=== PATIENT | male | born 1935 | race African-American/Black ===

== ENCOUNTER → 2016-06-17 | Outpatient (CLI) | payer MEDICARE, BC ==
[2016-05-27 15:00] VITALS: BP 144/83
[~2016-06-17] MED LIST: ACET500T33 PO; ALLO300T PO; CLON0.2T PO; CYAN10005 PO; DEXT1DRO7 OP; LOSA1TAB18 PO; METF500T4 PO; METO50TA2 PO; NAPR220C4 PO; SIMV20TA3 PO; allopurinol; b12
--- NOTE | 2016-06-17 08:56 | RAD ---
CT head without contrast History: Intracranial hemorrhage, fall a few weeks ago. Comparison: CT head 05/25/2016. Procedure: Axial images are obtained of the head from the skull base through the vertex without IV contrast. One or more of the following individualized dose reduction techniques were utilized for the study: Automated exposure control Adjustment of mA and/or kV according to patient's size Use of iterative reconstruction technique. Findings: There is interval resolution of the hyperdense hemorrhage component involving the right occipitoparietal junction. The hemorrhage territory now is low in attenuation with maximum dimension of the low-attenuation being 2.7 cm (previously approximately 3.5 cm). The residual low-attenuation may represent early encephalomalacia/gliosis versus residual white matter edema. No new intracranial hemorrhage is identified. No obvious acute ischemic infarction is seen. No intracranial mass is appreciated. There is no shift of midline structures or significant mass effect. Patchy, nonspecific white matter low attenuation is seen, probably from chronic microvascular ischemic disease. Bone windows demonstrate no significant calvarial abnormality. The visualized paranasal sinuses appear clear. Impression: 1. Expected evolution of hemorrhage involving the right occipital parietal junction. No new hemorrhage or acute intracranial process is identified. 2. Patchy, nonspecific white matter changes, probably from chronic microvascular ischemic disease.
== END | disposition home or self-care (01) ==
LOC: CT 08:10
PROVIDERS: ATTEND Neurological Surgery
DX: I61.9 Nontraumatic intracerebral hemorrhage, unspecified (principal)
CPT/HCPCS: 70450

== ENCOUNTER → 2016-08-08 | Outpatient (CLI) | payer MEDICARE, BC ==
[2016-05-27 15:00] VITALS: BP 144/83
--- NOTE | 2016-08-08 10:20 | RAD ---
CT of the head without contrast, 08/08/2016: History: Follow-up hemorrhage Comparison is made to a study from 06/17/2016. There is moderate cerebral atrophy. There are moderate unchanged patchy lucencies in the deep white matter bilaterally compatible with chronic ischemic change. A small area of decreased density is present in the right occipital lobe along the lateral aspect of the atrium of the right lateral ventricle. This is unchanged and apparently represents a small area of encephalomalacia related to an old intraparenchymal hemorrhage. There is no shift of the midline structures. There is no evidence of acute intracranial hemorrhage or mass effect. Mild mucosal thickening is present in the maxillary and ethmoid sinuses. No free fluid is evident in the sinuses. IMPRESSION: Chronic findings as described above, unchanged since 06/17/2016. PQRS Compliance Statement: One or more of the following individualized dose reduction techniques were utilized for this examination: 1. Automated exposure control 2. Adjustment of the mA and/or kV according to patient size 3. Use of iterative reconstruction technique
== END | disposition home or self-care (01) ==
LOC: CT 07:56
PROVIDERS: ATTEND Neurological Surgery
DX: I62.00 Nontraumatic subdural hemorrhage, unspecified (principal)
CPT/HCPCS: 70450

== ENCOUNTER 2016-08-13 11:51 | Inpatient (IN) | payer MEDICARE, BC ==
[2016-08-13] VITALS (13 sets, daily range): BP systolic 65–156; BP diastolic 42–80
[~2016-08-13] VITALS: Ht 170.2 cm; Wt 67.8 kg
[2016-08-13 12:22] LABS: BASO % 0 % (0-3); EOS % 0 % (0-3); HEMATOCRIT 49.8 % (39.0-53.0); HEMOGLOBIN 16.6 g/dL (13.0-17.5); LYMPH % 7 % (24-48); MEAN CORPUSCULAR HEMOGLOBIN 32 pg (25-35); MEAN CORPUSCULAR HGB CONC 33 g/dL (31-37); MEAN CORPUSCULAR VOLUME 96 fL (79-100); MONO % 10 % (0-9); NEUT % 83 % (31-73); PLATELET COUNT 239 x10^3/uL (140-400); RED BLOOD COUNT 5.18 x10^6/uL (4.30-5.70); RED CELL DISTRIBUTION WIDTH 14.6 % (11.5-14.5); WHITE BLOOD COUNT 13.4 x10^3/uL (4.0-11.0)
[2016-08-13] MEDS ORDERED: ADENOSINE 6 MG/2 ML VIAL IV ONE ×4 (12:22→12:45)
[2016-08-13 12:28] LABS: CALCIUM 9.5 mg/dL (8.5-10.1); CREATININE 1.5 mg/dL (0.7-1.3); GFR 54.6; POTASSIUM 3.7 mmol/L (3.5-5.1)
[2016-08-13] MEDS ORDERED: IV NORMAL SALINE 1000ML BAG 1,000 ML IV SCH (12:30)
[2016-08-13] MEDS ORDERED: NICARDIPINE HCL 25 MG/10 ML VIAL. IV ONE (12:36)
[2016-08-13 12:44] LABS: ALBUMIN 3.7 g/dL (3.4-5.0); DIRECT BILIRUBIN 0.4 mg/dL (0.0-0.2); MAGNESIUM 1.7 mg/dL (1.8-2.4); TOTAL BILIRUBIN 1.6 mg/dL (0.2-1.0); TOTAL PROTEIN 7.2 g/dL (6.4-8.2)
[2016-08-13] MEDS ORDERED: DILTIAZEM IV PUSH 25 MG/5 ML VIAL. IVP ONE (12:45)
[2016-08-13] MEDS ORDERED: DILTIAZEM 125 MG in IV DEXTROSE 5% 100 ML IV PRN (12:45)
[2016-08-13] MEDS ORDERED: HEPARIN for IV BOLUS 10,000 UNIT/10 ML VIAL. IV ONE (12:45)
[2016-08-13] MEDS ORDERED: ASPIRIN 81 MG TAB.CHEW PO ONE (12:45)
[2016-08-13] MEDS ORDERED: HEPARIN for IV BOLUS 10,000 UNIT/10 ML VIAL. IV PRN (12:45)
[2016-08-13] MEDS ORDERED: HEPARIN 25,000UTS/500ML PREMIX 500 ML IV PRN (12:45)
--- NOTE | 2016-08-13 13:03 | RAD ---
Three-view right elbow radiographs 08/13/2016 Clinical history: Right elbow pain post fall. AP, lateral and oblique digital radiographs of the right elbow were obtained. No fracture or dislocation of the right elbow is seen. There is no radiographic evidence of a joint effusion. Mild degenerative changes are seen involving the right elbow joint. Moderate enthesophyte formation is seen involving the olecranon. Impression: No acute fracture or dislocation of the right elbow is seen.
--- NOTE | 2016-08-13 13:07 | RAD ---
Three-view bilateral knee radiographs 08/13/2016 Clinical history: Fall with bilateral knee contusions. AP, oblique and crosstable lateral digital radiographs of both knees were obtained. The patient is status post left TKA. The prosthetic components are intact. No fracture or dislocation of either knee is seen. Moderate to severe degenerative changes are seen involving predominantly the medial and patellofemoral compartment of the right knee. Atherosclerotic calcification of the popliteal arteries and their branches is noted. Impression: No acute fracture or dislocation of either knee is seen.
--- NOTE | 2016-08-13 13:09 | RAD ---
AP portable chest radiograph 08/13/2016 Clinical History: Chest pain post fall. An AP portable erect digital radiograph of the chest was obtained. Comparison study is dated 05/26/2016. The cardiac silhouette is borderline enlarged. The thoracic aorta is mildly tortuous. Atherosclerotic calcification of the thoracic aorta is seen. Thoracic aorta is minimally tortuous. No acute pulmonary infiltrate is noted. No pleural effusion or pneumothorax is seen. Degenerative changes are seen involving the thoracic spine and both shoulders. Impression: No acute abnormality is seen.
[2016-08-13 13:10] LABS: INR 1.2 (0.8-1.1)
--- NOTE | 2016-08-13 13:22 | PHYS DOC ---
Past Medical History Past Medical History: Diabetes-Type II, High Cholesterol, Hypertension Past Surgical History: Other Additional Past Surgical Histo: R. knee replaced Alcohol Use: Occasionally Drug Use: None Adult General Chief Complaint Chief Complaint: RAPID HEART RATE HPI HPI Patient is a 81 year old female who presents after fall. Patient reports she tripped over a rug on Thursday night in his garage, and fell. He is unable to get up until Thursday morning, spending the night on the floor in the garage. He went to see Dr. Licea today. He was sent from Dr. Licea's office for evaluation for possibility of rhabdo, as well as a heart rate of 150 in the clinic. Patient denies any complaints at this time. He denies any pain anywhere, chest discomfort, shortness of breath, lightheadedness. No other acute complaints. He denies any history of rapid heart rate in the past. Review of Systems Review of Systems Constitutional: Denies fever or chills Eyes: Denies change in visual acuity or eye pain HENT: Denies nasal congestion or sore throat Respiratory: Denies cough or shortness of breath Cardiovascular: Denies chest pain GI: Denies abdominal pain, nausea, vomiting, bloody stools or diarrhea : Denies dysuria or hematuria Musculoskeletal: Denies back pain or joint pain Integument: Denies rash or skin lesions Neurologic: Denies headache, focal weakness or sensory changes Current Medications Current Medications Current Medications Medications (Trade) Dose Ordered Sig/Matt Start Time Stop Time Status Last Admin Dose Admin Adenosine (Adenocard) 6 mg STK-MED ONCE 08/13/16 12:25 08/13/16 12:26 DC Adenosine 12 mg 12 mg 1X ONCE 08/13/16 12:45 08/13/16 12:46 DC 08/13/16 12:34 12 MG Aspirin (Children'S Aspirin) 324 mg 1X ONCE 08/13/16 12:45 08/13/16 14:04 DC 08/13/16 13:29 324 MG Diltiazem HCl (Cardizem) 20 mg 1X ONCE 08/13/16 12:45 08/13/16 12:46 DC 08/13/16 12:44 20 MG Diltiazem HCl/ Dextrose (Cardizem) 125 ml @ 0 mls/hr CONT PRN 08/13/16 12:45 08/13/16 13:04 10 MLS/HR Heparin Sodium (Porcine) 1,700 unit PRN Q6HRS PRN 08/13/16 12:45 Heparin Sodium (Porcine) 4000 unit 4,000 unit 1X ONCE 08/13/16 12:45 08/13/16 12:54 DC 08/13/16 13:31 4,000 UNIT Heparin Sodium/ Dextrose 500 ml @ 0 mls/hr CONT PRN 08/13/16 12:45 08/13/16 13:37 0 MLS/HR Nicardipine HCl (Cardene) 25 mg STK-MED ONCE 08/13/16 12:36 08/13/16 12:37 DC Sodium Chloride (Iv Sodium Chloride 0.9% 1000ml Bag) 1,000 ml @ 1,000 mls/hr Q1H 08/13/16 12:30 08/13/16 13:29 DC 08/13/16 12:21 1,000 MLS/HR Allergies Allergies Allergies Coded Allergies Type Severity Reaction Last Updated Verified aspirin Allergy Intermediate 06/03/16 Yes Physical Exam Physical Exam Constitutional: Well developed, well nourished, no acute distress, non-toxic appearance HENT: Normocephalic, bilateral external ears normal; bruising to anterior forehead Eyes: PERRL, EOMI, conjunctiva normal, no discharge Neck: Normal range of motion, no stridor. No midline TTP, no stepoff Cardiovascular: Tachycardic, regular rhythm, no murmur Lungs & Thorax: Bilateral breath sounds clear to auscultation Abdomen: Bowel sounds normal, soft, non-distended, no TTP Skin: Warm, dry, no erythema, no rash Back: No midline tenderness, no stepoff or deformity Extremities: Bruising to b/l knees, R elbow; no point TTP; ROM and sensation to light touch preserved, distal pulses intact throughout Neurologic: Alert and oriented X 3, GCS 15, CN II-XII grossly intact, strength intact and symmetrical throughout, sensation to light touch intact throughout, no dystaxia noted Psychologic: Affect normal, judgement normal, mood normal Current Patient Data Vital Signs Vital Signs Date Time Temp Pulse Resp B/P Pulse Ox O2 Delivery O2 Flow Rate FiO2 08/13/16 13:45 96 16 119/68 97 08/13/16 12:16 98.2 Room Air 98.2 Lab Values Laboratory Tests Test 08/13/16 12:01 White Blood Count 13.4x10^3/uL (4.0-11.0) H Red Blood Count 5.18x10^6/uL (4.30-5.70) Hemoglobin 16.6g/dL (13.0-17.5) Hematocrit 49.8% (39.0-53.0) Mean Corpuscular Volume 96fL (79-100) Mean Corpuscular Hemoglobin 32pg (25-35) Mean Corpuscular Hemoglobin Concent 33g/dL (31-37) Red Cell Distribution Width 14.6% (11.5-14.5) H Platelet Count 239x10^3/uL (140-400) Neutrophils (%) (Auto) 83% (31-73) H Lymphocytes (%) (Auto) 7% (24-48) L Monocytes (%) (Auto) 10% (0-9) H Eosinophils (%) (Auto) 0% (0-3) Basophils (%) (Auto) 0% (0-3) Neutrophils # (Auto) 11.1x10^3uL (1.8-7.7) H Lymphocytes # (Auto) 1.0x10^3/uL (1.0-4.8) Monocytes # (Auto) 1.3x10^3/uL (0.0-1.1) H Eosinophils # (Auto) 0.0x10^3/uL (0.0-0.7) Basophils # (Auto) 0.0x10^3/uL (0.0-0.2) Prothrombin Time 14.0SEC (11.7-14.0) Prothrombin Time INR 1.2 (0.8-1.1) H PTT 30SEC (24-38) Sodium Level 137mmol/L (136-145) Potassium Level 3.7mmol/L (3.5-5.1) Chloride Level 95mmol/L (98-107) L Carbon Dioxide Level 29mmol/L (21-32) Anion Gap 13 (6-14) Blood Urea Nitrogen 22mg/dL (8-26) Creatinine 1.5mg/dL (0.7-1.3) H Estimated GFR (Cockcroft-Gault) 54.6 Glucose Level 306mg/dL (70-99) H Calcium Level 9.5mg/dL (8.5-10.1) Magnesium Level 1.7mg/dL (1.8-2.4) L Total Bilirubin 1.6mg/dL (0.2-1.0) H Direct Bilirubin 0.4mg/dL (0.0-0.2) H Aspartate Amino Transferase (AST) 275U/L (15-37) H Alanine Aminotransferase (ALT) 83U/L (16-63) H Alkaline Phosphatase 78U/L (46-116) Creatine Kinase 3057U/L (39-308) H Troponin I Quantitative 7.866ng/mL (0.000-0.055) Total Protein 7.2g/dL (6.4-8.2) Albumin 3.7g/dL (3.4-5.0) Thyroid Stimulating Hormone (TSH) 2.066uIU/mL (0.358-3.74) Laboratory Tests 08/13/16 12:01 Laboratory Tests 08/13/16 12:01 EKG EKG EKG (my read): narrow complex tachycardia, rate 150, normal axis, nonspecific ST changes Radiology/Procedures Radiology/Procedures CT head: IMPRESSION: 1. No acute intracranial findings. 2. Chronic right posterior temporal infarct. Moderate to severe chronic small vessel ischemic white matter change and moderate atrophy. CXR: Impression: No acute abnormality is seen. X-ray b/l knees: Impression: No acute fracture or dislocation of either knee is seen. X-ray R elbow: Impression: No acute fracture or dislocation of the right elbow is seen. Course & Med Decision Making Course & Med Decision Making Pertinent Labs and Imaging studies reviewed. (See chart for details) Patient is 81-year-old male who presents after fall and with rapid heart rate. Will check EKG, chest x-ray, labs to evaluate. CT head, x-ray right elbow, x- rays of bilateral knees ordered given bruising to these areas. Adenosine given ( 6mg then 12mg) which revealed atrial flutter. Cardizem bolus and drip ordered. Labs notable for troponin elevated to nearly 8 (?demand ischemia as patient asymptomatic), elevated CK. I discussed with the nurse for Dr. Pendleton; it CT head without acute abnormality from fall, will give aspirin and heparinize. Imaging results as above. Aspirin ordered; patient has allergy listed to this, however confirmed with family that the side effect to swelling in his feet, and I believe the risk of a serious allergic reaction is outweighed by the benefit of giving aspirin in light of the elevated troponin. Heparin also ordered, as well as fluids. Discussed results with patient and family. Discussed with Dr. Anaya, will admit under his care for further evaluation and treatment. Dragon Disclaimer Dragon Disclaimer This electronic medical record was generated, in whole or in part, using a voice recognition dictation system. Departure Departure Impression: Primary Impression: Fall Additional Impressions: Atrial flutter Elevated troponin I level Disposition: ADMITTED INPATIENT Admitting Physician: Juany Anaya Condition: GUARDED Referrals: MIYA LICEA Jr, MD (PCP) Problem Qualifiers REENA BUSCH MD Aug 13, 2016 13:22
--- NOTE | 2016-08-13 13:25 | RAD ---
EXAM: CT head without contrast. HISTORY: Fall. TECHNIQUE: Computed tomography of the head was performed without intravenous contrast. COMPARISON: 08/08/2016. FINDINGS: There is no intracranial hemorrhage. There is encephalomalacia in the right posterior temporal lobe consistent with a chronic infarct. There is moderate to severe chronic small vessel ischemic white matter change elsewhere. Prominence of the lateral ventricles and hemispheric sulci indicate moderate atrophy. The visualized paranasal sinuses appear clear. There are changes of bilateral cataract surgery. The temporal bones are unremarkable. The calvarium reveals no suspicious lesions. There is mild soft tissue swelling versus scarring along the left parietal scalp. IMPRESSION: 1. No acute intracranial findings. 2. Chronic right posterior temporal infarct. Moderate to severe chronic small vessel ischemic white matter change and moderate atrophy. *One or more of the following individualized dose reduction techniques were utilized for this examination: 1. Automated exposure control. 2. Adjustment of the mA and/or kV according to patient size. 3. Use of iterative reconstruction technique.
--- NOTE | 2016-08-13 13:30 | EKG ---
[facility] [address] [place] [address] Test Date: 2016-08-13 Test Time: 12:00:59 Pat Name: MAAME DODD Department: Room: Gender: M Skein Winder: : 1935 Requested By: REENA BUSCH Order Number: [id number] Reading MD: Measurements Intervals [place] Rate: 150 P: -118 SD: 92 QRS: 19 QRSD: 76 T: 56 QT: 292 QTc: 463 Interpretive Statements SUPRAVENTRICULAR TACHYCARDIA QRS(T) CONTOUR ABNORMALITY CONSISTENT WITH ANTEROSEPTAL INFARCT AGE UNDETERMINED RI6.01 Unconfirmed report No previous ECG available for comparison
[2016-08-13] MEDS ORDERED: DEXTROSE 50% 25 GM / 50ML DISP.SYRIN. IV PRN ×2 (14:00→15:30)
[2016-08-13] MEDS ORDERED: NITROGLYCERIN SUBLINGUAL 0.4 MG BOTTLE OF 25. SL PRN (14:00)
[2016-08-13] MEDS ORDERED: ACETAMINOPHEN 325 MG TABLET. PO PRN (14:00)
[2016-08-13] MEDS ORDERED: ONDANSETRON PF 4 MG/2 ML VIAL. IV PRN (14:00)
[2016-08-13] MEDS ORDERED: MORPHINE SULFATE 4 MG/ML DISP.SYRIN. IV PRN (14:00)
--- NOTE | 2016-08-13 15:11 | ACF ---
Admission Forms Criteria CARDIOLOGY GRG Clinical Indications for Admission to Inpatient Care ( Place 'X' for any and all applicable criteria): Hospital admission is needed for appropriate care of the patient because of ANY ONE of the following (1): [ ] I. Hemodynamic instability as indicated by ALL of the following (1)(2)(3) (4)(5) [ ]a) Vital signs or other findings not as expected for chronic patient condition or baseline [ ]b) Instability indicated by ANY ONE of the following: [ ]i) Hypotension [ ]ii) Symptomatic Tachycardia unresponsive to treatment ( e.g., analgesia, fluids, sedation as indicated) [ ]iii) Inadequate perfusion indicated by ANY ONE of the following: [ ] 1) Lactic acidosis (> 2 mmol/L) [ ] 2) New abnormal capillary refill (> 3 seconds) [ ] 3) Reduced urine output [ ] 4) New altered mental status [ ]iv) Orthostatic vital sign changes unresponsive to treatment (e.g., fluids) [ ]v) IV inotropic or vasopressor medication required to maintain adequate blood pressure or perfusion [ ] II. Severe heart failure as indicated by ANY ONE of the following(17)(18) [ ]a) Respiratory distress [ ]b) Hypotension [ ]c) Anasarca (refractory to outpatient therapy) [ ]d) Cardiac arrhythmias of immediate concern [ ]e) Myocardial ischemia [ ] III. Cardiac arrhythmias or findings of immediate concern indicated by ANY ONE of the following (19)(20): [ ] a) Heart rhythms that are inherently dangerous or unstable indicated by ANY ONE of the following (21)(22)(23): [ ] i) Resuscitated ventricular fibrillation or cardiac arrest [ ] ii) Ventricular escape rhythm [ ] iii) Sustained ventricular tachycardia (30 seconds or more of ventricular rhythm at greater than 100 beats per minute) [ ] iv) Nonsustained ventricular tachycardia and ANY ONE of the following: [ ] 1) Suspected cardiac ischemia as cause or consequence of ventricular tachycardia [ ] 2) In setting of acute myocarditis [ ] b) Unstable cardiac conduction defects indicated by ANY ONE of the following(23)(24)(25) [ ] i) Type II second-degree atrioventricular block [ ]ii) Third-degree atrioventricular block [ ]iii) New-onset left bundle branch block with suspected myocardial ischemia [ ]c) Any heart rhythm and ANY ONE of the following (21)(22)(26)(27) (28) [ ] i) Continuous long-term ECG monitoring needed (e.g., initiation of drug requiring monitoring for more than 24 hours) [ ] ii) Patient has automatic implanted cardioverter defibrillator that is repeatedly firing, malfunctioning, or in need of immediate adjustment of settings beyond the scope of ambulatory or observation care [ ]d) Heart rhythms of concern due to ANY ONE of the following: [ ] i) Hypotension [ ] ii) Respiratory distress [ ] iii) Association with other significant symptoms (e.g., bradycardia with syncope or ongoing dizziness, supraventricular tachycardia with chest pain (14)(15)(17) [ ] IV. Monitoring for cardiac contusion beyond the scope of observation care needed [A](30)(31)(32) [ ] V. Surgical or device complication (e.g., valve replacement complication , pacemaker dysfunction) (35)(41)(44)(45)(46) [ ] . Inpatient palliative care needed. [B](49) Also use Inpatient Palliative Care Criteria [ ] VII. Nonbacterial thrombotic (marantic) endocarditis (36)(43)(47)(48) [X] VIII. Cardiology condition, symptom, or finding for which emergency and observation care has failed or are not considered appropriate. [ ] IX. Acute valvular disease requiring inpatient as indicated by ANY ONE of the following (41) [ ]a) Acute valvular regurgitation (42) [ ]b) Noninfectious valvulitis (43) [ ]c) Obstructive valve thrombosis [ ]d) Paravalvular leak [ ]e) Other significant valvular disorder remaining after emergency or observation level of care (as appropriate) [ ]X. Pericardial disease requiring inpatient treatment as indicated by ANY ONE of the following (33)(34)(35)(36)(37) [ ]a) Suspected tamponade (38)(39)(40) [ ]b) Hemopericardium [ ]c) Other significant pericardial disorder remaining after emergency or observation level of care (as appropriate) [ ] XI. Cardiac ischemia beyond scope of emergency and observation care. [ ] XII. Hypertension requiring inpatient treatment as indicated by ANY ONE of the following (6)(7)(8) [ ]a) SBP greater than 220 mm Hg or DBP greater than 120 mmHg despite treatment [ ]b) SBP greater than 140 mm Hg or DBP greater than 100 mm Hg with evidence of acute end organ damage as indicated by ANY ONE of the following [ ] i) Encephalopathy [ ] ii) Acute renal failure as indicated by new onset of ANY ONE of the following (9)(10)(11)(12)(13) [ ]1) 3-fold rise in serum creatinine from baseline [ ]2) Serum creatinine greater than 4 mg/dL ( 354 micromoles/L) with acute rise greater than 0.5 mg/dL (44.2 micromoles/L) [ ]3) Reduction of more than 75% in estimated glomerular filtration rate from baseline [ ]4) Estimated glomerular filtration rate less than 35 mL/min/1.73m2 (0.59 mL/sec/1.73m2) in child up to 18 years of age [ ]5) Cessation of urine output indicated by ALL of the following [ ]A. Adequate volume status [ ]B. Inadequate urine output as indicated by ANY ONE of the following [ ]a. Urine output less than 0.3 mL/kg/hr for 24 hours [ ]b. Anuria (urine output less than 0.1 mL/kg/hr) for 12 hours [ ] iii) Aortic dissection [ ] iv) Myocardial Ischemia [ ] v) Left ventricular heart failure [ ]vi) Retinal Hemorrhage [ ]vii) Other significant finding [ ]c) Hypertension in child requiring inpatient treatment as indicated by ALL of the following(14)(15)(16) [ ] i) Outpatient treatment not effective, not available, or not appropriate [ ]ii) SBP or DBP greater than 95th percentile for age [ ]iii) Evidence of acute end organ damage as indicated by ANY ONE of the following [ ]1) Altered mental status [ ]2) Acute renal failure as indicated by new onset of ANY ONE of the following(9)(10)(11)(12)(13) [ ]A. 3-fold rise in serum creatinine from baseline [ ]B. Serum creatinine greater than 4 mg/dL (354 micromoles/L) with acute rise greater than 0.5 mg/dL (44.2 micromoles/L) [ ]C. Reduction of more than 75% in estimated glomerular filtration rate from baseline [ ]D. Estimated glomerular filtration rate less than 35 mL/min/1.73m2 (0.59 mL/sec/1.73m2) in child up to 18 years of age [ ]E. Cessation of urine output indicated by ALL of the following [ ]a. Adequate volume status [ ]b. Inadequate urine output as indicated by ANY ONE of the following [ ]i) Urine output less than 0.3 mL/kg/hr for 24 hours [ ]ii) Anuria ( urine output less than 0.1 mL/kg/hr) for 12 hours [ ]3) Severe headache [ ]4) Visual disturbance [ ]5) Retinal hemorrhage [ ]6) Other significant finding [ ]XIII. Complications of transplanted heart indicated by ANY ONE of the following(61): [ ]a) Acute graft rejection requiring inpatient management (eg, intravenous immunosuppression)(62)(63) [ ]b) Acute graft heart failure indicated by ANY ONE of the following(64): [ ]i) Hemodynamic instability [ ]ii) Cardiac arrhythmias of immediate concern [ ]iii) Pulmonary edema that is very severe (eg, mechanical ventilation needed, imminent or likely, need for 100% oxygen to keep oxygen saturation above 90%) [ ]iv) Pulmonary edema that is persistent as indicated by ALL of the following: [ ]1) New need for oxygen therapy to keep oxygen saturation above 90% (or increased FiO2 need from baseline) [ ]2) Has not improved sufficiently with emergency department or observation care IV diuretics or other heart failure treatments[E] [ ]v) Altered mental status that is severe or persistent [ ]vi) Increased creatinine (new on laboratory test) with reduction of more than 50% in estimated glomerular filtration rate from baseline [ ]vii) Progressively (ongoing) rising creatinine (known from past laboratory test) with reduction of more than 25% in estimated glomerular filtration rate from baseline [ ]viii) Acute renal failure [ ]ix) Acute peripheral ischemia (eg, examination shows pulseless, cool, mottled, or cyanotic extremity) [ ]x) Pulmonary artery catheter monitoring needed [ ]xi) Other sign or symptom of heart failure requiring inpatient treatment (ie, too severe or not responsive to outpatient and observation care treatment) [ ]c) Infection requiring inpatient management (eg, Hemodynamic instability, need for intravenous antimicrobial treatment)(66)(67)(68)(69)(70) [ ]d) Cardiac allograft vasculopathy requiring inpatient management ( eg evidence of cardiac ischemia)(71) [ ]e) Other complication of transplanted heart (eg, stroke, severe pulmonary hypertension, severe valvular dysfunction) requiring inpatient management(72) The original [facility] content created by [facility] has been revised. The portions of the content which have been revised are identified through the use of italic text or in bold, and [facility] has neither reviewed nor approved the modified material. All other unmodified content is copyright [facility]. Please see references footnoted in the original [facility] edition 2016 Admission Criteria Met?: Yes MALI HARTMAN Aug 13, 2016 15:11
[2016-08-13] MEDS ORDERED: ACETAMINOPHEN 500 MG TABLET PO PRN (15:30)
[2016-08-13] MEDS ORDERED: MAGNESIUM SULFATE 2GM 50 ML IV ONE (15:30)
--- NOTE | 2016-08-13 15:31 | PDOC1 ---
History and Physical Date of Admission Date of Admission DATE: 08/13/16 TIME: 15:23 Identification/Chief Complaint Chief Complaint fall Source Source: Chart review, Patient History of Present Illness History of Present Illness fell yesterday in his garage down almost 24 hours, and has mult bruises to knees, and elbows, some abraasions he feels well now, was sent by PCP for HR 150, was in afib RVR had last fallen in may, he is not agreeable now to assisted living and wasnt at that time either, he is now able to stand, and reports that he feels pretty well,, needs assist Past Medical History Cardiovascular: HTN, Hyperlipidemia Endocrine: Diabetes Family History Family History: No Significant Social History Smoke: No ALCOHOL: none Current Problem List Problem List Problems Medical Problems: (1) Atrial flutter Status: Acute (2) Elevated troponin I level Status: Acute (3) Fall Status: Acute Problems: Current Medications Current Medications Current Medications Sodium Chloride (Iv Sodium Chloride 0.9% 1000ml Bag) 1,000 ml @ 1,000 mls/hr Q1H IV Last administered on 08/13/16 12:21; Start 08/13/16 at 12:30; Stop at 13:29; Status DC Adenosine (Adenocard) 6 mg STK-MED ONCE IV ; Start 08/13/16 at 12:22; Stop at 12:23; Status DC Adenosine (Adenocard) 6 mg 1X ONCE IV Last administered on 08/13/16 12:30; Start 08/13/16 at 12:30; Stop 08/13/16 at 12:31; Status DC Adenosine (Adenocard) 6 mg STK-MED ONCE IV ; Start 08/13/16 at 12:25; Stop at 12:26; Status DC Adenosine 12 mg 12 mg 1X ONCE IV Last administered on 08/13/16 12:34; Start at 12:45; Stop 08/13/16 at 12:46; Status DC Diltiazem HCl/ Dextrose (Cardizem) 125 ml @ 0 mls/hr CONT PRN IV SEE I/O RECORD Last administered on 08/13/16 13:04; Start 08/13/16 at 12:45 Diltiazem HCl (Cardizem) 20 mg 1X ONCE IVP Last administered on 08/13/16 12:44 ; Start 08/13/16 at 12:45; Stop 08/13/16 at 12:46; Status DC Nicardipine HCl (Cardene) 25 mg STK-MED ONCE IV ; Start 08/13/16 at 12:36; Stop 08/13/16 at 12:37; Status DC Aspirin (Children'S Aspirin) 324 mg 1X ONCE PO Last administered on 08/13/16 13:29; Start 08/13/16 at 12:45; Stop 08/13/16 at 14:04; Status DC Heparin Sodium (Porcine) 4000 unit 4,000 unit 1X ONCE IV Last administered on 08/13/16 13:31; Start 08/13/16 at 12:45; Stop 08/13/16 at 12:54; Status DC Heparin Sodium/ Dextrose 500 ml @ 0 mls/hr CONT PRN IV SEE I/O RECORD Last administered on 08/13/16 13:37; Start 08/13/16 at 12:45 Heparin Sodium (Porcine) 1,700 unit PRN Q6HRS PRN IV FOR UFH LEVEL LESS THAN 0.2; Start 08/13/16 at 12:45 Ondansetron HCl (Zofran) 4 mg PRN Q8HRS PRN IV NAUSEA/VOMITING; Start 08/13/16 at 14:00; Stop 08/14/16 at 13:59 Morphine Sulfate 4 mg 4 mg PRN Q2HR PRN IV PAIN; Start 08/13/16 at 14:00; Stop 08/14/16 at 13:59 Sodium Chloride (Iv Sodium Chloride 0.9% 1000ml Bag) 1,000 ml @ 125 mls/hr Q8H IV ; Start 08/13/16 at 13:46; Stop 08/14/16 at 13:45 Acetaminophen (Tylenol) 650 mg PRN Q4HRS PRN PO FEVER; Start 08/13/16 at 14:00; Stop 08/14/16 at 13:59 Nitroglycerin (Nitrostat) 0.4 mg PRN Q5MIN PRN SL CHEST PAIN; Start 08/13/16 at 14:00; Stop 08/14/16 at 13:59 Insulin Aspart (Novolog) 0-7 UNITS TIDWMEALS SQ ; Start 08/13/16 at 17:00 Dextrose 12.5 gm PRN Q15MIN PRN IV SEE COMMENTS; Start 08/13/16 at 14:00 Active Scripts Active Reported Artificial Tears (Dextran 70/Hypromellose) 1 Each Droperette 1 Each OP PRN Aleve (Naproxen Sodium) 220 Mg Capsule 220 Mg PO BID PRN Tylenol Extra Strength (Acetaminophen) 500 Mg Tablet 500 Mg PO PRN Vitamin B-12 (Cyanocobalamin (Vitamin B-12)) 1,000 Mcg Tablet 1 Tab PO DAILY Simvastatin 20 Mg Tablet 20 Mg PO HS Metformin Hcl 500 Mg Tablet 500 Mg PO BIDWMEALS Losartan-Hctz 100-12.5 Mg Tab (Losartan/Hydrochlorothiazide) 1 Each Tablet 1 Each PO DAILY Clonidine Hcl 0.2 Mg Tablet 0.2 Mg PO BID Allopurinol 300 Mg Tablet 300 Mg PO DAILY Metoprolol Tartrate 50 Mg Tablet 1 Tab PO BID [b12] Artificial Tears (Dextran 70/Hypromellose) 1 Each Droperette 1 Each OP PRN PRN Simvastatin 20 Mg Tablet 1 Tab PO QHS Metformin Hcl 500 Mg Tablet 1 Tab PO BID Clonidine Hcl 0.2 Mg Tablet 1 Tab PO BID [allopurinol] DAILY Allergies Allergies: Coded Allergies: aspirin (Verified Allergy, Intermediate, 06/03/16) ROS General: No: Appetite, Chills, Fatigue, Malaise, Night Sweats, Other PSYCHOLOGICAL ROS: No: Anxiety, Behavioral Disorder, Concentration difficultie , Decreased libido, Depression, Disorientation, Hallucinations, Hostility, Irritablity, Memory difficulties, Mood Swings, Obsessive thoughts, Other, Physical abuse, Sexual abuse, Sleep disturbances, Suicidal ideation Eyes: No Blurry vision, No Decreased vision, No Double vision, No Dry eyes, No Excessive tearing, No Eye Pain, No Itchy Eyes, No Loss of vision, No Other, No Photophobia, No Scotomata, No Uses contacts, No Uses glasses HEENT: No: Epistaxis, Heacaches, Hearing change, Nasal congestion, Nasal discharge, Oral lesions, Other, Sinus pain, Sneezing, Snoring, Sore Throat, Tinnitus, Vertigo, Visual Changes, Vocal changes Respiratory: No: Cough, Hemoptysis, Orthopnea, Other, Pleuritic Pain, SOB with excertion, Shortness of breath, Sputum Changes, Stridor, Tachypnea, Wheezing Cardiovascular: No Chest Pain, No Edema, No Lt Headedness, No Orthopnea, No Other, No Palpitations, No Paroxysmal Noc. Dyspnea Gastrointestinal: No Abdominal Pain, No Constipation, No Diarrhea, No Hematochezia, No Melena, No Nausea, No Other, No Vomiting Genitourinary: No , No , No , No , No , No , No , No Discharge, No Dysuria, No Flank Pain, No Frequency, No Hematuria, No Incontinence, No Other, No Pain, No Retention, No Urgency Musculoskeletal: Yes Gait Disturbance, Yes Joint Pain, Yes Joint Stiffness Neurological: No Behavorial Changes, No Bowel/Bladder ControlChng, No Confusion , No Dizziness, No Gait Disturbance, No Headaches, No Impaired Coord/balance, No Memory Loss, No Numbness/Tingling, No Other, No Seizures, No Speech Problems , No Tremors, No Visual Changes, No Weakness Skin: No Acne, No Dry Skin, No Eczema, No Hair Changes, No Lumps, No Mole Changes, No Mottling, No Nail Changes, No Other, No Pruritus, No Rash, No Skin Lesion Changes Physical Exam General: Alert, Oriented X3, Cooperative, No acute distress HEENT: Atraumatic, PERRLA, EOMI Lungs: Clear to auscultation Heart: irregularly irregular Abdomen: Normal bowel sounds, Soft Rectal Exam: not examined Extremities: No clubbing, No edema, Normal pulses Skin: Other (mult bruises and abrasions, photos taken) Neuro: Normal speech, Normal tone Psych/Mental Status: Mental status NL, Mood NL Vitals Vitals Vital Signs Date Time Temp Pulse Resp B/P Pulse Ox O2 Delivery O2 Flow Rate FiO2 08/13/16 14:50 98.4 107 20 137/78 99 Room Air 98.4 Labs Labs Laboratory Tests Test 08/13/16 12:01 White Blood Count 13.4x10^3/uL (4.0-11.0) Red Blood Count 5.18x10^6/uL (4.30-5.70) Hemoglobin 16.6g/dL (13.0-17.5) Hematocrit 49.8% (39.0-53.0) Mean Corpuscular Volume 96fL (79-100) Mean Corpuscular Hemoglobin 32pg (25-35) Mean Corpuscular Hemoglobin Concent 33g/dL (31-37) Red Cell Distribution Width 14.6% (11.5-14.5) Platelet Count 239x10^3/uL (140-400) Neutrophils (%) (Auto) 83% (31-73) Lymphocytes (%) (Auto) 7% (24-48) Monocytes (%) (Auto) 10% (0-9) Eosinophils (%) (Auto) 0% (0-3) Basophils (%) (Auto) 0% (0-3) Neutrophils # (Auto) 11.1x10^3uL (1.8-7.7) Lymphocytes # (Auto) 1.0x10^3/uL (1.0-4.8) Monocytes # (Auto) 1.3x10^3/uL (0.0-1.1) Eosinophils # (Auto) 0.0x10^3/uL (0.0-0.7) Basophils # (Auto) 0.0x10^3/uL (0.0-0.2) Prothrombin Time 14.0SEC (11.7-14.0) Prothromb Time International Ratio 1.2 (0.8-1.1) Activated Partial Thromboplast Time 30SEC (24-38) Sodium Level 137mmol/L (136-145) Potassium Level 3.7mmol/L (3.5-5.1) Chloride Level 95mmol/L (98-107) Carbon Dioxide Level 29mmol/L (21-32) Anion Gap 13 (6-14) Blood Urea Nitrogen 22mg/dL (8-26) Creatinine 1.5mg/dL (0.7-1.3) Estimated GFR (Cockcroft-Gault) 54.6 Glucose Level 306mg/dL (70-99) Calcium Level 9.5mg/dL (8.5-10.1) Magnesium Level 1.7mg/dL (1.8-2.4) Total Bilirubin 1.6mg/dL (0.2-1.0) Direct Bilirubin 0.4mg/dL (0.0-0.2) Aspartate Amino Transf (AST/SGOT) 275U/L (15-37) Alanine Aminotransferase (ALT/SGPT) 83U/L (16-63) Alkaline Phosphatase 78U/L (46-116) Creatine Kinase 3057U/L (39-308) Troponin I Quantitative 7.866ng/mL (0.000-0.055) Total Protein 7.2g/dL (6.4-8.2) Albumin 3.7g/dL (3.4-5.0) Thyroid Stimulating Hormone (TSH) 2.066uIU/mL (0.358-3.74) Laboratory Tests Test 08/13/16 12:01 White Blood Count 13.4x10^3/uL (4.0-11.0) Red Blood Count 5.18x10^6/uL (4.30-5.70) Hemoglobin 16.6g/dL (13.0-17.5) Hematocrit 49.8% (39.0-53.0) Mean Corpuscular Volume 96fL (79-100) Mean Corpuscular Hemoglobin 32pg (25-35) Mean Corpuscular Hemoglobin Concent 33g/dL (31-37) Red Cell Distribution Width 14.6% (11.5-14.5) Platelet Count 239x10^3/uL (140-400) Neutrophils (%) (Auto) 83% (31-73) Lymphocytes (%) (Auto) 7% (24-48) Monocytes (%) (Auto) 10% (0-9) Eosinophils (%) (Auto) 0% (0-3) Basophils (%) (Auto) 0% (0-3) Neutrophils # (Auto) 11.1x10^3uL (1.8-7.7) Lymphocytes # (Auto) 1.0x10^3/uL (1.0-4.8) Monocytes # (Auto) 1.3x10^3/uL (0.0-1.1) Eosinophils # (Auto) 0.0x10^3/uL (0.0-0.7) Basophils # (Auto) 0.0x10^3/uL (0.0-0.2) Prothrombin Time 14.0SEC (11.7-14.0) Prothromb Time International Ratio 1.2 (0.8-1.1) Activated Partial Thromboplast Time 30SEC (24-38) Sodium Level 137mmol/L (136-145) Potassium Level 3.7mmol/L (3.5-5.1) Chloride Level 95mmol/L (98-107) Carbon Dioxide Level 29mmol/L (21-32) Anion Gap 13 (6-14) Blood Urea Nitrogen 22mg/dL (8-26) Creatinine 1.5mg/dL (0.7-1.3) Estimated GFR (Cockcroft-Gault) 54.6 Glucose Level 306mg/dL (70-99) Calcium Level 9.5mg/dL (8.5-10.1) Magnesium Level 1.7mg/dL (1.8-2.4) Total Bilirubin 1.6mg/dL (0.2-1.0) Direct Bilirubin 0.4mg/dL (0.0-0.2) Aspartate Amino Transf (AST/SGOT) 275U/L (15-37) Alanine Aminotransferase (ALT/SGPT) 83U/L (16-63) Alkaline Phosphatase 78U/L (46-116) Creatine Kinase 3057U/L (39-308) Troponin I Quantitative 7.866ng/mL (0.000-0.055) Total Protein 7.2g/dL (6.4-8.2) Albumin 3.7g/dL (3.4-5.0) Thyroid Stimulating Hormone (TSH) 2.066uIU/mL (0.358-3.74) VTE Prophylaxis Ordered VTE Prophylaxis Devices: Yes VTE Pharmacological Prophylaxi: No Assessment/Plan Assessment/Plan fall acute rhabdomyolysis, IV fluid, renal consult weakenss and fall STEMI, trop elevation, CV consulted, heparin gtt, asa, admit, check lipids Afib RVR, cardizem gtt, w/ acute on chronic diastolic CHF htn, longstanding, cont home meds, DM2, CKD3, consult renal for proph for cardiac cath may be needed, hold metformin admit to cardiac tele STEVIE DECKER MD Aug 13, 2016 15:31
[2016-08-13] MEDS ORDERED: NAPROXEN 250 MG TABLET PO PRN (15:45)
[2016-08-13] MEDS ORDERED: ANTI-COAG MONITOR BY PHARMACY. MC PRN (16:00)
[2016-08-13] MEDS ORDERED: HYDROCHLOROTHIAZIDE 12.5 MG CAPSULE. PO SCH (16:00)
[2016-08-13] MEDS ORDERED: POLYVINYL ALCOHOL 1.4% OPHTH SOLUTION 15ML BOTTLE. OU PRN (16:00)
[2016-08-13] MEDS: IV NORMAL SALINE 1000ML BAG 1,000 ML IV SCH (16:25)
[2016-08-13] MEDS: INSULIN ASPART 300 UNITS/3 ML INSULN.PEN SQ SCH (17:00)
[2016-08-13] MEDS ORDERED: INSULIN ASPART 300 UNITS/3 ML INSULN.PEN SQ SCH (17:00)
[2016-08-13] MEDS ORDERED: METFORMIN 500 MG TABLET. PO SCH ×2 (17:00→21:00)
[2016-08-13] MEDS: ALLOPURINOL 300 MG TABLET. PO SCH (17:44)
[2016-08-13] MEDS: LOSARTAN POTASSIUM 50 MG TABLET. PO SCH (17:45)
--- NOTE | 2016-08-13 18:53 | PDOC2 ---
CONSULT Date of Consult Date of Consult DATE: 08/13/16 TIME: 18:26 Reason for Consult Reason for Consult: Mary romano Referring Physician Referring Physician: Dr. Anaya Identification/Chief Complaint Chief Complaint Mary romano after a fall History of Present Illness Reason for Visit: This patient is a 81-year-old gentleman that has a known history of hypertension. He has been a little depressed since his last year. He has been losing weight and getting a little cachectic. The patient was at home when he had a fall and was on the floor in the garage concrete floor for probably close to 24 hours. He was brought to the emergency room where he was found to have multiple areas of ecchymosis and excoriations including the face the chest legs and both knees. The patient was in atrial fibrillation. He has a known history of fall hypertension but the last time that I saw him in the office he was in sinus rhythm. The patient denies having any chest pains, he denies having any loss of consciousness. Past Medical History Cardiovascular: HTN, Hyperlipidemia Endocrine: Diabetes Family History Family History: No Significant Social History No ALCOHOL: none Current Problem List Problem List Problems Medical Problems: (1) Atrial flutter Status: Acute (2) Elevated troponin I level Status: Acute (3) Fall Status: Acute Current Medications Current Medications Current Medications Sodium Chloride (Iv Sodium Chloride 0.9% 1000ml Bag) 1,000 ml @ 1,000 mls/hr Q1H IV Last administered on 08/13/16 12:21; Start 08/13/16 at 12:30; Stop at 13:29; Status DC Adenosine (Adenocard) 6 mg STK-MED ONCE IV ; Start 08/13/16 at 12:22; Stop at 12:23; Status DC Adenosine (Adenocard) 6 mg 1X ONCE IV Last administered on 08/13/16 12:30; Start 08/13/16 at 12:30; Stop 08/13/16 at 12:31; Status DC Adenosine (Adenocard) 6 mg STK-MED ONCE IV ; Start 08/13/16 at 12:25; Stop at 12:26; Status DC Adenosine 12 mg 12 mg 1X ONCE IV Last administered on 08/13/16 12:34; Start at 12:45; Stop 08/13/16 at 12:46; Status DC Diltiazem HCl/ Dextrose (Cardizem) 125 ml @ 0 mls/hr CONT PRN IV SEE I/O RECORD Last administered on 08/13/16 13:04; Start 08/13/16 at 12:45 Diltiazem HCl (Cardizem) 20 mg 1X ONCE IVP Last administered on 08/13/16 12:44 ; Start 08/13/16 at 12:45; Stop 08/13/16 at 12:46; Status DC Nicardipine HCl (Cardene) 25 mg STK-MED ONCE IV ; Start 08/13/16 at 12:36; Stop 08/13/16 at 12:37; Status DC Aspirin (Children'S Aspirin) 324 mg 1X ONCE PO Last administered on 08/13/16 13:29; Start 08/13/16 at 12:45; Stop 08/13/16 at 14:04; Status DC Heparin Sodium (Porcine) 4000 unit 4,000 unit 1X ONCE IV Last administered on 08/13/16 13:31; Start 08/13/16 at 12:45; Stop 08/13/16 at 12:54; Status DC Heparin Sodium/ Dextrose 500 ml @ 0 mls/hr CONT PRN IV SEE I/O RECORD Last administered on 08/13/16 13:37; Start 08/13/16 at 12:45; Stop 08/13/16 at 18:09; Status DC Heparin Sodium (Porcine) 1,700 unit PRN Q6HRS PRN IV FOR UFH LEVEL LESS THAN 0.2; Start 08/13/16 at 12:45; Stop 08/13/16 at 18:09; Status DC Ondansetron HCl (Zofran) 4 mg PRN Q8HRS PRN IV NAUSEA/VOMITING; Start 08/13/16 at 14:00; Stop 08/14/16 at 13:59 Morphine Sulfate 4 mg 4 mg PRN Q2HR PRN IV PAIN; Start 08/13/16 at 14:00; Stop 08/14/16 at 13:59 Sodium Chloride (Iv Sodium Chloride 0.9% 1000ml Bag) 1,000 ml @ 125 mls/hr Q8H IV Last administered on 08/13/16 16:25; Start 08/13/16 at 13:46; Stop 08/14/16 at 13:45 Acetaminophen (Tylenol) 650 mg PRN Q4HRS PRN PO FEVER; Start 08/13/16 at 14:00; Stop 08/14/16 at 13:59 Nitroglycerin (Nitrostat) 0.4 mg PRN Q5MIN PRN SL CHEST PAIN; Start 08/13/16 at 14:00; Stop 08/14/16 at 13:59 Insulin Aspart (Novolog) 0-7 UNITS TIDWMEALS SQ ; Start 08/13/16 at 17:00; Status Cancel Dextrose 12.5 gm PRN Q15MIN PRN IV SEE COMMENTS; Start 08/13/16 at 14:00; Status Cancel Acetaminophen (Tylenol) 500 mg PRN Q8HRS PRN PO PAIN; Start 08/13/16 at 15:30 Allopurinol (Zyloprim) 300 mg DAILY PO Last administered on 08/13/16t 17:44; Start 08/13/16 at 16:00 Clonidine HCl (Catapres) 0.2 mg BID PO ; Start 08/13/16 at 21:00; Status Cancel Clonidine HCl (Catapres) 0.2 mg BID PO ; Start 08/13/16 at 21:00 Cyanocobalamin (Vitamin B-12) 1,000 mcg DAILY PO ; Start 08/14/16 at 09:00 Metformin HCl (Glucophage) 500 mg BID PO ; Start 08/13/16 at 21:00; Stop 08/13/16 at 21:00; Status DC Metformin HCl (Glucophage) 500 mg BIDWMEALS PO ; Start 08/13/16 at 17:00; Stop at 17:00; Status DC Metoprolol Tartrate (Lopressor) 50 mg BID PO ; Start 08/13/16 at 21:00 Simvastatin (Zocor) 20 mg QHS PO ; Start 08/13/16 at 21:00; Status UNV Atorvastatin Calcium (Lipitor) 10 mg QHS PO ; Start 08/13/16 at 21:00 Artificial Tears (Artificial Tears) 1 drop PRN Q15MIN PRN OU DRY EYE; Start 08/13/16 at 16:00 Non-Formulary Medication 1 each DAILY PO ; Start 08/14/16 at 09:00; Status UNV Naproxen (Naprosyn) 250 mg PRN BID PRN PO INFLAMM; Start 08/13/16 at 15:45 Insulin Aspart (Novolog) 0-7 UNITS TIDWMEALS SQ ; Start 08/13/16 at 17:00 Dextrose 12.5 gm PRN Q15MIN PRN IV SEE COMMENTS; Start 08/13/16 at 15:30 Insulin Detemir 10 units 10 units QHS SQ ; Start 08/13/16 at 21:00 Magnesium Sulfate/ Dextrose (Magnesium Sulfate PREMIX 2GM) 50 ml @ 25 mls/hr 1X ONCE IV Last administered on 08/13/16 16:25; Start 08/13/16 at 15:30; Stop 08/13/16 at 17:29; Status DC Losartan Potassium (Cozaar) 100 mg DAILY PO Last administered on 08/13/16 17:45 ; Start 08/13/16 at 16:00 Hydrochlorothiazide (Microzide) 12.5 mg DAILY PO Last administered on 08/13/16 17:44; Start 08/13/16 at 16:00 Info (Anti-Coagulation Monitoring By Pharmacy) 1 each PRN DAILY PRN MC SEE COMMENTS; Start 08/13/16 at 16:00 Influenza Virus Vaccine Quadrival (Fluarix Quad [id number] Syringe) 0.5 ml ONCE ONCE VAX IM ; Start 08/14/16 at 18:30; Stop 08/14/16 at 18:31 Pneumococcal Polyvalent Vaccine (Pneumovax 23) 0.5 ml ONCE ONCE VAX IM ; Start 08/14/16 at 18:30; Stop 08/14/16 at 18:31 Active Scripts Active Reported Metoprolol Tartrate 50 Mg Tablet 1 Tab PO BID [b12] Artificial Tears (Dextran 70/Hypromellose) 1 Each Droperette 1 Each OP PRN PRN Simvastatin 20 Mg Tablet 1 Tab PO QHS Metformin Hcl 500 Mg Tablet 1 Tab PO BID Clonidine Hcl 0.2 Mg Tablet 1 Tab PO BID [allopurinol] DAILY Artificial Tears (Dextran 70/Hypromellose) 1 Each Droperette 1 Each OP PRN Aleve (Naproxen Sodium) 220 Mg Capsule 220 Mg PO BID PRN Tylenol Extra Strength (Acetaminophen) 500 Mg Tablet 500 Mg PO PRN Vitamin B-12 (Cyanocobalamin (Vitamin B-12)) 1,000 Mcg Tablet 1 Tab PO DAILY Simvastatin 20 Mg Tablet 20 Mg PO HS Metformin Hcl 500 Mg Tablet 500 Mg PO BIDWMEALS Losartan-Hctz 100-12.5 Mg Tab (Losartan/Hydrochlorothiazide) 1 Each Tablet 1 Each PO DAILY Clonidine Hcl 0.2 Mg Tablet 0.2 Mg PO BID Allopurinol 300 Mg Tablet 300 Mg PO DAILY Allergies Allergies: Coded Allergies: aspirin (Verified Allergy, Intermediate, 06/03/16) Physical Exam Physical Exam The patient was not in acute distress at the time that I saw him. H EENT pupils are reactive. Multiple excoriations and ecchymosis to the face. Neck is supple no JVD. Lungs are clear. Heart regular rate and rhythm S1-S2 heart sounds are muffled and distant. Abdomen is soft bowel sounds are present. Extremities there are excoriations and ecchymosis to both knees. Neurological exam was grossly intact. Vitals VITALS Vital Signs Date Time Temp Pulse Resp B/P Pulse Ox O2 Delivery O2 Flow Rate FiO2 08/13/16 17:45 91 133/75 08/13/16 17:14 Room Air 08/13/16 14:50 98.4 20 99 98.4 Labs Labs Laboratory Tests Test 08/13/16 12:01 08/13/16 17:16 White Blood Count 13.4x10^3/uL (4.0-11.0) Red Blood Count 5.18x10^6/uL (4.30-5.70) Hemoglobin 16.6g/dL (13.0-17.5) Hematocrit 49.8% (39.0-53.0) Mean Corpuscular Volume 96fL (79-100) Mean Corpuscular Hemoglobin 32pg (25-35) Mean Corpuscular Hemoglobin Concent 33g/dL (31-37) Red Cell Distribution Width 14.6% (11.5-14.5) Platelet Count 239x10^3/uL (140-400) Neutrophils (%) (Auto) 83% (31-73) Lymphocytes (%) (Auto) 7% (24-48) Monocytes (%) (Auto) 10% (0-9) Eosinophils (%) (Auto) 0% (0-3) Basophils (%) (Auto) 0% (0-3) Neutrophils # (Auto) 11.1x10^3uL (1.8-7.7) Lymphocytes # (Auto) 1.0x10^3/uL (1.0-4.8) Monocytes # (Auto) 1.3x10^3/uL (0.0-1.1) Eosinophils # (Auto) 0.0x10^3/uL (0.0-0.7) Basophils # (Auto) 0.0x10^3/uL (0.0-0.2) Prothrombin Time 14.0SEC (11.7-14.0) Prothromb Time International Ratio 1.2 (0.8-1.1) Activated Partial Thromboplast Time 30SEC (24-38) Sodium Level 137mmol/L (136-145) Potassium Level 3.7mmol/L (3.5-5.1) Chloride Level 95mmol/L (98-107) Carbon Dioxide Level 29mmol/L (21-32) Anion Gap 13 (6-14) Blood Urea Nitrogen 22mg/dL (8-26) Creatinine 1.5mg/dL (0.7-1.3) Estimated GFR (Cockcroft-Gault) 54.6 Glucose Level 306mg/dL (70-99) Calcium Level 9.5mg/dL (8.5-10.1) Magnesium Level 1.7mg/dL (1.8-2.4) Total Bilirubin 1.6mg/dL (0.2-1.0) Direct Bilirubin 0.4mg/dL (0.0-0.2) Aspartate Amino Transf (AST/SGOT) 275U/L (15-37) Alanine Aminotransferase (ALT/SGPT) 83U/L (16-63) Alkaline Phosphatase 78U/L (46-116) Creatine Kinase 3057U/L (39-308) Troponin I Quantitative 7.866ng/mL (0.000-0.055) Total Protein 7.2g/dL (6.4-8.2) Albumin 3.7g/dL (3.4-5.0) Thyroid Stimulating Hormone (TSH) 2.066uIU/mL (0.358-3.74) Glucose (Fingerstick) 80mg/dL (70-99) Laboratory Tests Test 08/13/16 12:01 08/13/16 17:16 White Blood Count 13.4x10^3/uL (4.0-11.0) Red Blood Count 5.18x10^6/uL (4.30-5.70) Hemoglobin 16.6g/dL (13.0-17.5) Hematocrit 49.8% (39.0-53.0) Mean Corpuscular Volume 96fL (79-100) Mean Corpuscular Hemoglobin 32pg (25-35) Mean Corpuscular Hemoglobin Concent 33g/dL (31-37) Red Cell Distribution Width 14.6% (11.5-14.5) Platelet Count 239x10^3/uL (140-400) Neutrophils (%) (Auto) 83% (31-73) Lymphocytes (%) (Auto) 7% (24-48) Monocytes (%) (Auto) 10% (0-9) Eosinophils (%) (Auto) 0% (0-3) Basophils (%) (Auto) 0% (0-3) Neutrophils # (Auto) 11.1x10^3uL (1.8-7.7) Lymphocytes # (Auto) 1.0x10^3/uL (1.0-4.8) Monocytes # (Auto) 1.3x10^3/uL (0.0-1.1) Eosinophils # (Auto) 0.0x10^3/uL (0.0-0.7) Basophils # (Auto) 0.0x10^3/uL (0.0-0.2) Prothrombin Time 14.0SEC (11.7-14.0) Prothromb Time International Ratio 1.2 (0.8-1.1) Activated Partial Thromboplast Time 30SEC (24-38) Sodium Level 137mmol/L (136-145) Potassium Level 3.7mmol/L (3.5-5.1) Chloride Level 95mmol/L (98-107) Carbon Dioxide Level 29mmol/L (21-32) Anion Gap 13 (6-14) Blood Urea Nitrogen 22mg/dL (8-26) Creatinine 1.5mg/dL (0.7-1.3) Estimated GFR (Cockcroft-Gault) 54.6 Glucose Level 306mg/dL (70-99) Calcium Level 9.5mg/dL (8.5-10.1) Magnesium Level 1.7mg/dL (1.8-2.4) Total Bilirubin 1.6mg/dL (0.2-1.0) Direct Bilirubin 0.4mg/dL (0.0-0.2) Aspartate Amino Transf (AST/SGOT) 275U/L (15-37) Alanine Aminotransferase (ALT/SGPT) 83U/L (16-63) Alkaline Phosphatase 78U/L (46-116) Creatine Kinase 3057U/L (39-308) Troponin I Quantitative 7.866ng/mL (0.000-0.055) Total Protein 7.2g/dL (6.4-8.2) Albumin 3.7g/dL (3.4-5.0) Thyroid Stimulating Hormone (TSH) 2.066uIU/mL (0.358-3.74) Glucose (Fingerstick) 80mg/dL (70-99) Assessment/Plan Assessment/Plan This patient comes in after a fall with a prolonged down time and in atrial fibrillation. He was started on IV Cardizem and with this he converted to sinus rhythm. At the time that I examined him he was in sinus rhythm. He is weak, dehydrated, has multiple blunt trauma secondary to the fall and probably has a chest contusion with a myocardial contusion. I would change him to by mouth Cardizem, DC the heparin because I'm concerned with the possible bleed and I would like to get an echocardiogram to evaluate for a possible pericardial effusion, myocardial contusion. He needs IV fluids to try to avoid any renal problems. The patient's elevation of the troponin is probably secondary to the fall with the possible myocardial contusion. Thank you very much for asking me to participate in the care of this patient. CARMEN QUIROGA MD Aug 13, 2016 18:53
[2016-08-13] MEDS ORDERED: CLONIDINE HCL 0.2 MG TABLET PO SCH (21:00)
[2016-08-13] MEDS ORDERED: SIMVASTATIN 20 MG TABLET PO SCH (21:00)
[2016-08-13] MEDS: ATORVASTATIN CALCIUM 10 MG TABLET. PO SCH (21:33)
[2016-08-13] MEDS: CLONIDINE HCL 0.2 MG TABLET PO SCH (21:33)
[2016-08-13] MEDS: METOPROLOL TART IMMED RELEASE 50 MG TABLET PO SCH (21:34)
[2016-08-13] MEDS: INSULIN DETEMIR 300 UNITS/3 ML INSULN.PEN. SQ SCH (21:35)
[2016-08-14] VITALS (14 sets, daily range): BP systolic 73–147; BP diastolic 49–74
[2016-08-14] MEDS: IV NORMAL SALINE 1000ML BAG 1,000 ML IV SCH (00:30)
[2016-08-14 05:25] LABS: BASO % 0 % (0-3); EOS % 1 % (0-3); HEMATOCRIT 38.2 % (39.0-53.0); LYMPH # 1.4 x10^3/uL (1.0-4.8); LYMPH % 17 % (24-48); MEAN CORPUSCULAR HEMOGLOBIN 32 pg (25-35); MEAN CORPUSCULAR HGB CONC 34 g/dL (31-37); MEAN CORPUSCULAR VOLUME 95 fL (79-100); MONO % 12 % (0-9); NEUT % 71 % (31-73); PLATELET COUNT 191 x10^3/uL (140-400); RED BLOOD COUNT 4.02 x10^6/uL (4.30-5.70); RED CELL DISTRIBUTION WIDTH 14.4 % (11.5-14.5)
[2016-08-14 05:33] LABS: INR 1.2 (0.8-1.1)
[2016-08-14 05:49] LABS: ALBUMIN 2.5 g/dL (3.4-5.0); ALBUMIN/GLOBULIN RATIO 0.9 (1.0-1.7); CALCIUM 8.2 mg/dL (8.5-10.1); CREATININE 0.9 mg/dL (0.7-1.3); GFR 81.4; TOTAL BILIRUBIN 1.4 mg/dL (0.2-1.0); TOTAL PROTEIN 5.4 g/dL (6.4-8.2)
[2016-08-14 05:53] LABS: CHOLESTEROL/HDL RATIO 1.5
[2016-08-14] MEDS: INSULIN ASPART 300 UNITS/3 ML INSULN.PEN SQ SCH ×3 (08:00→17:00)
[2016-08-14] MEDS ORDERED: NON FORMULARY ITEM (Losartan/Hydrochlorothiazide (Losartan-Hctz 100-12.5 Mg Tab) 1 EACH) PO SCH (09:00)
[2016-08-14] MEDS: METOPROLOL TART IMMED RELEASE 50 MG TABLET PO SCH ×2 (09:00→20:30)
[2016-08-14] MEDS ORDERED: POTASSIUM CHLORIDE 20 MEQ TABLET.ER. PO ONE (09:15)
[2016-08-14] MEDS ORDERED: MAGNESIUM SULFATE 2GM 50 ML IV PRN (09:15)
--- NOTE | 2016-08-14 09:15 | PDOC2 ---
CONSULT Date of Consult Date of Consult DATE: 08/14/16 TIME: 09:06 Reason for Consult Reason for Consult: VIDA, ^ed CK Referring Physician Referring Physician: Dr Anaya Identification/Chief Complaint Chief Complaint fall Problems: Source Source: Chart review, Patient History of Present Illness Reason for Visit: as dicrtated Past Medical History Cardiovascular: HTN, Hyperlipidemia Endocrine: Diabetes Family History Family History: No Significant Social History No ALCOHOL: none Domestic Violence: Neg Current Problem List Problem List Problems Medical Problems: (1) Atrial flutter Status: Acute (2) Elevated troponin I level Status: Acute (3) Fall Status: Acute Current Medications Current Medications Current Medications Sodium Chloride (Iv Sodium Chloride 0.9% 1000ml Bag) 1,000 ml @ 1,000 mls/hr Q1H IV Last administered on 08/13/16 12:21; Start 08/13/16 at 12:30; Stop at 13:29; Status DC Adenosine (Adenocard) 6 mg STK-MED ONCE IV ; Start 08/13/16 at 12:22; Stop at 12:23; Status DC Adenosine (Adenocard) 6 mg 1X ONCE IV Last administered on 08/13/16 12:30; Start 08/13/16 at 12:30; Stop 08/13/16 at 12:31; Status DC Adenosine (Adenocard) 6 mg STK-MED ONCE IV ; Start 08/13/16 at 12:25; Stop at 12:26; Status DC Adenosine 12 mg 12 mg 1X ONCE IV Last administered on 08/13/16 12:34; Start at 12:45; Stop 08/13/16 at 12:46; Status DC Diltiazem HCl/ Dextrose (Cardizem) 125 ml @ 0 mls/hr CONT PRN IV SEE I/O RECORD Last administered on 08/13/16 13:04; Start 08/13/16 at 12:45 Diltiazem HCl (Cardizem) 20 mg 1X ONCE IVP Last administered on 08/13/16 12:44 ; Start 08/13/16 at 12:45; Stop 08/13/16 at 12:46; Status DC Nicardipine HCl (Cardene) 25 mg STK-MED ONCE IV ; Start 08/13/16 at 12:36; Stop 08/13/16 at 12:37; Status DC Aspirin (Children'S Aspirin) 324 mg 1X ONCE PO Last administered on 08/13/16 13:29; Start 08/13/16 at 12:45; Stop 08/13/16 at 14:04; Status DC Heparin Sodium (Porcine) 4000 unit 4,000 unit 1X ONCE IV Last administered on 08/13/16 13:31; Start 08/13/16 at 12:45; Stop 08/13/16 at 12:54; Status DC Heparin Sodium/ Dextrose 500 ml @ 0 mls/hr CONT PRN IV SEE I/O RECORD Last administered on 08/13/16 13:37; Start 08/13/16 at 12:45; Stop 08/13/16 at 18:09; Status DC Heparin Sodium (Porcine) 1,700 unit PRN Q6HRS PRN IV FOR UFH LEVEL LESS THAN 0.2; Start 08/13/16 at 12:45; Stop 08/13/16 at 18:09; Status DC Ondansetron HCl (Zofran) 4 mg PRN Q8HRS PRN IV NAUSEA/VOMITING; Start 08/13/16 at 14:00; Stop 08/14/16 at 13:59 Morphine Sulfate 4 mg 4 mg PRN Q2HR PRN IV PAIN; Start 08/13/16 at 14:00; Stop 08/14/16 at 13:59 Sodium Chloride (Iv Sodium Chloride 0.9% 1000ml Bag) 1,000 ml @ 125 mls/hr Q8H IV Last administered on 08/14/16 00:30; Start 08/13/16 at 13:46; Stop 08/14/16 at 13:45 Acetaminophen (Tylenol) 650 mg PRN Q4HRS PRN PO FEVER; Start 08/13/16 at 14:00; Stop 08/14/16 at 13:59 Nitroglycerin (Nitrostat) 0.4 mg PRN Q5MIN PRN SL CHEST PAIN; Start 08/13/16 at 14:00; Stop 08/14/16 at 13:59 Insulin Aspart (Novolog) 0-7 UNITS TIDWMEALS SQ ; Start 08/13/16 at 17:00; Status Cancel Dextrose 12.5 gm PRN Q15MIN PRN IV SEE COMMENTS; Start 08/13/16 at 14:00; Status Cancel Acetaminophen (Tylenol) 500 mg PRN Q8HRS PRN PO PAIN; Start 08/13/16 at 15:30 Allopurinol (Zyloprim) 300 mg DAILY PO Last administered on 08/13/16 17:44; Start 08/13/16 at 16:00 Clonidine HCl (Catapres) 0.2 mg BID PO ; Start 08/13/16 at 21:00; Status Cancel Clonidine HCl (Catapres) 0.2 mg BID PO Last administered on 08/13/16 21:33; Start 08/13/16 at 21:00 Cyanocobalamin (Vitamin B-12) 1,000 mcg DAILY PO ; Start 08/14/16 at 09:00 Metformin HCl (Glucophage) 500 mg BID PO ; Start 08/13/16 at 21:00; Stop 08/13/16 at 21:00; Status DC Metformin HCl (Glucophage) 500 mg BIDWMEALS PO ; Start 08/13/16 at 17:00; Stop at 17:00; Status DC Metoprolol Tartrate (Lopressor) 50 mg BID PO Last administered on 08/13/16 21: 34; Start 08/13/16 at 21:00 Simvastatin (Zocor) 20 mg QHS PO ; Start 08/13/16 at 21:00; Status UNV Atorvastatin Calcium (Lipitor) 10 mg QHS PO Last administered on 08/13/16 21:33 ; Start 08/13/16 at 21:00 Artificial Tears (Artificial Tears) 1 drop PRN Q15MIN PRN OU DRY EYE; Start 08/13/16 at 16:00 Non-Formulary Medication 1 each DAILY PO ; Start 08/14/16 at 09:00; Status UNV Naproxen (Naprosyn) 250 mg PRN BID PRN PO INFLAMM; Start 08/13/16 at 15:45 Insulin Aspart (Novolog) 0-7 UNITS TIDWMEALS SQ ; Start 08/13/16 at 17:00 Dextrose 12.5 gm PRN Q15MIN PRN IV SEE COMMENTS; Start 08/13/16 at 15:30 Insulin Detemir 10 units 10 units QHS SQ Last administered on 08/13/16 21:35; Start 08/13/16 at 21:00 Magnesium Sulfate/ Dextrose (Magnesium Sulfate PREMIX 2GM) 50 ml @ 25 mls/hr 1X ONCE IV Last administered on 08/13/16 16:25; Start 08/13/16 at 15:30; Stop 08/13/16 at 17:29; Status DC Losartan Potassium (Cozaar) 100 mg DAILY PO Last administered on 08/13/16 17:45 ; Start 08/13/16 at 16:00 Hydrochlorothiazide (Microzide) 12.5 mg DAILY PO Last administered on 08/13/16 17:44; Start 08/13/16 at 16:00 Info (Anti-Coagulation Monitoring By Pharmacy) 1 each PRN DAILY PRN MC SEE COMMENTS; Start 08/13/16 at 16:00 Influenza Virus Vaccine Quadrival (Fluarix Quad [id number] Syringe) 0.5 ml ONCE ONCE VAX IM ; Start 08/14/16 at 18:30; Stop 08/14/16 at 18:31 Pneumococcal Polyvalent Vaccine (Pneumovax 23) 0.5 ml ONCE ONCE VAX IM ; Start 08/14/16 at 18:30; Stop 08/14/16 at 18:31 Active Scripts Active Reported Metoprolol Tartrate 50 Mg Tablet 1 Tab PO BID [b12] Artificial Tears (Dextran 70/Hypromellose) 1 Each Droperette 1 Each OP PRN PRN Simvastatin 20 Mg Tablet 1 Tab PO QHS Metformin Hcl 500 Mg Tablet 1 Tab PO BID Clonidine Hcl 0.2 Mg Tablet 1 Tab PO BID [allopurinol] DAILY Artificial Tears (Dextran 70/Hypromellose) 1 Each Droperette 1 Each OP PRN Aleve (Naproxen Sodium) 220 Mg Capsule 220 Mg PO BID PRN Tylenol Extra Strength (Acetaminophen) 500 Mg Tablet 500 Mg PO PRN Vitamin B-12 (Cyanocobalamin (Vitamin B-12)) 1,000 Mcg Tablet 1 Tab PO DAILY Simvastatin 20 Mg Tablet 20 Mg PO HS Metformin Hcl 500 Mg Tablet 500 Mg PO BIDWMEALS Losartan-Hctz 100-12.5 Mg Tab (Losartan/Hydrochlorothiazide) 1 Each Tablet 1 Each PO DAILY Clonidine Hcl 0.2 Mg Tablet 0.2 Mg PO BID Allopurinol 300 Mg Tablet 300 Mg PO DAILY Allergies Allergies: Coded Allergies: aspirin (Verified Allergy, Intermediate, 06/03/16) ROS Review of System GEN: no Fevers no Chills EYES: no new Visual Complaints ENT: no EN Drainage no Hearing deficiets CVS: no Orthopnea no CP RESP: no SOB no GUZMAN GI: no Nausea no Vomiting : no Dysuria no Urgency HEME: no easy bruising no Palp Ly Nodes NEURO no Focal Weakness no Sz PSYCH: no Suicidal Ideation no Depression SKIN: n Rashes ENDO: on Polyuria or Polydipsia no Hot/Cold Intolerance MU SK: no Arthraigia no Myalgia pt appears to be denying all ROS Qs in the presence of his family - not sure as to the accuracy of same Physical Exam Physical Exam General Appearance: Awake Alert Oriented x 3 In no Distress Eyes: VIsion Unchanged Conjunctiva Normal EN: No EN Drainage Mucous Memb. dryish Neck: no JVD no JVP Supple no Thyromegaly CVS: S1 S2 ? Murmur No Gallop No Rub no Edema Resp: no Rales no Rhonchi no Acc. Muscle use GI: BAS +ve NO Bruit Non Tender Non Distended : no CVA tenderness; no Suprapubic Tenderness SKIN: no Rashes Breast Exam deferred; Abrasions noted Mu.Sk: Adequate ROM min Muscle Atrophy Heme: Unable to palpate Obvious LAD no palp Splenomegaly NEURO: Good Strength and Tone Cranial Nerves II - XII grossly intact; ? underlying early dementia Psych: not Depressed no Active hallucination Vital Signs Vital Signs Date Time Temp Pulse Resp B/P Pulse Ox O2 Delivery O2 Flow Rate FiO2 08/14/16 07:00 97.6 65 17 131/64 99 Room Air 97.6 Assessment & Plan VIDA - ? Vol dpeltion (HCTZ) - NSAIDs (which he denies) Better with IVF hence seems to be VMN. He does not want renal US right now. ^ed CK if due to Rhabdo may be contributing too. ^ed CK - ? due to AMI vs due to Fall and Rhabdo - will follow levels low K - add to IVF rechec Mag and correct ? Vol dpeltion - IVF as ordered HTN: defer to cardiology to optimize hypoAlbuminemia - check PreAlb Discussed Plan of Care and prognosis etc. at length with family. Labs Labs Laboratory Tests Test 08/13/16 12:01 08/13/16 17:16 08/13/16 19:30 08/13/16 20:46 White Blood Count 13.4x10^3/uL (4.0-11.0) Red Blood Count 5.18x10^6/uL (4.30-5.70) Hemoglobin 16.6g/dL (13.0-17.5) Hematocrit 49.8% (39.0-53.0) Mean Corpuscular Volume 96fL (79-100) Mean Corpuscular Hemoglobin 32pg (25-35) Mean Corpuscular Hemoglobin Concent 33g/dL (31-37) Red Cell Distribution Width 14.6% (11.5-14.5) Platelet Count 239x10^3/uL (140-400) Neutrophils (%) (Auto) 83% (31-73) Lymphocytes (%) (Auto) 7% (24-48) Monocytes (%) (Auto) 10% (0-9) Eosinophils (%) (Auto) 0% (0-3) Basophils (%) (Auto) 0% (0-3) Neutrophils # (Auto) 11.1x10^3uL (1.8-7.7) Lymphocytes # (Auto) 1.0x10^3/uL (1.0-4.8) Monocytes # (Auto) 1.3x10^3/uL (0.0-1.1) Eosinophils # (Auto) 0.0x10^3/uL (0.0-0.7) Basophils # (Auto) 0.0x10^3/uL (0.0-0.2) Prothrombin Time 14.0SEC (11.7-14.0) Prothromb Time International Ratio 1.2 (0.8-1.1) Activated Partial Thromboplast Time 30SEC (24-38) Sodium Level 137mmol/L (136-145) Potassium Level 3.7mmol/L (3.5-5.1) Chloride Level 95mmol/L (98-107) Carbon Dioxide Level 29mmol/L (21-32) Anion Gap 13 (6-14) Blood Urea Nitrogen 22mg/dL (8-26) Creatinine 1.5mg/dL (0.7-1.3) Estimated GFR (Cockcroft-Gault) 54.6 Glucose Level 306mg/dL (70-99) Hemoglobin A1c 5.1% (4.8-5.6) Calcium Level 9.5mg/dL (8.5-10.1) Magnesium Level 1.7mg/dL (1.8-2.4) Total Bilirubin 1.6mg/dL (0.2-1.0) Direct Bilirubin 0.4mg/dL (0.0-0.2) Aspartate Amino Transf (AST/SGOT) 275U/L (15-37) Alanine Aminotransferase (ALT/SGPT) 83U/L (16-63) Alkaline Phosphatase 78U/L (46-116) Creatine Kinase 3057U/L (39-308) Troponin I Quantitative 7.866ng/mL (0.000-0.055) 7.547ng/mL (0.000-0.055) Total Protein 7.2g/dL (6.4-8.2) Albumin 3.7g/dL (3.4-5.0) Thyroid Stimulating Hormone (TSH) 2.066uIU/mL (0.358-3.74) Glucose (Fingerstick) 80mg/dL (70-99) 144mg/dL (70-99) Test 08/14/16 01:15 08/14/16 04:40 08/14/16 08:12 Troponin I Quantitative 10.425ng/mL (0.000-0.055) White Blood Count 8.0x10^3/uL (4.0-11.0) Red Blood Count 4.02x10^6/uL (4.30-5.70) Hemoglobin 13.0g/dL (13.0-17.5) Hematocrit 38.2% (39.0-53.0) Mean Corpuscular Volume 95fL (79-100) Mean Corpuscular Hemoglobin 32pg (25-35) Mean Corpuscular Hemoglobin Concent 34g/dL (31-37) Red Cell Distribution Width 14.4% (11.5-14.5) Platelet Count 191x10^3/uL (140-400) Neutrophils (%) (Auto) 71% (31-73) Lymphocytes (%) (Auto) 17% (24-48) Monocytes (%) (Auto) 12% (0-9) Eosinophils (%) (Auto) 1% (0-3) Basophils (%) (Auto) 0% (0-3) Neutrophils # (Auto) 5.6x10^3uL (1.8-7.7) Lymphocytes # (Auto) 1.4x10^3/uL (1.0-4.8) Monocytes # (Auto) 0.9x10^3/uL (0.0-1.1) Eosinophils # (Auto) 0.0x10^3/uL (0.0-0.7) Basophils # (Auto) 0.0x10^3/uL (0.0-0.2) Prothrombin Time 14.0SEC (11.7-14.0) Prothromb Time International Ratio 1.2 (0.8-1.1) Sodium Level 142mmol/L (136-145) Potassium Level 3.0mmol/L (3.5-5.1) Chloride Level 106mmol/L (98-107) Carbon Dioxide Level 28mmol/L (21-32) Anion Gap 8 (6-14) Blood Urea Nitrogen 18mg/dL (8-26) Creatinine 0.9mg/dL (0.7-1.3) Estimated GFR (Cockcroft-Gault) 81.4 BUN/Creatinine Ratio 20 (6-20) Glucose Level 86mg/dL (70-99) Calcium Level 8.2mg/dL (8.5-10.1) Total Bilirubin 1.4mg/dL (0.2-1.0) Aspartate Amino Transf (AST/SGOT) 133U/L (15-37) Alanine Aminotransferase (ALT/SGPT) 54U/L (16-63) Alkaline Phosphatase 47U/L (46-116) Total Protein 5.4g/dL (6.4-8.2) Albumin 2.5g/dL (3.4-5.0) Albumin/Globulin Ratio 0.9 (1.0-1.7) Triglycerides Level 61mg/dL (0-150) Cholesterol Level 120mg/dL (0-200) LDL Cholesterol, Calculated 30mg/dL (0-100) VLDL Cholesterol, Calculated 12mg/dL (0-40) HDL Cholesterol 78mg/dL (40-60) Cholesterol/HDL Ratio 1.5 Glucose (Fingerstick) 74mg/dL (70-99) Laboratory Tests Test 08/13/16 12:01 08/13/16 17:16 08/13/16 19:30 08/13/16 20:46 White Blood Count 13.4x10^3/uL (4.0-11.0) Red Blood Count 5.18x10^6/uL (4.30-5.70) Hemoglobin 16.6g/dL (13.0-17.5) Hematocrit 49.8% (39.0-53.0) Mean Corpuscular Volume 96fL (79-100) Mean Corpuscular Hemoglobin 32pg (25-35) Mean Corpuscular Hemoglobin Concent 33g/dL (31-37) Red Cell Distribution Width 14.6% (11.5-14.5) Platelet Count 239x10^3/uL (140-400) Neutrophils (%) (Auto) 83% (31-73) Lymphocytes (%) (Auto) 7% (24-48) Monocytes (%) (Auto) 10% (0-9) Eosinophils (%) (Auto) 0% (0-3) Basophils (%) (Auto) 0% (0-3) Neutrophils # (Auto) 11.1x10^3uL (1.8-7.7) Lymphocytes # (Auto) 1.0x10^3/uL (1.0-4.8) Monocytes # (Auto) 1.3x10^3/uL (0.0-1.1) Eosinophils # (Auto) 0.0x10^3/uL (0.0-0.7) Basophils # (Auto) 0.0x10^3/uL (0.0-0.2) Prothrombin Time 14.0SEC (11.7-14.0) Prothromb Time International Ratio 1.2 (0.8-1.1) Activated Partial Thromboplast Time 30SEC (24-38) Sodium Level 137mmol/L (136-145) Potassium Level 3.7mmol/L (3.5-5.1) Chloride Level 95mmol/L (98-107) Carbon Dioxide Level 29mmol/L (21-32) Anion Gap 13 (6-14) Blood Urea Nitrogen 22mg/dL (8-26) Creatinine 1.5mg/dL (0.7-1.3) Estimated GFR (Cockcroft-Gault) 54.6 Glucose Level 306mg/dL (70-99) Hemoglobin A1c 5.1% (4.8-5.6) Calcium Level 9.5mg/dL (8.5-10.1) Magnesium Level 1.7mg/dL (1.8-2.4) Total Bilirubin 1.6mg/dL (0.2-1.0) Direct Bilirubin 0.4mg/dL (0.0-0.2) Aspartate Amino Transf (AST/SGOT) 275U/L (15-37) Alanine Aminotransferase (ALT/SGPT) 83U/L (16-63) Alkaline Phosphatase 78U/L (46-116) Creatine Kinase 3057U/L (39-308) Troponin I Quantitative 7.866ng/mL (0.000-0.055) 7.547ng/mL (0.000-0.055) Total Protein 7.2g/dL (6.4-8.2) Albumin 3.7g/dL (3.4-5.0) Thyroid Stimulating Hormone (TSH) 2.066uIU/mL (0.358-3.74) Glucose (Fingerstick) 80mg/dL (70-99) 144mg/dL (70-99) Test 08/14/16 01:15 08/14/16 04:40 08/14/16 08:12 Troponin I Quantitative 10.425ng/mL (0.000-0.055) White Blood Count 8.0x10^3/uL (4.0-11.0) Red Blood Count 4.02x10^6/uL (4.30-5.70) Hemoglobin 13.0g/dL (13.0-17.5) Hematocrit 38.2% (39.0-53.0) Mean Corpuscular Volume 95fL (79-100) Mean Corpuscular Hemoglobin 32pg (25-35) Mean Corpuscular Hemoglobin Concent 34g/dL (31-37) Red Cell Distribution Width 14.4% (11.5-14.5) Platelet Count 191x10^3/uL (140-400) Neutrophils (%) (Auto) 71% (31-73) Lymphocytes (%) (Auto) 17% (24-48) Monocytes (%) (Auto) 12% (0-9) Eosinophils (%) (Auto) 1% (0-3) Basophils (%) (Auto) 0% (0-3) Neutrophils # (Auto) 5.6x10^3uL (1.8-7.7) Lymphocytes # (Auto) 1.4x10^3/uL (1.0-4.8) Monocytes # (Auto) 0.9x10^3/uL (0.0-1.1) Eosinophils # (Auto) 0.0x10^3/uL (0.0-0.7) Basophils # (Auto) 0.0x10^3/uL (0.0-0.2) Prothrombin Time 14.0SEC (11.7-14.0) Prothromb Time International Ratio 1.2 (0.8-1.1) Sodium Level 142mmol/L (136-145) Potassium Level 3.0mmol/L (3.5-5.1) Chloride Level 106mmol/L (98-107) Carbon Dioxide Level 28mmol/L (21-32) Anion Gap 8 (6-14) Blood Urea Nitrogen 18mg/dL (8-26) Creatinine 0.9mg/dL (0.7-1.3) Estimated GFR (Cockcroft-Gault) 81.4 BUN/Creatinine Ratio 20 (6-20) Glucose Level 86mg/dL (70-99) Calcium Level 8.2mg/dL (8.5-10.1) Total Bilirubin 1.4mg/dL (0.2-1.0) Aspartate Amino Transf (AST/SGOT) 133U/L (15-37) Alanine Aminotransferase (ALT/SGPT) 54U/L (16-63) Alkaline Phosphatase 47U/L (46-116) Total Protein 5.4g/dL (6.4-8.2) Albumin 2.5g/dL (3.4-5.0) Albumin/Globulin Ratio 0.9 (1.0-1.7) Triglycerides Level 61mg/dL (0-150) Cholesterol Level 120mg/dL (0-200) LDL Cholesterol, Calculated 30mg/dL (0-100) VLDL Cholesterol, Calculated 12mg/dL (0-40) HDL Cholesterol 78mg/dL (40-60) Cholesterol/HDL Ratio 1.5 Glucose (Fingerstick) 74mg/dL (70-99) Images Images Head CT: IMPRESSION: 1. No acute intracranial findings. 2. Chronic right posterior temporal infarct. Moderate to severe chronic small vessel ischemic white matter change and moderate atrophy. CXR AP 05/26/2016. The cardiac silhouette is borderline enlarged. The thoracic aorta is mildly tortuous. Atherosclerotic calcification of the thoracic aorta is seen. Thoracic aorta is minimally tortuous. No acute pulmonary infiltrate is noted. No pleural effusion or pneumothorax is seen. Degenerative changes are seen involving the thoracic spine and both shoulders. Impression: No acute abnormality is seen. BIA PARRY MD Aug 14, 2016 09:15
[2016-08-14] MEDS ORDERED: NORMAL SALINE IV SCH (09:30)
[2016-08-14] MEDS ORDERED: POTASSIUM ACETATE IV SCH (09:30)
[2016-08-14] MEDS: LOSARTAN POTASSIUM 50 MG TABLET. PO SCH (10:20)
[2016-08-14] MEDS: CLONIDINE HCL 0.2 MG TABLET PO SCH ×2 (10:21→20:30)
[2016-08-14] MEDS: POTASSIUM CHLORIDE 10MEQ 100 ML IV SCH ×2 (10:26→11:58)
--- NOTE | 2016-08-14 13:36 | PDOC ---
PROGRESS NOTES Subjective Subjective Pt doing well. No acute distress overnight. Denies chest pain, palpitation or shortness of breath at this time. Objective Objective Vital Signs Date Time Temp Pulse Resp B/P Pulse Ox O2 Delivery O2 Flow Rate FiO2 08/14/16 10:22 97.5 65 18 147/74 99 Room Air 97.5 Intake and Output 08/14/16 07:00 Intake Total 1631 ml Balance 1631 ml Intake Oral 320 ml IV Total 1000 ml Blood Product 311 ml # Voids 2 # Bowel Movements 1 Physical Exam Physical Exam No changes in cardiac exam Assessment Assessment Problems Medical Problems: (1) Atrial flutter Status: Acute (2) Elevated troponin I level Status: Acute (3) Fall Status: Acute Plan Plan of Care Atrial fibrillation - converted to SR s/p IV Cardizem Myocardial contusion Discontinue cardizem IV Discont IVF Cont cardiac monitoring per floor protocol Thank you very much for asking me to participate in the care of this patient. Comment Review of Relevant I have reviewed the following items renzo (where applicable) has been applied. Labs Laboratory Tests Test 08/13/16 12:01 08/13/16 17:16 08/13/16 19:30 08/13/16 20:46 White Blood Count 13.4x10^3/uL (4.0-11.0) Red Blood Count 5.18x10^6/uL (4.30-5.70) Hemoglobin 16.6g/dL (13.0-17.5) Hematocrit 49.8% (39.0-53.0) Mean Corpuscular Volume 96fL (79-100) Mean Corpuscular Hemoglobin 32pg (25-35) Mean Corpuscular Hemoglobin Concent 33g/dL (31-37) Red Cell Distribution Width 14.6% (11.5-14.5) Platelet Count 239x10^3/uL (140-400) Neutrophils (%) (Auto) 83% (31-73) Lymphocytes (%) (Auto) 7% (24-48) Monocytes (%) (Auto) 10% (0-9) Eosinophils (%) (Auto) 0% (0-3) Basophils (%) (Auto) 0% (0-3) Neutrophils # (Auto) 11.1x10^3uL (1.8-7.7) Lymphocytes # (Auto) 1.0x10^3/uL (1.0-4.8) Monocytes # (Auto) 1.3x10^3/uL (0.0-1.1) Eosinophils # (Auto) 0.0x10^3/uL (0.0-0.7) Basophils # (Auto) 0.0x10^3/uL (0.0-0.2) Prothrombin Time 14.0SEC (11.7-14.0) Prothromb Time International Ratio 1.2 (0.8-1.1) Activated Partial Thromboplast Time 30SEC (24-38) Sodium Level 137mmol/L (136-145) Potassium Level 3.7mmol/L (3.5-5.1) Chloride Level 95mmol/L (98-107) Carbon Dioxide Level 29mmol/L (21-32) Anion Gap 13 (6-14) Blood Urea Nitrogen 22mg/dL (8-26) Creatinine 1.5mg/dL (0.7-1.3) Estimated GFR (Cockcroft-Gault) 54.6 Glucose Level 306mg/dL (70-99) Hemoglobin A1c 5.1% (4.8-5.6) Calcium Level 9.5mg/dL (8.5-10.1) Magnesium Level 1.7mg/dL (1.8-2.4) Total Bilirubin 1.6mg/dL (0.2-1.0) Direct Bilirubin 0.4mg/dL (0.0-0.2) Aspartate Amino Transf (AST/SGOT) 275U/L (15-37) Alanine Aminotransferase (ALT/SGPT) 83U/L (16-63) Alkaline Phosphatase 78U/L (46-116) Creatine Kinase 3057U/L (39-308) Troponin I Quantitative 7.866ng/mL (0.000-0.055) 7.547ng/mL (0.000-0.055) Total Protein 7.2g/dL (6.4-8.2) Albumin 3.7g/dL (3.4-5.0) Thyroid Stimulating Hormone (TSH) 2.066uIU/mL (0.358-3.74) Glucose (Fingerstick) 80mg/dL (70-99) 144mg/dL (70-99) Test 08/14/16 01:15 08/14/16 04:40 08/14/16 08:12 08/14/16 11:32 Troponin I Quantitative 10.425ng/mL (0.000-0.055) White Blood Count 8.0x10^3/uL (4.0-11.0) Red Blood Count 4.02x10^6/uL (4.30-5.70) Hemoglobin 13.0g/dL (13.0-17.5) Hematocrit 38.2% (39.0-53.0) Mean Corpuscular Volume 95fL (79-100) Mean Corpuscular Hemoglobin 32pg (25-35) Mean Corpuscular Hemoglobin Concent 34g/dL (31-37) Red Cell Distribution Width 14.4% (11.5-14.5) Platelet Count 191x10^3/uL (140-400) Neutrophils (%) (Auto) 71% (31-73) Lymphocytes (%) (Auto) 17% (24-48) Monocytes (%) (Auto) 12% (0-9) Eosinophils (%) (Auto) 1% (0-3) Basophils (%) (Auto) 0% (0-3) Neutrophils # (Auto) 5.6x10^3uL (1.8-7.7) Lymphocytes # (Auto) 1.4x10^3/uL (1.0-4.8) Monocytes # (Auto) 0.9x10^3/uL (0.0-1.1) Eosinophils # (Auto) 0.0x10^3/uL (0.0-0.7) Basophils # (Auto) 0.0x10^3/uL (0.0-0.2) Prothrombin Time 14.0SEC (11.7-14.0) Prothromb Time International Ratio 1.2 (0.8-1.1) Sodium Level 142mmol/L (136-145) Potassium Level 3.0mmol/L (3.5-5.1) Chloride Level 106mmol/L (98-107) Carbon Dioxide Level 28mmol/L (21-32) Anion Gap 8 (6-14) Blood Urea Nitrogen 18mg/dL (8-26) Creatinine 0.9mg/dL (0.7-1.3) Estimated GFR (Cockcroft-Gault) 81.4 BUN/Creatinine Ratio 20 (6-20) Glucose Level 86mg/dL (70-99) Calcium Level 8.2mg/dL (8.5-10.1) Total Bilirubin 1.4mg/dL (0.2-1.0) Aspartate Amino Transf (AST/SGOT) 133U/L (15-37) Alanine Aminotransferase (ALT/SGPT) 54U/L (16-63) Alkaline Phosphatase 47U/L (46-116) Creatine Kinase 1193U/L (39-308) Total Protein 5.4g/dL (6.4-8.2) Albumin 2.5g/dL (3.4-5.0) Albumin/Globulin Ratio 0.9 (1.0-1.7) Triglycerides Level 61mg/dL (0-150) Cholesterol Level 120mg/dL (0-200) LDL Cholesterol, Calculated 30mg/dL (0-100) VLDL Cholesterol, Calculated 12mg/dL (0-40) HDL Cholesterol 78mg/dL (40-60) Cholesterol/HDL Ratio 1.5 Glucose (Fingerstick) 74mg/dL (70-99) 57mg/dL (70-99) Laboratory Tests Test 08/13/16 17:16 08/13/16 19:30 08/13/16 20:46 08/14/16 01:15 Glucose (Fingerstick) 80mg/dL (70-99) 144mg/dL (70-99) Troponin I Quantitative 7.547ng/mL (0.000-0.055) 10.425ng/mL (0.000-0.055) Test 08/14/16 04:40 08/14/16 08:12 08/14/16 11:32 White Blood Count 8.0x10^3/uL (4.0-11.0) Red Blood Count 4.02x10^6/uL (4.30-5.70) Hemoglobin 13.0g/dL (13.0-17.5) Hematocrit 38.2% (39.0-53.0) Mean Corpuscular Volume 95fL (79-100) Mean Corpuscular Hemoglobin 32pg (25-35) Mean Corpuscular Hemoglobin Concent 34g/dL (31-37) Red Cell Distribution Width 14.4% (11.5-14.5) Platelet Count 191x10^3/uL (140-400) Neutrophils (%) (Auto) 71% (31-73) Lymphocytes (%) (Auto) 17% (24-48) Monocytes (%) (Auto) 12% (0-9) Eosinophils (%) (Auto) 1% (0-3) Basophils (%) (Auto) 0% (0-3) Neutrophils # (Auto) 5.6x10^3uL (1.8-7.7) Lymphocytes # (Auto) 1.4x10^3/uL (1.0-4.8) Monocytes # (Auto) 0.9x10^3/uL (0.0-1.1) Eosinophils # (Auto) 0.0x10^3/uL (0.0-0.7) Basophils # (Auto) 0.0x10^3/uL (0.0-0.2) Prothrombin Time 14.0SEC (11.7-14.0) Prothromb Time International Ratio 1.2 (0.8-1.1) Sodium Level 142mmol/L (136-145) Potassium Level 3.0mmol/L (3.5-5.1) Chloride Level 106mmol/L (98-107) Carbon Dioxide Level 28mmol/L (21-32) Anion Gap 8 (6-14) Blood Urea Nitrogen 18mg/dL (8-26) Creatinine 0.9mg/dL (0.7-1.3) Estimated GFR (Cockcroft-Gault) 81.4 BUN/Creatinine Ratio 20 (6-20) Glucose Level 86mg/dL (70-99) Calcium Level 8.2mg/dL (8.5-10.1) Total Bilirubin 1.4mg/dL (0.2-1.0) Aspartate Amino Transf (AST/SGOT) 133U/L (15-37) Alanine Aminotransferase (ALT/SGPT) 54U/L (16-63) Alkaline Phosphatase 47U/L (46-116) Creatine Kinase 1193U/L (39-308) Total Protein 5.4g/dL (6.4-8.2) Albumin 2.5g/dL (3.4-5.0) Albumin/Globulin Ratio 0.9 (1.0-1.7) Triglycerides Level 61mg/dL (0-150) Cholesterol Level 120mg/dL (0-200) LDL Cholesterol, Calculated 30mg/dL (0-100) VLDL Cholesterol, Calculated 12mg/dL (0-40) HDL Cholesterol 78mg/dL (40-60) Cholesterol/HDL Ratio 1.5 Glucose (Fingerstick) 74mg/dL (70-99) 57mg/dL (70-99) Medications Current Medications Sodium Chloride (Iv Sodium Chloride 0.9% 1000ml Bag) 1,000 ml @ 1,000 mls/hr Q1H IV Last administered on 08/13/16 12:21; Start 08/13/16 at 12:30; Stop at 13:29; Status DC Adenosine (Adenocard) 6 mg STK-MED ONCE IV ; Start 08/13/16 at 12:22; Stop at 12:23; Status DC Adenosine (Adenocard) 6 mg 1X ONCE IV Last administered on 08/13/16 12:30; Start 08/13/16 at 12:30; Stop 08/13/16 at 12:31; Status DC Adenosine (Adenocard) 6 mg STK-MED ONCE IV ; Start 08/13/16 at 12:25; Stop at 12:26; Status DC Adenosine 12 mg 12 mg 1X ONCE IV Last administered on 08/13/16 12:34; Start at 12:45; Stop 08/13/16 at 12:46; Status DC Diltiazem HCl/ Dextrose (Cardizem) 125 ml @ 0 mls/hr CONT PRN IV SEE I/O RECORD Last administered on 08/13/16 13:04; Start 08/13/16 at 12:45 Diltiazem HCl (Cardizem) 20 mg 1X ONCE IVP Last administered on 08/13/16 12:44 ; Start 08/13/16 at 12:45; Stop 08/13/16 at 12:46; Status DC Nicardipine HCl (Cardene) 25 mg STK-MED ONCE IV ; Start 08/13/16 at 12:36; Stop 08/13/16 at 12:37; Status DC Aspirin (Children'S Aspirin) 324 mg 1X ONCE PO Last administered on 08/13/16 13:29; Start 08/13/16 at 12:45; Stop 08/13/16 at 14:04; Status DC Heparin Sodium (Porcine) 4000 unit 4,000 unit 1X ONCE IV Last administered on 08/13/16 13:31; Start 08/13/16 at 12:45; Stop 08/13/16 at 12:54; Status DC Heparin Sodium/ Dextrose 500 ml @ 0 mls/hr CONT PRN IV SEE I/O RECORD Last administered on 08/13/16 13:37; Start 08/13/16 at 12:45; Stop 08/13/16 at 18:09; Status DC Heparin Sodium (Porcine) 1,700 unit PRN Q6HRS PRN IV FOR UFH LEVEL LESS THAN 0.2; Start 08/13/16 at 12:45; Stop 08/13/16 at 18:09; Status DC Ondansetron HCl (Zofran) 4 mg PRN Q8HRS PRN IV NAUSEA/VOMITING; Start 08/13/16 at 14:00; Stop 08/14/16 at 13:59 Morphine Sulfate 4 mg 4 mg PRN Q2HR PRN IV PAIN; Start 08/13/16 at 14:00; Stop 08/14/16 at 13:59 Sodium Chloride (Iv Sodium Chloride 0.9% 1000ml Bag) 1,000 ml @ 125 mls/hr Q8H IV Last administered on 08/14/16 00:30; Start 08/13/16 at 13:46; Stop 08/14/16 at 09:19; Status DC Acetaminophen (Tylenol) 650 mg PRN Q4HRS PRN PO FEVER; Start 08/13/16 at 14:00; Stop 08/14/16 at 13:59 Nitroglycerin (Nitrostat) 0.4 mg PRN Q5MIN PRN SL CHEST PAIN; Start 08/13/16 at 14:00; Stop 08/14/16 at 13:59 Insulin Aspart (Novolog) 0-7 UNITS TIDWMEALS SQ ; Start 08/13/16 at 17:00; Status Cancel Dextrose 12.5 gm PRN Q15MIN PRN IV SEE COMMENTS; Start 08/13/16 at 14:00; Status Cancel Acetaminophen (Tylenol) 500 mg PRN Q8HRS PRN PO PAIN; Start 08/13/16 at 15:30 Allopurinol (Zyloprim) 300 mg DAILY PO Last administered on 08/13/16 17:44; Start 08/13/16 at 16:00 Clonidine HCl (Catapres) 0.2 mg BID PO ; Start 08/13/16 at 21:00; Status Cancel Clonidine HCl (Catapres) 0.2 mg BID PO Last administered on 08/14/16 10:21; Start 08/13/16 at 21:00 Cyanocobalamin (Vitamin B-12) 1,000 mcg DAILY PO ; Start 08/14/16 at 09:00 Metformin HCl (Glucophage) 500 mg BID PO ; Start 08/13/16 at 21:00; Stop 08/13/16 at 21:00; Status DC Metformin HCl (Glucophage) 500 mg BIDWMEALS PO ; Start 08/13/16 at 17:00; Stop at 17:00; Status DC Metoprolol Tartrate (Lopressor) 50 mg BID PO Last administered on 08/13/16 21: 34; Start 08/13/16 at 21:00 Simvastatin (Zocor) 20 mg QHS PO ; Start 08/13/16 at 21:00; Status UNV Atorvastatin Calcium (Lipitor) 10 mg QHS PO Last administered on 08/13/16 21:33 ; Start 08/13/16 at 21:00 Artificial Tears (Artificial Tears) 1 drop PRN Q15MIN PRN OU DRY EYE; Start 08/13/16 at 16:00 Non-Formulary Medication 1 each DAILY PO ; Start 08/14/16 at 09:00; Status UNV Naproxen (Naprosyn) 250 mg PRN BID PRN PO INFLAMM; Start 08/13/16 at 15:45; Stop 08/14/16 at 09:19; Status DC Insulin Aspart (Novolog) 0-7 UNITS TIDWMEALS SQ ; Start 08/13/16 at 17:00 Dextrose 12.5 gm PRN Q15MIN PRN IV SEE COMMENTS Last administered on 08/14/16 11:49; Start 08/13/16 at 15:30 Insulin Detemir 10 units 10 units QHS SQ Last administered on 08/13/16 21:35; Start 08/13/16 at 21:00 Magnesium Sulfate/ Dextrose (Magnesium Sulfate PREMIX 2GM) 50 ml @ 25 mls/hr 1X ONCE IV Last administered on 08/13/16 16:25; Start 08/13/16 at 15:30; Stop 08/13/16 at 17:29; Status DC Losartan Potassium (Cozaar) 100 mg DAILY PO Last administered on 08/14/16 10:20 ; Start 08/13/16 at 16:00 Hydrochlorothiazide (Microzide) 12.5 mg DAILY PO Last administered on 08/13/16 17:44; Start 08/13/16 at 16:00; Stop 08/14/16 at 09:19; Status DC Info (Anti-Coagulation Monitoring By Pharmacy) 1 each PRN DAILY PRN MC SEE COMMENTS; Start 08/13/16 at 16:00; Stop 08/14/16 at 09:37; Status DC Influenza Virus Vaccine Quadrival (Fluarix Quad [id number] Syringe) 0.5 ml ONCE ONCE VAX IM ; Start 08/14/16 at 18:30; Stop 08/14/16 at 18:31 Pneumococcal Polyvalent Vaccine 0.5 ml 0.5 ml ONCE ONCE VAX IM ; Start 08/14/16 at 18:30; Stop 08/14/16 at 18:31 Potassium Chloride (KCl Premix 10meq) 100 ml @ 100 mls/hr Q1H IV Last administered on 08/14/16 11:58; Start 08/14/16 at 10:00; Stop 08/14/16 at 11:59; Status DC Potassium Chloride (Klor-Con) 40 meq 1X ONCE PO ; Start 08/14/16 at 09:15; Stop 08/14/16 at 09:16; Status DC Potassium Chloride 20 meq 20 meq [id number] PO ; Start 08/15/16 at 08:00 Magnesium Sulfate/ Dextrose 50 ml @ 25 mls/hr PRN DAILY PRN IV for Mag < 1.7 on am labs; Start 08/14/16 at 09:15 Potassium Acetate/ Sodium Chloride (Iv Sodium Chloride 0.9% 1000ml Bag) 1,010 ml @ 75 mls/hr [id number] IV Last administered on 08/14/16 13:19; Start 08/14/16 at 09:30 Active Scripts Active Reported Metoprolol Tartrate 50 Mg Tablet 1 Tab PO BID [b12] Artificial Tears (Dextran 70/Hypromellose) 1 Each Droperette 1 Each OP PRN PRN Simvastatin 20 Mg Tablet 1 Tab PO QHS Metformin Hcl 500 Mg Tablet 1 Tab PO BID Clonidine Hcl 0.2 Mg Tablet 1 Tab PO BID [allopurinol] DAILY Artificial Tears (Dextran 70/Hypromellose) 1 Each Droperette 1 Each OP PRN Aleve (Naproxen Sodium) 220 Mg Capsule 220 Mg PO BID PRN Tylenol Extra Strength (Acetaminophen) 500 Mg Tablet 500 Mg PO PRN Vitamin B-12 (Cyanocobalamin (Vitamin B-12)) 1,000 Mcg Tablet 1 Tab PO DAILY Simvastatin 20 Mg Tablet 20 Mg PO HS Metformin Hcl 500 Mg Tablet 500 Mg PO BIDWMEALS Losartan-Hctz 100-12.5 Mg Tab (Losartan/Hydrochlorothiazide) 1 Each Tablet 1 Each PO DAILY Clonidine Hcl 0.2 Mg Tablet 0.2 Mg PO BID Allopurinol 300 Mg Tablet 300 Mg PO DAILY Vitals/I & O Vital Sign - Last 24 Hours 08/13/16 08/13/16 08/13/16 08/13/16 13:45 14:00 14:15 14:50 Temp 98.4 98.4 Pulse 96 94 100 107 Resp 16 16 17 20 B/P 119/68 121/68 129/64 137/78 Pulse Ox 97 98 99 99 O2 Delivery Room Air Room Air 08/13/16 08/13/16 08/13/16 08/13/16 16:30 16:45 17:14 17:45 Pulse 91 91 91 B/P 141/75 129/76 133/75 O2 Delivery Room Air 08/13/16 08/13/16 08/13/16 08/13/16 17:45 19:00 19:56 20:00 Temp 98.1 98.1 Pulse 87 87 94 Resp 18 B/P 133/75 154/63 156/68 Pulse Ox 98 O2 Delivery Room Air Room Air 08/13/16 08/13/16 08/13/16 08/13/16 21:00 21:33 21:34 21:45 Pulse 81 94 94 91 B/P 136/67 156/68 156/68 147/80 08/13/16 08/13/16 08/13/168/17 22:00 22:34 23:00 23:15 Temp 97.8 97.8 Pulse 75 59 57 55 Resp 18 B/P 146/70 83/52 74/45 65/42 Pulse Ox 98 O2 Delivery Room Air 08/13/16 08/14/16 08/14/16 08/14/16 23:45 00:06 00:21 00:36 Pulse 54 55 55 68 B/P 75/45 73/49 86/54 92/55 08/14/16 08/14/16 08/14/16 08/14/16 01:00 01:30 02:00 03:00 Pulse 56 61 59 59 B/P 97/55 91/52 105/55 111/59 08/14/16 08/14/16 08/14/16 08/14/16 03:28 04:00 07:00 08:00 Temp 98.0 97.6 98.0 97.6 Pulse 63 60 65 Resp 16 17 B/P 111/59 103/57 131/64 Pulse Ox 97 99 O2 Delivery Room Air Room Air Room Air 08/14/16 08/14/16 08/14/16 08/14/16 09:00 10:20 10:21 10:22 Temp 97.5 97.5 Pulse 62 62 62 65 Resp 18 B/P 147/74 147/74 147/74 Pulse Ox 99 O2 Delivery Room Air Intake and Output 08/13/16 08/13/16 08/14/16 15:00 23:00 07:00 Intake Total 1000 ml 431 ml 200 ml Balance 1000 ml 431 ml 200 ml CARMEN QUIROGA MD Aug 14, 2016 13:36
[2016-08-14] MEDS: CYANOCOBALAMIN (VITAMIN B-12) 1,000 MCG TABLET. PO SCH (14:01)
[2016-08-14] MEDS: ALLOPURINOL 300 MG TABLET. PO SCH (14:01)
--- NOTE | 2016-08-14 14:15 | CARD ---
APPROVED REPORT EXAM: Two-dimensional and M-mode echocardiogram with Doppler and color Doppler. Other Information Quality : Average Rhythm : NSR INDICATION elevated troponin level 2D DIMENSIONS RVDd3.1 (2.9-3.5cm)Left Atrium(2D)3.8 (1.6-4.0cm) IVSd1.0 (0.7-1.1cm)Aortic Root(2D)2.9 (2.0-3.7cm) LVDd3.8 (3.9-5.9cm)LVOT Diameter2.1 (1.8-2.4cm) PWd1.1 (0.7-1.1cm)LVDs2.4 (2.5-4.0cm) FS (%) 33.6 %SV40.7 ml LVEF(%)65.0 (>50%) Aortic Valve AoV Peak Phuc.119.2cm/sAoV VTI24.9cm AO Peak GR.5.7mmHgLVOT Peak Phuc.122.6cm/s AO Mean GR.3mmHgAVA (VMAX)3.71cm2 KAR (VTI)3.50cm2 Mitral Valve MV E Jcqtofqf91.6cm/sMV E Peak Gr.5mmHg MV DECEL [id number] A Nqhucasy42.7cm/s MV E Mean Gr.2mmHgMV [id number] E/A Ratio1.2MV A [id number] MVA (PHT)3.61cm2 Tricuspid Valve TR P. Jxqocbqg790ql/sRAP [id number] TR Peak Gr.72cgXtCYUH27rpRn Pulmonary Vein S1 Tjojjfrj43.6cm/sD2 Hhnxjbla88.5cm/s PVa [id number] LEFT VENTRICLE The left ventricle is normal size. There is concentric LVH Left ventricle systolic function is normal . The Ejection Fraction is 65%. There is normal LV segmental wall motion. The left ventricular diasto lic function and filling is normal for age. RIGHT VENTRICLE The right ventricle is normal size. The right ventricular systolic function is normal. ATRIA The left atrium size is normal. The right atrium size is normal. The interatrial septum is intact wit h no evidence for an atrial septal defect or patent foramen ovale as noted on 2-D or Doppler imaging. AORTIC VALVE The aortic valve is mildly calcified. The aortic valve is trileaflet. Doppler and Color Flow revealed no significant aortic regurgitation. There is no significant aortic valvular stenosis. MITRAL VALVE Mitral annular calcification is mild. The mitral valve leaflets are calcified. There is no mitral jhony ve stenosis. Doppler and Color Flow revealed no mitral valve regurgitation noted. TRICUSPID VALVE The tricuspid valve is normal in structure Doppler and Color Flow revealed trace to mild tricuspid re gurgitation. The PA pressure was estimated at 35 mmHg. There is no tricuspid valve stenosis. PULMONIC VALVE The pulmonic valve is not well visualized. Doppler and Color Flow revealed no pulmonic valvular regur gitation. There is no pulmonic valvular stenosis. GREAT VESSELS The aortic root is normal in size. Normal pulmonary venous flow (Doppler). The IVC is normal in size and collapses >50% with inspiration. PERICARDIAL EFFUSION There is a small circumferential pericardial effusion. Critical Notification Critical Value: No <Conclusion> Left ventricle systolic function is normal. The Ejection Fraction is 65%. There is concentric LVH The left atrium size is normal. The right atrium size is normal. The aortic valve is mildly calcified. The aortic valve is trileaflet. Mitral annular calcification is mild. The mitral valve leaflets are calcified. Doppler and Color Flow revealed trace to mild tricuspid regurgitation. The PA pressure was estimated at 35 mmHg. The pulmonic valve is not well visualized. There is a small circumferential pericardial effusion.
[2016-08-14 15:00] LABS: BILIRUBIN,URINE NEGATIVE (NEG); GLUCOSE,URINE 100 mg/dL (NEG); NITRITE,URINE NEGATIVE (NEG); PH,URINE 6.5; PROTEIN,URINE NEGATIVE (NEG-TRACE)
[2016-08-14 15:34] LABS: BACTERIA,URINE 0 /HPF (0-FEW); RBC,URINE 0 /HPF (0-2); SQUAMOUS EPITHELIAL CELL,UR OCC /LPF; WBC,URINE OCC /HPF (0-4)
[2016-08-14] MEDS ORDERED: PNEUMOC CONJ VACC 23-VALENT 0.5 ML VIAL. VAX IM ONE (18:30)
[2016-08-14] MEDS ORDERED: FLU VACC QUAD 2016-17 (36MOS+)/PF 0.5 ML SYRINGE. VAX IM ONE (18:30)
[2016-08-14] MEDS: ATORVASTATIN CALCIUM 10 MG TABLET. PO SCH (20:30)
[2016-08-14] MEDS: INSULIN DETEMIR 300 UNITS/3 ML INSULN.PEN. SQ SCH (21:07)
--- NOTE | 2016-08-14 23:49 | CONS ---
DATE OF CONSULTATION: HISTORY OF PRESENT ILLNESS: The patient is a 81-year-old gentleman who claims he was doing just fine until recently. He sustained a fall in his garage and was felt to be down for almost 24 hours. He has had abrasions all over. He was seen by his PCP and his heart rate was 150. He was in AFib RVR. On presentation, he was also noted to have a glucose of 306, magnesium 1.7, CK of 3000 and BUN of 22, creatinine 1.5. His troponins have trended upwards from 7.8-10.[address] Sargent has been asked to see this gentleman also. I was asked to see him for renal insufficiency, especially if he needed a heart catheterization as well as his elevated CK. PAST MEDICAL HISTORY: Significant for hypertension, hyperlipidemia, history of gout, left knee orthopedic surgery, diabetes. FAMILY HISTORY: Negative for kidney problem. SOCIAL HISTORY: Lives by himself. No current alcohol or tobacco use. For rest of details, see electronic records. BIA PARRY MD DR: SAMIRA/irina JOB#: [id number] / [id number]
[2016-08-15 03:07] VITALS: BP 116/66
[2016-08-15 04:50] LABS: ALBUMIN 2.4 g/dL (3.4-5.0); CALCIUM 8.2 mg/dL (8.5-10.1); CREATININE 0.8 mg/dL (0.7-1.3); GFR 93.3; PHOSPHORUS 2.5 mg/dL (2.6-4.7); POTASSIUM 3.4 mmol/L (3.5-5.1)
[2016-08-15] MEDS ORDERED: MAGNESIUM SULFATE 2GM 50 ML IV ONE (07:00)
[2016-08-15 07:15] VITALS: BP 121/51
[2016-08-15] MEDS: INSULIN ASPART 300 UNITS/3 ML INSULN.PEN SQ SCH ×2 (08:00→12:00)
[2016-08-15] MEDS ORDERED: POTASSIUM CHLORIDE 20 MEQ TABLET.ER. PO SCH (08:00)
--- NOTE | 2016-08-15 08:08 | PDOC ---
SUBJECTIVE ROS breezy ABN doing well, ready to go home CVS: no Orthopnea, no CP RESP: no SOB, no GUZMAN GI: no Nausea, no Vomiting : no Dysuria, no Urgency OBJECTIVE Vital Signs Vital Signs Date Time Temp Pulse Resp B/P Pulse Ox O2 Delivery O2 Flow Rate FiO2 08/15/16 03:07 98.2 81 16 116/66 98 Room Air 98.2 I & 0 Intake and Output 08/15/16 07:00 Intake Total 2272.51 ml Output Total 500 ml Balance 1772.51 ml Intake Oral 760 ml IV Total 1512.51 ml Output Urine Total 500 ml # Voids 4 PHYSICAL EXAM Physical Exam GEN: Awake, Oriented x 2, In no distress EYES: Vision Unchanged, Conjunctiva Normal EN: No EN Drainage, Mucous Membranes moist NECK: no JVD, no JVP, Supple, no Thyromegaly CVS: S1S2, ? Murmur, No Gallop, No Rub,no Edema RESP: no Rales, no Rhonchi,no Acc. Muscle Use GI: BS + ve, NO Bruit, Non Tender, Non Distended : no CVA tenderness, no Suprapubic Tenderness DIAGNOSIS/ASSESSMENT Assessment & Plan Z[place] due to VMn - resolved with IVf low K - due to Low Mag and IVf - replace as ordered Low Mag - replace as ordered Low phos - replace as ordered ? element of Rhabdo from fall. await todays CK Discussed Plan of Care with pt at bedside - OK TO D/c from Renal standpoint if CK < 1000 Problems: COMMENT/RELEVANT DATA Meds Current Medications Medications (Trade) Dose Ordered Sig/Matt Start Time Stop Time Status Last Admin Dose Admin Acetaminophen (Tylenol) 500 mg PRN Q8HRS PRN 08/13/16 15:30 Adenosine (Adenocard) 6 mg STK-MED ONCE 08/13/16 12:25 08/13/16 12:26 DC Adenosine 12 mg 12 mg 1X ONCE 08/13/16 12:45 08/13/16 12:46 DC 08/13/16 12:34 12 MG Allopurinol (Zyloprim) 300 mg DAILY 08/13/16 16:00 08/14/16 14:01 300 MG Artificial Tears (Artificial Tears) 1 drop PRN Q15MIN PRN 08/13/16 16:00 Aspirin (Children'S Aspirin) 324 mg 1X ONCE 08/13/16 12:45 08/13/16 14:04 DC 08/13/16 13:29 324 MG Atorvastatin Calcium (Lipitor) 10 mg QHS 08/13/16 21:00 08/14/16 20:30 10 MG Clonidine HCl (Catapres) 0.2 mg BID 08/13/16 21:00 08/14/16 20:30 0.2 MG Cyanocobalamin (Vitamin B-12) 1,000 mcg DAILY 08/14/16 09:00 08/14/16 14:01 1,000 MCG Dextrose 12.5 gm PRN Q15MIN PRN 08/13/16 15:30 08/14/16 11:49 12.5 GM Diltiazem HCl (Cardizem) 20 mg 1X ONCE 08/13/16 12:45 08/13/16 12:46 DC 08/13/16 12:44 20 MG Diltiazem HCl/ Dextrose (Cardizem) 125 ml @ 0 mls/hr CONT PRN 08/13/16 12:45 08/14/16 14:25 DC 08/13/16 13:04 10 MLS/HR Heparin Sodium (Porcine) 1,700 unit PRN Q6HRS PRN 08/13/16 12:45 08/13/16 18:09 DC Heparin Sodium (Porcine) 4000 unit 4,000 unit 1X ONCE 08/13/16 12:45 08/13/16 12:54 DC 08/13/16 13:31 4,000 UNIT Heparin Sodium/ Dextrose 500 ml @ 0 mls/hr CONT PRN 08/13/16 12:45 08/13/16 18:09 DC 08/13/16 13:37 0 MLS/HR Hydrochlorothiazide (Microzide) 12.5 mg DAILY 08/13/16 16:00 08/14/16 09:19 DC 08/13/16 17:44 12.5 MG Influenza Virus Vaccine Quadrival (Fluarix Quad [id number] Syringe) 0.5 ml ONCE ONCE 08/14/16 18:30 08/14/16 18:31 DC 08/14/16 19:16 0.5 ML Info (Anti-Coagulation Monitoring By Pharmacy) 1 each PRN DAILY PRN 08/13/16 16:00 08/14/16 09:37 DC Insulin Aspart (Novolog) 0-7 UNITS TIDWMEALS 08/13/16 17:00 Insulin Detemir (Levemir) 10 units QHS 08/13/16 21:00 08/14/16 21:07 10 UNITS Losartan Potassium (Cozaar) 100 mg DAILY 08/13/16 16:00 08/14/16 10:20 100 MG Magnesium Sulfate/ Dextrose (Magnesium Sulfate PREMIX 2GM) 50 ml @ 25 mls/hr 1X ONCE 08/15/16 07:00 08/15/16 08:59 08/15/16 07:18 25 MLS/HR Metformin HCl (Glucophage) 500 mg BIDWMEALS 08/13/16 17:00 08/13/16 17:00 DC Metoprolol Tartrate (Lopressor) 50 mg BID 08/13/16 21:00 08/14/16 20:30 50 MG Morphine Sulfate 4 mg 4 mg PRN Q2HR PRN 08/13/16 14:00 08/14/16 13:59 DC Naproxen (Naprosyn) 250 mg PRN BID PRN 08/13/16 15:45 08/14/16 09:19 DC Nicardipine HCl (Cardene) 25 mg STK-MED ONCE 08/13/16 12:36 08/13/16 12:37 DC Nitroglycerin (Nitrostat) 0.4 mg PRN Q5MIN PRN 08/13/16 14:00 08/14/16 13:59 DC Non-Formulary Medication 1 each DAILY 08/14/16 09:00 UNV Ondansetron HCl (Zofran) 4 mg PRN Q8HRS PRN 08/13/16 14:00 08/14/16 13:59 DC Pneumococcal Polyvalent Vaccine 0.5 ml 0.5 ml ONCE ONCE 08/14/16 18:30 08/14/16 18:31 DC 08/14/16 19:17 0.5 ML Potassium Chloride 20 meq 20 meq [id number] 08/15/16 08:00 Potassium Acetate 20 meq/Sodium Chloride 1,010 ml @ 75 mls/hr [id number] 08/14/16 09:30 08/14/16 14:25 DC 08/14/16 13:19 75 MLS/HR Potassium Chloride (KCl Premix 10meq) 100 ml @ 100 mls/hr Q1H 08/14/16 10:00 08/14/16 11:59 DC 08/14/16 11:58 100 MLS/HR Potassium Chloride (Klor-Con) 40 meq 1X ONCE 08/14/16 09:15 08/14/16 09:16 DC Simvastatin (Zocor) 20 mg QHS 08/13/16 21:00 UNV Sodium Chloride (Iv Sodium Chloride 0.9% 1000ml Bag) 1,000 ml @ 125 mls/hr Q8H 08/13/16 13:46 08/14/16 09:19 DC 08/14/16 00:30 125 MLS/HR Lab Laboratory Tests Test 08/14/16 08:12 08/14/16 11:32 08/14/16 14:20 08/14/16 15:05 Glucose (Fingerstick) 74mg/dL (70-99) 57mg/dL (70-99) Urine Color Yellow Urine Clarity Clear Urine pH 6.5 Urine Specific [place] 1.020 Urine Protein Negativemg/dL (NEG-TRACE) Urine Glucose (UA) 100mg/dL (NEG) Urine Ketones (Stick) Negativemg/dL (NEG) Urine Blood Negative (NEG) Urine Nitrite Negative (NEG) Urine Bilirubin Negative (NEG) Urine Urobilinogen Dipstick 1.0mg/dL (0.2 mg/dL) Urine Leukocyte Esterase Negative (NEG) Urine RBC 0/HPF (0-2) Urine WBC Occ/HPF (0-4) Urine Squamous Epithelial Cells Occ/LPF Urine Bacteria 0/HPF (0-FEW) Urine Mucus Slight/LPF Urine Random Sodium 121mmol/L (Not Estab.) Potassium Level 3.7mmol/L (3.5-5.1) Test 08/14/16 16:49 08/15/16 03:30 Glucose (Fingerstick) 139mg/dL (70-99) Hemoglobin 12.2g/dL (13.0-17.5) Sodium Level 143mmol/L (136-145) Potassium Level 3.4mmol/L (3.5-5.1) Chloride Level 106mmol/L (98-107) Carbon Dioxide Level 28mmol/L (21-32) Anion Gap 9 (6-14) Blood Urea Nitrogen 12mg/dL (8-26) Creatinine 0.8mg/dL (0.7-1.3) Estimated GFR (Cockcroft-Gault) 93.3 Glucose Level 70mg/dL (70-99) Calcium Level 8.2mg/dL (8.5-10.1) Phosphorus Level 2.5mg/dL (2.6-4.7) Magnesium Level 1.5mg/dL (1.8-2.4) Albumin 2.4g/dL (3.4-5.0) BIA PARRY MD Aug 15, 2016 08:08
[2016-08-15] MEDS: LOSARTAN POTASSIUM 50 MG TABLET. PO SCH (08:19)
[2016-08-15] MEDS: CYANOCOBALAMIN (VITAMIN B-12) 1,000 MCG TABLET. PO SCH (08:20)
[2016-08-15] MEDS: ALLOPURINOL 300 MG TABLET. PO SCH (08:20)
[2016-08-15] MEDS: CLONIDINE HCL 0.2 MG TABLET PO SCH (08:20)
[2016-08-15] MEDS: METOPROLOL TART IMMED RELEASE 50 MG TABLET PO SCH (08:20)
--- NOTE | 2016-08-15 09:28 | PDOC ---
PROGRESS NOTES Chief Complaint Chief Complaint LATE ENTRY pt seen 08/14, fall rhabdomyolysis, weakness trop elevation, CV consulted, heparin gtt, Afib RVR, cardizem gtt, acute on chronic diastolic CHF htn, DM2, Vasomotor nephropathy Vitals Vitals Vital Signs Date Time Temp Pulse Resp B/P Pulse Ox O2 Delivery O2 Flow Rate FiO2 08/15/16 08:20 108 127/91 08/15/16 07:15 98.1 18 99 Room Air 98.1 Physical Exam General: Alert, Oriented X3, Cooperative, No acute distress Heart: Regular rate Lungs: Clear Abdomen: Normal bowel sounds, Soft Extremities: No clubbing, No edema, Normal pulses Skin: Other (mult bruises and abrasions, photos taken) Labs LABS Laboratory Tests Test 08/14/16 11:32 08/14/16 14:20 08/14/16 15:05 08/14/16 16:49 Glucose (Fingerstick) 57mg/dL (70-99) 139mg/dL (70-99) Urine Color Yellow Urine Clarity Clear Urine pH 6.5 Urine Specific [place] 1.020 Urine Protein Negativemg/dL (NEG-TRACE) Urine Glucose (UA) 100mg/dL (NEG) Urine Ketones (Stick) Negativemg/dL (NEG) Urine Blood Negative (NEG) Urine Nitrite Negative (NEG) Urine Bilirubin Negative (NEG) Urine Urobilinogen Dipstick 1.0mg/dL (0.2 mg/dL) Urine Leukocyte Esterase Negative (NEG) Urine RBC 0/HPF (0-2) Urine WBC Occ/HPF (0-4) Urine Squamous Epithelial Cells Occ/LPF Urine Bacteria 0/HPF (0-FEW) Urine Mucus Slight/LPF Urine Random Sodium 121mmol/L (Not Estab.) Potassium Level 3.7mmol/L (3.5-5.1) Test 08/15/16 03:30 08/15/16 08:06 Hemoglobin 12.2g/dL (13.0-17.5) Sodium Level 143mmol/L (136-145) Potassium Level 3.4mmol/L (3.5-5.1) Chloride Level 106mmol/L (98-107) Carbon Dioxide Level 28mmol/L (21-32) Anion Gap 9 (6-14) Blood Urea Nitrogen 12mg/dL (8-26) Creatinine 0.8mg/dL (0.7-1.3) Estimated GFR (Cockcroft-Gault) 93.3 Glucose Level 70mg/dL (70-99) Calcium Level 8.2mg/dL (8.5-10.1) Phosphorus Level 2.5mg/dL (2.6-4.7) Magnesium Level 1.5mg/dL (1.8-2.4) Creatine Kinase 473U/L (39-308) Albumin 2.4g/dL (3.4-5.0) Glucose (Fingerstick) 63mg/dL (70-99) Review of Systems Review of Systems no n/v.d feels well Assessment and Plan Assessmemt and Plan discussed with family at length stress test, echo Problems Medical Problems: (1) Atrial flutter Status: Acute (2) Elevated troponin I level Status: Acute (3) Fall Status: Acute Problems: Comment Review of Relevant I have reviewed the following items renzo (where applicable) has been applied. Labs Laboratory Tests Test 08/13/16 12:01 08/13/16 17:16 08/13/16 19:30 08/13/16 20:46 White Blood Count 13.4x10^3/uL (4.0-11.0) Red Blood Count 5.18x10^6/uL (4.30-5.70) Hemoglobin 16.6g/dL (13.0-17.5) Hematocrit 49.8% (39.0-53.0) Mean Corpuscular Volume 96fL (79-100) Mean Corpuscular Hemoglobin 32pg (25-35) Mean Corpuscular Hemoglobin Concent 33g/dL (31-37) Red Cell Distribution Width 14.6% (11.5-14.5) Platelet Count 239x10^3/uL (140-400) Neutrophils (%) (Auto) 83% (31-73) Lymphocytes (%) (Auto) 7% (24-48) Monocytes (%) (Auto) 10% (0-9) Eosinophils (%) (Auto) 0% (0-3) Basophils (%) (Auto) 0% (0-3) Neutrophils # (Auto) 11.1x10^3uL (1.8-7.7) Lymphocytes # (Auto) 1.0x10^3/uL (1.0-4.8) Monocytes # (Auto) 1.3x10^3/uL (0.0-1.1) Eosinophils # (Auto) 0.0x10^3/uL (0.0-0.7) Basophils # (Auto) 0.0x10^3/uL (0.0-0.2) Prothrombin Time 14.0SEC (11.7-14.0) Prothromb Time International Ratio 1.2 (0.8-1.1) Activated Partial Thromboplast Time 30SEC (24-38) Sodium Level 137mmol/L (136-145) Potassium Level 3.7mmol/L (3.5-5.1) Chloride Level 95mmol/L (98-107) Carbon Dioxide Level 29mmol/L (21-32) Anion Gap 13 (6-14) Blood Urea Nitrogen 22mg/dL (8-26) Creatinine 1.5mg/dL (0.7-1.3) Estimated GFR (Cockcroft-Gault) 54.6 Glucose Level 306mg/dL (70-99) Hemoglobin A1c 5.1% (4.8-5.6) Calcium Level 9.5mg/dL (8.5-10.1) Magnesium Level 1.7mg/dL (1.8-2.4) Total Bilirubin 1.6mg/dL (0.2-1.0) Direct Bilirubin 0.4mg/dL (0.0-0.2) Aspartate Amino Transf (AST/SGOT) 275U/L (15-37) Alanine Aminotransferase (ALT/SGPT) 83U/L (16-63) Alkaline Phosphatase 78U/L (46-116) Creatine Kinase 3057U/L (39-308) Troponin I Quantitative 7.866ng/mL (0.000-0.055) 7.547ng/mL (0.000-0.055) Total Protein 7.2g/dL (6.4-8.2) Albumin 3.7g/dL (3.4-5.0) Thyroid Stimulating Hormone (TSH) 2.066uIU/mL (0.358-3.74) Glucose (Fingerstick) 80mg/dL (70-99) 144mg/dL (70-99) Test 08/14/16 01:15 08/14/16 04:40 08/14/16 08:12 08/14/16 11:32 Troponin I Quantitative 10.425ng/mL (0.000-0.055) White Blood Count 8.0x10^3/uL (4.0-11.0) Red Blood Count 4.02x10^6/uL (4.30-5.70) Hemoglobin 13.0g/dL (13.0-17.5) Hematocrit 38.2% (39.0-53.0) Mean Corpuscular Volume 95fL (79-100) Mean Corpuscular Hemoglobin 32pg (25-35) Mean Corpuscular Hemoglobin Concent 34g/dL (31-37) Red Cell Distribution Width 14.4% (11.5-14.5) Platelet Count 191x10^3/uL (140-400) Neutrophils (%) (Auto) 71% (31-73) Lymphocytes (%) (Auto) 17% (24-48) Monocytes (%) (Auto) 12% (0-9) Eosinophils (%) (Auto) 1% (0-3) Basophils (%) (Auto) 0% (0-3) Neutrophils # (Auto) 5.6x10^3uL (1.8-7.7) Lymphocytes # (Auto) 1.4x10^3/uL (1.0-4.8) Monocytes # (Auto) 0.9x10^3/uL (0.0-1.1) Eosinophils # (Auto) 0.0x10^3/uL (0.0-0.7) Basophils # (Auto) 0.0x10^3/uL (0.0-0.2) Prothrombin Time 14.0SEC (11.7-14.0) Prothromb Time International Ratio 1.2 (0.8-1.1) Sodium Level 142mmol/L (136-145) Potassium Level 3.0mmol/L (3.5-5.1) Chloride Level 106mmol/L (98-107) Carbon Dioxide Level 28mmol/L (21-32) Anion Gap 8 (6-14) Blood Urea Nitrogen 18mg/dL (8-26) Creatinine 0.9mg/dL (0.7-1.3) Estimated GFR (Cockcroft-Gault) 81.4 BUN/Creatinine Ratio 20 (6-20) Glucose Level 86mg/dL (70-99) Calcium Level 8.2mg/dL (8.5-10.1) Total Bilirubin 1.4mg/dL (0.2-1.0) Aspartate Amino Transf (AST/SGOT) 133U/L (15-37) Alanine Aminotransferase (ALT/SGPT) 54U/L (16-63) Alkaline Phosphatase 47U/L (46-116) Creatine Kinase 1193U/L (39-308) Total Protein 5.4g/dL (6.4-8.2) Albumin 2.5g/dL (3.4-5.0) Albumin/Globulin Ratio 0.9 (1.0-1.7) Triglycerides Level 61mg/dL (0-150) Cholesterol Level 120mg/dL (0-200) LDL Cholesterol, Calculated 30mg/dL (0-100) VLDL Cholesterol, Calculated 12mg/dL (0-40) HDL Cholesterol 78mg/dL (40-60) Cholesterol/HDL Ratio 1.5 Glucose (Fingerstick) 74mg/dL (70-99) 57mg/dL (70-99) Test 08/14/16 14:20 08/14/16 15:05 08/14/16 16:49 08/15/16 03:30 Urine Color Yellow Urine Clarity Clear Urine pH 6.5 Urine Specific [place] 1.020 Urine Protein Negativemg/dL (NEG-TRACE) Urine Glucose (UA) 100mg/dL (NEG) Urine Ketones (Stick) Negativemg/dL (NEG) Urine Blood Negative (NEG) Urine Nitrite Negative (NEG) Urine Bilirubin Negative (NEG) Urine Urobilinogen Dipstick 1.0mg/dL (0.2 mg/dL) Urine Leukocyte Esterase Negative (NEG) Urine RBC 0/HPF (0-2) Urine WBC Occ/HPF (0-4) Urine Squamous Epithelial Cells Occ/LPF Urine Bacteria 0/HPF (0-FEW) Urine Mucus Slight/LPF Urine Random Sodium 121mmol/L (Not Estab.) Potassium Level 3.7mmol/L (3.5-5.1) 3.4mmol/L (3.5-5.1) Glucose (Fingerstick) 139mg/dL (70-99) Hemoglobin 12.2g/dL (13.0-17.5) Sodium Level 143mmol/L (136-145) Chloride Level 106mmol/L (98-107) Carbon Dioxide Level 28mmol/L (21-32) Anion Gap 9 (6-14) Blood Urea Nitrogen 12mg/dL (8-26) Creatinine 0.8mg/dL (0.7-1.3) Estimated GFR (Cockcroft-Gault) 93.3 Glucose Level 70mg/dL (70-99) Calcium Level 8.2mg/dL (8.5-10.1) Phosphorus Level 2.5mg/dL (2.6-4.7) Magnesium Level 1.5mg/dL (1.8-2.4) Creatine Kinase 473U/L (39-308) Albumin 2.4g/dL (3.4-5.0) Test 08/15/16 08:06 Glucose (Fingerstick) 63mg/dL (70-99) Laboratory Tests Test 08/14/16 11:32 08/14/16 14:20 08/14/16 15:05 08/14/16 16:49 Glucose (Fingerstick) 57mg/dL (70-99) 139mg/dL (70-99) Urine Color Yellow Urine Clarity Clear Urine pH 6.5 Urine Specific [place] 1.020 Urine Protein Negativemg/dL (NEG-TRACE) Urine Glucose (UA) 100mg/dL (NEG) Urine Ketones (Stick) Negativemg/dL (NEG) Urine Blood Negative (NEG) Urine Nitrite Negative (NEG) Urine Bilirubin Negative (NEG) Urine Urobilinogen Dipstick 1.0mg/dL (0.2 mg/dL) Urine Leukocyte Esterase Negative (NEG) Urine RBC 0/HPF (0-2) Urine WBC Occ/HPF (0-4) Urine Squamous Epithelial Cells Occ/LPF Urine Bacteria 0/HPF (0-FEW) Urine Mucus Slight/LPF Urine Random Sodium 121mmol/L (Not Estab.) Potassium Level 3.7mmol/L (3.5-5.1) Test 08/15/16 03:30 08/15/16 08:06 Hemoglobin 12.2g/dL (13.0-17.5) Sodium Level 143mmol/L (136-145) Potassium Level 3.4mmol/L (3.5-5.1) Chloride Level 106mmol/L (98-107) Carbon Dioxide Level 28mmol/L (21-32) Anion Gap 9 (6-14) Blood Urea Nitrogen 12mg/dL (8-26) Creatinine 0.8mg/dL (0.7-1.3) Estimated GFR (Cockcroft-Gault) 93.3 Glucose Level 70mg/dL (70-99) Calcium Level 8.2mg/dL (8.5-10.1) Phosphorus Level 2.5mg/dL (2.6-4.7) Magnesium Level 1.5mg/dL (1.8-2.4) Creatine Kinase 473U/L (39-308) Albumin 2.4g/dL (3.4-5.0) Glucose (Fingerstick) 63mg/dL (70-99) Medications Current Medications Sodium Chloride (Iv Sodium Chloride 0.9% 1000ml Bag) 1,000 ml @ 1,000 mls/hr Q1H IV Last administered on 08/13/16 12:21; Start 08/13/16 at 12:30; Stop at 13:29; Status DC Adenosine (Adenocard) 6 mg STK-MED ONCE IV ; Start 08/13/16 at 12:22; Stop at 12:23; Status DC Adenosine (Adenocard) 6 mg 1X ONCE IV Last administered on 08/13/16 12:30; Start 08/13/16 at 12:30; Stop 08/13/16 at 12:31; Status DC Adenosine (Adenocard) 6 mg STK-MED ONCE IV ; Start 08/13/16 at 12:25; Stop at 12:26; Status DC Adenosine 12 mg 12 mg 1X ONCE IV Last administered on 08/13/16 12:34; Start at 12:45; Stop 08/13/16 at 12:46; Status DC Diltiazem HCl/ Dextrose (Cardizem) 125 ml @ 0 mls/hr CONT PRN IV SEE I/O RECORD Last administered on 08/13/16 13:04; Start 08/13/16 at 12:45; Stop at 14:25; Status DC Diltiazem HCl (Cardizem) 20 mg 1X ONCE IVP Last administered on 08/13/16 12:44 ; Start 08/13/16 at 12:45; Stop 08/13/16 at 12:46; Status DC Nicardipine HCl (Cardene) 25 mg STK-MED ONCE IV ; Start 08/13/16 at 12:36; Stop 08/13/16 at 12:37; Status DC Aspirin (Children'S Aspirin) 324 mg 1X ONCE PO Last administered on 08/13/16 13:29; Start 08/13/16 at 12:45; Stop 08/13/16 at 14:04; Status DC Heparin Sodium (Porcine) 4000 unit 4,000 unit 1X ONCE IV Last administered on 08/13/16 13:31; Start 08/13/16 at 12:45; Stop 08/13/16 at 12:54; Status DC Heparin Sodium/ Dextrose 500 ml @ 0 mls/hr CONT PRN IV SEE I/O RECORD Last administered on 08/13/16 13:37; Start 08/13/16 at 12:45; Stop 08/13/16 at 18:09; Status DC Heparin Sodium (Porcine) 1,700 unit PRN Q6HRS PRN IV FOR UFH LEVEL LESS THAN 0.2; Start 08/13/16 at 12:45; Stop 08/13/16 at 18:09; Status DC Ondansetron HCl (Zofran) 4 mg PRN Q8HRS PRN IV NAUSEA/VOMITING; Start 08/13/16 at 14:00; Stop 08/14/16 at 13:59; Status DC Morphine Sulfate 4 mg 4 mg PRN Q2HR PRN IV PAIN; Start 08/13/16 at 14:00; Stop 08/14/16 at 13:59; Status DC Sodium Chloride (Iv Sodium Chloride 0.9% 1000ml Bag) 1,000 ml @ 125 mls/hr Q8H IV Last administered on 08/14/16 00:30; Start 08/13/16 at 13:46; Stop 08/14/16 at 09:19; Status DC Acetaminophen (Tylenol) 650 mg PRN Q4HRS PRN PO FEVER; Start 08/13/16 at 14:00; Stop 08/14/16 at 13:59; Status DC Nitroglycerin (Nitrostat) 0.4 mg PRN Q5MIN PRN SL CHEST PAIN; Start 08/13/16 at 14:00; Stop 08/14/16 at 13:59; Status DC Insulin Aspart (Novolog) 0-7 UNITS TIDWMEALS SQ ; Start 08/13/16 at 17:00; Status Cancel Dextrose 12.5 gm PRN Q15MIN PRN IV SEE COMMENTS; Start 08/13/16 at 14:00; Status Cancel Acetaminophen (Tylenol) 500 mg PRN Q8HRS PRN PO PAIN; Start 08/13/16 at 15:30 Allopurinol (Zyloprim) 300 mg DAILY PO Last administered on 08/15/16 08:20; Start 08/13/16 at 16:00 Clonidine HCl (Catapres) 0.2 mg BID PO ; Start 08/13/16 at 21:00; Status Cancel Clonidine HCl (Catapres) 0.2 mg BID PO Last administered on 08/15/16 08:20; Start 08/13/16 at 21:00 Cyanocobalamin (Vitamin B-12) 1,000 mcg DAILY PO Last administered on 08:20; Start 08/14/16 at 09:00 Metformin HCl (Glucophage) 500 mg BID PO ; Start 08/13/16 at 21:00; Stop 08/13/16 at 21:00; Status DC Metformin HCl (Glucophage) 500 mg BIDWMEALS PO ; Start 08/13/16 at 17:00; Stop at 17:00; Status DC Metoprolol Tartrate (Lopressor) 50 mg BID PO Last administered on 08/15/16 08: 20; Start 08/13/16 at 21:00 Simvastatin (Zocor) 20 mg QHS PO ; Start 08/13/16 at 21:00; Status UNV Atorvastatin Calcium (Lipitor) 10 mg QHS PO Last administered on 08/14/16 20:30 ; Start 08/13/16 at 21:00 Artificial Tears (Artificial Tears) 1 drop PRN Q15MIN PRN OU DRY EYE; Start 08/13/16 at 16:00 Non-Formulary Medication 1 each DAILY PO ; Start 08/14/16 at 09:00; Status UNV Naproxen (Naprosyn) 250 mg PRN BID PRN PO INFLAMM; Start 08/13/16 at 15:45; Stop 08/14/16 at 09:19; Status DC Insulin Aspart (Novolog) 0-7 UNITS TIDWMEALS SQ ; Start 08/13/16 at 17:00 Dextrose 12.5 gm PRN Q15MIN PRN IV SEE COMMENTS Last administered on 08/14/16 11:49; Start 08/13/16 at 15:30 Insulin Detemir 10 units 10 units QHS SQ Last administered on 08/14/16 21:07; Start 08/13/16 at 21:00 Magnesium Sulfate/ Dextrose (Magnesium Sulfate PREMIX 2GM) 50 ml @ 25 mls/hr 1X ONCE IV Last administered on 08/13/16 16:25; Start 08/13/16 at 15:30; Stop 08/13/16 at 17:29; Status DC Losartan Potassium (Cozaar) 100 mg DAILY PO Last administered on 08/15/16 08: 19; Start 08/13/16 at 16:00 Hydrochlorothiazide (Microzide) 12.5 mg DAILY PO Last administered on 08/13/16 17:44; Start 08/13/16 at 16:00; Stop 08/14/16 at 09:19; Status DC Info (Anti-Coagulation Monitoring By Pharmacy) 1 each PRN DAILY PRN MC SEE COMMENTS; Start 08/13/16 at 16:00; Stop 08/14/16 at 09:37; Status DC Influenza Virus Vaccine Quadrival (Fluarix Quad [id number] Syringe) 0.5 ml ONCE ONCE VAX IM Last administered on 08/14/16 19:16; Start 08/14/16 at 18:30; Stop 08/14/16 at 18:31; Status DC Pneumococcal Polyvalent Vaccine 0.5 ml 0.5 ml ONCE ONCE VAX IM Last administered on 08/14/16 19:17; Start 08/14/16 at 18:30; Stop 08/14/16 at 18:31; Status DC Potassium Chloride (KCl Premix 10meq) 100 ml @ 100 mls/hr Q1H IV Last administered on 08/14/16 11:58; Start 08/14/16 at 10:00; Stop 08/14/16 at 11:59; Status DC Potassium Chloride (Klor-Con) 40 meq 1X ONCE PO ; Start 08/14/16 at 09:15; Stop 08/14/16 at 09:16; Status DC Potassium Chloride 20 meq 20 meq [id number] PO Last administered on 08/15/16 08:21; Start 08/15/16 at 08:00 Magnesium Sulfate/ Dextrose 50 ml @ 25 mls/hr PRN DAILY PRN IV for Mag < 1.7 on am labs; Start 08/14/16 at 09:15 Potassium Acetate 20 meq/Sodium Chloride 1,010 ml @ 75 mls/hr [id number] IV Last administered on 08/14/16 13:19; Start 08/14/16 at 09:30; Stop 08/14/16 at 14:25; Status DC Magnesium Sulfate/ Dextrose 50 ml @ 25 mls/hr 1X ONCE IV Last administered on 08/15/16 07:18; Start 08/15/16 at 07:00; Stop 08/15/16 at 08:59; Status DC Potassium Phosphate/Sodium Chloride (Potassium Phosphate/Iv Sodium Chloride 0.9 % 100ml) 104.5333 ml @ 52.267 m... Q2H IV ; Start 08/15/16 at 09:00; Stop 08/15 at 14:59 Active Scripts Active Reported Metoprolol Tartrate 50 Mg Tablet 1 Tab PO BID [b12] Artificial Tears (Dextran 70/Hypromellose) 1 Each Droperette 1 Each OP PRN PRN Simvastatin 20 Mg Tablet 1 Tab PO QHS Metformin Hcl 500 Mg Tablet 1 Tab PO BID Clonidine Hcl 0.2 Mg Tablet 1 Tab PO BID [allopurinol] DAILY Artificial Tears (Dextran 70/Hypromellose) 1 Each Droperette 1 Each OP PRN Aleve (Naproxen Sodium) 220 Mg Capsule 220 Mg PO BID PRN Tylenol Extra Strength (Acetaminophen) 500 Mg Tablet 500 Mg PO PRN Vitamin B-12 (Cyanocobalamin (Vitamin B-12)) 1,000 Mcg Tablet 1 Tab PO DAILY Simvastatin 20 Mg Tablet 20 Mg PO HS Metformin Hcl 500 Mg Tablet 500 Mg PO BIDWMEALS Losartan-Hctz 100-12.5 Mg Tab (Losartan/Hydrochlorothiazide) 1 Each Tablet 1 Each PO DAILY Clonidine Hcl 0.2 Mg Tablet 0.2 Mg PO BID Allopurinol 300 Mg Tablet 300 Mg PO DAILY Vitals/I & O Vital Sign - Last 24 Hours 08/14/16 08/14/16 08/14/16 08/14/16 10:20 10:21 10:22 15:02 Temp 97.5 98.2 97.5 98.2 Pulse 62 62 65 69 Resp 18 20 B/P 147/74 147/74 147/74 122/62 Pulse Ox 99 100 O2 Delivery Room Air Room Air 08/14/16 08/14/16 08/14/16 08/14/16 19:12 20:00 20:30 20:30 Temp 98.1 98.1 Pulse 79 79 79 Resp 18 B/P 121/63 121/63 121/63 Pulse Ox 100 O2 Delivery Room Air Room Air 08/14/16 08/15/16 08/15/16 08/15/16 23:21 03:07 07:15 08:19 Temp 97.6 98.2 98.1 97.6 98.2 98.1 Pulse 66 81 91 108 Resp 16 16 18 B/P 106/61 116/66 121/51 127/91 Pulse Ox 98 98 99 O2 Delivery Room Air Room Air Room Air 08/15/16 08/15/16 08:20 08:20 Pulse 108 108 B/P 127/91 127/91 Intake and Output 08/14/16 08/14/16 08/15/16 15:00 23:00 07:00 Intake Total 240 ml 622.51 ml 1410 ml Output Total 200 ml 300 ml Balance 40 ml 322.51 ml 1410 ml STEVIE DECKER MD Aug 15, 2016 09:28
--- NOTE | 2016-08-15 09:32 | PDOC3 ---
Discharge Summary Visit Information Date of Admission: Aug 13, 2016 Date of Discharge: Aug 15, 2016 Admitting Diagnosis: fall Final Diagnosis fall rhabdomyolysis, weakness trop elevation, CV consulted, heparin gtt, CARDIAC CONTUSION from fall per CV consult. Dr. Ignacio Patino RVR, cardizem gtt, acute on chronic diastolic CHF htn, DM2, Vasomotor nephropathy hypokalemia, hypomagnesemia moderate/severe malnutrition, was POA, Problems Medical Problems: (1) Atrial flutter Status: Acute (2) Elevated troponin I level Status: Acute (3) Fall Status: Acute Brief Hospital Course Allergies Allergies Coded Allergies Type Severity Reaction Last Updated Verified aspirin Allergy Intermediate 06/03/16 Yes Vital Signs Vital Signs Date Time Temp Pulse Resp B/P Pulse Ox O2 Delivery O2 Flow Rate FiO2 08/15/16 08:20 108 127/91 08/15/16 07:15 98.1 18 99 Room Air 98.1 Lab Results Laboratory Tests Test 08/13/16 12:01 08/13/16 17:16 08/13/16 19:30 08/13/16 20:46 White Blood Count 13.4x10^3/uL (4.0-11.0) Red Blood Count 5.18x10^6/uL (4.30-5.70) Hemoglobin 16.6g/dL (13.0-17.5) Hematocrit 49.8% (39.0-53.0) Mean Corpuscular Volume 96fL (79-100) Mean Corpuscular Hemoglobin 32pg (25-35) Mean Corpuscular Hemoglobin Concent 33g/dL (31-37) Red Cell Distribution Width 14.6% (11.5-14.5) Platelet Count 239x10^3/uL (140-400) Neutrophils (%) (Auto) 83% (31-73) Lymphocytes (%) (Auto) 7% (24-48) Monocytes (%) (Auto) 10% (0-9) Eosinophils (%) (Auto) 0% (0-3) Basophils (%) (Auto) 0% (0-3) Neutrophils # (Auto) 11.1x10^3uL (1.8-7.7) Lymphocytes # (Auto) 1.0x10^3/uL (1.0-4.8) Monocytes # (Auto) 1.3x10^3/uL (0.0-1.1) Eosinophils # (Auto) 0.0x10^3/uL (0.0-0.7) Basophils # (Auto) 0.0x10^3/uL (0.0-0.2) Prothrombin Time 14.0SEC (11.7-14.0) Prothromb Time International Ratio 1.2 (0.8-1.1) Activated Partial Thromboplast Time 30SEC (24-38) Sodium Level 137mmol/L (136-145) Potassium Level 3.7mmol/L (3.5-5.1) Chloride Level 95mmol/L (98-107) Carbon Dioxide Level 29mmol/L (21-32) Anion Gap 13 (6-14) Blood Urea Nitrogen 22mg/dL (8-26) Creatinine 1.5mg/dL (0.7-1.3) Estimated GFR (Cockcroft-Gault) 54.6 Glucose Level 306mg/dL (70-99) Hemoglobin A1c 5.1% (4.8-5.6) Calcium Level 9.5mg/dL (8.5-10.1) Magnesium Level 1.7mg/dL (1.8-2.4) Total Bilirubin 1.6mg/dL (0.2-1.0) Direct Bilirubin 0.4mg/dL (0.0-0.2) Aspartate Amino Transf (AST/SGOT) 275U/L (15-37) Alanine Aminotransferase (ALT/SGPT) 83U/L (16-63) Alkaline Phosphatase 78U/L (46-116) Creatine Kinase 3057U/L (39-308) Troponin I Quantitative 7.866ng/mL (0.000-0.055) 7.547ng/mL (0.000-0.055) Total Protein 7.2g/dL (6.4-8.2) Albumin 3.7g/dL (3.4-5.0) Thyroid Stimulating Hormone (TSH) 2.066uIU/mL (0.358-3.74) Glucose (Fingerstick) 80mg/dL (70-99) 144mg/dL (70-99) Test 08/14/16 01:15 08/14/16 04:40 08/14/16 08:12 08/14/16 11:32 Troponin I Quantitative 10.425ng/mL (0.000-0.055) White Blood Count 8.0x10^3/uL (4.0-11.0) Red Blood Count 4.02x10^6/uL (4.30-5.70) Hemoglobin 13.0g/dL (13.0-17.5) Hematocrit 38.2% (39.0-53.0) Mean Corpuscular Volume 95fL (79-100) Mean Corpuscular Hemoglobin 32pg (25-35) Mean Corpuscular Hemoglobin Concent 34g/dL (31-37) Red Cell Distribution Width 14.4% (11.5-14.5) Platelet Count 191x10^3/uL (140-400) Neutrophils (%) (Auto) 71% (31-73) Lymphocytes (%) (Auto) 17% (24-48) Monocytes (%) (Auto) 12% (0-9) Eosinophils (%) (Auto) 1% (0-3) Basophils (%) (Auto) 0% (0-3) Neutrophils # (Auto) 5.6x10^3uL (1.8-7.7) Lymphocytes # (Auto) 1.4x10^3/uL (1.0-4.8) Monocytes # (Auto) 0.9x10^3/uL (0.0-1.1) Eosinophils # (Auto) 0.0x10^3/uL (0.0-0.7) Basophils # (Auto) 0.0x10^3/uL (0.0-0.2) Prothrombin Time 14.0SEC (11.7-14.0) Prothromb Time International Ratio 1.2 (0.8-1.1) Sodium Level 142mmol/L (136-145) Potassium Level 3.0mmol/L (3.5-5.1) Chloride Level 106mmol/L (98-107) Carbon Dioxide Level 28mmol/L (21-32) Anion Gap 8 (6-14) Blood Urea Nitrogen 18mg/dL (8-26) Creatinine 0.9mg/dL (0.7-1.3) Estimated GFR (Cockcroft-Gault) 81.4 BUN/Creatinine Ratio 20 (6-20) Glucose Level 86mg/dL (70-99) Calcium Level 8.2mg/dL (8.5-10.1) Total Bilirubin 1.4mg/dL (0.2-1.0) Aspartate Amino Transf (AST/SGOT) 133U/L (15-37) Alanine Aminotransferase (ALT/SGPT) 54U/L (16-63) Alkaline Phosphatase 47U/L (46-116) Creatine Kinase 1193U/L (39-308) Total Protein 5.4g/dL (6.4-8.2) Albumin 2.5g/dL (3.4-5.0) Albumin/Globulin Ratio 0.9 (1.0-1.7) Triglycerides Level 61mg/dL (0-150) Cholesterol Level 120mg/dL (0-200) LDL Cholesterol, Calculated 30mg/dL (0-100) VLDL Cholesterol, Calculated 12mg/dL (0-40) HDL Cholesterol 78mg/dL (40-60) Cholesterol/HDL Ratio 1.5 Glucose (Fingerstick) 74mg/dL (70-99) 57mg/dL (70-99) Test 08/14/16 14:20 08/14/16 15:05 08/14/16 16:49 08/15/16 03:30 Urine Color Yellow Urine Clarity Clear Urine pH 6.5 Urine Specific [place] 1.020 Urine Protein Negativemg/dL (NEG-TRACE) Urine Glucose (UA) 100mg/dL (NEG) Urine Ketones (Stick) Negativemg/dL (NEG) Urine Blood Negative (NEG) Urine Nitrite Negative (NEG) Urine Bilirubin Negative (NEG) Urine Urobilinogen Dipstick 1.0mg/dL (0.2 mg/dL) Urine Leukocyte Esterase Negative (NEG) Urine RBC 0/HPF (0-2) Urine WBC Occ/HPF (0-4) Urine Squamous Epithelial Cells Occ/LPF Urine Bacteria 0/HPF (0-FEW) Urine Mucus Slight/LPF Urine Random Sodium 121mmol/L (Not Estab.) Potassium Level 3.7mmol/L (3.5-5.1) 3.4mmol/L (3.5-5.1) Glucose (Fingerstick) 139mg/dL (70-99) Hemoglobin 12.2g/dL (13.0-17.5) Sodium Level 143mmol/L (136-145) Chloride Level 106mmol/L (98-107) Carbon Dioxide Level 28mmol/L (21-32) Anion Gap 9 (6-14) Blood Urea Nitrogen 12mg/dL (8-26) Creatinine 0.8mg/dL (0.7-1.3) Estimated GFR (Cockcroft-Gault) 93.3 Glucose Level 70mg/dL (70-99) Calcium Level 8.2mg/dL (8.5-10.1) Phosphorus Level 2.5mg/dL (2.6-4.7) Magnesium Level 1.5mg/dL (1.8-2.4) Creatine Kinase 473U/L (39-308) Albumin 2.4g/dL (3.4-5.0) Test 08/15/16 08:06 Glucose (Fingerstick) 63mg/dL (70-99) Laboratory Tests Test 08/14/16 11:32 08/14/16 14:20 08/14/16 15:05 08/14/16 16:49 Glucose (Fingerstick) 57mg/dL (70-99) 139mg/dL (70-99) Urine Color Yellow Urine Clarity Clear Urine pH 6.5 Urine Specific [place] 1.020 Urine Protein Negativemg/dL (NEG-TRACE) Urine Glucose (UA) 100mg/dL (NEG) Urine Ketones (Stick) Negativemg/dL (NEG) Urine Blood Negative (NEG) Urine Nitrite Negative (NEG) Urine Bilirubin Negative (NEG) Urine Urobilinogen Dipstick 1.0mg/dL (0.2 mg/dL) Urine Leukocyte Esterase Negative (NEG) Urine RBC 0/HPF (0-2) Urine WBC Occ/HPF (0-4) Urine Squamous Epithelial Cells Occ/LPF Urine Bacteria 0/HPF (0-FEW) Urine Mucus Slight/LPF Urine Random Sodium 121mmol/L (Not Estab.) Potassium Level 3.7mmol/L (3.5-5.1) Test 08/15/16 03:30 08/15/16 08:06 Hemoglobin 12.2g/dL (13.0-17.5) Sodium Level 143mmol/L (136-145) Potassium Level 3.4mmol/L (3.5-5.1) Chloride Level 106mmol/L (98-107) Carbon Dioxide Level 28mmol/L (21-32) Anion Gap 9 (6-14) Blood Urea Nitrogen 12mg/dL (8-26) Creatinine 0.8mg/dL (0.7-1.3) Estimated GFR (Cockcroft-Gault) 93.3 Glucose Level 70mg/dL (70-99) Calcium Level 8.2mg/dL (8.5-10.1) Phosphorus Level 2.5mg/dL (2.6-4.7) Magnesium Level 1.5mg/dL (1.8-2.4) Creatine Kinase 473U/L (39-308) Albumin 2.4g/dL (3.4-5.0) Glucose (Fingerstick) 63mg/dL (70-99) Brief Hospital Course Mr. Pérez is a 81 old admit after a fall, (down in garage almost 24 hours) went to primary care and was sent to ER. Tachy 150 in ER, Afib RVR, cardizem gtt, then converted troponin to 10, stress test OK, echo OK renal failure improved 2 days with fluid, vasomotor ECHO Left ventricle systolic function is normal. The Ejection Fraction is 65%. There is concentric LVH The left atrium size is normal. The right atrium size is normal. The aortic valve is mildly calcified. The aortic valve is trileaflet. Mitral annular calcification is mild. The mitral valve leaflets are calcified. Doppler and Color Flow revealed trace to mild tricuspid regurgitation. The PA pressure was estimated at 35 mmHg. The pulmonic valve is not well visualized. There is a small circumferential pericardial effusion. Discharge Information Condition at Discharge: Improved Follow Up: Weeks Disposition/Orders: D/C to Home Scheduled ([allopurinol]) DAILY (Reported) Allopurinol (Allopurinol) 300 MG PO DAILY (Reported) Clonidine Hcl (Clonidine Hcl) 0.2 MG PO BID (Reported) Clonidine Hcl (Clonidine Hcl) 1 TAB PO BID (Reported) Cyanocobalamin (Vitamin B-12) (Vitamin B-12) 1 TAB PO DAILY (Reported) Losartan/Hydrochlorothiazide (Losartan-Hctz 100-12.5 Mg Tab) 1 EACH PO DAILY ( Reported) Metformin Hcl (Metformin Hcl) 500 MG PO BIDWMEALS (Reported) Metformin Hcl (Metformin Hcl) 1 TAB PO BID (Reported) Metoprolol Tartrate (Metoprolol Tartrate) 1 TAB PO BID (Reported) Simvastatin (Simvastatin) 20 MG PO HS (Reported) Simvastatin (Simvastatin) 1 TAB PO QHS (Reported) Scheduled PRN Acetaminophen (Tylenol Extra Strength) 500 MG PO PRN PAIN (Reported) Dextran 70/Hypromellose (Artificial Tears) 1 EACH OP PRN DRY EYE (Reported) Dextran 70/Hypromellose (Artificial Tears) 1 EACH OP PRN PRN PRN DRY EYE ( Reported) Naproxen Sodium (Aleve) 220 MG PO BID PRN PRN PAIN (Reported) Miscellaneous Medications ([b12]) (Reported) Patient Instructions Patient Instructions time > 30 min [facility] MD Aug 15, 2016 09:31
[2016-08-15] MEDS: POTASSIUM PHOSPHATE DIBASIC 13.6 MMOL in IV NORMAL SALINE 100ML 100 ML IV SCH ×3 (09:43→13:00)
[2016-08-15] MEDS ORDERED: MAGNESIUM SULFATE 4GM 100 ML IV ONE (10:00)
[2016-08-15 10:55] VITALS: BP 97/59
[2016-08-15] MEDS ORDERED: POTASSIUM & SODIUM PHOSPHATES PACKET. PO SCH (11:00)
[2016-08-15] MEDS ORDERED: POTASSIUM CHLORIDE 20 MEQ TABLET.ER. PO ONE (11:00)
--- NOTE | 2016-08-15 14:13 | PDOC ---
PROGRESS NOTES Subjective Subjective Doing well. Objective Objective Vital Signs Date Time Temp Pulse Resp B/P Pulse Ox O2 Delivery O2 Flow Rate FiO2 08/15/16 10:55 97.4 62 18 97/59 96 Room Air 97.4 Intake and Output 08/15/16 07:00 Intake Total 2272.51 ml Output Total 500 ml Balance 1772.51 ml Intake Oral 760 ml IV Total 1512.51 ml Output Urine Total 500 ml # Voids 4 Physical Exam Physical Exam No changes in cardiac exam Assessment Assessment Problems Medical Problems: (1) Atrial flutter Status: Acute (2) Elevated troponin I level Status: Acute (3) Fall Status: Acute Plan Plan of Care Hemodynamically stable from cardiac standpoint F/u as outpatient in 2 weeks Comment Review of Relevant I have reviewed the following items renzo (where applicable) has been applied. Labs Laboratory Tests Test 08/13/16 17:16 08/13/16 19:30 08/13/16 20:46 08/14/16 01:15 Glucose (Fingerstick) 80mg/dL (70-99) 144mg/dL (70-99) Troponin I Quantitative 7.547ng/mL (0.000-0.055) 10.425ng/mL (0.000-0.055) Test 08/14/16 04:40 08/14/16 08:12 08/14/16 11:32 08/14/16 14:20 White Blood Count 8.0x10^3/uL (4.0-11.0) Red Blood Count 4.02x10^6/uL (4.30-5.70) Hemoglobin 13.0g/dL (13.0-17.5) Hematocrit 38.2% (39.0-53.0) Mean Corpuscular Volume 95fL (79-100) Mean Corpuscular Hemoglobin 32pg (25-35) Mean Corpuscular Hemoglobin Concent 34g/dL (31-37) Red Cell Distribution Width 14.4% (11.5-14.5) Platelet Count 191x10^3/uL (140-400) Neutrophils (%) (Auto) 71% (31-73) Lymphocytes (%) (Auto) 17% (24-48) Monocytes (%) (Auto) 12% (0-9) Eosinophils (%) (Auto) 1% (0-3) Basophils (%) (Auto) 0% (0-3) Neutrophils # (Auto) 5.6x10^3uL (1.8-7.7) Lymphocytes # (Auto) 1.4x10^3/uL (1.0-4.8) Monocytes # (Auto) 0.9x10^3/uL (0.0-1.1) Eosinophils # (Auto) 0.0x10^3/uL (0.0-0.7) Basophils # (Auto) 0.0x10^3/uL (0.0-0.2) Prothrombin Time 14.0SEC (11.7-14.0) Prothromb Time International Ratio 1.2 (0.8-1.1) Sodium Level 142mmol/L (136-145) Potassium Level 3.0mmol/L (3.5-5.1) Chloride Level 106mmol/L (98-107) Carbon Dioxide Level 28mmol/L (21-32) Anion Gap 8 (6-14) Blood Urea Nitrogen 18mg/dL (8-26) Creatinine 0.9mg/dL (0.7-1.3) Estimated GFR (Cockcroft-Gault) 81.4 BUN/Creatinine Ratio 20 (6-20) Glucose Level 86mg/dL (70-99) Calcium Level 8.2mg/dL (8.5-10.1) Total Bilirubin 1.4mg/dL (0.2-1.0) Aspartate Amino Transf (AST/SGOT) 133U/L (15-37) Alanine Aminotransferase (ALT/SGPT) 54U/L (16-63) Alkaline Phosphatase 47U/L (46-116) Creatine Kinase 1193U/L (39-308) Total Protein 5.4g/dL (6.4-8.2) Albumin 2.5g/dL (3.4-5.0) Albumin/Globulin Ratio 0.9 (1.0-1.7) Triglycerides Level 61mg/dL (0-150) Cholesterol Level 120mg/dL (0-200) LDL Cholesterol, Calculated 30mg/dL (0-100) VLDL Cholesterol, Calculated 12mg/dL (0-40) HDL Cholesterol 78mg/dL (40-60) Cholesterol/HDL Ratio 1.5 Glucose (Fingerstick) 74mg/dL (70-99) 57mg/dL (70-99) Urine Color Yellow Urine Clarity Clear Urine pH 6.5 Urine Specific [place] 1.020 Urine Protein Negativemg/dL (NEG-TRACE) Urine Glucose (UA) 100mg/dL (NEG) Urine Ketones (Stick) Negativemg/dL (NEG) Urine Blood Negative (NEG) Urine Nitrite Negative (NEG) Urine Bilirubin Negative (NEG) Urine Urobilinogen Dipstick 1.0mg/dL (0.2 mg/dL) Urine Leukocyte Esterase Negative (NEG) Urine RBC 0/HPF (0-2) Urine WBC Occ/HPF (0-4) Urine Squamous Epithelial Cells Occ/LPF Urine Bacteria 0/HPF (0-FEW) Urine Mucus Slight/LPF Urine Random Sodium 121mmol/L (Not Estab.) Test 08/14/16 15:05 08/14/16 16:49 08/15/16 03:30 08/15/16 08:06 Potassium Level 3.7mmol/L (3.5-5.1) 3.4mmol/L (3.5-5.1) Glucose (Fingerstick) 139mg/dL (70-99) 63mg/dL (70-99) Hemoglobin 12.2g/dL (13.0-17.5) Sodium Level 143mmol/L (136-145) Chloride Level 106mmol/L (98-107) Carbon Dioxide Level 28mmol/L (21-32) Anion Gap 9 (6-14) Blood Urea Nitrogen 12mg/dL (8-26) Creatinine 0.8mg/dL (0.7-1.3) Estimated GFR (Cockcroft-Gault) 93.3 Glucose Level 70mg/dL (70-99) Calcium Level 8.2mg/dL (8.5-10.1) Phosphorus Level 2.5mg/dL (2.6-4.7) Magnesium Level 1.5mg/dL (1.8-2.4) Creatine Kinase 473U/L (39-308) Albumin 2.4g/dL (3.4-5.0) Test 08/15/16 11:48 Glucose (Fingerstick) 96mg/dL (70-99) Laboratory Tests Test 08/14/16 14:20 08/14/16 15:05 08/14/16 16:49 08/15/16 03:30 Urine Color Yellow Urine Clarity Clear Urine pH 6.5 Urine Specific [place] 1.020 Urine Protein Negativemg/dL (NEG-TRACE) Urine Glucose (UA) 100mg/dL (NEG) Urine Ketones (Stick) Negativemg/dL (NEG) Urine Blood Negative (NEG) Urine Nitrite Negative (NEG) Urine Bilirubin Negative (NEG) Urine Urobilinogen Dipstick 1.0mg/dL (0.2 mg/dL) Urine Leukocyte Esterase Negative (NEG) Urine RBC 0/HPF (0-2) Urine WBC Occ/HPF (0-4) Urine Squamous Epithelial Cells Occ/LPF Urine Bacteria 0/HPF (0-FEW) Urine Mucus Slight/LPF Urine Random Sodium 121mmol/L (Not Estab.) Potassium Level 3.7mmol/L (3.5-5.1) 3.4mmol/L (3.5-5.1) Glucose (Fingerstick) 139mg/dL (70-99) Hemoglobin 12.2g/dL (13.0-17.5) Sodium Level 143mmol/L (136-145) Chloride Level 106mmol/L (98-107) Carbon Dioxide Level 28mmol/L (21-32) Anion Gap 9 (6-14) Blood Urea Nitrogen 12mg/dL (8-26) Creatinine 0.8mg/dL (0.7-1.3) Estimated GFR (Cockcroft-Gault) 93.3 Glucose Level 70mg/dL (70-99) Calcium Level 8.2mg/dL (8.5-10.1) Phosphorus Level 2.5mg/dL (2.6-4.7) Magnesium Level 1.5mg/dL (1.8-2.4) Creatine Kinase 473U/L (39-308) Albumin 2.4g/dL (3.4-5.0) Test 08/15/16 08:06 08/15/16 11:48 Glucose (Fingerstick) 63mg/dL (70-99) 96mg/dL (70-99) Medications Current Medications Sodium Chloride (Iv Sodium Chloride 0.9% 1000ml Bag) 1,000 ml @ 1,000 mls/hr Q1H IV Last administered on 08/13/16t 12:21; Start 08/13/16 at 12:30; Stop at 13:29; Status DC Adenosine (Adenocard) 6 mg STK-MED ONCE IV ; Start 08/13/16 at 12:22; Stop at 12:23; Status DC Adenosine (Adenocard) 6 mg 1X ONCE IV Last administered on 08/13/16 12:30; Start 08/13/16 at 12:30; Stop 08/13/16 at 12:31; Status DC Adenosine (Adenocard) 6 mg STK-MED ONCE IV ; Start 08/13/16 at 12:25; Stop at 12:26; Status DC Adenosine 12 mg 12 mg 1X ONCE IV Last administered on 08/13/16 12:34; Start at 12:45; Stop 08/13/16 at 12:46; Status DC Diltiazem HCl/ Dextrose (Cardizem) 125 ml @ 0 mls/hr CONT PRN IV SEE I/O RECORD Last administered on 08/13/16 13:04; Start 08/13/16 at 12:45; Stop at 14:25; Status DC Diltiazem HCl (Cardizem) 20 mg 1X ONCE IVP Last administered on 08/13/16 12:44 ; Start 08/13/16 at 12:45; Stop 08/13/16 at 12:46; Status DC Nicardipine HCl (Cardene) 25 mg STK-MED ONCE IV ; Start 08/13/16 at 12:36; Stop 08/13/16 at 12:37; Status DC Aspirin (Children'S Aspirin) 324 mg 1X ONCE PO Last administered on 08/13/16 13:29; Start 08/13/16 at 12:45; Stop 08/13/16 at 14:04; Status DC Heparin Sodium (Porcine) 4000 unit 4,000 unit 1X ONCE IV Last administered on 08/13/16 13:31; Start 08/13/16 at 12:45; Stop 08/13/16 at 12:54; Status DC Heparin Sodium/ Dextrose 500 ml @ 0 mls/hr CONT PRN IV SEE I/O RECORD Last administered on 08/13/16 13:37; Start 08/13/16 at 12:45; Stop 08/13/16 at 18:09; Status DC Heparin Sodium (Porcine) 1,700 unit PRN Q6HRS PRN IV FOR UFH LEVEL LESS THAN 0.2; Start 08/13/16 at 12:45; Stop 08/13/16 at 18:09; Status DC Ondansetron HCl (Zofran) 4 mg PRN Q8HRS PRN IV NAUSEA/VOMITING; Start 08/13/16 at 14:00; Stop 08/14/16 at 13:59; Status DC Morphine Sulfate 4 mg 4 mg PRN Q2HR PRN IV PAIN; Start 08/13/16 at 14:00; Stop 08/14/16 at 13:59; Status DC Sodium Chloride (Iv Sodium Chloride 0.9% 1000ml Bag) 1,000 ml @ 125 mls/hr Q8H IV Last administered on 08/14/16 00:30; Start 08/13/16 at 13:46; Stop 08/14/16 at 09:19; Status DC Acetaminophen (Tylenol) 650 mg PRN Q4HRS PRN PO FEVER; Start 08/13/16 at 14:00; Stop 08/14/16 at 13:59; Status DC Nitroglycerin (Nitrostat) 0.4 mg PRN Q5MIN PRN SL CHEST PAIN; Start 08/13/16 at 14:00; Stop 08/14/16 at 13:59; Status DC Insulin Aspart (Novolog) 0-7 UNITS TIDWMEALS SQ ; Start 08/13/16 at 17:00; Status Cancel Dextrose 12.5 gm PRN Q15MIN PRN IV SEE COMMENTS; Start 08/13/16 at 14:00; Status Cancel Acetaminophen (Tylenol) 500 mg PRN Q8HRS PRN PO PAIN; Start 08/13/16 at 15:30 Allopurinol (Zyloprim) 300 mg DAILY PO Last administered on 08/15/16 08:20; Start 08/13/16 at 16:00 Clonidine HCl (Catapres) 0.2 mg BID PO ; Start 08/13/16 at 21:00; Status Cancel Clonidine HCl (Catapres) 0.2 mg BID PO Last administered on 08/15/16 08:20; Start 08/13/16 at 21:00 Cyanocobalamin (Vitamin B-12) 1,000 mcg DAILY PO Last administered on 08:20; Start 08/14/16 at 09:00 Metformin HCl (Glucophage) 500 mg BID PO ; Start 08/13/16 at 21:00; Stop 08/13/16 at 21:00; Status DC Metformin HCl (Glucophage) 500 mg BIDWMEALS PO ; Start 08/13/16 at 17:00; Stop at 17:00; Status DC Metoprolol Tartrate (Lopressor) 50 mg BID PO Last administered on 08/15/16 08: 20; Start 08/13/16 at 21:00 Simvastatin (Zocor) 20 mg QHS PO ; Start 08/13/16 at 21:00; Status UNV Atorvastatin Calcium (Lipitor) 10 mg QHS PO Last administered on 08/14/16 20:30 ; Start 08/13/16 at 21:00 Artificial Tears (Artificial Tears) 1 drop PRN Q15MIN PRN OU DRY EYE; Start 08/13/16 at 16:00 Non-Formulary Medication 1 each DAILY PO ; Start 08/14/16 at 09:00; Status UNV Naproxen (Naprosyn) 250 mg PRN BID PRN PO INFLAMM; Start 08/13/16 at 15:45; Stop 08/14/16 at 09:19; Status DC Insulin Aspart (Novolog) 0-7 UNITS TIDWMEALS SQ ; Start 08/13/16 at 17:00 Dextrose 12.5 gm PRN Q15MIN PRN IV SEE COMMENTS Last administered on 08/14/16 11:49; Start 08/13/16 at 15:30 Insulin Detemir 10 units 10 units QHS SQ Last administered on 08/14/16 21:07; Start 08/13/16 at 21:00 Magnesium Sulfate/ Dextrose (Magnesium Sulfate PREMIX 2GM) 50 ml @ 25 mls/hr 1X ONCE IV Last administered on 08/13/16 16:25; Start 08/13/16 at 15:30; Stop 08/13/16 at 17:29; Status DC Losartan Potassium (Cozaar) 100 mg DAILY PO Last administered on 08/15/16 08: 19; Start 08/13/16 at 16:00 Hydrochlorothiazide (Microzide) 12.5 mg DAILY PO Last administered on 08/13/16 17:44; Start 08/13/16 at 16:00; Stop 08/14/16 at 09:19; Status DC Info (Anti-Coagulation Monitoring By Pharmacy) 1 each PRN DAILY PRN MC SEE COMMENTS; Start 08/13/16 at 16:00; Stop 08/14/16 at 09:37; Status DC Influenza Virus Vaccine Quadrival (Fluarix Quad 8525-6501 Syringe) 0.5 ml ONCE ONCE VAX IM Last administered on 08/14/16 19:16; Start 08/14/16 at 18:30; Stop 08/14/16 at 18:31; Status DC Pneumococcal Polyvalent Vaccine 0.5 ml 0.5 ml ONCE ONCE VAX IM Last administered on 08/14/16 19:17; Start 08/14/16 at 18:30; Stop 08/14/16 at 18:31; Status DC Potassium Chloride (KCl Premix 10meq) 100 ml @ 100 mls/hr Q1H IV Last administered on 08/14/16 11:58; Start 08/14/16 at 10:00; Stop 08/14/16 at 11:59; Status DC Potassium Chloride (Klor-Con) 40 meq 1X ONCE PO ; Start 08/14/16 at 09:15; Stop 08/14/16 at 09:16; Status DC Potassium Chloride 20 meq 20 meq [id number] PO Last administered on 08/15/16 08:21; Start 08/15/16 at 08:00 Magnesium Sulfate/ Dextrose 50 ml @ 25 mls/hr PRN DAILY PRN IV for Mag < 1.7 on am labs; Start 08/14/16 at 09:15 Potassium Acetate 20 meq/Sodium Chloride 1,010 ml @ 75 mls/hr [id number] IV Last administered on 08/14/16 13:19; Start 08/14/16 at 09:30; Stop 08/14/16 at 14:25; Status DC Magnesium Sulfate/ Dextrose 50 ml @ 25 mls/hr 1X ONCE IV Last administered on 08/15/16 07:18; Start 08/15/16 at 07:00; Stop 08/15/16 at 08:59; Status DC Potassium Phosphate 13.6 mmol/Sodium Chloride 104.5333 ml @ 52.267 m... Q2H IV Last administered on 08/15/16 09:43; Start 08/15/16 at 09:00; Stop 08/15/16 at 14:59 Magnesium Sulfate/ Dextrose (Magnesium Sulfate PREMIX 4GM) 100 ml @ 25 mls/hr 1X ONCE IV ; Start 08/15/16 at 10:00; Stop 08/15/16 at 10:27; Status DC Potassium Chloride (Klor-Con) 40 meq 1X ONCE PO ; Start 08/15/16 at 11:00; Stop 08/15/16 at 11:01; Status DC Potassium Phos/ Sodium Phos (Phos-Nak) 3 pkt DAILY PO Last administered on 08/15 11:18; Start 08/15/16 at 11:00 Active Scripts Active Reported Metoprolol Tartrate 50 Mg Tablet 1 Tab PO BID [b12] Artificial Tears (Dextran 70/Hypromellose) 1 Each Droperette 1 Each OP PRN PRN Simvastatin 20 Mg Tablet 1 Tab PO QHS Metformin Hcl 500 Mg Tablet 1 Tab PO BID Clonidine Hcl 0.2 Mg Tablet 1 Tab PO BID [allopurinol] DAILY Artificial Tears (Dextran 70/Hypromellose) 1 Each Droperette 1 Each OP PRN Aleve (Naproxen Sodium) 220 Mg Capsule 220 Mg PO BID PRN Tylenol Extra Strength (Acetaminophen) 500 Mg Tablet 500 Mg PO PRN Vitamin B-12 (Cyanocobalamin (Vitamin B-12)) 1,000 Mcg Tablet 1 Tab PO DAILY Simvastatin 20 Mg Tablet 20 Mg PO HS Metformin Hcl 500 Mg Tablet 500 Mg PO BIDWMEALS Losartan-Hctz 100-12.5 Mg Tab (Losartan/Hydrochlorothiazide) 1 Each Tablet 1 Each PO DAILY Clonidine Hcl 0.2 Mg Tablet 0.2 Mg PO BID Allopurinol 300 Mg Tablet 300 Mg PO DAILY Vitals/I & O Vital Sign - Last 24 Hours 08/14/16 08/14/16 08/14/16 08/14/16 15:02 19:12 20:00 20:30 Temp 98.2 98.1 98.2 98.1 Pulse 69 79 79 Resp 20 18 B/P 122/62 121/63 121/63 Pulse Ox 100 100 O2 Delivery Room Air Room Air Room Air 08/14/16 08/14/16 08/15/16 08/15/16 20:30 23:21 03:07 07:15 Temp 97.6 98.2 98.1 97.6 98.2 98.1 Pulse 79 66 81 91 Resp 16 16 18 B/P 121/63 106/61 116/66 121/51 Pulse Ox 98 98 99 O2 Delivery Room Air Room Air Room Air 08/15/16 08/15/16 08/15/16 08/15/16 08:00 08:19 08:20 08:20 Pulse 108 108 108 B/P 127/91 127/91 127/91 O2 Delivery Room Air 08/15/16 10:55 Temp 97.4 97.4 Pulse 62 Resp 18 B/P 97/59 Pulse Ox 96 O2 Delivery Room Air Intake and Output 08/14/16 08/14/16 08/15/16 15:00 23:00 07:00 Intake Total 240 ml 622.51 ml 1410 ml Output Total 200 ml 300 ml Balance 40 ml 322.51 ml 1410 ml CARMEN QUIROGA MD Aug 15, 2016 14:12
[2016-08-15] MEDS ORDERED: DILT120C97 PO (16:01)
== END 2016-08-15 16:30 | disposition home or self-care (01) | DRG 280 ==
LOC: ER 11:51 → 2 NORTH 13:45
PROVIDERS: ADMIT Internal Medicine; ATTEND Internal Medicine
DX: I11.0 Hypertensive heart disease with heart failure (principal); I21.3 ST elevation (STEMI) myocardial infarction of unspecified site; N17.0 Acute kidney failure with tubular necrosis; E43 Unspecified severe protein-calorie malnutrition; I31.3 Pericardial effusion (noninflammatory); I48.92 Unspecified atrial flutter; M62.82 Rhabdomyolysis; R64 Cachexia; I50.33 Acute on chronic diastolic (congestive) heart failure; E11.9 Type 2 diabetes mellitus without complications; E78.00 Pure hypercholesterolemia, unspecified; E78.5 Hyperlipidemia, unspecified; E83.42 Hypomagnesemia; E86.0 Dehydration; E87.6 Hypokalemia; I48.91 Unspecified atrial fibrillation; I70.0 Atherosclerosis of aorta; M10.9 Gout, unspecified; S20.219A Contusion of unspecified front wall of thorax, initial encounter; W01.0XXA Fall on same level from slipping, tripping and stumbling without subsequent striking against object, initial encounter; Y93.89 Activity, other specified; Z68.23 Body mass index [BMI] 23.0-23.9, adult; Y92.59 Other trade areas as the place of occurrence of the external cause; Y99.8 Other external cause status; Z79.899 Other long term (current) drug therapy; Z79.82 Long term (current) use of aspirin; Z88.8 Allergy status to other drugs, medicaments and biological substances
CPT/HCPCS: 36415; 70450; 71010; 73080; 73562; 80048; 80053; 80061; 80069; 80076; 81001; 82550; 82947; 83036; 83735; 84132; 84300; 84443; 84484; 85018; 85027; 85610; 85730; 90686; 90732; 93005; 93306; 96365; 96375; 96376; J0153; J1815; J3480; J3490; J7030; J7042; J7060; 99285-25

== ENCOUNTER 2018-04-11 12:05 | Inpatient (IN) | payer MEDICARE, BC ==
[~2018-04-11] VITALS: Ht 170.2 cm; Wt 68.1 kg
[~2018-04-11 12:05] MED LIST changes: +DILT120C80 PO; -LOSA1TAB18 PO; +LOSA1TAB25 PO; +METF500T16 PO; -METF500T4 PO; -METO50TA2 PO; +METO50TA6 PO
[2018-04-11 12:40] LABS: BASO # 0.1 x10^3/uL (0.0-0.2); BASO % 1 % (0-3); EOS # 0.2 x10^3/uL (0.0-0.7); EOS % 2 % (0-3); HEMATOCRIT 40.8 % (39.0-53.0); HEMOGLOBIN 13.8 g/dL (13.0-17.5); LYMPH # 1.5 x10^3/uL (1.0-4.8); LYMPH % 13 % (24-48); MEAN CORPUSCULAR HEMOGLOBIN 31 pg (25-35); MEAN CORPUSCULAR HGB CONC 34 g/dL (31-37); MEAN CORPUSCULAR VOLUME 93 fL (79-100); MONO % 8 % (0-9); NEUT # 9.1 x10^3uL (1.8-7.7); NEUT % 77 % (31-73); PLATELET COUNT 393 x10^3/uL (140-400); RED BLOOD COUNT 4.41 x10^6/uL (4.30-5.70); RED CELL DISTRIBUTION WIDTH 14.5 % (11.5-14.5); WHITE BLOOD COUNT 11.7 x10^3/uL (4.0-11.0)
[2018-04-11 12:48] LABS: CALCIUM 8.6 mg/dL (8.5-10.1); CREATININE 0.9 mg/dL (0.7-1.3); GFR 81.2; POTASSIUM 3.8 mmol/L (3.5-5.1)
[2018-04-11 12:55] LABS: PROTHROMBIN TIME PATIENT 13.8 SEC (11.7-14.0)
--- NOTE | 2018-04-11 12:55 | PHYS DOC ---
Past Medical History Past Medical History: Diabetes-Type II, High Cholesterol, Hypertension Past Surgical History: Other Additional Past Surgical Histo: R. knee replaced Alcohol Use: Occasionally Drug Use: None Adult General Chief Complaint Chief Complaint: SHORTNESS OF BREATH HPI HPI Patient is a 82 year old male was brought here from the custodial for shortness of air, cough for several days. A chest xray was done today and it shown interstitial infiltrate or edema, small bilateral effusion, Probable heart failure. Patient cannot provide any information. He is awake, alert but does not know why he is here today. Patient denied any chest pain, no fever. Review of Systems Review of Systems Constitutional: Denies fever or chills [] Eyes: Denies change in visual acuity, redness, or eye pain [] HENT: Denies nasal congestion or sore throat [] Respiratory: Denies cough or shortness of breath [] Cardiovascular: No additional information not addressed in HPI [] GI: Denies abdominal pain, nausea, vomiting, bloody stools or diarrhea [] : Denies dysuria or hematuria [] Musculoskeletal: Denies back pain or joint pain [] Integument: Denies rash or skin lesions [] Neurologic: Denies headache, focal weakness or sensory changes [] Endocrine: Denies polyuria or polydipsia [] All other systems were reviewed and found to be within normal limits, except as documented in this note. Current Medications Current Medications Current Medications Medications (Trade) Dose Ordered Sig/Matt Start Time Stop Time Status Last Admin Dose Admin Albuterol/ Ipratropium (Duoneb) 3 ml 1X ONCE 04/11/18 13:45 04/11/18 13:46 Furosemide (Lasix) 40 mg 1X ONCE 04/11/18 13:45 04/11/18 13:46 Allergies Allergies Allergies Coded Allergies Type Severity Reaction Last Updated Verified aspirin Allergy Intermediate 06/03/16 Yes Physical Exam Physical Exam Constitutional: Well developed, well nourished, no acute distress, non-toxic appearance. [] HENT: Normocephalic, atraumatic, bilateral external ears normal, oropharynx moist, no oral exudates, nose normal. [] Eyes: PERRLA, EOMI, conjunctiva normal, no discharge. [] Neck: Normal range of motion, no tenderness, supple, no stridor. [] Cardiovascular:Heart rate regular rhythm, no murmur, rales in lower lung sanchez. Lungs & Thorax: Bilaterally decreased lung sound. Abdomen: Bowel sounds normal, soft, no tenderness, no masses, no pulsatile masses. [] Skin: Warm, dry, no erythema, no rash. [] Back: No tenderness, no CVA tenderness. [] Extremities: No tenderness, no cyanosis, no clubbing, ROM intact, bilateral lower extremities edema, 2 plus with erythema. Neurologic: Alert and oriented X 3, normal motor function, normal sensory function, no focal deficits noted. [] Psychologic: Affect normal, judgement normal, mood normal. [] Current Patient Data Vital Signs Vital Signs Date Time Temp Pulse Resp B/P (MAP) Pulse Ox O2 Delivery O2 Flow Rate FiO2 04/11/18 12:32 98.4 73 16 183/84 (117) 97 Room Air 98.4 Lab Values Laboratory Tests Test 04/11/18 12:05 White Blood Count 11.7 x10^3/uL (4.0-11.0) H Red Blood Count 4.41 x10^6/uL (4.30-5.70) Hemoglobin 13.8 g/dL (13.0-17.5) Hematocrit 40.8 % (39.0-53.0) Mean Corpuscular Volume 93 fL (79-100) Mean Corpuscular Hemoglobin 31 pg (25-35) Mean Corpuscular Hemoglobin Concent 34 g/dL (31-37) Red Cell Distribution Width 14.5 % (11.5-14.5) Platelet Count 393 x10^3/uL (140-400) Neutrophils (%) (Auto) 77 % (31-73) H Lymphocytes (%) (Auto) 13 % (24-48) L Monocytes (%) (Auto) 8 % (0-9) Eosinophils (%) (Auto) 2 % (0-3) Basophils (%) (Auto) 1 % (0-3) Neutrophils # (Auto) 9.1 x10^3uL (1.8-7.7) H Lymphocytes # (Auto) 1.5 x10^3/uL (1.0-4.8) Monocytes # (Auto) 1.0 x10^3/uL (0.0-1.1) Eosinophils # (Auto) 0.2 x10^3/uL (0.0-0.7) Basophils # (Auto) 0.1 x10^3/uL (0.0-0.2) Prothrombin Time 13.8 SEC (11.7-14.0) Prothrombin Time INR 1.1 (0.8-1.1) Sodium Level 143 mmol/L (136-145) Potassium Level 3.8 mmol/L (3.5-5.1) Chloride Level 104 mmol/L (98-107) Carbon Dioxide Level 32 mmol/L (21-32) Anion Gap 7 (6-14) Blood Urea Nitrogen 14 mg/dL (8-26) Creatinine 0.9 mg/dL (0.7-1.3) Estimated GFR (Cockcroft-Gault) 81.2 BUN/Creatinine Ratio 16 (6-20) Glucose Level 88 mg/dL (70-99) Lactic Acid Level 1.1 mmol/L (0.4-2.0) Calcium Level 8.6 mg/dL (8.5-10.1) Magnesium Level 1.2 mg/dL (1.8-2.4) L Total Bilirubin 0.8 mg/dL (0.2-1.0) Aspartate Amino Transferase (AST) 30 U/L (15-37) Alanine Aminotransferase (ALT) 52 U/L (16-63) Alkaline Phosphatase 79 U/L (46-116) Creatine Kinase 99 U/L (39-308) Creatine Kinase MB (Mass) 4.4 ng/mL (0.0-3.6) H Creatine Kinase MB Relative Index 4.4 % (0-4) H Troponin I Quantitative 0.056 ng/mL (0.000-0.055) RG-Oug-O-Type Natriuretic Peptide 3556 pg/mL (0-449) H Total Protein 7.0 g/dL (6.4-8.2) Albumin 2.8 g/dL (3.4-5.0) L Albumin/Globulin Ratio 0.7 (1.0-1.7) L Lipase 64 U/L (73-393) L Thyroid Stimulating Hormone (TSH) 3.679 uIU/mL (0.358-3.74) Laboratory Tests 04/11/18 12:05 Laboratory Tests 04/11/18 12:05 EKG EKG ekg: rate of 63 BPM, AFIB, NO STEM. [] Radiology/Procedures Radiology/Procedures [] Course & Med Decision Making Course & Med Decision Making Pertinent Labs and Imaging studies reviewed. (See chart for details) [] Dragon Disclaimer Dragon Disclaimer This electronic medical record was generated, in whole or in part, using a voice recognition dictation system. Departure Departure Impression: Primary Impression: Acute CHF Additional Impression: Dyspnea Disposition: ADMITTED INPATIENT Admitting Physician: Damien Cardoso Condition: STABLE Referrals: MIYA LICEA Jr, MD (PCP) Problem Qualifiers JEWEL FRANK DO Apr 11, 2018 12:55
[2018-04-11 13:01] LABS: ALBUMIN 2.8 g/dL (3.4-5.0); ALBUMIN/GLOBULIN RATIO 0.7 (1.0-1.7); MAGNESIUM 1.2 mg/dL (1.8-2.4); TOTAL BILIRUBIN 0.8 mg/dL (0.2-1.0)
[2018-04-11] MEDS ORDERED: FUROSEMIDE 40 MG/4 ML VIAL. IVP ONE (13:45)
[2018-04-11] MEDS ORDERED: IPRATRPIUM/ALBUTEROL 0.5/2.5MG 3 ML NEBU. NEB ONE (13:45)
[2018-04-11 15:35] VITALS: BP 156/78
[2018-04-11] MEDS ORDERED: MINE396O2 TP (15:51)
[2018-04-11] MEDS ORDERED: ALPR0.254 PO (15:51)
[2018-04-11] MEDS ORDERED: TRIA15OI TP (15:51)
[2018-04-11] MEDS ORDERED: DONE5TAB56 PO (15:51)
[2018-04-11] MEDS ORDERED: TUBE5VIA12 ID (15:51)
[2018-04-11] MEDS ORDERED: MAGNESIUM SULFATE 2GM 50 ML IV ONE (16:00)
[2018-04-11] MEDS ORDERED: FUROSEMIDE 40 MG/4 ML VIAL. IVP SCH (17:00)
[2018-04-11] MEDS: POTASSIUM CHLORIDE 20 MEQ TABLET.ER. PO SCH (17:28)
--- NOTE | 2018-04-11 17:37 | EKG ---
[facility] [address] [place] [address] Test Date: 2018-04-11 Test Time: 12:15:19 Pat Name: MAAME DODD Department: Room: 205 1 Gender: M Public Relations Player: : [id number] Requested By: JEWEL FRANK Order Number: [id number] Reading MD: Juan Willams MD Measurements Intervals [place] Rate: 62 P: VA: QRS: 2 QRSD: 84 T: 35 QT: 470 QTc: 484 Interpretive Statements SR NON-SPECIFIC ST/T CHANGES Electronically Signed On 04-12-2018 15:22:04 [employer] by Juan Willams MD
[2018-04-11] MEDS ORDERED: ACETAMINOPHEN 500 MG TABLET PO PRN (18:45)
[2018-04-11 19:00] VITALS: BP 159/75
[2018-04-11] MEDS ORDERED: NAPROXEN 250 MG TABLET PO PRN (19:00)
[2018-04-11] MEDS: cloNIDine HCL 0.2 MG TABLET PO SCH (19:53)
[2018-04-11] MEDS: DONEPEZIL HCL 5 MG TABLET. PO SCH (19:53)
[2018-04-11] MEDS: ALPRAZolam 0.25 MG TABLET PO PRN (19:53)
[2018-04-11] MEDS: MINERAL OIL/PETROLATUM TOPICAL CREAM 113GM JAR. TP SCH ×2 (21:00→21:26)
[2018-04-11] MEDS: ATORVASTATIN CALCIUM 10 MG TABLET. PO SCH (21:00)
[2018-04-11] MEDS: TRIAMCINOLONE ACETONIDE 0.1% TOPICAL OINTMENT 15GM TUBE. TP SCH (21:00)
[2018-04-11] MEDS: METOPROLOL TART IMMED RELEASE 50 MG TABLET. PO SCH (21:27)
[2018-04-11] MEDS: FUROSEMIDE 100 MG/10 ML VIAL. IVP SCH (21:28)
[2018-04-11 21:32] LABS: BILIRUBIN,URINE NEGATIVE (NEG); CLARITY,URINE CLEAR; COLOR,URINE YELLOW; NITRITE,URINE NEGATIVE (NEG); PROTEIN,URINE NEGATIVE (NEG-TRACE)
[2018-04-11 21:38] LABS: BACTERIA,URINE 0 /HPF (0-FEW); RBC,URINE >40 /HPF (0-2); SQUAMOUS EPITHELIAL CELL,UR OCC /LPF
[2018-04-11 23:00] VITALS: BP 127/64
--- NOTE | 2018-04-11 23:14 | PDOC1 ---
History and Physical Date of Admission Date of Admission DATE: 04/11/18 TIME: 23:14 Identification/Chief Complaint Chief Complaint seen in ER brought here from the longterm for shortness of air, cough for several days. A chest x-ray was done today and it shown interstitial infiltrate or edema, small bilateral effusion, Probable heart failure. Patient cannot provide MUCH information. Past Medical History Past Medical History Past Medical History Past Medical History: Diabetes-Type II, High Cholesterol, Hypertension Past Surgical History: Other Additional Past Surgical Histo: R. knee replaced Alcohol Use: Occasionally Drug Use: None nonsmoker family hx htn Cardiovascular: CHF, HTN, Hyperlipidemia CENTRAL NERVOUS SYSTEM: Dementia Musculoskeletal: Osteoarthritis Endocrine: Diabetes Family History Family History: No Significant, Hypertension Social History Smoke: No ALCOHOL: none Drugs: None Current Problem List Problem List Problems Medical Problems: (1) Dyspnea Status: Acute Current Medications Current Medications Current Medications Furosemide (Lasix) 40 mg 1X ONCE IVP Last administered on 04/11/18at 14:12; Start 04/11/18 at 13:45; Stop 04/11/18 at 13:46; Status DC Albuterol/ Ipratropium (Duoneb) 3 ml 1X ONCE NEB Last administered on at 14:09; Start 04/11/18 at 13:45; Stop 04/11/18 at 13:46; Status DC Magnesium Sulfate 50 ml @ 25 mls/hr 1X ONCE IV Last administered on 04/11/18at 16:03; Start 04/11/18 at 16:00; Stop 04/11/18 at 17:59; Status DC Potassium Chloride (Klor-Con) 20 meq BIDWMEALS PO Last administered on at 17:28; Start 04/11/18 at 17:00 Furosemide (Lasix) 60 mg BID94 IVP ; Start 04/11/18 at 17:00; Stop 04/11/18 at 17:11; Status DC Magnesium Sulfate 50 ml @ 25 mls/hr 1X ONCE IV ; Start 04/12/18 at 06:00; Stop 04/12/18 at 07:59 Furosemide (Lasix) 60 mg Q12HR IVP Last administered on 04/11/18at 21:28; Start 04/11/18 at 21:00 Acetaminophen (Tylenol) 500 mg PRN Q6HRS PRN PO PAIN; Start 04/11/18 at 18:45 Allopurinol (Zyloprim) 300 mg DAILY PO ; Start 04/12/18 at 09:00 Alprazolam (Xanax) 0.25 mg PRN Q6HRS PRN PO ANXIETY / AGITATION Last administered on 04/11/18at 19:53; Start 04/11/18 at 18:45 Clonidine HCl (Catapres) 0.2 mg BID PO Last administered on 04/11/18at 19:53; Start 04/11/18 at 21:00 Cyanocobalamin (Vitamin B-12) 1,000 mcg DAILY PO ; Start 04/12/18 at 09:00 Diltiazem HCl (Cardizem 24hr Cd) 120 mg DAILY PO ; Start 04/12/18 at 09:00 Metoprolol Tartrate (Lopressor) 50 mg BID PO Last administered on 04/11/18at 21: 27; Start 04/11/18 at 21:00 Triamcinolone Acetonide (Kenalog) 1 benjy TID TP ; Start 04/11/18 at 21:00 Donepezil HCl (Aricept) 5 mg HS PO Last administered on 04/11/18at 19:53; Start 04/11/18 at 21:00 Losartan Potassium (Cozaar) 100 mg DAILY PO ; Start 04/12/18 at 09:00 Metformin HCl (Glucophage) 500 mg BIDWMEALS PO ; Start 04/12/18 at 08:00 Multi-Ingred Cream/Lotion/Oil/ Oint (Hydrocerin Cream) 1 benjy BID TP Last administered on 04/11/18at 21:26; Start 04/11/18 at 19:15 Naproxen (Naprosyn) 250 mg PRN BID PRN PO PAIN; Start 04/11/18 at 19:00 Atorvastatin Calcium (Lipitor) 10 mg QHS PO Last administered on 04/11/18at 21: 00; Start 04/11/18 at 21:00 Hydrochlorothiazide (Microzide) 12.5 mg DAILY PO ; Start 04/12/18 at 09:00 Active Scripts Active Reported Aquaphor Ointment (Mineral Oil/Hydrophil Petrolat) 396 Gm Oint...g. 396 Gm TP BID Triamcinolone Acetonide 0.1% Oint (Triamcinolone Acetonide) 15 Gm Oint...g. 1 Benjy TP TID MIX WITH EUCERIN DIRECTED BY PHYSICIAN Tubersol (Tuberculin,Purif.prot.deriv.) 5 Tub Unit/0.1 Ml Vial 5 Tub ID DAILY Alprazolam 0.25 Mg Tablet 0.25 Mg PO PRN Q6HRS PRN Aricept (Donepezil Hcl) 5 Mg Tablet 5 Mg PO HS Diltiazem 24HR Cd (Diltiazem Hcl) 120 Mg Cap.er.24h 1 Cap PO DAILY Metoprolol Tartrate 50 Mg Tablet 1 Tab PO BID [b12] Clonidine Hcl 0.2 Mg Tablet 1 Tab PO BID [allopurinol] DAILY Artificial Tears (Dextran 70/Hypromellose) 1 Each Droperette 1 Each OP PRN Aleve (Naproxen Sodium) 220 Mg Capsule 220 Mg PO BID PRN Tylenol Extra Strength (Acetaminophen) 500 Mg Tablet 500 Mg PO PRN Vitamin B-12 (Cyanocobalamin (Vitamin B-12)) 1,000 Mcg Tablet 1 Tab PO DAILY Simvastatin 20 Mg Tablet 20 Mg PO HS Metformin Hcl 500 Mg Tablet 500 Mg PO BIDWMEALS Losartan-Hctz 100-12.5 Mg Tab (Losartan/Hydrochlorothiazide) 1 Each Tablet 1 Each PO DAILY Clonidine Hcl 0.2 Mg Tablet 0.2 Mg PO BID Allopurinol 300 Mg Tablet 300 Mg PO DAILY Allergies Allergies: Coded Allergies: aspirin (Verified Allergy, Intermediate, 06/03/16) ROS Review of System Review of Systems Review of Systems Constitutional: Denies fever or chills [] Eyes: Denies change in visual acuity, redness, or eye pain [] HENT: Denies nasal congestion or sore throat [] Respiratory: Denies cough or shortness of breath [] Cardiovascular: No additional information not addressed in HPI [] GI: Denies abdominal pain, nausea, vomiting, bloody stools or diarrhea [] : Denies dysuria or hematuria [] Musculoskeletal: Denies back pain or joint pain [] Integument: Denies rash or skin lesions [] Neurologic: Denies headache, focal weakness or sensory changes [] Endocrine: Denies polyuria or polydipsia [] 14 PT systems were reviewed and found to be within normal limits, except as documented . General: YES: Fatigue PSYCHOLOGICAL ROS: YES: Concentration difficultie Eyes: Yes Decreased vision Respiratory: YES: Shortness of breath, SOB with excertion Physical Exam Physical Exam Physical Exam Physical Exam Constitutional: Well developed, well nourished, MILD acute distress, non-toxic appearance. [] HENT: Normocephalic, atraumatic, bilateral external ears normal, oropharynx moist, no oral exudates, nose normal. [] Eyes: PERRLA, EOMI, conjunctiva normal, no discharge. [] Neck: Normal range of motion, no tenderness, supple, no stridor. [] Cardiovascular:Heart rate regular rhythm, no murmur, rales in lower lung sanchez. Lungs & Thorax: Bilaterally decreased lung sound. Abdomen: Bowel sounds normal, soft, no tenderness, no masses, no pulsatile masses. [] Skin: Warm, dry, no erythema, no rash. [] Back: No tenderness, no CVA tenderness. [] Extremities: No tenderness, no cyanosis, no clubbing, ROM intact, bilateral lower extremities edema, 2 plus with erythema. Neurologic: Alert and oriented X 3, normal motor function, normal sensory function, no focal deficits noted. [] Psychologic: Affect normal, judgement normal, mood FLAT. [] General: Cooperative, mild distress Breasts: Not examined Rectal Exam: not examined Extremities: No cyanosis Neuro: Cranial nerves 3-12 NL Vitals Vitals Vital Signs Date Time Temp Pulse Resp B/P (MAP) Pulse Ox O2 Delivery O2 Flow Rate FiO2 04/11/18 23:00 63 21 127/64 (85) 98 Room Air 04/11/18 19:00 98.1 98.1 Labs Labs Laboratory Tests Test 04/11/18 12:05 04/11/18 17:16 04/11/18 17:40 04/11/18 20:38 White Blood Count 11.7 x10^3/uL (4.0-11.0) Red Blood Count 4.41 x10^6/uL (4.30-5.70) Hemoglobin 13.8 g/dL (13.0-17.5) Hematocrit 40.8 % (39.0-53.0) Mean Corpuscular Volume 93 fL (79-100) Mean Corpuscular Hemoglobin 31 pg (25-35) Mean Corpuscular Hemoglobin Concent 34 g/dL (31-37) Red Cell Distribution Width 14.5 % (11.5-14.5) Platelet Count 393 x10^3/uL (140-400) Neutrophils (%) (Auto) 77 % (31-73) Lymphocytes (%) (Auto) 13 % (24-48) Monocytes (%) (Auto) 8 % (0-9) Eosinophils (%) (Auto) 2 % (0-3) Basophils (%) (Auto) 1 % (0-3) Neutrophils # (Auto) 9.1 x10^3uL (1.8-7.7) Lymphocytes # (Auto) 1.5 x10^3/uL (1.0-4.8) Monocytes # (Auto) 1.0 x10^3/uL (0.0-1.1) Eosinophils # (Auto) 0.2 x10^3/uL (0.0-0.7) Basophils # (Auto) 0.1 x10^3/uL (0.0-0.2) Prothrombin Time 13.8 SEC (11.7-14.0) Prothromb Time International Ratio 1.1 (0.8-1.1) Sodium Level 143 mmol/L (136-145) Potassium Level 3.8 mmol/L (3.5-5.1) Chloride Level 104 mmol/L (98-107) Carbon Dioxide Level 32 mmol/L (21-32) Anion Gap 7 (6-14) Blood Urea Nitrogen 14 mg/dL (8-26) Creatinine 0.9 mg/dL (0.7-1.3) Estimated GFR (Cockcroft-Gault) 81.2 BUN/Creatinine Ratio 16 (6-20) Glucose Level 88 mg/dL (70-99) Lactic Acid Level 1.1 mmol/L (0.4-2.0) Calcium Level 8.6 mg/dL (8.5-10.1) Magnesium Level 1.2 mg/dL (1.8-2.4) Total Bilirubin 0.8 mg/dL (0.2-1.0) Aspartate Amino Transf (AST/SGOT) 30 U/L (15-37) Alanine Aminotransferase (ALT/SGPT) 52 U/L (16-63) Alkaline Phosphatase 79 U/L (46-116) Creatine Kinase 99 U/L (39-308) Creatine Kinase MB (Mass) 4.4 ng/mL (0.0-3.6) Creatine Kinase MB Relative Index 4.4 % (0-4) Troponin I Quantitative 0.056 ng/mL (0.000-0.055) GL-Sxs-Q-Type Natriuretic Peptide 3556 pg/mL (0-449) Total Protein 7.0 g/dL (6.4-8.2) Albumin 2.8 g/dL (3.4-5.0) Albumin/Globulin Ratio 0.7 (1.0-1.7) Lipase 64 U/L (73-393) Thyroid Stimulating Hormone (TSH) 3.679 uIU/mL (0.358-3.74) Glucose (Fingerstick) 65 mg/dL (70-99) 76 mg/dL (70-99) 90 mg/dL (70-99) Test 04/11/18 21:00 Urine Collection Type Unknown Urine Color Yellow Urine Clarity Clear Urine pH 6.0 Urine Specific [place] 1.015 Urine Protein Negative mg/dL (NEG-TRACE) Urine Glucose (UA) Negative mg/dL (NEG) Urine Ketones (Stick) Negative mg/dL (NEG) Urine Blood Large (NEG) Urine Nitrite Negative (NEG) Urine Bilirubin Negative (NEG) Urine Urobilinogen Dipstick 2.0 mg/dL (0.2 mg/dL) Urine Leukocyte Esterase Small (NEG) Urine RBC >40 /HPF (0-2) Urine WBC 1-4 /HPF (0-4) Urine Squamous Epithelial Cells Occ /LPF Urine Bacteria 0 /HPF (0-FEW) Laboratory Tests Test 04/11/18 12:05 04/11/18 17:16 04/11/18 17:40 04/11/18 20:38 White Blood Count 11.7 x10^3/uL (4.0-11.0) Red Blood Count 4.41 x10^6/uL (4.30-5.70) Hemoglobin 13.8 g/dL (13.0-17.5) Hematocrit 40.8 % (39.0-53.0) Mean Corpuscular Volume 93 fL (79-100) Mean Corpuscular Hemoglobin 31 pg (25-35) Mean Corpuscular Hemoglobin Concent 34 g/dL (31-37) Red Cell Distribution Width 14.5 % (11.5-14.5) Platelet Count 393 x10^3/uL (140-400) Neutrophils (%) (Auto) 77 % (31-73) Lymphocytes (%) (Auto) 13 % (24-48) Monocytes (%) (Auto) 8 % (0-9) Eosinophils (%) (Auto) 2 % (0-3) Basophils (%) (Auto) 1 % (0-3) Neutrophils # (Auto) 9.1 x10^3uL (1.8-7.7) Lymphocytes # (Auto) 1.5 x10^3/uL (1.0-4.8) Monocytes # (Auto) 1.0 x10^3/uL (0.0-1.1) Eosinophils # (Auto) 0.2 x10^3/uL (0.0-0.7) Basophils # (Auto) 0.1 x10^3/uL (0.0-0.2) Prothrombin Time 13.8 SEC (11.7-14.0) Prothromb Time International Ratio 1.1 (0.8-1.1) Sodium Level 143 mmol/L (136-145) Potassium Level 3.8 mmol/L (3.5-5.1) Chloride Level 104 mmol/L (98-107) Carbon Dioxide Level 32 mmol/L (21-32) Anion Gap 7 (6-14) Blood Urea Nitrogen 14 mg/dL (8-26) Creatinine 0.9 mg/dL (0.7-1.3) Estimated GFR (Cockcroft-Gault) 81.2 BUN/Creatinine Ratio 16 (6-20) Glucose Level 88 mg/dL (70-99) Lactic Acid Level 1.1 mmol/L (0.4-2.0) Calcium Level 8.6 mg/dL (8.5-10.1) Magnesium Level 1.2 mg/dL (1.8-2.4) Total Bilirubin 0.8 mg/dL (0.2-1.0) Aspartate Amino Transf (AST/SGOT) 30 U/L (15-37) Alanine Aminotransferase (ALT/SGPT) 52 U/L (16-63) Alkaline Phosphatase 79 U/L (46-116) Creatine Kinase 99 U/L (39-308) Creatine Kinase MB (Mass) 4.4 ng/mL (0.0-3.6) Creatine Kinase MB Relative Index 4.4 % (0-4) Troponin I Quantitative 0.056 ng/mL (0.000-0.055) SY-Dmn-F-Type Natriuretic Peptide 3556 pg/mL (0-449) Total Protein 7.0 g/dL (6.4-8.2) Albumin 2.8 g/dL (3.4-5.0) Albumin/Globulin Ratio 0.7 (1.0-1.7) Lipase 64 U/L (73-393) Thyroid Stimulating Hormone (TSH) 3.679 uIU/mL (0.358-3.74) Glucose (Fingerstick) 65 mg/dL (70-99) 76 mg/dL (70-99) 90 mg/dL (70-99) Test 04/11/18 21:00 Urine Collection Type Unknown Urine Color Yellow Urine Clarity Clear Urine pH 6.0 Urine Specific [place] 1.015 Urine Protein Negative mg/dL (NEG-TRACE) Urine Glucose (UA) Negative mg/dL (NEG) Urine Ketones (Stick) Negative mg/dL (NEG) Urine Blood Large (NEG) Urine Nitrite Negative (NEG) Urine Bilirubin Negative (NEG) Urine Urobilinogen Dipstick 2.0 mg/dL (0.2 mg/dL) Urine Leukocyte Esterase Small (NEG) Urine RBC >40 /HPF (0-2) Urine WBC 1-4 /HPF (0-4) Urine Squamous Epithelial Cells Occ /LPF Urine Bacteria 0 /HPF (0-FEW) VTE Prophylaxis Ordered VTE Prophylaxis Devices: Yes VTE Pharmacological Prophylaxi: No Assessment/Plan Assessment/Plan IMPRESSION ACUTE DIASTOLIC CHF H/o HTN H/o Diabetes H/o hyperlipidemia HEMATURIA PLAN IV LASIX TELE CARDIOLOGY CONSULT ECHO NO SQ LUDWIG MONTGOMERY MD Apr 11, 2018 23:14
[2018-04-12 03:00] VITALS: BP 134/65
[2018-04-12 05:23] LABS: ALBUMIN 2.6 g/dL (3.4-5.0); ALBUMIN/GLOBULIN RATIO 0.6 (1.0-1.7); CALCIUM 8.6 mg/dL (8.5-10.1); CREATININE 0.9 mg/dL (0.7-1.3); GFR 81.2; MAGNESIUM 1.2 mg/dL (1.8-2.4); POTASSIUM 3.2 mmol/L (3.5-5.1); TOTAL PROTEIN 6.8 g/dL (6.4-8.2)
[2018-04-12] MEDS ORDERED: MAGNESIUM SULFATE 2GM 50 ML IV ONE ×2 (06:00→12:00)
[2018-04-12 07:44] VITALS: BP 135/71
--- NOTE | 2018-04-12 07:53 | RAD ---
Portable chest, 04/12/2018: HISTORY: Congestive heart failure Comparison is made to yesterday's study. The heart size is unchanged. Vascular congestion has improved slightly with better vascular margination.. There are persistent hazy basilar opacities compatible with small pleural effusions and underlying atelectasis/infiltrate. No new pulmonary abnormality is seen. IMPRESSION: 1. Slightly improved vascular congestion. 2. Persistent small bilateral pleural effusions Electronically signed by: Brody Doran MD (04/12/2018 7:50 AM) [facility]
[2018-04-12] MEDS: POTASSIUM CHLORIDE 20 MEQ TABLET.ER. PO SCH ×2 (08:44→17:23)
[2018-04-12] MEDS: CYANOCOBALAMIN (VITAMIN B-12) 1,000 MCG TABLET. PO SCH (08:44)
[2018-04-12] MEDS: metFORMIN 500 MG TABLET PO SCH ×2 (08:44→17:23)
[2018-04-12] MEDS: LOSARTAN POTASSIUM 50 MG TABLET. PO SCH (08:45)
[2018-04-12] MEDS: ALLOPURINOL 300 MG TABLET. PO SCH (08:45)
[2018-04-12] MEDS: cloNIDine HCL 0.2 MG TABLET PO SCH ×2 (08:45→19:59)
[2018-04-12] MEDS: hydroCHLOROthiazide 12.5 MG CAPSULE PO SCH (08:46)
[2018-04-12] MEDS: MINERAL OIL/PETROLATUM TOPICAL CREAM 113GM JAR. TP SCH ×2 (08:46→20:00)
[2018-04-12] MEDS: METOPROLOL TART IMMED RELEASE 50 MG TABLET. PO SCH ×2 (08:46→19:58)
--- NOTE | 2018-04-12 08:47 | PDOC2 ---
CONSULT Date of Consult Date of Consult DATE: 04/12/18 TIME: 08:40 Reason for Consult Reason for Consult: acute chf Referring Physician Referring Physician: Dr. Damien Reyes Identification/Chief Complaint Chief Complaint shortness of breath Source Source: Patient History of Present Illness Reason for Visit: 82 y/o male with hx of CHF, HTN, HLD, Dementia, T2DM is presenting from his care facility with cough and shortness of breath for several days. The patient is confused to why he was brought to the hospital, and is unsure if he was having shortness of breath for prolonged periods. he denies any recent illness. He said that he was taking all medications as outpatient at his residence. Patient received 40mg lasix in the ED on 04/11, and his repeat chest xray on 04/12 shows improvement. He denies shortness of breath at this time. Past Medical History Cardiovascular: CHF, HTN, Hyperlipidemia CENTRAL NERVOUS SYSTEM: Dementia Musculoskeletal: Osteoarthritis Endocrine: Diabetes Family History Family History: No Significant, Hypertension Social History No ALCOHOL: none Drugs: None Domestic Violence: Neg Current Problem List Problem List Problems Medical Problems: (1) Dyspnea Status: Acute Current Medications Current Medications Current Medications Furosemide (Lasix) 40 mg 1X ONCE IVP Last administered on 04/11/18at 14:12; Start 04/11/18 at 13:45; Stop 04/11/18 at 13:46; Status DC Albuterol/ Ipratropium (Duoneb) 3 ml 1X ONCE NEB Last administered on at 14:09; Start 04/11/18 at 13:45; Stop 04/11/18 at 13:46; Status DC Magnesium Sulfate 50 ml @ 25 mls/hr 1X ONCE IV Last administered on 04/11/18at 16:03; Start 04/11/18 at 16:00; Stop 04/11/18 at 17:59; Status DC Potassium Chloride (Klor-Con) 20 meq BIDWMEALS PO Last administered on at 17:28; Start 04/11/18 at 17:00 Furosemide (Lasix) 60 mg [id number] IVP ; Start 04/11/18 at 17:00; Stop 04/11/18 at 17:11; Status DC Magnesium Sulfate 50 ml @ 25 mls/hr 1X ONCE IV Last administered on 04/12/18at 05:58; Start 04/12/18 at 06:00; Stop 04/12/18 at 07:59; Status DC Furosemide (Lasix) 60 mg Q12HR IVP Last administered on 04/11/18at 21:28; Start 04/11/18 at 21:00 Acetaminophen (Tylenol) 500 mg PRN Q6HRS PRN PO PAIN; Start 04/11/18 at 18:45 Allopurinol (Zyloprim) 300 mg DAILY PO ; Start 04/12/18 at 09:00 Alprazolam (Xanax) 0.25 mg PRN Q6HRS PRN PO ANXIETY / AGITATION Last administered on 04/11/18 19:53; Start 04/11/18 at 18:45 Clonidine HCl (Catapres) 0.2 mg BID PO Last administered on 04/11/18 19:53; Start 04/11/18 at 21:00 Cyanocobalamin (Vitamin B-12) 1,000 mcg DAILY PO ; Start 04/12/18 at 09:00 Diltiazem HCl (Cardizem 24hr Cd) 120 mg DAILY PO ; Start 04/12/18 at 09:00 Metoprolol Tartrate (Lopressor) 50 mg BID PO Last administered on 04/11/18 21: 27; Start 04/11/18 at 21:00 Triamcinolone Acetonide (Kenalog) 1 benjy TID TP Last administered on 04/11/18at 21:00; Start 04/11/18 at 21:00 Donepezil HCl (Aricept) 5 mg HS PO Last administered on 04/11/18 19:53; Start 04/11/18 at 21:00 Losartan Potassium (Cozaar) 100 mg DAILY PO ; Start 04/12/18 at 09:00 Metformin HCl (Glucophage) 500 mg BIDWMEALS PO ; Start 04/12/18 at 08:00 Multi-Ingred Cream/Lotion/Oil/ Oint (Hydrocerin Cream) 1 benjy BID TP Last administered on 04/11/18at 21:00; Start 04/11/18 at 19:15 Naproxen (Naprosyn) 250 mg PRN BID PRN PO PAIN; Start 04/11/18 at 19:00 Atorvastatin Calcium (Lipitor) 10 mg QHS PO Last administered on 04/11/18 21: 00; Start 04/11/18 at 21:00 Hydrochlorothiazide (Microzide) 12.5 mg DAILY PO ; Start 04/12/18 at 09:00 Active Scripts Active Reported Aquaphor Ointment (Mineral Oil/Hydrophil Petrolat) 396 Gm Oint...g. 396 Gm TP BID Triamcinolone Acetonide 0.1% Oint (Triamcinolone Acetonide) 15 Gm Oint...g. 1 Benjy TP TID MIX WITH EUCERIN DIRECTED BY PHYSICIAN Tubersol (Tuberculin,Purif.prot.deriv.) 5 Tub Unit/0.1 Ml Vial 5 Tub ID DAILY Alprazolam 0.25 Mg Tablet 0.25 Mg PO PRN Q6HRS PRN Aricept (Donepezil Hcl) 5 Mg Tablet 5 Mg PO HS Diltiazem 24HR Cd (Diltiazem Hcl) 120 Mg Cap.er.24h 1 Cap PO DAILY Metoprolol Tartrate 50 Mg Tablet 1 Tab PO BID [b12] Clonidine Hcl 0.2 Mg Tablet 1 Tab PO BID [allopurinol] DAILY Artificial Tears (Dextran 70/Hypromellose) 1 Each Droperette 1 Each OP PRN Aleve (Naproxen Sodium) 220 Mg Capsule 220 Mg PO BID PRN Tylenol Extra Strength (Acetaminophen) 500 Mg Tablet 500 Mg PO PRN Vitamin B-12 (Cyanocobalamin (Vitamin B-12)) 1,000 Mcg Tablet 1 Tab PO DAILY Simvastatin 20 Mg Tablet 20 Mg PO HS Metformin Hcl 500 Mg Tablet 500 Mg PO BIDWMEALS Losartan-Hctz 100-12.5 Mg Tab (Losartan/Hydrochlorothiazide) 1 Each Tablet 1 Each PO DAILY Clonidine Hcl 0.2 Mg Tablet 0.2 Mg PO BID Allopurinol 300 Mg Tablet 300 Mg PO DAILY Allergies Allergies: Coded Allergies: aspirin (Verified Allergy, Intermediate, 06/03/16) ROS HEENT: No: Heacaches, Visual Changes, Nasal congestion, Nasal discharge, Sore Throat, Sneezing ALLERGY AND IMMUNOLOGY: No: Itchy/Watery Eyes, Post Nasal Drip Respiratory: No: Hemoptysis, Orthopnea, Shortness of breath (pt denies shortness of breath at time of evaluation) Cardiovascular: yes Chest Pain (pt denies chest pain at time of evaluation); No Paroxysmal Noc. Dyspnea, No Edema Gastrointestinal: No Nausea, No Vomiting, No Abdominal Pain Physical Exam General: Alert, Cooperative, No acute distress Lungs: Other (decreased air movement throughout all lung sanchez) Heart: Regular rate, Normal S1, Normal S2, No murmurs Extremities: No clubbing, No cyanosis, No edema, Normal pulses Vitals VITALS Vital Signs Date Time Temp Pulse Resp B/P (MAP) Pulse Ox O2 Delivery O2 Flow Rate FiO2 04/12/18 07:44 98.7 62 18 135/71 (92) 95 Room Air 98.7 Labs Labs Laboratory Tests Test 04/11/18 12:05 04/11/18 17:16 04/11/18 17:40 04/11/18 20:38 White Blood Count 11.7 x10^3/uL (4.0-11.0) Red Blood Count 4.41 x10^6/uL (4.30-5.70) Hemoglobin 13.8 g/dL (13.0-17.5) Hematocrit 40.8 % (39.0-53.0) Mean Corpuscular Volume 93 fL (79-100) Mean Corpuscular Hemoglobin 31 pg (25-35) Mean Corpuscular Hemoglobin Concent 34 g/dL (31-37) Red Cell Distribution Width 14.5 % (11.5-14.5) Platelet Count 393 x10^3/uL (140-400) Neutrophils (%) (Auto) 77 % (31-73) Lymphocytes (%) (Auto) 13 % (24-48) Monocytes (%) (Auto) 8 % (0-9) Eosinophils (%) (Auto) 2 % (0-3) Basophils (%) (Auto) 1 % (0-3) Neutrophils # (Auto) 9.1 x10^3uL (1.8-7.7) Lymphocytes # (Auto) 1.5 x10^3/uL (1.0-4.8) Monocytes # (Auto) 1.0 x10^3/uL (0.0-1.1) Eosinophils # (Auto) 0.2 x10^3/uL (0.0-0.7) Basophils # (Auto) 0.1 x10^3/uL (0.0-0.2) Prothrombin Time 13.8 SEC (11.7-14.0) Prothromb Time International Ratio 1.1 (0.8-1.1) Sodium Level 143 mmol/L (136-145) Potassium Level 3.8 mmol/L (3.5-5.1) Chloride Level 104 mmol/L (98-107) Carbon Dioxide Level 32 mmol/L (21-32) Anion Gap 7 (6-14) Blood Urea Nitrogen 14 mg/dL (8-26) Creatinine 0.9 mg/dL (0.7-1.3) Estimated GFR (Cockcroft-Gault) 81.2 BUN/Creatinine Ratio 16 (6-20) Glucose Level 88 mg/dL (70-99) Lactic Acid Level 1.1 mmol/L (0.4-2.0) Calcium Level 8.6 mg/dL (8.5-10.1) Magnesium Level 1.2 mg/dL (1.8-2.4) Total Bilirubin 0.8 mg/dL (0.2-1.0) Aspartate Amino Transf (AST/SGOT) 30 U/L (15-37) Alanine Aminotransferase (ALT/SGPT) 52 U/L (16-63) Alkaline Phosphatase 79 U/L (46-116) Creatine Kinase 99 U/L (39-308) Creatine Kinase MB (Mass) 4.4 ng/mL (0.0-3.6) Creatine Kinase MB Relative Index 4.4 % (0-4) Troponin I Quantitative 0.056 ng/mL (0.000-0.055) GF-Tuj-C-Type Natriuretic Peptide 3556 pg/mL (0-449) Total Protein 7.0 g/dL (6.4-8.2) Albumin 2.8 g/dL (3.4-5.0) Albumin/Globulin Ratio 0.7 (1.0-1.7) Lipase 64 U/L (73-393) Thyroid Stimulating Hormone (TSH) 3.679 uIU/mL (0.358-3.74) Glucose (Fingerstick) 65 mg/dL (70-99) 76 mg/dL (70-99) 90 mg/dL (70-99) Test 04/11/18 21:00 04/12/18 03:40 04/12/18 07:12 04/12/18 07:58 Urine Collection Type Unknown Urine Color Yellow Urine Clarity Clear Urine pH 6.0 Urine Specific [place] 1.015 Urine Protein Negative mg/dL (NEG-TRACE) Urine Glucose (UA) Negative mg/dL (NEG) Urine Ketones (Stick) Negative mg/dL (NEG) Urine Blood Large (NEG) Urine Nitrite Negative (NEG) Urine Bilirubin Negative (NEG) Urine Urobilinogen Dipstick 2.0 mg/dL (0.2 mg/dL) Urine Leukocyte Esterase Small (NEG) Urine RBC >40 /HPF (0-2) Urine WBC 1-4 /HPF (0-4) Urine Squamous Epithelial Cells Occ /LPF Urine Bacteria 0 /HPF (0-FEW) Sodium Level 142 mmol/L (136-145) Potassium Level 3.2 mmol/L (3.5-5.1) Chloride Level 100 mmol/L (98-107) Carbon Dioxide Level 34 mmol/L (21-32) Anion Gap 8 (6-14) Blood Urea Nitrogen 10 mg/dL (8-26) Creatinine 0.9 mg/dL (0.7-1.3) Estimated GFR (Cockcroft-Gault) 81.2 BUN/Creatinine Ratio 11 (6-20) Glucose Level 83 mg/dL (70-99) Calcium Level 8.6 mg/dL (8.5-10.1) Magnesium Level 1.2 mg/dL (1.8-2.4) 1.9 mg/dL (1.8-2.4) Total Bilirubin 1.0 mg/dL (0.2-1.0) Aspartate Amino Transf (AST/SGOT) 29 U/L (15-37) Alanine Aminotransferase (ALT/SGPT) 44 U/L (16-63) Alkaline Phosphatase 76 U/L (46-116) Total Protein 6.8 g/dL (6.4-8.2) Albumin 2.6 g/dL (3.4-5.0) Albumin/Globulin Ratio 0.6 (1.0-1.7) Glucose (Fingerstick) 74 mg/dL (70-99) Laboratory Tests Test 04/11/18 12:05 04/11/18 17:16 04/11/18 17:40 04/11/18 20:38 White Blood Count 11.7 x10^3/uL (4.0-11.0) Red Blood Count 4.41 x10^6/uL (4.30-5.70) Hemoglobin 13.8 g/dL (13.0-17.5) Hematocrit 40.8 % (39.0-53.0) Mean Corpuscular Volume 93 fL (79-100) Mean Corpuscular Hemoglobin 31 pg (25-35) Mean Corpuscular Hemoglobin Concent 34 g/dL (31-37) Red Cell Distribution Width 14.5 % (11.5-14.5) Platelet Count 393 x10^3/uL (140-400) Neutrophils (%) (Auto) 77 % (31-73) Lymphocytes (%) (Auto) 13 % (24-48) Monocytes (%) (Auto) 8 % (0-9) Eosinophils (%) (Auto) 2 % (0-3) Basophils (%) (Auto) 1 % (0-3) Neutrophils # (Auto) 9.1 x10^3uL (1.8-7.7) Lymphocytes # (Auto) 1.5 x10^3/uL (1.0-4.8) Monocytes # (Auto) 1.0 x10^3/uL (0.0-1.1) Eosinophils # (Auto) 0.2 x10^3/uL (0.0-0.7) Basophils # (Auto) 0.1 x10^3/uL (0.0-0.2) Prothrombin Time 13.8 SEC (11.7-14.0) Prothromb Time International Ratio 1.1 (0.8-1.1) Sodium Level 143 mmol/L (136-145) Potassium Level 3.8 mmol/L (3.5-5.1) Chloride Level 104 mmol/L (98-107) Carbon Dioxide Level 32 mmol/L (21-32) Anion Gap 7 (6-14) Blood Urea Nitrogen 14 mg/dL (8-26) Creatinine 0.9 mg/dL (0.7-1.3) Estimated GFR (Cockcroft-Gault) 81.2 BUN/Creatinine Ratio 16 (6-20) Glucose Level 88 mg/dL (70-99) Lactic Acid Level 1.1 mmol/L (0.4-2.0) Calcium Level 8.6 mg/dL (8.5-10.1) Magnesium Level 1.2 mg/dL (1.8-2.4) Total Bilirubin 0.8 mg/dL (0.2-1.0) Aspartate Amino Transf (AST/SGOT) 30 U/L (15-37) Alanine Aminotransferase (ALT/SGPT) 52 U/L (16-63) Alkaline Phosphatase 79 U/L (46-116) Creatine Kinase 99 U/L (39-308) Creatine Kinase MB (Mass) 4.4 ng/mL (0.0-3.6) Creatine Kinase MB Relative Index 4.4 % (0-4) Troponin I Quantitative 0.056 ng/mL (0.000-0.055) AK-Cdk-B-Type Natriuretic Peptide 3556 pg/mL (0-449) Total Protein 7.0 g/dL (6.4-8.2) Albumin 2.8 g/dL (3.4-5.0) Albumin/Globulin Ratio 0.7 (1.0-1.7) Lipase 64 U/L (73-393) Thyroid Stimulating Hormone (TSH) 3.679 uIU/mL (0.358-3.74) Glucose (Fingerstick) 65 mg/dL (70-99) 76 mg/dL (70-99) 90 mg/dL (70-99) Test 04/11/18 21:00 04/12/18 03:40 04/12/18 07:12 04/12/18 07:58 Urine Collection Type Unknown Urine Color Yellow Urine Clarity Clear Urine pH 6.0 Urine Specific [place] 1.015 Urine Protein Negative mg/dL (NEG-TRACE) Urine Glucose (UA) Negative mg/dL (NEG) Urine Ketones (Stick) Negative mg/dL (NEG) Urine Blood Large (NEG) Urine Nitrite Negative (NEG) Urine Bilirubin Negative (NEG) Urine Urobilinogen Dipstick 2.0 mg/dL (0.2 mg/dL) Urine Leukocyte Esterase Small (NEG) Urine RBC >40 /HPF (0-2) Urine WBC 1-4 /HPF (0-4) Urine Squamous Epithelial Cells Occ /LPF Urine Bacteria 0 /HPF (0-FEW) Sodium Level 142 mmol/L (136-145) Potassium Level 3.2 mmol/L (3.5-5.1) Chloride Level 100 mmol/L (98-107) Carbon Dioxide Level 34 mmol/L (21-32) Anion Gap 8 (6-14) Blood Urea Nitrogen 10 mg/dL (8-26) Creatinine 0.9 mg/dL (0.7-1.3) Estimated GFR (Cockcroft-Gault) 81.2 BUN/Creatinine Ratio 11 (6-20) Glucose Level 83 mg/dL (70-99) Calcium Level 8.6 mg/dL (8.5-10.1) Magnesium Level 1.2 mg/dL (1.8-2.4) 1.9 mg/dL (1.8-2.4) Total Bilirubin 1.0 mg/dL (0.2-1.0) Aspartate Amino Transf (AST/SGOT) 29 U/L (15-37) Alanine Aminotransferase (ALT/SGPT) 44 U/L (16-63) Alkaline Phosphatase 76 U/L (46-116) Total Protein 6.8 g/dL (6.4-8.2) Albumin 2.6 g/dL (3.4-5.0) Albumin/Globulin Ratio 0.6 (1.0-1.7) Glucose (Fingerstick) 74 mg/dL (70-99) Assessment/Plan Assessment/Plan Acute on chronic CHF secondary to systolic dysfunction replete Mg 2g IV - magnesium trending up; repeat Mg level on 04/13 switch to po lasix 40mg qam repeat CXR in AM on 04/13 Thank you for asking me to participate in the care of this pt. CARMEN QUIROGA MD Apr 12, 2018 08:47
[2018-04-12] MEDS: TRIAMCINOLONE ACETONIDE 0.1% TOPICAL OINTMENT 15GM TUBE. TP SCH ×3 (09:00→21:00)
[2018-04-12] MEDS ORDERED: POTASSIUM CHLORIDE 20 MEQ TABLET.ER. PO ONE (10:45)
[2018-04-12] MEDS: FUROSEMIDE 100 MG/10 ML VIAL. IVP SCH ×2 (10:48→19:57)
[2018-04-12 10:57] VITALS: BP 116/64
[2018-04-12] MEDS ORDERED: traMADol 50 MG TABLET PO PRN (14:45)
[2018-04-12] MEDS ORDERED: ACETAMINOPHEN 325 MG TABLET. PO PRN (14:45)
[2018-04-12] MEDS ORDERED: ONDANSETRON PF 4 MG/2 ML VIAL. IV PRN (14:45)
[2018-04-12] MEDS ORDERED: MORPHINE SULFATE 2 MG/ML VIAL. IV PRN (14:45)
[2018-04-12] MEDS ORDERED: DOCUSATE SODIUM 100 MG CAPSULE. PO PRN (14:45)
--- NOTE | 2018-04-12 14:45 | PDOC ---
PROGRESS NOTES Chief Complaint Chief Complaint ACUTE DIASTOLIC CHF H/o HTN H/o Diabetes H/o hyperlipidemia HEMATURIA mild malnutrition hypokalemia hypomagnesemia plan: fu with card echo pending lasix 60mg iv bid dced as per card, start 40mg po daily on james, still pinkish hematuria, likely traumatic, ob for now ssi dvt ppx replete K History of Present Illness History of Present Illness ROS: no fever, chills, sob or chest pain feels ok, hearing loss Vitals Vitals Vital Signs Date Time Temp Pulse Resp B/P (MAP) Pulse Ox O2 Delivery O2 Flow Rate FiO2 04/12/18 10:57 98.7 54 18 116/64 (81) 96 Room Air 98.7 Physical Exam General: Alert, Cooperative, No acute distress Heart: Regular rate, Normal S1, Normal S2, No murmurs Lungs: Clear Extremities: No clubbing, No cyanosis, Normal pulses, Other (bl leg trace edema ) Labs LABS Laboratory Tests Test 04/11/18 17:16 04/11/18 17:40 04/11/18 20:38 04/11/18 21:00 Glucose (Fingerstick) 65 mg/dL (70-99) 76 mg/dL (70-99) 90 mg/dL (70-99) Urine Collection Type Unknown Urine Color Yellow Urine Clarity Clear Urine pH 6.0 Urine Specific [place] 1.015 Urine Protein Negative mg/dL (NEG-TRACE) Urine Glucose (UA) Negative mg/dL (NEG) Urine Ketones (Stick) Negative mg/dL (NEG) Urine Blood Large (NEG) Urine Nitrite Negative (NEG) Urine Bilirubin Negative (NEG) Urine Urobilinogen Dipstick 2.0 mg/dL (0.2 mg/dL) Urine Leukocyte Esterase Small (NEG) Urine RBC >40 /HPF (0-2) Urine WBC 1-4 /HPF (0-4) Urine Squamous Epithelial Cells Occ /LPF Urine Bacteria 0 /HPF (0-FEW) Test 04/12/18 03:40 04/12/18 07:12 04/12/18 07:58 04/12/18 11:16 Sodium Level 142 mmol/L (136-145) Potassium Level 3.2 mmol/L (3.5-5.1) Chloride Level 100 mmol/L (98-107) Carbon Dioxide Level 34 mmol/L (21-32) Anion Gap 8 (6-14) Blood Urea Nitrogen 10 mg/dL (8-26) Creatinine 0.9 mg/dL (0.7-1.3) Estimated GFR (Cockcroft-Gault) 81.2 BUN/Creatinine Ratio 11 (6-20) Glucose Level 83 mg/dL (70-99) Calcium Level 8.6 mg/dL (8.5-10.1) Magnesium Level 1.2 mg/dL (1.8-2.4) 1.9 mg/dL (1.8-2.4) Total Bilirubin 1.0 mg/dL (0.2-1.0) Aspartate Amino Transf (AST/SGOT) 29 U/L (15-37) Alanine Aminotransferase (ALT/SGPT) 44 U/L (16-63) Alkaline Phosphatase 76 U/L (46-116) Total Protein 6.8 g/dL (6.4-8.2) Albumin 2.6 g/dL (3.4-5.0) Albumin/Globulin Ratio 0.6 (1.0-1.7) Glucose (Fingerstick) 74 mg/dL (70-99) 156 mg/dL (70-99) Assessment and Plan Assessmemt and Plan Problems Medical Problems: (1) Dyspnea Status: Acute Comment Review of Relevant I have reviewed the following items renzo (where applicable) has been applied. Labs Laboratory Tests Test 04/11/18 12:05 04/11/18 17:16 04/11/18 17:40 04/11/18 20:38 White Blood Count 11.7 x10^3/uL (4.0-11.0) Red Blood Count 4.41 x10^6/uL (4.30-5.70) Hemoglobin 13.8 g/dL (13.0-17.5) Hematocrit 40.8 % (39.0-53.0) Mean Corpuscular Volume 93 fL (79-100) Mean Corpuscular Hemoglobin 31 pg (25-35) Mean Corpuscular Hemoglobin Concent 34 g/dL (31-37) Red Cell Distribution Width 14.5 % (11.5-14.5) Platelet Count 393 x10^3/uL (140-400) Neutrophils (%) (Auto) 77 % (31-73) Lymphocytes (%) (Auto) 13 % (24-48) Monocytes (%) (Auto) 8 % (0-9) Eosinophils (%) (Auto) 2 % (0-3) Basophils (%) (Auto) 1 % (0-3) Neutrophils # (Auto) 9.1 x10^3uL (1.8-7.7) Lymphocytes # (Auto) 1.5 x10^3/uL (1.0-4.8) Monocytes # (Auto) 1.0 x10^3/uL (0.0-1.1) Eosinophils # (Auto) 0.2 x10^3/uL (0.0-0.7) Basophils # (Auto) 0.1 x10^3/uL (0.0-0.2) Prothrombin Time 13.8 SEC (11.7-14.0) Prothromb Time International Ratio 1.1 (0.8-1.1) Sodium Level 143 mmol/L (136-145) Potassium Level 3.8 mmol/L (3.5-5.1) Chloride Level 104 mmol/L (98-107) Carbon Dioxide Level 32 mmol/L (21-32) Anion Gap 7 (6-14) Blood Urea Nitrogen 14 mg/dL (8-26) Creatinine 0.9 mg/dL (0.7-1.3) Estimated GFR (Cockcroft-Gault) 81.2 BUN/Creatinine Ratio 16 (6-20) Glucose Level 88 mg/dL (70-99) Lactic Acid Level 1.1 mmol/L (0.4-2.0) Calcium Level 8.6 mg/dL (8.5-10.1) Magnesium Level 1.2 mg/dL (1.8-2.4) Total Bilirubin 0.8 mg/dL (0.2-1.0) Aspartate Amino Transf (AST/SGOT) 30 U/L (15-37) Alanine Aminotransferase (ALT/SGPT) 52 U/L (16-63) Alkaline Phosphatase 79 U/L (46-116) Creatine Kinase 99 U/L (39-308) Creatine Kinase MB (Mass) 4.4 ng/mL (0.0-3.6) Creatine Kinase MB Relative Index 4.4 % (0-4) Troponin I Quantitative 0.056 ng/mL (0.000-0.055) LH-Knh-S-Type Natriuretic Peptide 3556 pg/mL (0-449) Total Protein 7.0 g/dL (6.4-8.2) Albumin 2.8 g/dL (3.4-5.0) Albumin/Globulin Ratio 0.7 (1.0-1.7) Lipase 64 U/L (73-393) Thyroid Stimulating Hormone (TSH) 3.679 uIU/mL (0.358-3.74) Glucose (Fingerstick) 65 mg/dL (70-99) 76 mg/dL (70-99) 90 mg/dL (70-99) Test 04/11/18 21:00 04/12/18 03:40 04/12/18 07:12 04/12/18 07:58 Urine Collection Type Unknown Urine Color Yellow Urine Clarity Clear Urine pH 6.0 Urine Specific [place] 1.015 Urine Protein Negative mg/dL (NEG-TRACE) Urine Glucose (UA) Negative mg/dL (NEG) Urine Ketones (Stick) Negative mg/dL (NEG) Urine Blood Large (NEG) Urine Nitrite Negative (NEG) Urine Bilirubin Negative (NEG) Urine Urobilinogen Dipstick 2.0 mg/dL (0.2 mg/dL) Urine Leukocyte Esterase Small (NEG) Urine RBC >40 /HPF (0-2) Urine WBC 1-4 /HPF (0-4) Urine Squamous Epithelial Cells Occ /LPF Urine Bacteria 0 /HPF (0-FEW) Sodium Level 142 mmol/L (136-145) Potassium Level 3.2 mmol/L (3.5-5.1) Chloride Level 100 mmol/L (98-107) Carbon Dioxide Level 34 mmol/L (21-32) Anion Gap 8 (6-14) Blood Urea Nitrogen 10 mg/dL (8-26) Creatinine 0.9 mg/dL (0.7-1.3) Estimated GFR (Cockcroft-Gault) 81.2 BUN/Creatinine Ratio 11 (6-20) Glucose Level 83 mg/dL (70-99) Calcium Level 8.6 mg/dL (8.5-10.1) Magnesium Level 1.2 mg/dL (1.8-2.4) 1.9 mg/dL (1.8-2.4) Total Bilirubin 1.0 mg/dL (0.2-1.0) Aspartate Amino Transf (AST/SGOT) 29 U/L (15-37) Alanine Aminotransferase (ALT/SGPT) 44 U/L (16-63) Alkaline Phosphatase 76 U/L (46-116) Total Protein 6.8 g/dL (6.4-8.2) Albumin 2.6 g/dL (3.4-5.0) Albumin/Globulin Ratio 0.6 (1.0-1.7) Glucose (Fingerstick) 74 mg/dL (70-99) Test 04/12/18 11:16 Glucose (Fingerstick) 156 mg/dL (70-99) Laboratory Tests Test 04/11/18 17:16 04/11/18 17:40 04/11/18 20:38 04/11/18 21:00 Glucose (Fingerstick) 65 mg/dL (70-99) 76 mg/dL (70-99) 90 mg/dL (70-99) Urine Collection Type Unknown Urine Color Yellow Urine Clarity Clear Urine pH 6.0 Urine Specific [place] 1.015 Urine Protein Negative mg/dL (NEG-TRACE) Urine Glucose (UA) Negative mg/dL (NEG) Urine Ketones (Stick) Negative mg/dL (NEG) Urine Blood Large (NEG) Urine Nitrite Negative (NEG) Urine Bilirubin Negative (NEG) Urine Urobilinogen Dipstick 2.0 mg/dL (0.2 mg/dL) Urine Leukocyte Esterase Small (NEG) Urine RBC >40 /HPF (0-2) Urine WBC 1-4 /HPF (0-4) Urine Squamous Epithelial Cells Occ /LPF Urine Bacteria 0 /HPF (0-FEW) Test 04/12/18 03:40 04/12/18 07:12 04/12/18 07:58 04/12/18 11:16 Sodium Level 142 mmol/L (136-145) Potassium Level 3.2 mmol/L (3.5-5.1) Chloride Level 100 mmol/L (98-107) Carbon Dioxide Level 34 mmol/L (21-32) Anion Gap 8 (6-14) Blood Urea Nitrogen 10 mg/dL (8-26) Creatinine 0.9 mg/dL (0.7-1.3) Estimated GFR (Cockcroft-Gault) 81.2 BUN/Creatinine Ratio 11 (6-20) Glucose Level 83 mg/dL (70-99) Calcium Level 8.6 mg/dL (8.5-10.1) Magnesium Level 1.2 mg/dL (1.8-2.4) 1.9 mg/dL (1.8-2.4) Total Bilirubin 1.0 mg/dL (0.2-1.0) Aspartate Amino Transf (AST/SGOT) 29 U/L (15-37) Alanine Aminotransferase (ALT/SGPT) 44 U/L (16-63) Alkaline Phosphatase 76 U/L (46-116) Total Protein 6.8 g/dL (6.4-8.2) Albumin 2.6 g/dL (3.4-5.0) Albumin/Globulin Ratio 0.6 (1.0-1.7) Glucose (Fingerstick) 74 mg/dL (70-99) 156 mg/dL (70-99) Microbiology 04/11/18 Blood Culture - Preliminary, Resulted NO GROWTH AFTER 1 DAY Medications Current Medications Furosemide (Lasix) 40 mg 1X ONCE IVP Last administered on 04/11/18at 14:12; Start 04/11/18 at 13:45; Stop 04/11/18 at 13:46; Status DC Albuterol/ Ipratropium (Duoneb) 3 ml 1X ONCE NEB Last administered on at 14:09; Start 04/11/18 at 13:45; Stop 04/11/18 at 13:46; Status DC Magnesium Sulfate 50 ml @ 25 mls/hr 1X ONCE IV Last administered on 04/11/18at 16:03; Start 04/11/18 at 16:00; Stop 04/11/18 at 17:59; Status DC Potassium Chloride (Klor-Con) 20 meq BIDWMEALS PO Last administered on at 08:44; Start 04/11/18 at 17:00 Furosemide (Lasix) 60 mg [id number] IVP ; Start 04/11/18 at 17:00; Stop 04/11/18 at 17:11; Status DC Magnesium Sulfate 50 ml @ 25 mls/hr 1X ONCE IV Last administered on 04/12/18at 05:58; Start 04/12/18 at 06:00; Stop 04/12/18 at 07:59; Status DC Furosemide (Lasix) 60 mg Q12HR IVP Last administered on 11/5/18at 10:48; Start 04/11/18 at 21:00; Stop 04/13/18 at 09:00 Acetaminophen (Tylenol) 500 mg PRN Q6HRS PRN PO PAIN; Start 04/11/18 at 18:45 Allopurinol (Zyloprim) 300 mg DAILY PO Last administered on 04/12/18 08:45; Start 04/12/18 at 09:00 Alprazolam (Xanax) 0.25 mg PRN Q6HRS PRN PO ANXIETY / AGITATION Last administered on 04/11/18 19:53; Start 04/11/18 at 18:45 Clonidine HCl (Catapres) 0.2 mg BID PO Last administered on 04/12/18 08:45; Start 04/11/18 at 21:00 Cyanocobalamin (Vitamin B-12) 1,000 mcg DAILY PO Last administered on 08:44; Start 04/12/18 at 09:00 Diltiazem HCl (Cardizem 24hr Cd) 120 mg DAILY PO Last administered on 08:45; Start 04/12/18 at 09:00 Metoprolol Tartrate (Lopressor) 50 mg BID PO Last administered on 04/12/18 08: 46; Start 04/11/18 at 21:00 Triamcinolone Acetonide (Kenalog) 1 benjy TID TP Last administered on 04/11/18 21:00; Start 04/11/18 at 21:00 Donepezil HCl (Aricept) 5 mg HS PO Last administered on 04/11/18 19:53; Start 04/11/18 at 21:00 Losartan Potassium (Cozaar) 100 mg DAILY PO Last administered on 04/12/18 08: 45; Start 04/12/18 at 09:00 Metformin HCl (Glucophage) 500 mg BIDWMEALS PO Last administered on 04/12/18 08:44; Start 04/12/18 at 08:00 Multi-Ingred Cream/Lotion/Oil/ Oint (Hydrocerin Cream) 1 benjy BID TP Last administered on 04/12/18 08:46; Start 04/11/18 at 19:15 Naproxen (Naprosyn) 250 mg PRN BID PRN PO PAIN; Start 04/11/18 at 19:00 Atorvastatin Calcium (Lipitor) 10 mg QHS PO Last administered on 04/11/18at 21: 00; Start 04/11/18 at 21:00 Hydrochlorothiazide (Microzide) 12.5 mg DAILY PO Last administered on at 08:46; Start 04/12/18 at 09:00 Potassium Chloride (Klor-Con) 40 meq 1X ONCE PO Last administered on at 10:48; Start 04/12/18 at 10:45; Stop 04/12/18 at 10:46; Status DC Furosemide (Lasix) 40 mg DAILY PO ; Start 04/13/18 at 09:00 Magnesium Sulfate 50 ml @ 25 mls/hr 1X ONCE IV Last administered on 04/12/18at 12:10; Start 04/12/18 at 12:00; Stop 04/12/18 at 13:59; Status DC Active Scripts Active Reported Aquaphor Ointment (Mineral Oil/Hydrophil Petrolat) 396 Gm Oint...g. 396 Gm TP BID Triamcinolone Acetonide 0.1% Oint (Triamcinolone Acetonide) 15 Gm Oint...g. 1 Benjy TP TID MIX WITH EUCERIN DIRECTED BY PHYSICIAN Tubersol (Tuberculin,Purif.prot.deriv.) 5 Tub Unit/0.1 Ml Vial 5 Tub ID DAILY Alprazolam 0.25 Mg Tablet 0.25 Mg PO PRN Q6HRS PRN Aricept (Donepezil Hcl) 5 Mg Tablet 5 Mg PO HS Diltiazem 24HR Cd (Diltiazem Hcl) 120 Mg Cap.er.24h 1 Cap PO DAILY Metoprolol Tartrate 50 Mg Tablet 1 Tab PO BID [b12] Clonidine Hcl 0.2 Mg Tablet 1 Tab PO BID [allopurinol] DAILY Artificial Tears (Dextran 70/Hypromellose) 1 Each Droperette 1 Each OP PRN Aleve (Naproxen Sodium) 220 Mg Capsule 220 Mg PO BID PRN Tylenol Extra Strength (Acetaminophen) 500 Mg Tablet 500 Mg PO PRN Vitamin B-12 (Cyanocobalamin (Vitamin B-12)) 1,000 Mcg Tablet 1 Tab PO DAILY Simvastatin 20 Mg Tablet 20 Mg PO HS Metformin Hcl 500 Mg Tablet 500 Mg PO BIDWMEALS Losartan-Hctz 100-12.5 Mg Tab (Losartan/Hydrochlorothiazide) 1 Each Tablet 1 Each PO DAILY Clonidine Hcl 0.2 Mg Tablet 0.2 Mg PO BID Allopurinol 300 Mg Tablet 300 Mg PO DAILY Vitals/I & O Vital Sign - Last 24 Hours 04/11/18 04/11/18 04/11/18 04/11/18 15:35 16:41 19:00 19:53 Temp 98.5 98.1 98.5 98.1 Pulse 64 71 71 Resp 20 22 B/P (MAP) 156/78 (104) 159/75 (103) 159/75 Pulse Ox 100 95 O2 Delivery Room Air Room Air Room Air 04/11/18 04/11/18 04/11/18 04/12/18 20:00 21:27 23:00 03:00 Temp 97.8 97.8 Pulse 59 63 58 Resp 18 B/P (MAP) 159/75 127/64 (85) 134/65 (88) Pulse Ox 98 97 O2 Delivery Room Air Room Air Room Air 04/12/18 04/12/18 04/12/18 04/12/18 07:44 08:00 08:45 08:45 Temp 98.7 98.7 Pulse 62 62 62 Resp 18 B/P (MAP) 135/71 (92) 135/71 135/71 Pulse Ox 95 O2 Delivery Room Air Room Air 04/12/18 04/12/18 04/12/18 04/12/18 08:45 08:46 09:33 10:57 Temp 98.7 98.7 Pulse 62 62 54 Resp 18 B/P (MAP) 135/71 135/71 116/64 (81) Pulse Ox 96 O2 Delivery Room Air Room Air Intake and Output 04/11/18 04/11/18 04/12/18 15:00 23:00 07:00 Intake Total 100 ml Output Total 1600 ml 3350 ml Balance -1600 ml -3250 ml HUBER CASE MD Apr 12, 2018 14:45
[2018-04-12 14:48] VITALS: BP 116/59
[2018-04-12 19:35] VITALS: BP 115/52
[2018-04-12] MEDS: ALPRAZolam 0.25 MG TABLET PO PRN (19:59)
[2018-04-12] MEDS: ATORVASTATIN CALCIUM 10 MG TABLET. PO SCH (19:59)
[2018-04-12] MEDS: DONEPEZIL HCL 5 MG TABLET. PO SCH (19:59)
[2018-04-12 22:19] VITALS: BP 103/57
[2018-04-13 03:54] VITALS: BP 103/55
[2018-04-13 04:26] LABS: BASO # 0.1 x10^3/uL (0.0-0.2); BASO % 1 % (0-3); EOS # 0.3 x10^3/uL (0.0-0.7); EOS % 2 % (0-3); HEMATOCRIT 39.5 % (39.0-53.0); HEMOGLOBIN 13.2 g/dL (13.0-17.5); LYMPH # 2.1 x10^3/uL (1.0-4.8); LYMPH % 19 % (24-48); MEAN CORPUSCULAR HEMOGLOBIN 31 pg (25-35); MEAN CORPUSCULAR HGB CONC 33 g/dL (31-37); MEAN CORPUSCULAR VOLUME 93 fL (79-100); MONO # 1.3 x10^3/uL (0.0-1.1); MONO % 12 % (0-9); NEUT # 7.2 x10^3uL (1.8-7.7); NEUT % 67 % (31-73); PLATELET COUNT 350 x10^3/uL (140-400); RED BLOOD COUNT 4.26 x10^6/uL (4.30-5.70); RED CELL DISTRIBUTION WIDTH 14.5 % (11.5-14.5); WHITE BLOOD COUNT 10.9 x10^3/uL (4.0-11.0)
[2018-04-13 04:50] LABS: CALCIUM 8.5 mg/dL (8.5-10.1); CREATININE 1.1 mg/dL (0.7-1.3); GFR 64.4; MAGNESIUM 1.7 mg/dL (1.8-2.4); POTASSIUM 3.1 mmol/L (3.5-5.1)
[2018-04-13] MEDS: POTASSIUM CHLORIDE 20 MEQ TABLET.ER. PO SCH ×2 (08:00→17:00)
[2018-04-13 08:09] VITALS: BP 106/60
[2018-04-13] MEDS: TRIAMCINOLONE ACETONIDE 0.1% TOPICAL OINTMENT 15GM TUBE. TP SCH ×3 (09:00→23:08)
[2018-04-13] MEDS: FUROSEMIDE 100 MG/10 ML VIAL. IVP SCH (09:00)
[2018-04-13] MEDS ORDERED: POTASSIUM CHLORIDE 20 MEQ TABLET.ER. PO ONE ×2 (09:30→14:00)
[2018-04-13] MEDS ORDERED: MAGNESIUM SULFATE 2GM 50 ML IV ONE (09:30)
[2018-04-13] MEDS: hydroCHLOROthiazide 12.5 MG CAPSULE PO SCH (09:49)
[2018-04-13] MEDS: CYANOCOBALAMIN (VITAMIN B-12) 1,000 MCG TABLET. PO SCH (09:49)
[2018-04-13] MEDS: metFORMIN 500 MG TABLET PO SCH ×2 (09:50→17:41)
[2018-04-13] MEDS: LOSARTAN POTASSIUM 50 MG TABLET. PO SCH (09:50)
[2018-04-13] MEDS: ALLOPURINOL 300 MG TABLET. PO SCH (09:50)
[2018-04-13] MEDS: METOPROLOL TART IMMED RELEASE 50 MG TABLET. PO SCH ×2 (09:50→21:00)
[2018-04-13] MEDS: cloNIDine HCL 0.2 MG TABLET PO SCH ×2 (09:51→21:00)
[2018-04-13] MEDS: MINERAL OIL/PETROLATUM TOPICAL CREAM 113GM JAR. TP SCH ×2 (09:52→22:08)
[2018-04-13] MEDS: FUROSEMIDE 40 MG TABLET. PO SCH (09:57)
--- NOTE | 2018-04-13 10:02 | RAD ---
Portable chest, 04/13/2018: HISTORY: Congestive heart failure Comparison is made to yesterday's study. The heart appears to be within normal limits in size and is unchanged. Vascular congestive changes have largely resolved. Small pleural effusions have diminished. No new pulmonary abnormality is seen. IMPRESSION: Resolving mild congestive heart failure. Electronically signed by: Brody Doran MD (04/13/2018 9:59 AM) [facility]
[2018-04-13 11:00] VITALS: BP 98/54
--- NOTE | 2018-04-13 11:05 | PDOC ---
PROGRESS NOTES Subjective Subjective Patient states he is feeling better today. Denies any chest pain or dyspnea. Objective Objective Vital Signs Date Time Temp Pulse Resp B/P (MAP) Pulse Ox O2 Delivery O2 Flow Rate FiO2 04/13/18 09:51 55 04/13/18 08:09 98.5 18 106/60 (75) 96 Room Air 98.5 Intake and Output 04/13/18 07:00 Intake Total 960 ml Output Total 2850 ml Balance -1890 ml Intake Oral 960 ml Output Urine Total 2850 ml Physical Exam Physical Exam No significant cardiac changes. Assessment Assessment Problems Medical Problems: (1) Dyspnea Status: Acute Plan Plan of Care Replacing Mg & K. Pt has been switched to PO Lasix. CXR this am shows vascular congestion improved. Pt is okay to discharge tomorrow from a cardiac perspective. Comment Review of Relevant I have reviewed the following items renzo (where applicable) has been applied. Labs Laboratory Tests Test 04/11/18 12:05 04/11/18 17:16 04/11/18 17:40 04/11/18 20:38 White Blood Count 11.7 x10^3/uL (4.0-11.0) Red Blood Count 4.41 x10^6/uL (4.30-5.70) Hemoglobin 13.8 g/dL (13.0-17.5) Hematocrit 40.8 % (39.0-53.0) Mean Corpuscular Volume 93 fL (79-100) Mean Corpuscular Hemoglobin 31 pg (25-35) Mean Corpuscular Hemoglobin Concent 34 g/dL (31-37) Red Cell Distribution Width 14.5 % (11.5-14.5) Platelet Count 393 x10^3/uL (140-400) Neutrophils (%) (Auto) 77 % (31-73) Lymphocytes (%) (Auto) 13 % (24-48) Monocytes (%) (Auto) 8 % (0-9) Eosinophils (%) (Auto) 2 % (0-3) Basophils (%) (Auto) 1 % (0-3) Neutrophils # (Auto) 9.1 x10^3uL (1.8-7.7) Lymphocytes # (Auto) 1.5 x10^3/uL (1.0-4.8) Monocytes # (Auto) 1.0 x10^3/uL (0.0-1.1) Eosinophils # (Auto) 0.2 x10^3/uL (0.0-0.7) Basophils # (Auto) 0.1 x10^3/uL (0.0-0.2) Prothrombin Time 13.8 SEC (11.7-14.0) Prothromb Time International Ratio 1.1 (0.8-1.1) Sodium Level 143 mmol/L (136-145) Potassium Level 3.8 mmol/L (3.5-5.1) Chloride Level 104 mmol/L (98-107) Carbon Dioxide Level 32 mmol/L (21-32) Anion Gap 7 (6-14) Blood Urea Nitrogen 14 mg/dL (8-26) Creatinine 0.9 mg/dL (0.7-1.3) Estimated GFR (Cockcroft-Gault) 81.2 BUN/Creatinine Ratio 16 (6-20) Glucose Level 88 mg/dL (70-99) Lactic Acid Level 1.1 mmol/L (0.4-2.0) Calcium Level 8.6 mg/dL (8.5-10.1) Magnesium Level 1.2 mg/dL (1.8-2.4) Total Bilirubin 0.8 mg/dL (0.2-1.0) Aspartate Amino Transf (AST/SGOT) 30 U/L (15-37) Alanine Aminotransferase (ALT/SGPT) 52 U/L (16-63) Alkaline Phosphatase 79 U/L (46-116) Creatine Kinase 99 U/L (39-308) Creatine Kinase MB (Mass) 4.4 ng/mL (0.0-3.6) Creatine Kinase MB Relative Index 4.4 % (0-4) Troponin I Quantitative 0.056 ng/mL (0.000-0.055) EL-Aur-H-Type Natriuretic Peptide 3556 pg/mL (0-449) Total Protein 7.0 g/dL (6.4-8.2) Albumin 2.8 g/dL (3.4-5.0) Albumin/Globulin Ratio 0.7 (1.0-1.7) Lipase 64 U/L (73-393) Thyroid Stimulating Hormone (TSH) 3.679 uIU/mL (0.358-3.74) Glucose (Fingerstick) 65 mg/dL (70-99) 76 mg/dL (70-99) 90 mg/dL (70-99) Test 04/11/18 21:00 04/12/18 03:40 04/12/18 07:12 04/12/18 07:58 Urine Collection Type Unknown Urine Color Yellow Urine Clarity Clear Urine pH 6.0 Urine Specific [place] 1.015 Urine Protein Negative mg/dL (NEG-TRACE) Urine Glucose (UA) Negative mg/dL (NEG) Urine Ketones (Stick) Negative mg/dL (NEG) Urine Blood Large (NEG) Urine Nitrite Negative (NEG) Urine Bilirubin Negative (NEG) Urine Urobilinogen Dipstick 2.0 mg/dL (0.2 mg/dL) Urine Leukocyte Esterase Small (NEG) Urine RBC >40 /HPF (0-2) Urine WBC 1-4 /HPF (0-4) Urine Squamous Epithelial Cells Occ /LPF Urine Bacteria 0 /HPF (0-FEW) Sodium Level 142 mmol/L (136-145) Potassium Level 3.2 mmol/L (3.5-5.1) Chloride Level 100 mmol/L (98-107) Carbon Dioxide Level 34 mmol/L (21-32) Anion Gap 8 (6-14) Blood Urea Nitrogen 10 mg/dL (8-26) Creatinine 0.9 mg/dL (0.7-1.3) Estimated GFR (Cockcroft-Gault) 81.2 BUN/Creatinine Ratio 11 (6-20) Glucose Level 83 mg/dL (70-99) Calcium Level 8.6 mg/dL (8.5-10.1) Magnesium Level 1.2 mg/dL (1.8-2.4) 1.9 mg/dL (1.8-2.4) Total Bilirubin 1.0 mg/dL (0.2-1.0) Aspartate Amino Transf (AST/SGOT) 29 U/L (15-37) Alanine Aminotransferase (ALT/SGPT) 44 U/L (16-63) Alkaline Phosphatase 76 U/L (46-116) Total Protein 6.8 g/dL (6.4-8.2) Albumin 2.6 g/dL (3.4-5.0) Albumin/Globulin Ratio 0.6 (1.0-1.7) Glucose (Fingerstick) 74 mg/dL (70-99) Test 04/12/18 11:16 04/12/18 17:03 04/12/18 20:44 04/13/18 03:45 Glucose (Fingerstick) 156 mg/dL (70-99) 191 mg/dL (70-99) 110 mg/dL (70-99) White Blood Count 10.9 x10^3/uL (4.0-11.0) Red Blood Count 4.26 x10^6/uL (4.30-5.70) Hemoglobin 13.2 g/dL (13.0-17.5) Hematocrit 39.5 % (39.0-53.0) Mean Corpuscular Volume 93 fL (79-100) Mean Corpuscular Hemoglobin 31 pg (25-35) Mean Corpuscular Hemoglobin Concent 33 g/dL (31-37) Red Cell Distribution Width 14.5 % (11.5-14.5) Platelet Count 350 x10^3/uL (140-400) Neutrophils (%) (Auto) 67 % (31-73) Lymphocytes (%) (Auto) 19 % (24-48) Monocytes (%) (Auto) 12 % (0-9) Eosinophils (%) (Auto) 2 % (0-3) Basophils (%) (Auto) 1 % (0-3) Neutrophils # (Auto) 7.2 x10^3uL (1.8-7.7) Lymphocytes # (Auto) 2.1 x10^3/uL (1.0-4.8) Monocytes # (Auto) 1.3 x10^3/uL (0.0-1.1) Eosinophils # (Auto) 0.3 x10^3/uL (0.0-0.7) Basophils # (Auto) 0.1 x10^3/uL (0.0-0.2) Sodium Level 141 mmol/L (136-145) Potassium Level 3.1 mmol/L (3.5-5.1) Chloride Level 100 mmol/L (98-107) Carbon Dioxide Level 34 mmol/L (21-32) Anion Gap 7 (6-14) Blood Urea Nitrogen 15 mg/dL (8-26) Creatinine 1.1 mg/dL (0.7-1.3) Estimated GFR (Cockcroft-Gault) 64.4 Glucose Level 102 mg/dL (70-99) Calcium Level 8.5 mg/dL (8.5-10.1) Magnesium Level 1.7 mg/dL (1.8-2.4) Test 04/13/18 07:59 Glucose (Fingerstick) 100 mg/dL (70-99) Laboratory Tests Test 04/12/18 11:16 04/12/18 17:03 04/12/18 20:44 04/13/18 03:45 Glucose (Fingerstick) 156 mg/dL (70-99) 191 mg/dL (70-99) 110 mg/dL (70-99) White Blood Count 10.9 x10^3/uL (4.0-11.0) Red Blood Count 4.26 x10^6/uL (4.30-5.70) Hemoglobin 13.2 g/dL (13.0-17.5) Hematocrit 39.5 % (39.0-53.0) Mean Corpuscular Volume 93 fL (79-100) Mean Corpuscular Hemoglobin 31 pg (25-35) Mean Corpuscular Hemoglobin Concent 33 g/dL (31-37) Red Cell Distribution Width 14.5 % (11.5-14.5) Platelet Count 350 x10^3/uL (140-400) Neutrophils (%) (Auto) 67 % (31-73) Lymphocytes (%) (Auto) 19 % (24-48) Monocytes (%) (Auto) 12 % (0-9) Eosinophils (%) (Auto) 2 % (0-3) Basophils (%) (Auto) 1 % (0-3) Neutrophils # (Auto) 7.2 x10^3uL (1.8-7.7) Lymphocytes # (Auto) 2.1 x10^3/uL (1.0-4.8) Monocytes # (Auto) 1.3 x10^3/uL (0.0-1.1) Eosinophils # (Auto) 0.3 x10^3/uL (0.0-0.7) Basophils # (Auto) 0.1 x10^3/uL (0.0-0.2) Sodium Level 141 mmol/L (136-145) Potassium Level 3.1 mmol/L (3.5-5.1) Chloride Level 100 mmol/L (98-107) Carbon Dioxide Level 34 mmol/L (21-32) Anion Gap 7 (6-14) Blood Urea Nitrogen 15 mg/dL (8-26) Creatinine 1.1 mg/dL (0.7-1.3) Estimated GFR (Cockcroft-Gault) 64.4 Glucose Level 102 mg/dL (70-99) Calcium Level 8.5 mg/dL (8.5-10.1) Magnesium Level 1.7 mg/dL (1.8-2.4) Test 04/13/18 07:59 Glucose (Fingerstick) 100 mg/dL (70-99) Microbiology 04/11/18 Blood Culture - Preliminary, Resulted NO GROWTH AFTER 1 DAY Medications Current Medications Furosemide (Lasix) 40 mg 1X ONCE IVP Last administered on 04/11/18at 14:12; Start 04/11/18 at 13:45; Stop 04/11/18 at 13:46; Status DC Albuterol/ Ipratropium (Duoneb) 3 ml 1X ONCE NEB Last administered on at 14:09; Start 04/11/18 at 13:45; Stop 04/11/18 at 13:46; Status DC Magnesium Sulfate 50 ml @ 25 mls/hr 1X ONCE IV Last administered on 04/11/18at 16:03; Start 04/11/18 at 16:00; Stop 04/11/18 at 17:59; Status DC Potassium Chloride (Klor-Con) 20 meq BIDWMEALS PO Last administered on at 17:23; Start 04/11/18 at 17:00 Furosemide (Lasix) 60 mg BID94 IVP ; Start 04/11/18 at 17:00; Stop 04/11/18 at 17:11; Status DC Magnesium Sulfate 50 ml @ 25 mls/hr 1X ONCE IV Last administered on 04/12/18at 05:58; Start 04/12/18 at 06:00; Stop 04/12/18 at 07:59; Status DC Furosemide (Lasix) 60 mg Q12HR IVP Last administered on 04/12/18at 19:57; Start 04/11/18 at 21:00; Stop 04/13/18 at 09:00; Status DC Acetaminophen (Tylenol) 500 mg PRN Q6HRS PRN PO PAIN; Start 04/11/18 at 18:45; Stop 04/12/18 at 14:46; Status DC Allopurinol (Zyloprim) 300 mg DAILY PO Last administered on 04/13/18 09:50; Start 04/12/18 at 09:00 Alprazolam (Xanax) 0.25 mg PRN Q6HRS PRN PO ANXIETY / AGITATION Last administered on 04/12/18 19:59; Start 04/11/18 at 18:45 Clonidine HCl (Catapres) 0.2 mg BID PO Last administered on 04/13/18 09:51; Start 04/11/18 at 21:00 Cyanocobalamin (Vitamin B-12) 1,000 mcg DAILY PO Last administered on 09:49; Start 04/12/18 at 09:00 Diltiazem HCl (Cardizem 24hr Cd) 120 mg DAILY PO Last administered on 09:49; Start 04/12/18 at 09:00 Metoprolol Tartrate (Lopressor) 50 mg BID PO Last administered on 04/13/18 09: 50; Start 04/11/18 at 21:00 Triamcinolone Acetonide (Kenalog) 1 benjy TID TP Last administered on 04/11/18 21:00; Start 04/11/18 at 21:00 Donepezil HCl (Aricept) 5 mg HS PO Last administered on 04/12/18 19:59; Start 04/11/18 at 21:00 Losartan Potassium (Cozaar) 100 mg DAILY PO Last administered on 04/13/18 09: 50; Start 04/12/18 at 09:00 Metformin HCl (Glucophage) 500 mg BIDWMEALS PO Last administered on 04/13/18 09:50; Start 04/12/18 at 08:00 Multi-Ingred Cream/Lotion/Oil/ Oint (Hydrocerin Cream) 1 benjy BID TP Last administered on 04/13/18 09:52; Start 04/11/18 at 19:15 Naproxen (Naprosyn) 250 mg PRN BID PRN PO PAIN; Start 04/11/18 at 19:00 Atorvastatin Calcium (Lipitor) 10 mg QHS PO Last administered on 04/12/18 19: 59; Start 04/11/18 at 21:00 Hydrochlorothiazide (Microzide) 12.5 mg DAILY PO Last administered on at 09:49; Start 04/12/18 at 09:00 Potassium Chloride (Klor-Con) 40 meq 1X ONCE PO Last administered on at 10:48; Start 04/12/18 at 10:45; Stop 04/12/18 at 10:46; Status DC Furosemide (Lasix) 40 mg DAILY PO Last administered on 04/13/18at 09:57; Start 04/13/18 at 09:00 Magnesium Sulfate 50 ml @ 25 mls/hr 1X ONCE IV Last administered on 04/12/18at 12:10; Start 04/12/18 at 12:00; Stop 04/12/18 at 13:59; Status DC Acetaminophen (Tylenol) 650 mg PRN Q6HRS PRN PO FEVER; Start 04/12/18 at 14:45 Ondansetron HCl (Zofran) 4 mg PRN Q6HRS PRN IV NAUSEA/VOMITING; Start 04/12/18 at 14:45 Morphine Sulfate (Morphine Sulfate) 2 mg PRN Q2HR PRN IV MODERATE TO SEVERE PAIN; Start 04/12/18 at 14:45 Tramadol HCl (Ultram) 50 mg PRN Q6HRS PRN PO MILD TO MODERATE PAIN; Start 04/12 at 14:45 Docusate Sodium (Colace) 100 mg PRN DAILY PRN PO CONSTIPATION; Start 04/12/18 at 14:45 Potassium Chloride (Klor-Con) 40 meq 1X ONCE PO Last administered on at 09:48; Start 04/13/18 at 09:30; Stop 04/13/18 at 09:31; Status DC Potassium Chloride (Klor-Con) 40 meq 1X ONCE PO ; Start 04/13/18 at 14:00; Stop 04/13/18 at 14:01 Magnesium Sulfate 50 ml @ 25 mls/hr 1X ONCE IV Last administered on 04/13/18at 09:48; Start 04/13/18 at 09:30; Stop 04/13/18 at 11:29 Active Scripts Active Reported Aquaphor Ointment (Mineral Oil/Hydrophil Petrolat) 396 Gm Oint...g. 396 Gm TP BID Triamcinolone Acetonide 0.1% Oint (Triamcinolone Acetonide) 15 Gm Oint...g. 1 Benjy TP TID MIX WITH EUCERIN DIRECTED BY PHYSICIAN Tubersol (Tuberculin,Purif.prot.deriv.) 5 Tub Unit/0.1 Ml Vial 5 Tub ID DAILY Alprazolam 0.25 Mg Tablet 0.25 Mg PO PRN Q6HRS PRN Aricept (Donepezil Hcl) 5 Mg Tablet 5 Mg PO HS Diltiazem 24HR Cd (Diltiazem Hcl) 120 Mg Cap.er.24h 1 Cap PO DAILY Metoprolol Tartrate 50 Mg Tablet 1 Tab PO BID [b12] Clonidine Hcl 0.2 Mg Tablet 1 Tab PO BID [allopurinol] DAILY Artificial Tears (Dextran 70/Hypromellose) 1 Each Droperette 1 Each OP PRN Aleve (Naproxen Sodium) 220 Mg Capsule 220 Mg PO BID PRN Tylenol Extra Strength (Acetaminophen) 500 Mg Tablet 500 Mg PO PRN Vitamin B-12 (Cyanocobalamin (Vitamin B-12)) 1,000 Mcg Tablet 1 Tab PO DAILY Simvastatin 20 Mg Tablet 20 Mg PO HS Metformin Hcl 500 Mg Tablet 500 Mg PO BIDWMEALS Losartan-Hctz 100-12.5 Mg Tab (Losartan/Hydrochlorothiazide) 1 Each Tablet 1 Each PO DAILY Clonidine Hcl 0.2 Mg Tablet 0.2 Mg PO BID Allopurinol 300 Mg Tablet 300 Mg PO DAILY Vitals/I & O Vital Sign - Last 24 Hours 04/12/18 04/12/18 04/12/18 04/12/18 14:48 19:35 19:58 19:59 Temp 98.4 98.8 98.4 98.8 Pulse 59 66 66 66 Resp 18 16 B/P (MAP) 116/59 (78) 115/52 (73) 115/52 115/52 Pulse Ox 96 93 O2 Delivery Room Air Room Air 04/12/18 04/12/18 04/13/18 04/13/18 20:00 22:19 03:54 08:00 Temp 97.6 98.1 97.6 98.1 Pulse 52 55 Resp 16 14 B/P (MAP) 103/57 (72) 103/55 (71) Pulse Ox 93 94 O2 Delivery Room Air Room Air Room Air Room Air 11/11/2304/13/18 04/13/18 04/13/18 08:09 09:49 09:50 09:50 Temp 98.5 98.5 Pulse 54 60 55 55 Resp 18 B/P (MAP) 106/60 (75) Pulse Ox 96 O2 Delivery Room Air 04/13/18 09:51 Pulse 55 Intake and Output 04/12/18 04/12/18 04/13/18 15:00 23:00 07:00 Intake Total 60 ml 800 ml 100 ml Output Total 1375 ml 525 ml 950 ml Balance -1315 ml 275 ml -850 ml CARMEN QUIROGA MD Apr 13, 2018 11:05
--- NOTE | 2018-04-13 13:29 | PDOC ---
PROGRESS NOTES Chief Complaint Chief Complaint ACUTE DIASTOLIC CHF H/o HTN H/o Diabetes H/o hyperlipidemia HEMATURIA mild malnutrition hypokalemia hypomagnesemia plan: fu with card echo pending lasix 60mg iv bid dced as per card, start 40mg po daily ssi dvt ppx replete K dc soon History of Present Illness History of Present Illness ROS: no fever, chills, sob or chest pain feels ok, hearing loss Vitals Vitals Vital Signs Date Time Temp Pulse Resp B/P (MAP) Pulse Ox O2 Delivery O2 Flow Rate FiO2 04/13/18 11:00 97.4 53 18 98/54 (69) 94 Room Air 97.4 Physical Exam General: Alert, Cooperative, No acute distress Heart: Regular rate, Normal S1, Normal S2, No murmurs Lungs: Clear Extremities: No clubbing, No cyanosis, Normal pulses, Other (bl leg trace edema ) Labs LABS Laboratory Tests Test 04/12/18 17:03 04/12/18 20:44 04/13/18 03:45 04/13/18 07:59 Glucose (Fingerstick) 191 mg/dL (70-99) 110 mg/dL (70-99) 100 mg/dL (70-99) White Blood Count 10.9 x10^3/uL (4.0-11.0) Red Blood Count 4.26 x10^6/uL (4.30-5.70) Hemoglobin 13.2 g/dL (13.0-17.5) Hematocrit 39.5 % (39.0-53.0) Mean Corpuscular Volume 93 fL (79-100) Mean Corpuscular Hemoglobin 31 pg (25-35) Mean Corpuscular Hemoglobin Concent 33 g/dL (31-37) Red Cell Distribution Width 14.5 % (11.5-14.5) Platelet Count 350 x10^3/uL (140-400) Neutrophils (%) (Auto) 67 % (31-73) Lymphocytes (%) (Auto) 19 % (24-48) Monocytes (%) (Auto) 12 % (0-9) Eosinophils (%) (Auto) 2 % (0-3) Basophils (%) (Auto) 1 % (0-3) Neutrophils # (Auto) 7.2 x10^3uL (1.8-7.7) Lymphocytes # (Auto) 2.1 x10^3/uL (1.0-4.8) Monocytes # (Auto) 1.3 x10^3/uL (0.0-1.1) Eosinophils # (Auto) 0.3 x10^3/uL (0.0-0.7) Basophils # (Auto) 0.1 x10^3/uL (0.0-0.2) Sodium Level 141 mmol/L (136-145) Potassium Level 3.1 mmol/L (3.5-5.1) Chloride Level 100 mmol/L (98-107) Carbon Dioxide Level 34 mmol/L (21-32) Anion Gap 7 (6-14) Blood Urea Nitrogen 15 mg/dL (8-26) Creatinine 1.1 mg/dL (0.7-1.3) Estimated GFR (Cockcroft-Gault) 64.4 Glucose Level 102 mg/dL (70-99) Calcium Level 8.5 mg/dL (8.5-10.1) Magnesium Level 1.7 mg/dL (1.8-2.4) Test 04/13/18 11:46 Glucose (Fingerstick) 181 mg/dL (70-99) Assessment and Plan Assessmemt and Plan Problems Medical Problems: (1) Dyspnea Status: Acute Comment Review of Relevant I have reviewed the following items renzo (where applicable) has been applied. Labs Laboratory Tests Test 04/11/18 17:16 04/11/18 17:40 04/11/18 20:38 04/11/18 21:00 Glucose (Fingerstick) 65 mg/dL (70-99) 76 mg/dL (70-99) 90 mg/dL (70-99) Urine Collection Type Unknown Urine Color Yellow Urine Clarity Clear Urine pH 6.0 Urine Specific [place] 1.015 Urine Protein Negative mg/dL (NEG-TRACE) Urine Glucose (UA) Negative mg/dL (NEG) Urine Ketones (Stick) Negative mg/dL (NEG) Urine Blood Large (NEG) Urine Nitrite Negative (NEG) Urine Bilirubin Negative (NEG) Urine Urobilinogen Dipstick 2.0 mg/dL (0.2 mg/dL) Urine Leukocyte Esterase Small (NEG) Urine RBC >40 /HPF (0-2) Urine WBC 1-4 /HPF (0-4) Urine Squamous Epithelial Cells Occ /LPF Urine Bacteria 0 /HPF (0-FEW) Test 04/12/18 03:40 04/12/18 07:12 04/12/18 07:58 04/12/18 11:16 Sodium Level 142 mmol/L (136-145) Potassium Level 3.2 mmol/L (3.5-5.1) Chloride Level 100 mmol/L (98-107) Carbon Dioxide Level 34 mmol/L (21-32) Anion Gap 8 (6-14) Blood Urea Nitrogen 10 mg/dL (8-26) Creatinine 0.9 mg/dL (0.7-1.3) Estimated GFR (Cockcroft-Gault) 81.2 BUN/Creatinine Ratio 11 (6-20) Glucose Level 83 mg/dL (70-99) Calcium Level 8.6 mg/dL (8.5-10.1) Magnesium Level 1.2 mg/dL (1.8-2.4) 1.9 mg/dL (1.8-2.4) Total Bilirubin 1.0 mg/dL (0.2-1.0) Aspartate Amino Transf (AST/SGOT) 29 U/L (15-37) Alanine Aminotransferase (ALT/SGPT) 44 U/L (16-63) Alkaline Phosphatase 76 U/L (46-116) Total Protein 6.8 g/dL (6.4-8.2) Albumin 2.6 g/dL (3.4-5.0) Albumin/Globulin Ratio 0.6 (1.0-1.7) Glucose (Fingerstick) 74 mg/dL (70-99) 156 mg/dL (70-99) Test 04/12/18 17:03 04/12/18 20:44 04/13/18 03:45 04/13/18 07:59 Glucose (Fingerstick) 191 mg/dL (70-99) 110 mg/dL (70-99) 100 mg/dL (70-99) White Blood Count 10.9 x10^3/uL (4.0-11.0) Red Blood Count 4.26 x10^6/uL (4.30-5.70) Hemoglobin 13.2 g/dL (13.0-17.5) Hematocrit 39.5 % (39.0-53.0) Mean Corpuscular Volume 93 fL (79-100) Mean Corpuscular Hemoglobin 31 pg (25-35) Mean Corpuscular Hemoglobin Concent 33 g/dL (31-37) Red Cell Distribution Width 14.5 % (11.5-14.5) Platelet Count 350 x10^3/uL (140-400) Neutrophils (%) (Auto) 67 % (31-73) Lymphocytes (%) (Auto) 19 % (24-48) Monocytes (%) (Auto) 12 % (0-9) Eosinophils (%) (Auto) 2 % (0-3) Basophils (%) (Auto) 1 % (0-3) Neutrophils # (Auto) 7.2 x10^3uL (1.8-7.7) Lymphocytes # (Auto) 2.1 x10^3/uL (1.0-4.8) Monocytes # (Auto) 1.3 x10^3/uL (0.0-1.1) Eosinophils # (Auto) 0.3 x10^3/uL (0.0-0.7) Basophils # (Auto) 0.1 x10^3/uL (0.0-0.2) Sodium Level 141 mmol/L (136-145) Potassium Level 3.1 mmol/L (3.5-5.1) Chloride Level 100 mmol/L (98-107) Carbon Dioxide Level 34 mmol/L (21-32) Anion Gap 7 (6-14) Blood Urea Nitrogen 15 mg/dL (8-26) Creatinine 1.1 mg/dL (0.7-1.3) Estimated GFR (Cockcroft-Gault) 64.4 Glucose Level 102 mg/dL (70-99) Calcium Level 8.5 mg/dL (8.5-10.1) Magnesium Level 1.7 mg/dL (1.8-2.4) Test 04/13/18 11:46 Glucose (Fingerstick) 181 mg/dL (70-99) Laboratory Tests Test 04/12/18 17:03 04/12/18 20:44 04/13/18 03:45 04/13/18 07:59 Glucose (Fingerstick) 191 mg/dL (70-99) 110 mg/dL (70-99) 100 mg/dL (70-99) White Blood Count 10.9 x10^3/uL (4.0-11.0) Red Blood Count 4.26 x10^6/uL (4.30-5.70) Hemoglobin 13.2 g/dL (13.0-17.5) Hematocrit 39.5 % (39.0-53.0) Mean Corpuscular Volume 93 fL (79-100) Mean Corpuscular Hemoglobin 31 pg (25-35) Mean Corpuscular Hemoglobin Concent 33 g/dL (31-37) Red Cell Distribution Width 14.5 % (11.5-14.5) Platelet Count 350 x10^3/uL (140-400) Neutrophils (%) (Auto) 67 % (31-73) Lymphocytes (%) (Auto) 19 % (24-48) Monocytes (%) (Auto) 12 % (0-9) Eosinophils (%) (Auto) 2 % (0-3) Basophils (%) (Auto) 1 % (0-3) Neutrophils # (Auto) 7.2 x10^3uL (1.8-7.7) Lymphocytes # (Auto) 2.1 x10^3/uL (1.0-4.8) Monocytes # (Auto) 1.3 x10^3/uL (0.0-1.1) Eosinophils # (Auto) 0.3 x10^3/uL (0.0-0.7) Basophils # (Auto) 0.1 x10^3/uL (0.0-0.2) Sodium Level 141 mmol/L (136-145) Potassium Level 3.1 mmol/L (3.5-5.1) Chloride Level 100 mmol/L (98-107) Carbon Dioxide Level 34 mmol/L (21-32) Anion Gap 7 (6-14) Blood Urea Nitrogen 15 mg/dL (8-26) Creatinine 1.1 mg/dL (0.7-1.3) Estimated GFR (Cockcroft-Gault) 64.4 Glucose Level 102 mg/dL (70-99) Calcium Level 8.5 mg/dL (8.5-10.1) Magnesium Level 1.7 mg/dL (1.8-2.4) Test 04/13/18 11:46 Glucose (Fingerstick) 181 mg/dL (70-99) Microbiology 04/11/18 Blood Culture - Preliminary, Resulted NO GROWTH AFTER 2 DAYS Medications Current Medications Furosemide (Lasix) 40 mg 1X ONCE IVP Last administered on 04/11/18at 14:12; Start 04/11/18 at 13:45; Stop 04/11/18 at 13:46; Status DC Albuterol/ Ipratropium (Duoneb) 3 ml 1X ONCE NEB Last administered on at 14:09; Start 04/11/18 at 13:45; Stop 04/11/18 at 13:46; Status DC Magnesium Sulfate 50 ml @ 25 mls/hr 1X ONCE IV Last administered on 04/11/18at 16:03; Start 04/11/18 at 16:00; Stop 04/11/18 at 17:59; Status DC Potassium Chloride (Klor-Con) 20 meq BIDWMEALS PO Last administered on at 17:23; Start 04/11/18 at 17:00 Furosemide (Lasix) 60 mg [id number] IVP ; Start 04/11/18 at 17:00; Stop 04/11/18 at 17:11; Status DC Magnesium Sulfate 50 ml @ 25 mls/hr 1X ONCE IV Last administered on 04/12/18at 05:58; Start 04/12/18 at 06:00; Stop 04/12/18 at 07:59; Status DC Furosemide (Lasix) 60 mg Q12HR IVP Last administered on 04/12/18at 19:57; Start 04/11/18 at 21:00; Stop 04/13/18 at 09:00; Status DC Acetaminophen (Tylenol) 500 mg PRN Q6HRS PRN PO PAIN; Start 04/11/18 at 18:45; Stop 04/12/18 at 14:46; Status DC Allopurinol (Zyloprim) 300 mg DAILY PO Last administered on 04/13/18at 09:50; Start 04/12/18 at 09:00 Alprazolam (Xanax) 0.25 mg PRN Q6HRS PRN PO ANXIETY / AGITATION Last administered on 04/12/18at 19:59; Start 04/11/18 at 18:45 Clonidine HCl (Catapres) 0.2 mg BID PO Last administered on 04/13/18at 09:51; Start 04/11/18 at 21:00 Cyanocobalamin (Vitamin B-12) 1,000 mcg DAILY PO Last administered on 09:49; Start 04/12/18 at 09:00 Diltiazem HCl (Cardizem 24hr Cd) 120 mg DAILY PO Last administered on 09:49; Start 04/12/18 at 09:00 Metoprolol Tartrate (Lopressor) 50 mg BID PO Last administered on 04/13/18 09: 50; Start 04/11/18 at 21:00 Triamcinolone Acetonide (Kenalog) 1 benjy TID TP Last administered on 04/11/18 21:00; Start 04/11/18 at 21:00 Donepezil HCl (Aricept) 5 mg HS PO Last administered on 04/12/18 19:59; Start 04/11/18 at 21:00 Losartan Potassium (Cozaar) 100 mg DAILY PO Last administered on 04/13/18 09: 50; Start 04/12/18 at 09:00 Metformin HCl (Glucophage) 500 mg BIDWMEALS PO Last administered on 04/13/18 09:50; Start 04/12/18 at 08:00 Multi-Ingred Cream/Lotion/Oil/ Oint (Hydrocerin Cream) 1 benjy BID TP Last administered on 04/13/18 09:52; Start 04/11/18 at 19:15 Naproxen (Naprosyn) 250 mg PRN BID PRN PO PAIN; Start 04/11/18 at 19:00 Atorvastatin Calcium (Lipitor) 10 mg QHS PO Last administered on 04/12/18 19: 59; Start 04/11/18 at 21:00 Hydrochlorothiazide (Microzide) 12.5 mg DAILY PO Last administered on 09:49; Start 04/12/18 at 09:00 Potassium Chloride (Klor-Con) 40 meq 1X ONCE PO Last administered on 10:48; Start 04/12/18 at 10:45; Stop 04/12/18 at 10:46; Status DC Furosemide (Lasix) 40 mg DAILY PO Last administered on 04/13/18 09:57; Start 04/13/18 at 09:00 Magnesium Sulfate 50 ml @ 25 mls/hr 1X ONCE IV Last administered on 11/5/18at 12:10; Start 04/12/18 at 12:00; Stop 04/12/18 at 13:59; Status DC Acetaminophen (Tylenol) 650 mg PRN Q6HRS PRN PO FEVER; Start 04/12/18 at 14:45 Ondansetron HCl (Zofran) 4 mg PRN Q6HRS PRN IV NAUSEA/VOMITING; Start 04/12/18 at 14:45 Morphine Sulfate (Morphine Sulfate) 2 mg PRN Q2HR PRN IV MODERATE TO SEVERE PAIN; Start 04/12/18 at 14:45 Tramadol HCl (Ultram) 50 mg PRN Q6HRS PRN PO MILD TO MODERATE PAIN; Start 04/12 at 14:45 Docusate Sodium (Colace) 100 mg PRN DAILY PRN PO CONSTIPATION; Start 04/12/18 at 14:45 Potassium Chloride (Klor-Con) 40 meq 1X ONCE PO Last administered on at 09:48; Start 04/13/18 at 09:30; Stop 04/13/18 at 09:31; Status DC Potassium Chloride (Klor-Con) 40 meq 1X ONCE PO Last administered on at 13:10; Start 04/13/18 at 14:00; Stop 04/13/18 at 14:01 Magnesium Sulfate 50 ml @ 25 mls/hr 1X ONCE IV Last administered on 04/13/18at 09:48; Start 04/13/18 at 09:30; Stop 04/13/18 at 11:29; Status DC Active Scripts Active Reported Aquaphor Ointment (Mineral Oil/Hydrophil Petrolat) 396 Gm Oint...g. 396 Gm TP BID Triamcinolone Acetonide 0.1% Oint (Triamcinolone Acetonide) 15 Gm Oint...g. 1 Benjy TP TID MIX WITH EUCERIN DIRECTED BY PHYSICIAN Tubersol (Tuberculin,Purif.prot.deriv.) 5 Tub Unit/0.1 Ml Vial 5 Tub ID DAILY Alprazolam 0.25 Mg Tablet 0.25 Mg PO PRN Q6HRS PRN Aricept (Donepezil Hcl) 5 Mg Tablet 5 Mg PO HS Diltiazem 24HR Cd (Diltiazem Hcl) 120 Mg Cap.er.24h 1 Cap PO DAILY Metoprolol Tartrate 50 Mg Tablet 1 Tab PO BID [b12] Clonidine Hcl 0.2 Mg Tablet 1 Tab PO BID [allopurinol] DAILY Artificial Tears (Dextran 70/Hypromellose) 1 Each Droperette 1 Each OP PRN Aleve (Naproxen Sodium) 220 Mg Capsule 220 Mg PO BID PRN Tylenol Extra Strength (Acetaminophen) 500 Mg Tablet 500 Mg PO PRN Vitamin B-12 (Cyanocobalamin (Vitamin B-12)) 1,000 Mcg Tablet 1 Tab PO DAILY Simvastatin 20 Mg Tablet 20 Mg PO HS Metformin Hcl 500 Mg Tablet 500 Mg PO BIDWMEALS Losartan-Hctz 100-12.5 Mg Tab (Losartan/Hydrochlorothiazide) 1 Each Tablet 1 Each PO DAILY Clonidine Hcl 0.2 Mg Tablet 0.2 Mg PO BID Allopurinol 300 Mg Tablet 300 Mg PO DAILY Vitals/I & O Vital Sign - Last 24 Hours 04/12/18 04/12/18 04/12/18 04/12/18 14:48 19:35 19:58 19:59 Temp 98.4 98.8 98.4 98.8 Pulse 59 66 66 66 Resp 18 16 B/P (MAP) 116/59 (78) 115/52 (73) 115/52 115/52 Pulse Ox 96 93 O2 Delivery Room Air Room Air 04/12/18 04/12/18 04/13/18 04/13/18 20:00 22:19 03:54 08:00 Temp 97.6 98.1 97.6 98.1 Pulse 52 55 Resp 16 14 B/P (MAP) 103/57 (72) 103/55 (71) Pulse Ox 93 94 O2 Delivery Room Air Room Air Room Air Room Air 04/13/18 04/13/18 04/13/18 04/13/18 08:09 09:49 09:50 09:50 Temp 98.5 98.5 Pulse 54 60 55 55 Resp 18 B/P (MAP) 106/60 (75) Pulse Ox 96 O2 Delivery Room Air 04/13/18 04/13/18 09:51 11:00 Temp 97.4 97.4 Pulse 55 53 Resp 18 B/P (MAP) 98/54 (69) Pulse Ox 94 O2 Delivery Room Air Intake and Output 04/12/18 04/12/18 04/13/18 15:00 23:00 07:00 Intake Total 60 ml 800 ml 100 ml Output Total 1375 ml 525 ml 950 ml Balance -1315 ml 275 ml -850 ml HUBER CASE MD Apr 13, 2018 13:29
[2018-04-13 15:00] VITALS: BP 96/53
[2018-04-13 19:35] VITALS: BP 96/49
[2018-04-13] MEDS: DONEPEZIL HCL 5 MG TABLET. PO SCH (22:05)
[2018-04-13] MEDS: ALPRAZolam 0.25 MG TABLET PO PRN (22:05)
[2018-04-13] MEDS: ATORVASTATIN CALCIUM 10 MG TABLET. PO SCH (22:07)
[2018-04-13 23:00] VITALS: BP 101/53
[2018-04-14] VITALS (9 sets, daily range): BP systolic 102–196; BP diastolic 58–86
[2018-04-14 05:27] LABS: BASO # 0.1 x10^3/uL (0.0-0.2); BASO % 1 % (0-3); EOS # 0.3 x10^3/uL (0.0-0.7); EOS % 3 % (0-3); HEMATOCRIT 39.2 % (39.0-53.0); HEMOGLOBIN 13.1 g/dL (13.0-17.5); LYMPH # 2.2 x10^3/uL (1.0-4.8); LYMPH % 20 % (24-48); MEAN CORPUSCULAR HEMOGLOBIN 31 pg (25-35); MEAN CORPUSCULAR HGB CONC 33 g/dL (31-37); MEAN CORPUSCULAR VOLUME 93 fL (79-100); MONO # 1.1 x10^3/uL (0.0-1.1); MONO % 10 % (0-9); NEUT # 7.2 x10^3uL (1.8-7.7); NEUT % 66 % (31-73); PLATELET COUNT 344 x10^3/uL (140-400); RED BLOOD COUNT 4.21 x10^6/uL (4.30-5.70); RED CELL DISTRIBUTION WIDTH 14.3 % (11.5-14.5); WHITE BLOOD COUNT 10.9 x10^3/uL (4.0-11.0)
[2018-04-14 05:46] LABS: CALCIUM 8.7 mg/dL (8.5-10.1); CREATININE 1.1 mg/dL (0.7-1.3); GFR 64.4; POTASSIUM 3.5 mmol/L (3.5-5.1)
--- NOTE | 2018-04-14 08:36 | PDOC ---
PROGRESS NOTES Subjective Subjective pt begun to have left sided arm weakness around 11am this morning, and was all of a sudden. This has never happened before for the patient. he not other associated symptoms. no chest pain or shortness of breath he has tolerated medications appropriately Objective Objective Vital Signs Date Time Temp Pulse Resp B/P (MAP) Pulse Ox O2 Delivery O2 Flow Rate FiO2 04/14/18 07:42 97.7 61 18 104/62 (76) 93 Room Air 97.7 Intake and Output 04/14/18 07:00 Intake Total 620 ml Output Total 950 ml Balance -330 ml Intake Oral 620 ml Output Urine Total 950 ml Physical Exam Heart: Regular rate, Normal S1, Normal S2, No murmurs Extremities: No clubbing, No cyanosis, No edema, Normal pulses General: Alert, Oriented X3, Cooperative, No acute distress Lungs: Clear to auscultation, Normal air movement MUSCULOSKELETAL: Abnormal exam of left (arm, 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 Labs Laboratory Tests Test 04/12/18 11:16 04/12/18 17:03 04/12/18 20:44 04/13/18 03:45 Glucose (Fingerstick) 156 mg/dL (70-99) 191 mg/dL (70-99) 110 mg/dL (70-99) White Blood Count 10.9 x10^3/uL (4.0-11.0) Red Blood Count 4.26 x10^6/uL (4.30-5.70) Hemoglobin 13.2 g/dL (13.0-17.5) Hematocrit 39.5 % (39.0-53.0) Mean Corpuscular Volume 93 fL (79-100) Mean Corpuscular Hemoglobin 31 pg (25-35) Mean Corpuscular Hemoglobin Concent 33 g/dL (31-37) Red Cell Distribution Width 14.5 % (11.5-14.5) Platelet Count 350 x10^3/uL (140-400) Neutrophils (%) (Auto) 67 % (31-73) Lymphocytes (%) (Auto) 19 % (24-48) Monocytes (%) (Auto) 12 % (0-9) Eosinophils (%) (Auto) 2 % (0-3) Basophils (%) (Auto) 1 % (0-3) Neutrophils # (Auto) 7.2 x10^3uL (1.8-7.7) Lymphocytes # (Auto) 2.1 x10^3/uL (1.0-4.8) Monocytes # (Auto) 1.3 x10^3/uL (0.0-1.1) Eosinophils # (Auto) 0.3 x10^3/uL (0.0-0.7) Basophils # (Auto) 0.1 x10^3/uL (0.0-0.2) Sodium Level 141 mmol/L (136-145) Potassium Level 3.1 mmol/L (3.5-5.1) Chloride Level 100 mmol/L (98-107) Carbon Dioxide Level 34 mmol/L (21-32) Anion Gap 7 (6-14) Blood Urea Nitrogen 15 mg/dL (8-26) Creatinine 1.1 mg/dL (0.7-1.3) Estimated GFR (Cockcroft-Gault) 64.4 Glucose Level 102 mg/dL (70-99) Calcium Level 8.5 mg/dL (8.5-10.1) Magnesium Level 1.7 mg/dL (1.8-2.4) Test 04/13/18 07:59 04/13/18 11:46 04/13/18 16:53 04/13/18 20:36 Glucose (Fingerstick) 100 mg/dL (70-99) 181 mg/dL (70-99) 97 mg/dL (70-99) 149 mg/dL (70-99) Test 04/14/18 04:35 04/14/18 07:02 White Blood Count 10.9 x10^3/uL (4.0-11.0) Red Blood Count 4.21 x10^6/uL (4.30-5.70) Hemoglobin 13.1 g/dL (13.0-17.5) Hematocrit 39.2 % (39.0-53.0) Mean Corpuscular Volume 93 fL (79-100) Mean Corpuscular Hemoglobin 31 pg (25-35) Mean Corpuscular Hemoglobin Concent 33 g/dL (31-37) Red Cell Distribution Width 14.3 % (11.5-14.5) Platelet Count 344 x10^3/uL (140-400) Neutrophils (%) (Auto) 66 % (31-73) Lymphocytes (%) (Auto) 20 % (24-48) Monocytes (%) (Auto) 10 % (0-9) Eosinophils (%) (Auto) 3 % (0-3) Basophils (%) (Auto) 1 % (0-3) Neutrophils # (Auto) 7.2 x10^3uL (1.8-7.7) Lymphocytes # (Auto) 2.2 x10^3/uL (1.0-4.8) Monocytes # (Auto) 1.1 x10^3/uL (0.0-1.1) Eosinophils # (Auto) 0.3 x10^3/uL (0.0-0.7) Basophils # (Auto) 0.1 x10^3/uL (0.0-0.2) Sodium Level 139 mmol/L (136-145) Potassium Level 3.5 mmol/L (3.5-5.1) Chloride Level 100 mmol/L (98-107) Carbon Dioxide Level 32 mmol/L (21-32) Anion Gap 7 (6-14) Blood Urea Nitrogen 21 mg/dL (8-26) Creatinine 1.1 mg/dL (0.7-1.3) Estimated GFR (Cockcroft-Gault) 64.4 Glucose Level 122 mg/dL (70-99) Calcium Level 8.7 mg/dL (8.5-10.1) Magnesium Level 1.5 mg/dL (1.8-2.4) Glucose (Fingerstick) 140 mg/dL (70-99) Laboratory Tests Test 04/13/18 11:46 04/13/18 16:53 04/13/18 20:36 04/14/18 04:35 Glucose (Fingerstick) 181 mg/dL (70-99) 97 mg/dL (70-99) 149 mg/dL (70-99) White Blood Count 10.9 x10^3/uL (4.0-11.0) Red Blood Count 4.21 x10^6/uL (4.30-5.70) Hemoglobin 13.1 g/dL (13.0-17.5) Hematocrit 39.2 % (39.0-53.0) Mean Corpuscular Volume 93 fL (79-100) Mean Corpuscular Hemoglobin 31 pg (25-35) Mean Corpuscular Hemoglobin Concent 33 g/dL (31-37) Red Cell Distribution Width 14.3 % (11.5-14.5) Platelet Count 344 x10^3/uL (140-400) Neutrophils (%) (Auto) 66 % (31-73) Lymphocytes (%) (Auto) 20 % (24-48) Monocytes (%) (Auto) 10 % (0-9) Eosinophils (%) (Auto) 3 % (0-3) Basophils (%) (Auto) 1 % (0-3) Neutrophils # (Auto) 7.2 x10^3uL (1.8-7.7) Lymphocytes # (Auto) 2.2 x10^3/uL (1.0-4.8) Monocytes # (Auto) 1.1 x10^3/uL (0.0-1.1) Eosinophils # (Auto) 0.3 x10^3/uL (0.0-0.7) Basophils # (Auto) 0.1 x10^3/uL (0.0-0.2) Sodium Level 139 mmol/L (136-145) Potassium Level 3.5 mmol/L (3.5-5.1) Chloride Level 100 mmol/L (98-107) Carbon Dioxide Level 32 mmol/L (21-32) Anion Gap 7 (6-14) Blood Urea Nitrogen 21 mg/dL (8-26) Creatinine 1.1 mg/dL (0.7-1.3) Estimated GFR (Cockcroft-Gault) 64.4 Glucose Level 122 mg/dL (70-99) Calcium Level 8.7 mg/dL (8.5-10.1) Magnesium Level 1.5 mg/dL (1.8-2.4) Test 04/14/18 07:02 Glucose (Fingerstick) 140 mg/dL (70-99) Microbiology 04/11/18 Blood Culture - Preliminary, Resulted NO GROWTH AFTER 2 DAYS 04/11/18 Urine Culture - Final, Complete 04/11/18 Urine Culture Result 1 (KENJI) - Final, Complete Medications Current Medications Furosemide (Lasix) 40 mg 1X ONCE IVP Last administered on 04/11/18at 14:12; Start 04/11/18 at 13:45; Stop 04/11/18 at 13:46; Status DC Albuterol/ Ipratropium (Duoneb) 3 ml 1X ONCE NEB Last administered on at 14:09; Start 04/11/18 at 13:45; Stop 04/11/18 at 13:46; Status DC Magnesium Sulfate 50 ml @ 25 mls/hr 1X ONCE IV Last administered on 04/11/18at 16:03; Start 04/11/18 at 16:00; Stop 04/11/18 at 17:59; Status DC Potassium Chloride (Klor-Con) 20 meq BIDWMEALS PO Last administered on at 17:23; Start 04/11/18 at 17:00 Furosemide (Lasix) 60 mg [id number] IVP ; Start 04/11/18 at 17:00; Stop 04/11/18 at 17:11; Status DC Magnesium Sulfate 50 ml @ 25 mls/hr 1X ONCE IV Last administered on 04/12/18at 05:58; Start 04/12/18 at 06:00; Stop 04/12/18 at 07:59; Status DC Furosemide (Lasix) 60 mg Q12HR IVP Last administered on 04/12/18at 19:57; Start 04/11/18 at 21:00; Stop 04/13/18 at 09:00; Status DC Acetaminophen (Tylenol) 500 mg PRN Q6HRS PRN PO PAIN; Start 04/11/18 at 18:45; Stop 04/12/18 at 14:46; Status DC Allopurinol (Zyloprim) 300 mg DAILY PO Last administered on 04/13/18at 09:50; Start 04/12/18 at 09:00 Alprazolam (Xanax) 0.25 mg PRN Q6HRS PRN PO ANXIETY / AGITATION Last administered on 04/13/18at 22:05; Start 04/11/18 at 18:45 Clonidine HCl (Catapres) 0.2 mg BID PO Last administered on 04/13/18at 09:51; Start 04/11/18 at 21:00 Cyanocobalamin (Vitamin B-12) 1,000 mcg DAILY PO Last administered on 09:49; Start 04/12/18 at 09:00 Diltiazem HCl (Cardizem 24hr Cd) 120 mg DAILY PO Last administered on 09:49; Start 04/12/18 at 09:00 Metoprolol Tartrate (Lopressor) 50 mg BID PO Last administered on 04/13/18 09: 50; Start 04/11/18 at 21:00 Triamcinolone Acetonide (Kenalog) 1 benjy TID TP Last administered on 04/13/18 23:08; Start 04/11/18 at 21:00 Donepezil HCl (Aricept) 5 mg HS PO Last administered on 04/13/18 22:05; Start 04/11/18 at 21:00 Losartan Potassium (Cozaar) 100 mg DAILY PO Last administered on 04/13/18 09: 50; Start 04/12/18 at 09:00 Metformin HCl (Glucophage) 500 mg BIDWMEALS PO Last administered on 04/13/18 17:41; Start 04/12/18 at 08:00 Multi-Ingred Cream/Lotion/Oil/ Oint (Hydrocerin Cream) 1 benjy BID TP Last administered on 04/13/18 22:08; Start 04/11/18 at 19:15 Naproxen (Naprosyn) 250 mg PRN BID PRN PO MILD PAIN/INFLAMMATION; Start at 19:00 Atorvastatin Calcium (Lipitor) 10 mg QHS PO Last administered on 04/13/18 22: 07; Start 04/11/18 at 21:00 Hydrochlorothiazide (Microzide) 12.5 mg DAILY PO Last administered on 09:49; Start 04/12/18 at 09:00 Potassium Chloride (Klor-Con) 40 meq 1X ONCE PO Last administered on 10:48; Start 04/12/18 at 10:45; Stop 04/12/18 at 10:46; Status DC Furosemide (Lasix) 40 mg DAILY PO Last administered on 04/13/18 09:57; Start 04/13/18 at 09:00 Magnesium Sulfate 50 ml @ 25 mls/hr 1X ONCE IV Last administered on 11/5/18at 12:10; Start 04/12/18 at 12:00; Stop 04/12/18 at 13:59; Status DC Acetaminophen (Tylenol) 650 mg PRN Q6HRS PRN PO FEVER; Start 04/12/18 at 14:45 Ondansetron HCl (Zofran) 4 mg PRN Q6HRS PRN IV NAUSEA/VOMITING; Start 04/12/18 at 14:45 Morphine Sulfate (Morphine Sulfate) 2 mg PRN Q2HR PRN IV MODERATE TO SEVERE PAIN; Start 04/12/18 at 14:45 Tramadol HCl (Ultram) 50 mg PRN Q6HRS PRN PO MODERATE PAIN Last administered on 04/13/18at 22:06; Start 04/12/18 at 14:45 Docusate Sodium (Colace) 100 mg PRN DAILY PRN PO CONSTIPATION; Start 04/12/18 at 14:45 Potassium Chloride (Klor-Con) 40 meq 1X ONCE PO Last administered on at 09:48; Start 04/13/18 at 09:30; Stop 04/13/18 at 09:31; Status DC Potassium Chloride (Klor-Con) 40 meq 1X ONCE PO Last administered on at 13:10; Start 04/13/18 at 14:00; Stop 04/13/18 at 14:01; Status DC Magnesium Sulfate 50 ml @ 25 mls/hr 1X ONCE IV Last administered on 04/13/18at 09:48; Start 04/13/18 at 09:30; Stop 04/13/18 at 11:29; Status DC Active Scripts Active Reported Aquaphor Ointment (Mineral Oil/Hydrophil Petrolat) 396 Gm Oint...g. 396 Gm TP BID Triamcinolone Acetonide 0.1% Oint (Triamcinolone Acetonide) 15 Gm Oint...g. 1 Benjy TP TID MIX WITH EUCERIN DIRECTED BY PHYSICIAN Tubersol (Tuberculin,Purif.prot.deriv.) 5 Tub Unit/0.1 Ml Vial 5 Tub ID DAILY Alprazolam 0.25 Mg Tablet 0.25 Mg PO PRN Q6HRS PRN Aricept (Donepezil Hcl) 5 Mg Tablet 5 Mg PO HS Diltiazem 24HR Cd (Diltiazem Hcl) 120 Mg Cap.er.24h 1 Cap PO DAILY Metoprolol Tartrate 50 Mg Tablet 1 Tab PO BID [b12] Clonidine Hcl 0.2 Mg Tablet 1 Tab PO BID [allopurinol] DAILY Artificial Tears (Dextran 70/Hypromellose) 1 Each Droperette 1 Each OP PRN Aleve (Naproxen Sodium) 220 Mg Capsule 220 Mg PO BID PRN Tylenol Extra Strength (Acetaminophen) 500 Mg Tablet 500 Mg PO PRN Vitamin B-12 (Cyanocobalamin (Vitamin B-12)) 1,000 Mcg Tablet 1 Tab PO DAILY Simvastatin 20 Mg Tablet 20 Mg PO HS Metformin Hcl 500 Mg Tablet 500 Mg PO BIDWMEALS Losartan-Hctz 100-12.5 Mg Tab (Losartan/Hydrochlorothiazide) 1 Each Tablet 1 Each PO DAILY Clonidine Hcl 0.2 Mg Tablet 0.2 Mg PO BID Allopurinol 300 Mg Tablet 300 Mg PO DAILY Vitals/I & O Vital Sign - Last 24 Hours 04/13/18 04/13/18 04/13/18 04/13/18 09:49 09:50 09:50 09:51 Pulse 60 55 55 55 04/13/18 04/13/18 04/13/18 04/13/18 11:00 15:00 19:35 20:00 Temp 97.4 97.4 97.6 97.4 97.4 97.6 Pulse 53 67 58 Resp 18 18 20 B/P (MAP) 98/54 (69) 96/53 (67) 96/49 (65) Pulse Ox 94 98 96 O2 Delivery Room Air Room Air Room Air Room Air 04/13/18 04/13/18 04/13/18 04/13/18 21:00 21:00 22:06 23:00 Temp 98.0 98.0 Pulse 58 58 55 Resp 16 18 B/P (MAP) 96/49 96/49 101/53 (69) Pulse Ox 95 O2 Delivery Room Air Room Air 04/13/18 04/14/18 04/14/18 23:06 03:30 07:42 Temp 98.1 97.7 98.1 97.7 Pulse 57 61 Resp 16 18 18 B/P (MAP) 102/58 (73) 104/62 (76) Pulse Ox 96 96 93 O2 Delivery Room Air Room Air Room Air Intake and Output 11/11/2304/13/18 04/14/18 15:00 23:00 07:00 Intake Total 500 ml 120 ml Output Total 250 ml 700 ml Balance 250 ml -580 ml CARMEN QUIROGA MD Apr 14, 2018 08:36
[2018-04-14] MEDS ORDERED: MAGNESIUM SULFATE 2GM 50 ML IV ONE (09:00)
[2018-04-14] MEDS: MAGNESIUM OXIDE 400 MG TABLET PO SCH (09:00)
[2018-04-14] MEDS: TRIAMCINOLONE ACETONIDE 0.1% TOPICAL OINTMENT 15GM TUBE. TP SCH ×3 (09:00→20:54)
[2018-04-14] MEDS ORDERED: FURO40TA4 PO (09:02)
[2018-04-14] MEDS ORDERED: POTA20TA4 PO (09:02)
[2018-04-14] MEDS ORDERED: MAGN400T22 PO (09:09)
--- NOTE | 2018-04-14 09:11 | DISCH ---
DISCHARGE DISCHARGE INFORMATION: DISCHARGE DATE: Apr 14, 2018 FINAL DIAGNOSIS Problems Medical Problems: (1) Dyspnea Status: Acute CONDITION ON DISCHARGE: Stable CODE STATUS: Code Status: DNR/DNI RETIREMENT: SNF STAY <30 DAYS: Yes POST DISCHARGE ORDERS: ACTIVITY ORDERS: Resume previous activity DIET AFTER DISCHARGE: Cardiac WOUND/INCISION CARE: No wound care needed CHECKS AFTER DISCHARGE: CHECKS AFTER DISCHARGE: Check blood press - daily, Weigh Yourself Daily FOLLOW-UP: PHYSICIAN FOLLOW-UP: dr. Pendleton in 2 weeks TREATMENT/EQUIPMENT ORDERS: ADAPTIVE EQUIPMENT NEEDED: None Physical Therapy For: Evalulation/Treatment Occupational Therapy For: Evaluation/Treatment Speech Language Pathology For: Evaluation/Treatment DISCHARGE MEDICATIONS: Home Meds Active Scripts Magnesium Oxide (MAG-OXIDE) 400 Mg Tablet, 400 MG PO DAILY for low mag for 7 Days, #7 TAB Prov:HUBER CASE MD 04/14/18 Potassium Chloride (KLOR-CON M20) 20 Meq Tab.er.prt, 20 MEQ PO BIDWMEALS for chf for 30 Days, #60 TAB.SR Prov:HUBER CASE MD 04/14/18 Furosemide (FUROSEMIDE) 40 Mg Tablet, 40 MG PO DAILY for chf for 30 Days, #30 TAB Prov:HUBER CASE MD 04/14/18 Reported Medications Mineral Oil/Hydrophil Petrolat (AQUAPHOR OINTMENT) 396 Gm Oint...g., 396 GM TP BID for dry skin, MISC 04/11/18 Triamcinolone Acetonide (TRIAMCINOLONE ACETONIDE 0.1% OINT) 15 Gm Oint...g., 1 RIKKI TP TID for WOUND CARE, #1 TUBE MIX WITH EUCERIN DIRECTED BY PHYSICIAN 04/11/18 Tuberculin,Purif.prot.deriv. (TUBERSOL) 5 Tub Unit/0.1 Ml Vial, 5 TUB ID DAILY for TB testing, EACH 04/11/18 Alprazolam (ALPRAZOLAM) 0.25 Mg Tablet, 0.25 MG PO PRN Q6HRS PRN for ANXIETY / AGITATION, TAB 0 Refills 04/11/18 Donepezil Hcl (ARICEPT) 5 Mg Tablet, 5 MG PO HS for alzheimers, TAB 04/11/18 Diltiazem Hcl (DILTIAZEM 24HR CD) 120 Mg Cap.er.24h, 1 CAP PO DAILY, #90 CAP 1 Refill 08/15/16 Metoprolol Tartrate (METOPROLOL TARTRATE) 50 Mg Tablet, 1 TAB PO BID, #60 TAB 5 Refills 05/27/16 Dextran 70/Hypromellose (ARTIFICIAL TEARS) 1 Each Droperette, 1 EACH OP PRN for DRY EYE 08/03/14 Acetaminophen (TYLENOL EXTRA STRENGTH) 500 Mg Tablet, 500 MG PO PRN for PAIN 08/03/14 Cyanocobalamin (Vitamin B-12) (VITAMIN B-12) 1,000 Mcg Tablet, 1 TAB PO DAILY, # 30 TAB 5 Refills 08/03/14 Simvastatin (SIMVASTATIN) 20 Mg Tablet, 20 MG PO HS for FOR CHOLESTEROL, #30 TAB 0 Refills 08/03/14 Metformin Hcl (METFORMIN HCL) 500 Mg Tablet, 500 MG PO BIDWMEALS for ANTI- DIABETIC, TAB 0 Refills 08/03/14 Losartan/Hydrochlorothiazide (LOSARTAN-HCTZ 100-12.5 MG TAB) 1 Each Tablet, 1 EACH PO DAILY, TAB 08/03/14 Clonidine Hcl (CLONIDINE HCL) 0.2 Mg Tablet, 0.2 MG PO BID, TAB 08/03/14 Allopurinol (ALLOPURINOL) 300 Mg Tablet, 300 MG PO DAILY, TAB 08/03/14 Discontinued Reported Medications [b12] No Conflict Check 05/25/16 Clonidine Hcl (CLONIDINE HCL) 0.2 Mg Tablet, 1 TAB PO BID, #60 TAB 5 Refills 05/25/16 [allopurinol] No Conflict Check, DAILY 05/25/16 Naproxen Sodium (ALEVE) 220 Mg Capsule, 220 MG PO BID PRN for PAIN, CAP 08/03/14 Dextran 70/Hypromellose (ARTIFICIAL TEARS) 1 Each Droperette, 1 EACH OP PRN PRN for DRY EYE 05/25/16 Simvastatin (SIMVASTATIN) 20 Mg Tablet, 1 TAB PO QHS, #30 TAB 5 Refills 05/25/16 Metformin Hcl (METFORMIN HCL) 500 Mg Tablet, 1 TAB PO BID, #60 TAB 3 Refills 05/25/16 HUBER CASE MD Apr 14, 2018 09:11
[2018-04-14] MEDS: hydroCHLOROthiazide 12.5 MG CAPSULE PO SCH (09:34)
[2018-04-14] MEDS: CYANOCOBALAMIN (VITAMIN B-12) 1,000 MCG TABLET. PO SCH (09:34)
[2018-04-14] MEDS: LOSARTAN POTASSIUM 50 MG TABLET. PO SCH (09:35)
[2018-04-14] MEDS: METOPROLOL TART IMMED RELEASE 50 MG TABLET. PO SCH ×2 (09:35→20:54)
[2018-04-14] MEDS: ALLOPURINOL 300 MG TABLET. PO SCH (09:35)
[2018-04-14] MEDS: metFORMIN 500 MG TABLET PO SCH ×2 (09:35→17:00)
[2018-04-14] MEDS: POTASSIUM CHLORIDE 20 MEQ TABLET.ER. PO SCH ×2 (09:35→17:00)
[2018-04-14] MEDS: FUROSEMIDE 40 MG TABLET. PO SCH (09:36)
[2018-04-14] MEDS: cloNIDine HCL 0.2 MG TABLET PO SCH ×2 (09:38→20:54)
[2018-04-14] MEDS: MINERAL OIL/PETROLATUM TOPICAL CREAM 113GM JAR. TP SCH ×2 (09:39→20:54)
--- NOTE | 2018-04-14 11:44 | PDOC3 ---
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 Pérez is a 82 old M, was sent from [facility] for sob. recent echo showed EF 55%, pt looks calm to me when i saw pt on 2nd day, no sob , no leg edema. was on lasix 60mg iv bid, then switched to 40mg daily. stable to dc home given no symptom, with lasix 40mg daily, kcl, Mag for a few days. dc time 35min. General: Alert, Cooperative, No acute distress Heart: Regular rate, Normal S1, Normal S2, No murmurs Lungs: Clear Extremities: No clubbing, No cyanosis, Normal pulses,let no edema. Patient History: FH: CABG (coronary artery bypass surgery) G8 DAUGHTER FH: diabetes mellitus G8 SON FH: heart attack G8 DAUGHTER Disposition SNF CONDITION AT DISCHARGE: Improved Scheduled Allopurinol (Allopurinol), 300 MG PO DAILY, (Reported) Clonidine Hcl (Clonidine Hcl), 0.2 MG PO BID, (Reported) Cyanocobalamin (Vitamin B-12) (Vitamin B-12), 1 TAB PO DAILY, (Reported) Diltiazem Hcl (Diltiazem 24HR Cd), 1 CAP PO DAILY, (Reported) Donepezil Hcl (Aricept), 5 MG PO HS, (Reported) Furosemide (Furosemide), 40 MG PO DAILY Losartan/Hydrochlorothiazide (Losartan-Hctz 100-12.5 Mg Tab), 1 EACH PO DAILY, ( Reported) Magnesium Oxide (Mag-Oxide), 400 MG PO DAILY Metformin Hcl (Metformin Hcl), 500 MG PO BIDWMEALS, (Reported) Metoprolol Tartrate (Metoprolol Tartrate), 1 TAB PO BID, (Reported) Mineral Oil/Hydrophil Petrolat (Aquaphor Ointment), 396 GM TP BID, (Reported) Potassium Chloride (Klor-Con M20), 20 MEQ PO BIDWMEALS Simvastatin (Simvastatin), 20 MG PO HS, (Reported) Triamcinolone Acetonide (Triamcinolone Acetonide 0.1% Oint), 1 RIKKI TP TID, ( Reported) Tuberculin,Purif.prot.deriv. (Tubersol), 5 TUB ID DAILY, (Reported) Scheduled PRN Acetaminophen (Tylenol Extra Strength), 500 MG PO for PAIN, (Reported) Alprazolam (Alprazolam), 0.25 MG PO PRN Q6HRS PRN for ANXIETY / AGITATION, ( Reported) Dextran 70/Hypromellose (Artificial Tears), 1 EACH OP for DRY EYE, (Reported) Discontinued Medications Clonidine Hcl (Clonidine Hcl), 1 TAB PO BID, (Reported) Dextran 70/Hypromellose (Artificial Tears), 1 EACH OP PRN PRN for DRY EYE, ( Reported) Metformin Hcl (Metformin Hcl), 1 TAB PO BID, (Reported) Naproxen Sodium (Aleve), 220 MG PO BID PRN for PAIN, (Reported) Simvastatin (Simvastatin), 1 TAB PO QHS, (Reported) [allopurinol], DAILY, (Reported) [b12], (Reported) HUBER CASE MD Apr 14, 2018 11:44
--- NOTE | 2018-04-14 12:51 | RAD ---
CT of the head without contrast, 04/14/2018: HISTORY: Left-sided facial droop and weakness. Comparison is made to a study from 04/03/2018. There is moderate cerebral atrophy. There are unchanged moderate patchy lucencies in the deep white matter bilaterally compatible with chronic small vessel ischemic change. The ventricles are enlarged on a compensatory basis. There is no shift of the midline structures. There is no evidence of acute intracranial hemorrhage or mass effect. There is calcific plaquing of the distal carotid and vertebral arteries. IMPRESSION: 1. Chronic findings as described above. 2. No acute intracranial abnormality is detected. Note: The findings were called to the patient's nurse on the floor at 12:33 PM on 04/14/2018. PQRS Compliance Statement: One or more of the following individualized dose reduction techniques were utilized for this examination: 1. Automated exposure control 2. Adjustment of the mA and/or kV according to patient size 3. Use of iterative reconstruction technique Electronically signed by: Brody Doran MD (04/14/2018 12:48 PM) [facility]
[2018-04-14 13:35] LABS: PROTHROMBIN TIME PATIENT 14.3 SEC (11.7-14.0)
[2018-04-14] MEDS ORDERED: CLOPIDOGREL BISULFATE 75 MG TABLET PO ONE (13:45)
--- NOTE | 2018-04-14 14:37 | RAD ---
MRI of the brain without contrast 04/14/2018 Clinical History: Weakness with speech difficulties. CVA. Technique: Unenhanced T1-weighted sagittal and axial, T2-weighted axial and coronal and FLAIR, gradient echo and diffusion-weighted axial images of the brain were obtained. Findings: Comparison is made to the patient's CT scan performed earlier today. Additional comparison is made to the patient's MRI of the brain dated 05/25/2016. Some of the images from the study are degraded by patient motion. There is generalized parenchymal atrophy. Patchy, confluent and multiple focal areas of increased signal intensity are seen within the periventricular and subcortical white matter of both cerebral hemispheres along with the soni on the FLAIR and T2-weighted images consistent with areas of extensive small vessel ischemic disease. An area of encephalomalacia is seen involving the posterior right temporal lobe. A wedge-shaped area of restricted diffusion is seen involving the inferior left cerebellum which measures 4.8 cm in greatest diameter. This is consistent with an area of acute ischemia/infarction. There is no significant surrounding edema or associated mass effect at this time. No additional acute parenchymal abnormality is seen. No extra-axial fluid collection is noted. A 1 cm mucous retention cyst is involving the left maxillary sinus. There is a minimal left mastoid effusion. Normal flow voids are seen within the major vascular structures surrounding the brain parenchyma. Impression: Area of acute ischemia/infarction is seen involving the left inferior cerebellum as outlined above. There is no significant surrounding edema or associated mass effect this time. The patient's nurse was notified of these findings. Electronically signed by: Oswaldo Liao MD (04/14/2018 2:33 PM) [id number]
--- NOTE | 2018-04-14 15:00 | PDOC2 ---
NEUROLOGY CONSULT Date of Admission Date of Admission DATE: 04/14/18 TIME: 14:45 Reason for Consult Reason for Consult: Acute left inferior cerebellar infarct. Slurred speech on 04/14/18. Metabolic encephalopathy. Accelerated BP. HTN. DM HLD Smoking. 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 Fall x 2 times on ice on 05/24/16. RECOMMENDATIONS/PLAN: Plavix 75 mg daily, 1st dose right away. Patient was allergic to ASA. Lipitor HS. Brain MRI wo contrast performed on 04/14/18, results as above. BP control. Carotid A US + Doppler. Echo Fasting lipid panel. Other labs: See order. Swallow test. Speech therapy. Treat medical diseases. Discussed with his son, daughter, and [id number] at bedside on 04/14/18. HISTORY OF THE PRESENT ILLNESS: 82-y-old male patient with medical diseases was admitted this time for medical treatment. He was noted mental status changes with slurred speech in am of 04/14/18, then his symptoms improved in some degree. MRI revealed acute infarct this time. He had a large IPH 3.9 cm x 3.3 cm in the past, so he was not a candidate for TPA. PAST MEDICAL HISTORY: Please see above. PAST SURGERY HISTORY: Right knee surgery. ALLERGY: Allergic to ASA per his son. MEDICATIONS: Refer to [facility] FAMILY HISTORY: Non contributory. SOCIAL HISTORY: Denies drinking and illicit drug use. He smoked 1-2 pack of cigarettes a day for many years. REVIEW OF SYSTEMS: Constitutional: No malnutrition, cachexia. Head: No traumatic brain or head injury. Skin: No edema, or rash. Ear: No infection, tinnitus. Eyes: No vision loss or color blindness. Nose: No bleeding or purulent discharges. Hearing: No hearing decrease. Neck: No traumatic injury. Cardiac: HTN, HLD. Pulmonary: No COPD. GI: No GI ulcer, GI bleeding. Urinary/genital: UTI. Endocrinologic: Diabetes Mellitus Skeletomuscular: No muscular atrophy, deformity Neurological: see HP. Psychiatric: Denies drug use/abuse. Otherwise, not [id number] review of systems. PHYSICAL EXAMINATION: General appearance is in acute distress. HEENT: Normocephalic and nontraumatic. Eyes, nose, ears, and throat are unremarkable. Neck is supple. No lymphadenopathy. No bruits are heard over the carotid artery. No crepitus. Cardiovascular: S1, S2, regular rate and rhythm. Pulmonary: Clear to auscultation bilaterally. Abdomen: Bowel sounds are positive. Abdomen is soft, nontender, and nondistended. Extremities: No rash, lesions, or edema. No restriction of range of motion NEUROLOGICAL EXAMINATION: Drowsiness. Not answer questions nor follow commands. Not oriented to time, place and person. PERRL. EOMI. CN: no focal findings. Muscle tone: within normal. Muscle strength: 5 DTR: 1-2 Plantar reflex: Neutral response bilaterally Gait: not examined in bed. Sensory exam: no obvious abnormal findings. Not able to access cerebellar signs due to not follow commands. F-T-N test not performed due to mental status changes. Current Medications Current Medications Current Medications Furosemide (Lasix) 40 mg 1X ONCE IVP Last administered on 04/11/18at 14:12; Start 04/11/18 at 13:45; Stop 04/11/18 at 13:46; Status DC Albuterol/ Ipratropium (Duoneb) 3 ml 1X ONCE NEB Last administered on at 14:09; Start 04/11/18 at 13:45; Stop 04/11/18 at 13:46; Status DC Magnesium Sulfate 50 ml @ 25 mls/hr 1X ONCE IV Last administered on 04/11/18at 16:03; Start 04/11/18 at 16:00; Stop 04/11/18 at 17:59; Status DC Potassium Chloride (Klor-Con) 20 meq BIDWMEALS PO Last administered on at 09:35; Start 04/11/18 at 17:00 Furosemide (Lasix) 60 mg BID94 IVP ; Start 04/11/18 at 17:00; Stop 04/11/18 at 17:11; Status DC Magnesium Sulfate 50 ml @ 25 mls/hr 1X ONCE IV Last administered on 04/12/18at 05:58; Start 04/12/18 at 06:00; Stop 04/12/18 at 07:59; Status DC Furosemide (Lasix) 60 mg Q12HR IVP Last administered on 04/12/18at 19:57; Start 04/11/18 at 21:00; Stop 04/13/18 at 09:00; Status DC Acetaminophen (Tylenol) 500 mg PRN Q6HRS PRN PO PAIN; Start 04/11/18 at 18:45; Stop 04/12/18 at 14:46; Status DC Allopurinol (Zyloprim) 300 mg DAILY PO Last administered on 04/14/18 09:35; Start 04/12/18 at 09:00 Alprazolam (Xanax) 0.25 mg PRN Q6HRS PRN PO ANXIETY / AGITATION Last administered on 04/13/18 22:05; Start 04/11/18 at 18:45 Clonidine HCl (Catapres) 0.2 mg BID PO Last administered on 04/14/18 09:38; Start 04/11/18 at 21:00 Cyanocobalamin (Vitamin B-12) 1,000 mcg DAILY PO Last administered on 09:34; Start 04/12/18 at 09:00 Diltiazem HCl (Cardizem 24hr Cd) 120 mg DAILY PO Last administered on 09:36; Start 04/12/18 at 09:00 Metoprolol Tartrate (Lopressor) 50 mg BID PO Last administered on 04/14/18 09: 35; Start 04/11/18 at 21:00 Triamcinolone Acetonide (Kenalog) 1 benjy TID TP Last administered on 04/13/18 23:08; Start 04/11/18 at 21:00 Donepezil HCl (Aricept) 5 mg HS PO Last administered on 04/13/18 22:05; Start 04/11/18 at 21:00 Losartan Potassium (Cozaar) 100 mg DAILY PO Last administered on 04/14/18 09: 35; Start 04/12/18 at 09:00 Metformin HCl (Glucophage) 500 mg BIDWMEALS PO Last administered on 04/14/18 09:35; Start 04/12/18 at 08:00 Multi-Ingred Cream/Lotion/Oil/ Oint (Hydrocerin Cream) 1 benjy BID TP Last administered on 04/14/18 09:39; Start 04/11/18 at 19:15 Naproxen (Naprosyn) 250 mg PRN BID PRN PO MILD PAIN/INFLAMMATION; Start at 19:00 Atorvastatin Calcium (Lipitor) 10 mg QHS PO Last administered on 04/13/18at 22: 07; Start 04/11/18 at 21:00 Hydrochlorothiazide (Microzide) 12.5 mg DAILY PO Last administered on at 09:34; Start 04/12/18 at 09:00 Potassium Chloride (Klor-Con) 40 meq 1X ONCE PO Last administered on at 10:48; Start 04/12/18 at 10:45; Stop 04/12/18 at 10:46; Status DC Furosemide (Lasix) 40 mg DAILY PO Last administered on 04/14/18at 09:36; Start 04/13/18 at 09:00 Magnesium Sulfate 50 ml @ 25 mls/hr 1X ONCE IV Last administered on 04/12/18at 12:10; Start 04/12/18 at 12:00; Stop 04/12/18 at 13:59; Status DC Acetaminophen (Tylenol) 650 mg PRN Q6HRS PRN PO FEVER; Start 04/12/18 at 14:45 Ondansetron HCl (Zofran) 4 mg PRN Q6HRS PRN IV NAUSEA/VOMITING Last administered on 04/14/18at 11:54; Start 04/12/18 at 14:45 Morphine Sulfate (Morphine Sulfate) 2 mg PRN Q2HR PRN IV MODERATE TO SEVERE PAIN; Start 04/12/18 at 14:45 Tramadol HCl (Ultram) 50 mg PRN Q6HRS PRN PO MODERATE PAIN Last administered on 04/13/18at 22:06; Start 04/12/18 at 14:45 Docusate Sodium (Colace) 100 mg PRN DAILY PRN PO CONSTIPATION; Start 04/12/18 at 14:45 Potassium Chloride (Klor-Con) 40 meq 1X ONCE PO Last administered on at 09:48; Start 04/13/18 at 09:30; Stop 04/13/18 at 09:31; Status DC Potassium Chloride (Klor-Con) 40 meq 1X ONCE PO Last administered on at 13:10; Start 04/13/18 at 14:00; Stop 04/13/18 at 14:01; Status DC Magnesium Sulfate 50 ml @ 25 mls/hr 1X ONCE IV Last administered on 04/13/18at 09:48; Start 04/13/18 at 09:30; Stop 04/13/18 at 11:29; Status DC Magnesium Sulfate 50 ml @ 25 mls/hr 1X ONCE IV Last administered on 04/14/18at 10:44; Start 04/14/18 at 09:00; Stop 04/14/18 at 10:59; Status DC Magnesium Oxide (Magnesium Oxide) 400 mg DAILY PO ; Start 04/14/18 at 09:00 Clopidogrel Bisulfate (Plavix) 75 mg 1X ONCE PO ; Start 04/14/18 at 13:45; Stop 04/14/18 at 13:46; Status DC Clopidogrel Bisulfate (Plavix) 75 mg DAILYWBKFT PO ; Start 04/14/18 at 14:45; Status UNV Active Scripts Active Mag-Oxide (Magnesium Oxide) 400 Mg Tablet 400 Mg PO DAILY 7 Days Klor-Con M20 (Potassium Chloride) 20 Meq Tab.er.prt 20 Meq PO BIDWMEALS 30 Days Furosemide 40 Mg Tablet 40 Mg PO DAILY 30 Days Reported Aquaphor Ointment (Mineral Oil/Hydrophil Petrolat) 396 Gm Oint...g. 396 Gm TP BID Triamcinolone Acetonide 0.1% Oint (Triamcinolone Acetonide) 15 Gm Oint...g. 1 Benjy TP TID MIX WITH EUCERIN DIRECTED BY PHYSICIAN Tubersol (Tuberculin,Purif.prot.deriv.) 5 Tub Unit/0.1 Ml Vial 5 Tub ID DAILY Alprazolam 0.25 Mg Tablet 0.25 Mg PO PRN Q6HRS PRN Aricept (Donepezil Hcl) 5 Mg Tablet 5 Mg PO HS Diltiazem 24HR Cd (Diltiazem Hcl) 120 Mg Cap.er.24h 1 Cap PO DAILY Metoprolol Tartrate 50 Mg Tablet 1 Tab PO BID Artificial Tears (Dextran 70/Hypromellose) 1 Each Droperette 1 Each OP PRN Tylenol Extra Strength (Acetaminophen) 500 Mg Tablet 500 Mg PO PRN Vitamin B-12 (Cyanocobalamin (Vitamin B-12)) 1,000 Mcg Tablet 1 Tab PO DAILY Simvastatin 20 Mg Tablet 20 Mg PO HS Metformin Hcl 500 Mg Tablet 500 Mg PO BIDWMEALS Losartan-Hctz 100-12.5 Mg Tab (Losartan/Hydrochlorothiazide) 1 Each Tablet 1 Each PO DAILY Clonidine Hcl 0.2 Mg Tablet 0.2 Mg PO BID Allopurinol 300 Mg Tablet 300 Mg PO DAILY Allergies Allergies: Allergies Coded Allergies Type Severity Reaction Last Updated Verified aspirin Allergy Intermediate 06/03/16 Yes ROS Review of System The patient denies any associated fevers, chills, headache, ear pain, rhinorrhea , sore throat, stiff neck, productive cough, chest pain, shortness of breath, back or flank pain, abdominal pain, nausea, vomiting, diarrhea, constipation, dysuria, rash, numbness, weakness, tingling, incontinence, difficulty ambulating, or diaphoresis. Physical Exam Physical Exam General: Well developed, well nourished, no acute distress, well appearing HEENT: Pupils equally round and reactive to light, EOMI, no discharge, normal conjunctiva Neck: Supple, no nuchal rigidity, no JVD, trachea midline, no tenderness Cardiac: RRR, no murmurs, no gallops, no rubs Chest/Lungs: CTAB, no wheeze, no rhonchi, no crackles Abdomen: soft, non-distended, no guarding, no peritoneal signs, non-tender Back: No tenderness Extremities: no edema, pulses intact, non-tender,capillary refill <3 sec bilateral upper and lower extremities, Neuro: Alert and oriented x 4, no focal deficits, normal speech Vitals Vitals: Vital Signs Date Time Temp Pulse Resp B/P (MAP) Pulse Ox O2 Delivery O2 Flow Rate FiO2 04/14/18 13:10 53 14 144/70 (94) 89 04/14/18 11:45 Room Air 04/14/18 10:43 98.7 98.7 Labs Labs Laboratory Tests Test 04/12/18 17:03 04/12/18 20:44 04/13/18 03:45 04/13/18 07:59 Glucose (Fingerstick) 191 mg/dL (70-99) 110 mg/dL (70-99) 100 mg/dL (70-99) White Blood Count 10.9 x10^3/uL (4.0-11.0) Red Blood Count 4.26 x10^6/uL (4.30-5.70) Hemoglobin 13.2 g/dL (13.0-17.5) Hematocrit 39.5 % (39.0-53.0) Mean Corpuscular Volume 93 fL (79-100) Mean Corpuscular Hemoglobin 31 pg (25-35) Mean Corpuscular Hemoglobin Concent 33 g/dL (31-37) Red Cell Distribution Width 14.5 % (11.5-14.5) Platelet Count 350 x10^3/uL (140-400) Neutrophils (%) (Auto) 67 % (31-73) Lymphocytes (%) (Auto) 19 % (24-48) Monocytes (%) (Auto) 12 % (0-9) Eosinophils (%) (Auto) 2 % (0-3) Basophils (%) (Auto) 1 % (0-3) Neutrophils # (Auto) 7.2 x10^3uL (1.8-7.7) Lymphocytes # (Auto) 2.1 x10^3/uL (1.0-4.8) Monocytes # (Auto) 1.3 x10^3/uL (0.0-1.1) Eosinophils # (Auto) 0.3 x10^3/uL (0.0-0.7) Basophils # (Auto) 0.1 x10^3/uL (0.0-0.2) Sodium Level 141 mmol/L (136-145) Potassium Level 3.1 mmol/L (3.5-5.1) Chloride Level 100 mmol/L (98-107) Carbon Dioxide Level 34 mmol/L (21-32) Anion Gap 7 (6-14) Blood Urea Nitrogen 15 mg/dL (8-26) Creatinine 1.1 mg/dL (0.7-1.3) Estimated GFR (Cockcroft-Gault) 64.4 Glucose Level 102 mg/dL (70-99) Calcium Level 8.5 mg/dL (8.5-10.1) Magnesium Level 1.7 mg/dL (1.8-2.4) Test 04/13/18 11:46 04/13/18 16:53 04/13/18 20:36 04/14/18 04:35 Glucose (Fingerstick) 181 mg/dL (70-99) 97 mg/dL (70-99) 149 mg/dL (70-99) White Blood Count 10.9 x10^3/uL (4.0-11.0) Red Blood Count 4.21 x10^6/uL (4.30-5.70) Hemoglobin 13.1 g/dL (13.0-17.5) Hematocrit 39.2 % (39.0-53.0) Mean Corpuscular Volume 93 fL (79-100) Mean Corpuscular Hemoglobin 31 pg (25-35) Mean Corpuscular Hemoglobin Concent 33 g/dL (31-37) Red Cell Distribution Width 14.3 % (11.5-14.5) Platelet Count 344 x10^3/uL (140-400) Neutrophils (%) (Auto) 66 % (31-73) Lymphocytes (%) (Auto) 20 % (24-48) Monocytes (%) (Auto) 10 % (0-9) Eosinophils (%) (Auto) 3 % (0-3) Basophils (%) (Auto) 1 % (0-3) Neutrophils # (Auto) 7.2 x10^3uL (1.8-7.7) Lymphocytes # (Auto) 2.2 x10^3/uL (1.0-4.8) Monocytes # (Auto) 1.1 x10^3/uL (0.0-1.1) Eosinophils # (Auto) 0.3 x10^3/uL (0.0-0.7) Basophils # (Auto) 0.1 x10^3/uL (0.0-0.2) Prothrombin Time 14.3 SEC (11.7-14.0) Prothromb Time International Ratio 1.2 (0.8-1.1) Sodium Level 139 mmol/L (136-145) Potassium Level 3.5 mmol/L (3.5-5.1) Chloride Level 100 mmol/L (98-107) Carbon Dioxide Level 32 mmol/L (21-32) Anion Gap 7 (6-14) Blood Urea Nitrogen 21 mg/dL (8-26) Creatinine 1.1 mg/dL (0.7-1.3) Estimated GFR (Cockcroft-Gault) 64.4 Glucose Level 122 mg/dL (70-99) Calcium Level 8.7 mg/dL (8.5-10.1) Magnesium Level 1.5 mg/dL (1.8-2.4) Test 04/14/18 07:02 04/14/18 11:28 04/14/18 12:14 Glucose (Fingerstick) 140 mg/dL (70-99) 141 mg/dL (70-99) 130 mg/dL (70-99) Laboratory Tests Test 04/13/18 16:53 04/13/18 20:36 04/14/18 04:35 04/14/18 07:02 Glucose (Fingerstick) 97 mg/dL (70-99) 149 mg/dL (70-99) 140 mg/dL (70-99) White Blood Count 10.9 x10^3/uL (4.0-11.0) Red Blood Count 4.21 x10^6/uL (4.30-5.70) Hemoglobin 13.1 g/dL (13.0-17.5) Hematocrit 39.2 % (39.0-53.0) Mean Corpuscular Volume 93 fL (79-100) Mean Corpuscular Hemoglobin 31 pg (25-35) Mean Corpuscular Hemoglobin Concent 33 g/dL (31-37) Red Cell Distribution Width 14.3 % (11.5-14.5) Platelet Count 344 x10^3/uL (140-400) Neutrophils (%) (Auto) 66 % (31-73) Lymphocytes (%) (Auto) 20 % (24-48) Monocytes (%) (Auto) 10 % (0-9) Eosinophils (%) (Auto) 3 % (0-3) Basophils (%) (Auto) 1 % (0-3) Neutrophils # (Auto) 7.2 x10^3uL (1.8-7.7) Lymphocytes # (Auto) 2.2 x10^3/uL (1.0-4.8) Monocytes # (Auto) 1.1 x10^3/uL (0.0-1.1) Eosinophils # (Auto) 0.3 x10^3/uL (0.0-0.7) Basophils # (Auto) 0.1 x10^3/uL (0.0-0.2) Prothrombin Time 14.3 SEC (11.7-14.0) Prothromb Time International Ratio 1.2 (0.8-1.1) Sodium Level 139 mmol/L (136-145) Potassium Level 3.5 mmol/L (3.5-5.1) Chloride Level 100 mmol/L (98-107) Carbon Dioxide Level 32 mmol/L (21-32) Anion Gap 7 (6-14) Blood Urea Nitrogen 21 mg/dL (8-26) Creatinine 1.1 mg/dL (0.7-1.3) Estimated GFR (Cockcroft-Gault) 64.4 Glucose Level 122 mg/dL (70-99) Calcium Level 8.7 mg/dL (8.5-10.1) Magnesium Level 1.5 mg/dL (1.8-2.4) Test 04/14/18 11:28 04/14/18 12:14 Glucose (Fingerstick) 141 mg/dL (70-99) 130 mg/dL (70-99) JOSHUA PENN MD Apr 14, 2018 15:00
[2018-04-14] MEDS: CLOPIDOGREL BISULFATE 75 MG TABLET PO SCH (15:36)
--- NOTE | 2018-04-14 16:05 | PDOC ---
PROGRESS NOTES Chief Complaint Chief Complaint ACUTE DIASTOLIC CHF H/o HTN H/o Diabetes H/o hyperlipidemia HEMATURIA mild malnutrition hypokalemia hypomagnesemia acute left cerebellum stroke 04/14 plan: fu with card echo pending lasix 60mg iv bid dced as per card, start 40mg po daily ssi dvt ppx replete K was going to dc today, then nurse called saying pt suddenly lost balance with PTOT, MRI brain showed acute stroke. add plavix, US carotid , neuro consult. check lipid tmr. History of Present Illness History of Present Illness ROS: no fever, chills, sob or chest pain feels ok, hearing loss stroke code today Vitals Vitals Vital Signs Date Time Temp Pulse Resp B/P (MAP) Pulse Ox O2 Delivery O2 Flow Rate FiO2 04/14/18 15:00 98.7 62 15 141/71 (94) 90 Room Air 98.7 Physical Exam General: Alert, Oriented X3, Cooperative, No acute distress Heart: Regular rate, Normal S1, Normal S2, No murmurs Lungs: Clear Extremities: No clubbing, No cyanosis, No edema, Normal pulses Labs LABS Laboratory Tests Test 04/13/18 16:53 04/13/18 20:36 04/14/18 04:35 04/14/18 07:02 Glucose (Fingerstick) 97 mg/dL (70-99) 149 mg/dL (70-99) 140 mg/dL (70-99) White Blood Count 10.9 x10^3/uL (4.0-11.0) Red Blood Count 4.21 x10^6/uL (4.30-5.70) Hemoglobin 13.1 g/dL (13.0-17.5) Hematocrit 39.2 % (39.0-53.0) Mean Corpuscular Volume 93 fL (79-100) Mean Corpuscular Hemoglobin 31 pg (25-35) Mean Corpuscular Hemoglobin Concent 33 g/dL (31-37) Red Cell Distribution Width 14.3 % (11.5-14.5) Platelet Count 344 x10^3/uL (140-400) Neutrophils (%) (Auto) 66 % (31-73) Lymphocytes (%) (Auto) 20 % (24-48) Monocytes (%) (Auto) 10 % (0-9) Eosinophils (%) (Auto) 3 % (0-3) Basophils (%) (Auto) 1 % (0-3) Neutrophils # (Auto) 7.2 x10^3uL (1.8-7.7) Lymphocytes # (Auto) 2.2 x10^3/uL (1.0-4.8) Monocytes # (Auto) 1.1 x10^3/uL (0.0-1.1) Eosinophils # (Auto) 0.3 x10^3/uL (0.0-0.7) Basophils # (Auto) 0.1 x10^3/uL (0.0-0.2) Prothrombin Time 14.3 SEC (11.7-14.0) Prothromb Time International Ratio 1.2 (0.8-1.1) Sodium Level 139 mmol/L (136-145) Potassium Level 3.5 mmol/L (3.5-5.1) Chloride Level 100 mmol/L (98-107) Carbon Dioxide Level 32 mmol/L (21-32) Anion Gap 7 (6-14) Blood Urea Nitrogen 21 mg/dL (8-26) Creatinine 1.1 mg/dL (0.7-1.3) Estimated GFR (Cockcroft-Gault) 64.4 Glucose Level 122 mg/dL (70-99) Calcium Level 8.7 mg/dL (8.5-10.1) Magnesium Level 1.5 mg/dL (1.8-2.4) Test 04/14/18 11:28 04/14/18 12:14 Glucose (Fingerstick) 141 mg/dL (70-99) 130 mg/dL (70-99) Assessment and Plan Assessmemt and Plan Problems Medical Problems: (1) Dyspnea Status: Acute Comment Review of Relevant I have reviewed the following items renzo (where applicable) has been applied. Labs Laboratory Tests Test 04/12/18 17:03 04/12/18 20:44 04/13/18 03:45 04/13/18 07:59 Glucose (Fingerstick) 191 mg/dL (70-99) 110 mg/dL (70-99) 100 mg/dL (70-99) White Blood Count 10.9 x10^3/uL (4.0-11.0) Red Blood Count 4.26 x10^6/uL (4.30-5.70) Hemoglobin 13.2 g/dL (13.0-17.5) Hematocrit 39.5 % (39.0-53.0) Mean Corpuscular Volume 93 fL (79-100) Mean Corpuscular Hemoglobin 31 pg (25-35) Mean Corpuscular Hemoglobin Concent 33 g/dL (31-37) Red Cell Distribution Width 14.5 % (11.5-14.5) Platelet Count 350 x10^3/uL (140-400) Neutrophils (%) (Auto) 67 % (31-73) Lymphocytes (%) (Auto) 19 % (24-48) Monocytes (%) (Auto) 12 % (0-9) Eosinophils (%) (Auto) 2 % (0-3) Basophils (%) (Auto) 1 % (0-3) Neutrophils # (Auto) 7.2 x10^3uL (1.8-7.7) Lymphocytes # (Auto) 2.1 x10^3/uL (1.0-4.8) Monocytes # (Auto) 1.3 x10^3/uL (0.0-1.1) Eosinophils # (Auto) 0.3 x10^3/uL (0.0-0.7) Basophils # (Auto) 0.1 x10^3/uL (0.0-0.2) Sodium Level 141 mmol/L (136-145) Potassium Level 3.1 mmol/L (3.5-5.1) Chloride Level 100 mmol/L (98-107) Carbon Dioxide Level 34 mmol/L (21-32) Anion Gap 7 (6-14) Blood Urea Nitrogen 15 mg/dL (8-26) Creatinine 1.1 mg/dL (0.7-1.3) Estimated GFR (Cockcroft-Gault) 64.4 Glucose Level 102 mg/dL (70-99) Calcium Level 8.5 mg/dL (8.5-10.1) Magnesium Level 1.7 mg/dL (1.8-2.4) Test 04/13/18 11:46 04/13/18 16:53 04/13/18 20:36 04/14/18 04:35 Glucose (Fingerstick) 181 mg/dL (70-99) 97 mg/dL (70-99) 149 mg/dL (70-99) White Blood Count 10.9 x10^3/uL (4.0-11.0) Red Blood Count 4.21 x10^6/uL (4.30-5.70) Hemoglobin 13.1 g/dL (13.0-17.5) Hematocrit 39.2 % (39.0-53.0) Mean Corpuscular Volume 93 fL (79-100) Mean Corpuscular Hemoglobin 31 pg (25-35) Mean Corpuscular Hemoglobin Concent 33 g/dL (31-37) Red Cell Distribution Width 14.3 % (11.5-14.5) Platelet Count 344 x10^3/uL (140-400) Neutrophils (%) (Auto) 66 % (31-73) Lymphocytes (%) (Auto) 20 % (24-48) Monocytes (%) (Auto) 10 % (0-9) Eosinophils (%) (Auto) 3 % (0-3) Basophils (%) (Auto) 1 % (0-3) Neutrophils # (Auto) 7.2 x10^3uL (1.8-7.7) Lymphocytes # (Auto) 2.2 x10^3/uL (1.0-4.8) Monocytes # (Auto) 1.1 x10^3/uL (0.0-1.1) Eosinophils # (Auto) 0.3 x10^3/uL (0.0-0.7) Basophils # (Auto) 0.1 x10^3/uL (0.0-0.2) Prothrombin Time 14.3 SEC (11.7-14.0) Prothromb Time International Ratio 1.2 (0.8-1.1) Sodium Level 139 mmol/L (136-145) Potassium Level 3.5 mmol/L (3.5-5.1) Chloride Level 100 mmol/L (98-107) Carbon Dioxide Level 32 mmol/L (21-32) Anion Gap 7 (6-14) Blood Urea Nitrogen 21 mg/dL (8-26) Creatinine 1.1 mg/dL (0.7-1.3) Estimated GFR (Cockcroft-Gault) 64.4 Glucose Level 122 mg/dL (70-99) Calcium Level 8.7 mg/dL (8.5-10.1) Magnesium Level 1.5 mg/dL (1.8-2.4) Test 04/14/18 07:02 04/14/18 11:28 04/14/18 12:14 Glucose (Fingerstick) 140 mg/dL (70-99) 141 mg/dL (70-99) 130 mg/dL (70-99) Laboratory Tests Test 04/13/18 16:53 04/13/18 20:36 04/14/18 04:35 04/14/18 07:02 Glucose (Fingerstick) 97 mg/dL (70-99) 149 mg/dL (70-99) 140 mg/dL (70-99) White Blood Count 10.9 x10^3/uL (4.0-11.0) Red Blood Count 4.21 x10^6/uL (4.30-5.70) Hemoglobin 13.1 g/dL (13.0-17.5) Hematocrit 39.2 % (39.0-53.0) Mean Corpuscular Volume 93 fL (79-100) Mean Corpuscular Hemoglobin 31 pg (25-35) Mean Corpuscular Hemoglobin Concent 33 g/dL (31-37) Red Cell Distribution Width 14.3 % (11.5-14.5) Platelet Count 344 x10^3/uL (140-400) Neutrophils (%) (Auto) 66 % (31-73) Lymphocytes (%) (Auto) 20 % (24-48) Monocytes (%) (Auto) 10 % (0-9) Eosinophils (%) (Auto) 3 % (0-3) Basophils (%) (Auto) 1 % (0-3) Neutrophils # (Auto) 7.2 x10^3uL (1.8-7.7) Lymphocytes # (Auto) 2.2 x10^3/uL (1.0-4.8) Monocytes # (Auto) 1.1 x10^3/uL (0.0-1.1) Eosinophils # (Auto) 0.3 x10^3/uL (0.0-0.7) Basophils # (Auto) 0.1 x10^3/uL (0.0-0.2) Prothrombin Time 14.3 SEC (11.7-14.0) Prothromb Time International Ratio 1.2 (0.8-1.1) Sodium Level 139 mmol/L (136-145) Potassium Level 3.5 mmol/L (3.5-5.1) Chloride Level 100 mmol/L (98-107) Carbon Dioxide Level 32 mmol/L (21-32) Anion Gap 7 (6-14) Blood Urea Nitrogen 21 mg/dL (8-26) Creatinine 1.1 mg/dL (0.7-1.3) Estimated GFR (Cockcroft-Gault) 64.4 Glucose Level 122 mg/dL (70-99) Calcium Level 8.7 mg/dL (8.5-10.1) Magnesium Level 1.5 mg/dL (1.8-2.4) Test 04/14/18 11:28 04/14/18 12:14 Glucose (Fingerstick) 141 mg/dL (70-99) 130 mg/dL (70-99) Microbiology 04/11/18 Blood Culture - Preliminary, Resulted NO GROWTH AFTER 3 DAYS 04/11/18 Urine Culture - Final, Complete 04/11/18 Urine Culture Result 1 (KENJI) - Final, Complete Medications Current Medications Furosemide (Lasix) 40 mg 1X ONCE IVP Last administered on 04/11/18at 14:12; Start 04/11/18 at 13:45; Stop 04/11/18 at 13:46; Status DC Albuterol/ Ipratropium (Duoneb) 3 ml 1X ONCE NEB Last administered on at 14:09; Start 04/11/18 at 13:45; Stop 04/11/18 at 13:46; Status DC Magnesium Sulfate 50 ml @ 25 mls/hr 1X ONCE IV Last administered on 04/11/18at 16:03; Start 04/11/18 at 16:00; Stop 04/11/18 at 17:59; Status DC Potassium Chloride (Klor-Con) 20 meq BIDWMEALS PO Last administered on at 09:35; Start 04/11/18 at 17:00 Furosemide (Lasix) 60 mg BID94 IVP ; Start 04/11/18 at 17:00; Stop 04/11/18 at 17:11; Status DC Magnesium Sulfate 50 ml @ 25 mls/hr 1X ONCE IV Last administered on 04/12/18at 05:58; Start 04/12/18 at 06:00; Stop 04/12/18 at 07:59; Status DC Furosemide (Lasix) 60 mg Q12HR IVP Last administered on 04/12/18 19:57; Start 04/11/18 at 21:00; Stop 04/13/18 at 09:00; Status DC Acetaminophen (Tylenol) 500 mg PRN Q6HRS PRN PO PAIN; Start 04/11/18 at 18:45; Stop 04/12/18 at 14:46; Status DC Allopurinol (Zyloprim) 300 mg DAILY PO Last administered on 04/14/18 09:35; Start 04/12/18 at 09:00 Alprazolam (Xanax) 0.25 mg PRN Q6HRS PRN PO ANXIETY / AGITATION Last administered on 04/13/18 22:05; Start 04/11/18 at 18:45 Clonidine HCl (Catapres) 0.2 mg BID PO Last administered on 04/14/18 09:38; Start 04/11/18 at 21:00 Cyanocobalamin (Vitamin B-12) 1,000 mcg DAILY PO Last administered on 09:34; Start 04/12/18 at 09:00 Diltiazem HCl (Cardizem 24hr Cd) 120 mg DAILY PO Last administered on 09:36; Start 04/12/18 at 09:00 Metoprolol Tartrate (Lopressor) 50 mg BID PO Last administered on 04/14/18 09: 35; Start 04/11/18 at 21:00 Triamcinolone Acetonide (Kenalog) 1 benjy TID TP Last administered on 04/13/18 23:08; Start 04/11/18 at 21:00 Donepezil HCl (Aricept) 5 mg HS PO Last administered on 04/13/18 22:05; Start 04/11/18 at 21:00 Losartan Potassium (Cozaar) 100 mg DAILY PO Last administered on 04/14/18 09: 35; Start 04/12/18 at 09:00 Metformin HCl (Glucophage) 500 mg BIDWMEALS PO Last administered on 04/14/18 09:35; Start 04/12/18 at 08:00 Multi-Ingred Cream/Lotion/Oil/ Oint (Hydrocerin Cream) 1 benjy BID TP Last administered on 04/14/18at 09:39; Start 04/11/18 at 19:15 Naproxen (Naprosyn) 250 mg PRN BID PRN PO MILD PAIN/INFLAMMATION; Start at 19:00 Atorvastatin Calcium (Lipitor) 10 mg QHS PO Last administered on 04/13/18at 22: 07; Start 04/11/18 at 21:00 Hydrochlorothiazide (Microzide) 12.5 mg DAILY PO Last administered on at 09:34; Start 04/12/18 at 09:00 Potassium Chloride (Klor-Con) 40 meq 1X ONCE PO Last administered on at 10:48; Start 04/12/18 at 10:45; Stop 04/12/18 at 10:46; Status DC Furosemide (Lasix) 40 mg DAILY PO Last administered on 04/14/18at 09:36; Start 04/13/18 at 09:00 Magnesium Sulfate 50 ml @ 25 mls/hr 1X ONCE IV Last administered on 04/12/18at 12:10; Start 04/12/18 at 12:00; Stop 04/12/18 at 13:59; Status DC Acetaminophen (Tylenol) 650 mg PRN Q6HRS PRN PO FEVER; Start 04/12/18 at 14:45 Ondansetron HCl (Zofran) 4 mg PRN Q6HRS PRN IV NAUSEA/VOMITING Last administered on 04/14/18at 11:54; Start 04/12/18 at 14:45 Morphine Sulfate (Morphine Sulfate) 2 mg PRN Q2HR PRN IV MODERATE TO SEVERE PAIN; Start 04/12/18 at 14:45 Tramadol HCl (Ultram) 50 mg PRN Q6HRS PRN PO MODERATE PAIN Last administered on 04/13/18at 22:06; Start 04/12/18 at 14:45 Docusate Sodium (Colace) 100 mg PRN DAILY PRN PO CONSTIPATION; Start 04/12/18 at 14:45 Potassium Chloride (Klor-Con) 40 meq 1X ONCE PO Last administered on at 09:48; Start 04/13/18 at 09:30; Stop 04/13/18 at 09:31; Status DC Potassium Chloride (Klor-Con) 40 meq 1X ONCE PO Last administered on at 13:10; Start 04/13/18 at 14:00; Stop 04/13/18 at 14:01; Status DC Magnesium Sulfate 50 ml @ 25 mls/hr 1X ONCE IV Last administered on 04/13/18at 09:48; Start 04/13/18 at 09:30; Stop 04/13/18 at 11:29; Status DC Magnesium Sulfate 50 ml @ 25 mls/hr 1X ONCE IV Last administered on 04/14/18at 10:44; Start 04/14/18 at 09:00; Stop 04/14/18 at 10:59; Status DC Magnesium Oxide (Magnesium Oxide) 400 mg DAILY PO ; Start 04/14/18 at 09:00 Clopidogrel Bisulfate (Plavix) 75 mg 1X ONCE PO ; Start 04/14/18 at 13:45; Stop 04/14/18 at 13:46; Status DC Clopidogrel Bisulfate (Plavix) 75 mg DAILYWBKFT PO Last administered on at 15:36; Start 04/14/18 at 15:00 Active Scripts Active Mag-Oxide (Magnesium Oxide) 400 Mg Tablet 400 Mg PO DAILY 7 Days Klor-Con M20 (Potassium Chloride) 20 Meq Tab.er.prt 20 Meq PO BIDWMEALS 30 Days Furosemide 40 Mg Tablet 40 Mg PO DAILY 30 Days Reported Aquaphor Ointment (Mineral Oil/Hydrophil Petrolat) 396 Gm Oint...g. 396 Gm TP BID Triamcinolone Acetonide 0.1% Oint (Triamcinolone Acetonide) 15 Gm Oint...g. 1 Benjy TP TID MIX WITH EUCERIN DIRECTED BY PHYSICIAN Tubersol (Tuberculin,Purif.prot.deriv.) 5 Tub Unit/0.1 Ml Vial 5 Tub ID DAILY Alprazolam 0.25 Mg Tablet 0.25 Mg PO PRN Q6HRS PRN Aricept (Donepezil Hcl) 5 Mg Tablet 5 Mg PO HS Diltiazem 24HR Cd (Diltiazem Hcl) 120 Mg Cap.er.24h 1 Cap PO DAILY Metoprolol Tartrate 50 Mg Tablet 1 Tab PO BID Artificial Tears (Dextran 70/Hypromellose) 1 Each Droperette 1 Each OP PRN Tylenol Extra Strength (Acetaminophen) 500 Mg Tablet 500 Mg PO PRN Vitamin B-12 (Cyanocobalamin (Vitamin B-12)) 1,000 Mcg Tablet 1 Tab PO DAILY Simvastatin 20 Mg Tablet 20 Mg PO HS Metformin Hcl 500 Mg Tablet 500 Mg PO BIDWMEALS Losartan-Hctz 100-12.5 Mg Tab (Losartan/Hydrochlorothiazide) 1 Each Tablet 1 Each PO DAILY Clonidine Hcl 0.2 Mg Tablet 0.2 Mg PO BID Allopurinol 300 Mg Tablet 300 Mg PO DAILY Vitals/I & O Vital Sign - Last 24 Hours 04/13/18 04/13/18 04/13/18 04/13/18 19:35 20:00 21:00 21:00 Temp 97.6 97.6 Pulse 58 58 58 Resp 20 B/P (MAP) 96/49 (65) 96/49 96/49 Pulse Ox 96 O2 Delivery Room Air Room Air 04/13/18 04/13/18 04/13/18 04/14/18 22:06 23:00 23:06 03:30 Temp 98.0 98.1 98.0 98.1 Pulse 55 57 Resp 16 18 16 18 B/P (MAP) 101/53 (69) 102/58 (73) Pulse Ox 95 96 96 O2 Delivery Room Air Room Air Room Air Room Air 04/14/18 04/14/18 04/14/18 04/14/18 07:42 09:35 09:35 09:36 Temp 97.7 97.7 Pulse 61 61 61 65 Resp 18 B/P (MAP) 104/62 (76) Pulse Ox 93 O2 Delivery Room Air 04/14/18 04/14/18 04/14/18 04/14/18 09:38 10:43 11:45 12:00 Temp 98.7 98.7 Pulse 60 57 54 54 Resp 18 B/P (MAP) 105/66 (79) 196/86 (122) 160/85 (110) Pulse Ox 93 O2 Delivery Room Air Room Air 04/14/18 04/14/18 13:10 15:00 Temp 98.7 98.7 Pulse 53 62 Resp 14 15 B/P (MAP) 144/70 (94) 141/71 (94) Pulse Ox 89 90 O2 Delivery Room Air Intake and Output 04/13/18 04/13/18 04/14/18 15:00 23:00 07:00 Intake Total 500 ml 120 ml Output Total 250 ml 700 ml Balance 250 ml -580 ml HUBER CASE MD Apr 14, 2018 16:05
[2018-04-14] MEDS: DONEPEZIL HCL 5 MG TABLET. PO SCH (20:53)
[2018-04-14] MEDS: ATORVASTATIN CALCIUM 10 MG TABLET. PO SCH (20:54)
[2018-04-15 02:22] LABS: CHOLESTEROL/HDL RATIO 2.6
[2018-04-15 03:00] VITALS: BP 172/72
[2018-04-15 07:41] VITALS: BP 147/63
[2018-04-15] MEDS: POTASSIUM CHLORIDE 20 MEQ TABLET.ER. PO SCH ×2 (08:00→17:00)
[2018-04-15] MEDS: CLOPIDOGREL BISULFATE 75 MG TABLET PO SCH (08:00)
--- NOTE | 2018-04-15 08:09 | RAD ---
Carotid ultrasound, 04/14/2018: HISTORY: CVA Duplex evaluation of the carotid arteries and neck was performed including grayscale, color-flow and spectral Doppler analysis. There is intimal thickening and mild atherosclerotic plaquing at both carotid bifurcations. A focal moderate calcified plaque is present in the proximal left internal carotid artery. The peak systolic velocity in the left internal carotid artery is 89 cm/s with an end-diastolic velocity of 16 cm/s and an internal carotid to common carotid artery ratio of 0.9. These Doppler findings suggest narrowing in the 0-50 percent diameter range. The peak systolic velocity in the right internal carotid artery is 71 cm/s with an end-diastolic velocity of 10 cm/s and an internal carotid to common carotid artery ratio of 0.6. Antegrade flow is present in both vertebral arteries in the neck. IMPRESSION: Mild atherosclerotic plaquing at the carotid bifurcations, left greater than right, with underlying luminal narrowing in the 0-50 percent diameter range bilaterally. Note: Stenosis calculations for CT, MRA and conventional angiography are based upon determination of the distal ICA diameter in accordance with the NASCET methodology. Stenosis calculations for Doppler studies are derived from validated velocity criteria which are known to correlate with NASCET methodology of determining stenosis. Electronically signed by: Brody Doran MD (04/15/2018 8:06 AM) [facility]
[2018-04-15] MEDS: TRIAMCINOLONE ACETONIDE 0.1% TOPICAL OINTMENT 15GM TUBE. TP SCH ×3 (09:00→21:00)
[2018-04-15] MEDS: MINERAL OIL/PETROLATUM TOPICAL CREAM 113GM JAR. TP SCH ×2 (09:00→21:00)
[2018-04-15] MEDS: CYANOCOBALAMIN (VITAMIN B-12) 1,000 MCG TABLET. PO SCH (09:00)
[2018-04-15] MEDS: ALLOPURINOL 300 MG TABLET. PO SCH (09:00)
[2018-04-15] MEDS: hydroCHLOROthiazide 12.5 MG CAPSULE PO SCH (09:00)
[2018-04-15] MEDS: MAGNESIUM OXIDE 400 MG TABLET PO SCH (09:00)
[2018-04-15] MEDS: METOPROLOL TART IMMED RELEASE 50 MG TABLET. PO SCH ×2 (09:00→19:54)
[2018-04-15] MEDS: FUROSEMIDE 40 MG TABLET. PO SCH (09:00)
[2018-04-15] MEDS ORDERED: cloNIDine TTS-2 1 PATCH PATCH TD SCH (10:00)
[2018-04-15 10:38] LABS: CALCIUM 9.9 mg/dL (8.5-10.1); CREATININE 1.1 mg/dL (0.7-1.3); GFR 64.4; POTASSIUM 3.8 mmol/L (3.5-5.1)
[2018-04-15 10:39] LABS: BASO # 0.1 x10^3/uL (0.0-0.2); BASO % 0 % (0-3); EOS % 0 % (0-3); HEMOGLOBIN 16.1 g/dL (13.0-17.5); LYMPH # 1.3 x10^3/uL (1.0-4.8); LYMPH % 6 % (24-48); MEAN CORPUSCULAR HEMOGLOBIN 31 pg (25-35); MEAN CORPUSCULAR HGB CONC 34 g/dL (31-37); MEAN CORPUSCULAR VOLUME 93 fL (79-100); MONO # 1.9 x10^3/uL (0.0-1.1); MONO % 8 % (0-9); NEUT # 19.6 x10^3uL (1.8-7.7); NEUT % 86 % (31-73); PLATELET COUNT 410 x10^3/uL (140-400); RED BLOOD COUNT 5.16 x10^6/uL (4.30-5.70); RED CELL DISTRIBUTION WIDTH 14.6 % (11.5-14.5); WHITE BLOOD COUNT 22.8 x10^3/uL (4.0-11.0)
[2018-04-15 10:57] VITALS: BP 142/60
[2018-04-15 11:30] LABS: GASTRIC OB PAT POSITIVE (NEG)
[2018-04-15 12:02] LABS: % BANDS 3 % (0-9); % LYMPHS 6 % (24-48); % MONOS 5 % (0-10); % SEGS 86 % (35-66); PLT ESTIMATE ADEQUATE (ADEQUATE)
--- NOTE | 2018-04-15 12:54 | PDOC ---
PROGRESS NOTES Subjective Subjective patient denied chest pain or shortness of breath this morning he was unable to talk in full sentences as he was continually in and out of sleep MRI showed acute left cerebellar stroke neurology following patient Objective Objective Vital Signs Date Time Temp Pulse Resp B/P (MAP) Pulse Ox O2 Delivery O2 Flow Rate FiO2 04/15/18 10:57 99.4 72 16 142/60 (87) 94 Room Air 99.4 Intake and Output 04/15/18 07:00 Intake Total 0 ml Output Total 2250 ml Balance -2250 ml Intake Oral 0 ml Output Urine Total 2250 ml Physical Exam Heart: Regular rate, Normal S1, Normal S2, No murmurs Extremities: No clubbing, No cyanosis, No edema, Normal pulses General: Alert, No acute distress Lungs: Clear to auscultation, Normal air movement Assessment Assessment Problems Medical Problems: (1) Dyspnea Status: Acute Plan Plan of Care continue po lasix patient has acute ischemic stroke, neurology following patient will continue to follow for cardiac concerns Comment Review of Relevant I have reviewed the following items renzo (where applicable) has been applied. Labs Laboratory Tests Test 04/13/18 16:53 04/13/18 20:36 04/14/18 04:35 04/14/18 07:02 Glucose (Fingerstick) 97 mg/dL (70-99) 149 mg/dL (70-99) 140 mg/dL (70-99) White Blood Count 10.9 x10^3/uL (4.0-11.0) Red Blood Count 4.21 x10^6/uL (4.30-5.70) Hemoglobin 13.1 g/dL (13.0-17.5) Hematocrit 39.2 % (39.0-53.0) Mean Corpuscular Volume 93 fL (79-100) Mean Corpuscular Hemoglobin 31 pg (25-35) Mean Corpuscular Hemoglobin Concent 33 g/dL (31-37) Red Cell Distribution Width 14.3 % (11.5-14.5) Platelet Count 344 x10^3/uL (140-400) Neutrophils (%) (Auto) 66 % (31-73) Lymphocytes (%) (Auto) 20 % (24-48) Monocytes (%) (Auto) 10 % (0-9) Eosinophils (%) (Auto) 3 % (0-3) Basophils (%) (Auto) 1 % (0-3) Neutrophils # (Auto) 7.2 x10^3uL (1.8-7.7) Lymphocytes # (Auto) 2.2 x10^3/uL (1.0-4.8) Monocytes # (Auto) 1.1 x10^3/uL (0.0-1.1) Eosinophils # (Auto) 0.3 x10^3/uL (0.0-0.7) Basophils # (Auto) 0.1 x10^3/uL (0.0-0.2) Prothrombin Time 14.3 SEC (11.7-14.0) Prothromb Time International Ratio 1.2 (0.8-1.1) Sodium Level 139 mmol/L (136-145) Potassium Level 3.5 mmol/L (3.5-5.1) Chloride Level 100 mmol/L (98-107) Carbon Dioxide Level 32 mmol/L (21-32) Anion Gap 7 (6-14) Blood Urea Nitrogen 21 mg/dL (8-26) Creatinine 1.1 mg/dL (0.7-1.3) Estimated GFR (Cockcroft-Gault) 64.4 Glucose Level 122 mg/dL (70-99) Calcium Level 8.7 mg/dL (8.5-10.1) Magnesium Level 1.5 mg/dL (1.8-2.4) Triglycerides Level 122 mg/dL (0-150) Cholesterol Level 105 mg/dL (0-200) LDL Cholesterol, Calculated 40 mg/dL (0-100) VLDL Cholesterol, Calculated 24 mg/dL (0-40) Non-HDL Cholesterol Calculated 64 mg/dL (0-129) HDL Cholesterol 41 mg/dL (40-60) Cholesterol/HDL Ratio 2.6 Test 04/14/18 11:28 04/14/18 12:14 04/14/18 16:54 04/14/18 20:40 Glucose (Fingerstick) 141 mg/dL (70-99) 130 mg/dL (70-99) 123 mg/dL (70-99) 114 mg/dL (70-99) Test 04/15/18 07:23 04/15/18 10:05 04/15/18 11:00 04/15/18 11:19 Glucose (Fingerstick) 126 mg/dL (70-99) 144 mg/dL (70-99) White Blood Count 22.8 x10^3/uL (4.0-11.0) Red Blood Count 5.16 x10^6/uL (4.30-5.70) Hemoglobin 16.1 g/dL (13.0-17.5) Hematocrit 48.0 % (39.0-53.0) Mean Corpuscular Volume 93 fL (79-100) Mean Corpuscular Hemoglobin 31 pg (25-35) Mean Corpuscular Hemoglobin Concent 34 g/dL (31-37) Red Cell Distribution Width 14.6 % (11.5-14.5) Platelet Count 410 x10^3/uL (140-400) Neutrophils (%) (Auto) 86 % (31-73) Lymphocytes (%) (Auto) 6 % (24-48) Monocytes (%) (Auto) 8 % (0-9) Eosinophils (%) (Auto) 0 % (0-3) Basophils (%) (Auto) 0 % (0-3) Neutrophils # (Auto) 19.6 x10^3uL (1.8-7.7) Lymphocytes # (Auto) 1.3 x10^3/uL (1.0-4.8) Monocytes # (Auto) 1.9 x10^3/uL (0.0-1.1) Eosinophils # (Auto) 0.0 x10^3/uL (0.0-0.7) Basophils # (Auto) 0.1 x10^3/uL (0.0-0.2) Segmented Neutrophils % 86 % (35-66) Band Neutrophils % 3 % (0-9) Lymphocytes % 6 % (24-48) Monocytes % 5 % (0-10) Platelet Estimate Adequate (ADEQUATE) Sodium Level 138 mmol/L (136-145) Potassium Level 3.8 mmol/L (3.5-5.1) Chloride Level 95 mmol/L (98-107) Carbon Dioxide Level 31 mmol/L (21-32) Anion Gap 12 (6-14) Blood Urea Nitrogen 16 mg/dL (8-26) Creatinine 1.1 mg/dL (0.7-1.3) Estimated GFR (Cockcroft-Gault) 64.4 Glucose Level 125 mg/dL (70-99) Calcium Level 9.9 mg/dL (8.5-10.1) Gastric Fluid Occult Blood Positive (NEG) Laboratory Tests Test 04/14/18 16:54 04/14/18 20:40 04/15/18 07:23 04/15/18 10:05 Glucose (Fingerstick) 123 mg/dL (70-99) 114 mg/dL (70-99) 126 mg/dL (70-99) White Blood Count 22.8 x10^3/uL (4.0-11.0) Red Blood Count 5.16 x10^6/uL (4.30-5.70) Hemoglobin 16.1 g/dL (13.0-17.5) Hematocrit 48.0 % (39.0-53.0) Mean Corpuscular Volume 93 fL (79-100) Mean Corpuscular Hemoglobin 31 pg (25-35) Mean Corpuscular Hemoglobin Concent 34 g/dL (31-37) Red Cell Distribution Width 14.6 % (11.5-14.5) Platelet Count 410 x10^3/uL (140-400) Neutrophils (%) (Auto) 86 % (31-73) Lymphocytes (%) (Auto) 6 % (24-48) Monocytes (%) (Auto) 8 % (0-9) Eosinophils (%) (Auto) 0 % (0-3) Basophils (%) (Auto) 0 % (0-3) Neutrophils # (Auto) 19.6 x10^3uL (1.8-7.7) Lymphocytes # (Auto) 1.3 x10^3/uL (1.0-4.8) Monocytes # (Auto) 1.9 x10^3/uL (0.0-1.1) Eosinophils # (Auto) 0.0 x10^3/uL (0.0-0.7) Basophils # (Auto) 0.1 x10^3/uL (0.0-0.2) Segmented Neutrophils % 86 % (35-66) Band Neutrophils % 3 % (0-9) Lymphocytes % 6 % (24-48) Monocytes % 5 % (0-10) Platelet Estimate Adequate (ADEQUATE) Sodium Level 138 mmol/L (136-145) Potassium Level 3.8 mmol/L (3.5-5.1) Chloride Level 95 mmol/L (98-107) Carbon Dioxide Level 31 mmol/L (21-32) Anion Gap 12 (6-14) Blood Urea Nitrogen 16 mg/dL (8-26) Creatinine 1.1 mg/dL (0.7-1.3) Estimated GFR (Cockcroft-Gault) 64.4 Glucose Level 125 mg/dL (70-99) Calcium Level 9.9 mg/dL (8.5-10.1) Test 04/15/18 11:00 04/15/18 11:19 Gastric Fluid Occult Blood Positive (NEG) Glucose (Fingerstick) 144 mg/dL (70-99) Microbiology 04/11/18 Blood Culture - Preliminary, Resulted NO GROWTH AFTER 4 DAYS 04/11/18 Urine Culture - Final, Complete 04/11/18 Urine Culture Result 1 (KENJI) - Final, Complete Medications Current Medications Furosemide (Lasix) 40 mg 1X ONCE IVP Last administered on 04/11/18at 14:12; Start 04/11/18 at 13:45; Stop 04/11/18 at 13:46; Status DC Albuterol/ Ipratropium (Duoneb) 3 ml 1X ONCE NEB Last administered on at 14:09; Start 04/11/18 at 13:45; Stop 04/11/18 at 13:46; Status DC Magnesium Sulfate 50 ml @ 25 mls/hr 1X ONCE IV Last administered on 04/11/18at 16:03; Start 04/11/18 at 16:00; Stop 04/11/18 at 17:59; Status DC Potassium Chloride (Klor-Con) 20 meq BIDWMEALS PO Last administered on at 09:35; Start 04/11/18 at 17:00 Furosemide (Lasix) 60 mg BID94 IVP ; Start 04/11/18 at 17:00; Stop 04/11/18 at 17:11; Status DC Magnesium Sulfate 50 ml @ 25 mls/hr 1X ONCE IV Last administered on 04/12/18at 05:58; Start 04/12/18 at 06:00; Stop 04/12/18 at 07:59; Status DC Furosemide (Lasix) 60 mg Q12HR IVP Last administered on 04/12/18at 19:57; Start 04/11/18 at 21:00; Stop 04/13/18 at 09:00; Status DC Acetaminophen (Tylenol) 500 mg PRN Q6HRS PRN PO PAIN; Start 04/11/18 at 18:45; Stop 04/12/18 at 14:46; Status DC Allopurinol (Zyloprim) 300 mg DAILY PO Last administered on 04/14/18 09:35; Start 04/12/18 at 09:00 Alprazolam (Xanax) 0.25 mg PRN Q6HRS PRN PO ANXIETY / AGITATION Last administered on 04/13/18at 22:05; Start 04/11/18 at 18:45 Clonidine HCl (Catapres) 0.2 mg BID PO Last administered on 04/14/18 09:38; Start 04/11/18 at 21:00; Stop 04/15/18 at 09:43; Status DC Cyanocobalamin (Vitamin B-12) 1,000 mcg DAILY PO Last administered on 09:34; Start 04/12/18 at 09:00 Diltiazem HCl (Cardizem 24hr Cd) 120 mg DAILY PO Last administered on 09:36; Start 04/12/18 at 09:00 Metoprolol Tartrate (Lopressor) 50 mg BID PO Last administered on 04/14/18 09: 35; Start 04/11/18 at 21:00 Triamcinolone Acetonide (Kenalog) 1 benjy TID TP Last administered on 04/14/18 20:54; Start 04/11/18 at 21:00 Donepezil HCl (Aricept) 5 mg HS PO Last administered on 04/13/18 22:05; Start 04/11/18 at 21:00 Losartan Potassium (Cozaar) 100 mg DAILY PO Last administered on 04/14/18 09: 35; Start 04/12/18 at 09:00; Stop 04/15/18 at 09:43; Status DC Metformin HCl (Glucophage) 500 mg BIDWMEALS PO Last administered on 04/14/18 09:35; Start 04/12/18 at 08:00; Stop 04/15/18 at 09:43; Status DC Multi-Ingred Cream/Lotion/Oil/ Oint (Hydrocerin Cream) 1 benjy BID TP Last administered on 11/7/18at 20:54; Start 04/11/18 at 19:15 Naproxen (Naprosyn) 250 mg PRN BID PRN PO MILD PAIN/INFLAMMATION; Start at 19:00; Stop 04/15/18 at 09:43; Status DC Atorvastatin Calcium (Lipitor) 10 mg QHS PO Last administered on 04/13/18at 22: 07; Start 04/11/18 at 21:00 Hydrochlorothiazide (Microzide) 12.5 mg DAILY PO Last administered on 09:34; Start 04/12/18 at 09:00 Potassium Chloride (Klor-Con) 40 meq 1X ONCE PO Last administered on at 10:48; Start 04/12/18 at 10:45; Stop 04/12/18 at 10:46; Status DC Furosemide (Lasix) 40 mg DAILY PO Last administered on 04/14/18at 09:36; Start 04/13/18 at 09:00 Magnesium Sulfate 50 ml @ 25 mls/hr 1X ONCE IV Last administered on 04/12/18at 12:10; Start 04/12/18 at 12:00; Stop 04/12/18 at 13:59; Status DC Acetaminophen (Tylenol) 650 mg PRN Q6HRS PRN PO FEVER; Start 04/12/18 at 14:45 Ondansetron HCl (Zofran) 4 mg PRN Q6HRS PRN IV NAUSEA/VOMITING Last administered on 04/14/18at 11:54; Start 04/12/18 at 14:45 Morphine Sulfate (Morphine Sulfate) 2 mg PRN Q2HR PRN IV MODERATE TO SEVERE PAIN Last administered on 04/15/18at 03:30; Start 04/12/18 at 14:45 Tramadol HCl (Ultram) 50 mg PRN Q6HRS PRN PO MODERATE PAIN Last administered on 04/13/18at 22:06; Start 04/12/18 at 14:45 Docusate Sodium (Colace) 100 mg PRN DAILY PRN PO CONSTIPATION; Start 04/12/18 at 14:45 Potassium Chloride (Klor-Con) 40 meq 1X ONCE PO Last administered on at 09:48; Start 04/13/18 at 09:30; Stop 04/13/18 at 09:31; Status DC Potassium Chloride (Klor-Con) 40 meq 1X ONCE PO Last administered on at 13:10; Start 04/13/18 at 14:00; Stop 04/13/18 at 14:01; Status DC Magnesium Sulfate 50 ml @ 25 mls/hr 1X ONCE IV Last administered on 04/13/18at 09:48; Start 04/13/18 at 09:30; Stop 04/13/18 at 11:29; Status DC Magnesium Sulfate 50 ml @ 25 mls/hr 1X ONCE IV Last administered on 04/14/18at 10:44; Start 04/14/18 at 09:00; Stop 04/14/18 at 10:59; Status DC Magnesium Oxide (Magnesium Oxide) 400 mg DAILY PO ; Start 04/14/18 at 09:00 Clopidogrel Bisulfate (Plavix) 75 mg 1X ONCE PO ; Start 04/14/18 at 13:45; Stop 04/14/18 at 13:46; Status DC Clopidogrel Bisulfate (Plavix) 75 mg DAILYWBKFT PO Last administered on at 15:36; Start 04/14/18 at 15:00 Clonidine HCl (Catapres Tts-2) 1 patch WEEKLY TD Last administered on at 11:30; Start 04/15/18 at 10:00 Active Scripts Active Mag-Oxide (Magnesium Oxide) 400 Mg Tablet 400 Mg PO DAILY 7 Days Klor-Con M20 (Potassium Chloride) 20 Meq Tab.er.prt 20 Meq PO BIDWMEALS 30 Days Furosemide 40 Mg Tablet 40 Mg PO DAILY 30 Days Reported Aquaphor Ointment (Mineral Oil/Hydrophil Petrolat) 396 Gm Oint...g. 396 Gm TP BID Triamcinolone Acetonide 0.1% Oint (Triamcinolone Acetonide) 15 Gm Oint...g. 1 Benjy TP TID MIX WITH EUCERIN DIRECTED BY PHYSICIAN Tubersol (Tuberculin,Purif.prot.deriv.) 5 Tub Unit/0.1 Ml Vial 5 Tub ID DAILY Alprazolam 0.25 Mg Tablet 0.25 Mg PO PRN Q6HRS PRN Aricept (Donepezil Hcl) 5 Mg Tablet 5 Mg PO HS Diltiazem 24HR Cd (Diltiazem Hcl) 120 Mg Cap.er.24h 1 Cap PO DAILY Metoprolol Tartrate 50 Mg Tablet 1 Tab PO BID Artificial Tears (Dextran 70/Hypromellose) 1 Each Droperette 1 Each OP PRN Tylenol Extra Strength (Acetaminophen) 500 Mg Tablet 500 Mg PO PRN Vitamin B-12 (Cyanocobalamin (Vitamin B-12)) 1,000 Mcg Tablet 1 Tab PO DAILY Simvastatin 20 Mg Tablet 20 Mg PO HS Metformin Hcl 500 Mg Tablet 500 Mg PO BIDWMEALS Losartan-Hctz 100-12.5 Mg Tab (Losartan/Hydrochlorothiazide) 1 Each Tablet 1 Each PO DAILY Clonidine Hcl 0.2 Mg Tablet 0.2 Mg PO BID Allopurinol 300 Mg Tablet 300 Mg PO DAILY Vitals/I & O Vital Sign - Last 24 Hours 04/14/18 04/14/18 04/14/18 04/14/18 13:10 15:00 19:25 20:00 Temp 98.7 98.1 98.7 98.1 Pulse 53 62 62 Resp 14 15 18 B/P (MAP) 144/70 (94) 141/71 (94) 135/69 (91) Pulse Ox 89 90 96 O2 Delivery Room Air Room Air Room Air 04/14/18 04/14/18 04/14/18 04/15/18 20:54 20:54 23:48 03:00 Temp 97.8 98.0 97.8 98.0 Pulse 62 62 65 64 Resp 18 B/P (MAP) 135/69 135/69 141/75 (97) 172/72 (105) Pulse Ox 94 90 O2 Delivery Room Air Room Air 04/15/18 04/15/18 04/15/18 04/15/18 03:30 04:00 07:41 09:00 Temp 97.9 97.9 Pulse 61 61 Resp 18 B/P (MAP) 147/63 (91) 147/63 Pulse Ox 94 95 O2 Delivery Room Air Room Air Room Air 04/15/18 04/15/18 09:00 10:57 Temp 99.4 99.4 Pulse 61 72 Resp 16 B/P (MAP) 147/63 142/60 (87) Pulse Ox 94 O2 Delivery Room Air Intake and Output 04/14/18 04/14/18 04/15/18 15:00 23:00 07:00 Intake Total 0 ml 0 ml Output Total 1350 ml 900 ml Balance -1350 ml -900 ml CARMEN QUIROGA MD Apr 15, 2018 12:53
[2018-04-15] MEDS ORDERED: AMINO AC 3%/ELECTROLYTE/GLYCER 1,000 ML IV SCH (13:45)
--- NOTE | 2018-04-15 13:48 | PDOC ---
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 MRI done. US carotid not significant. lasix 60mg iv bid dced as per card, start 40mg po daily , consider iv daily, defer to card ssi dvt ppx replete K was going to dc today, then nurse called saying pt suddenly lost balance with PTOT, MRI brain showed acute stroke. add plavix but pt cannot take po . talked to family regarding feeding plan, add ppn for now, dc some home po meds add gi ppx given pt vomited some dark liquid, hb stable. check CXR concern aspiration. gastric liquid + occult. History of Present Illness History of Present Illness ROS: no fever, chills, sob or chest pain new stroke 04/14 , left cerebellum failed swallow less interaction with staff and son son very concern about the swallow eval, i told him TWICE that swallow eval will come to see pt later today asked him to discuss with family to see what family wanna do regarding NGT feeding or PEG if pt not getting better son mannie beckwith, admited that pt not compliant with home meds for a long time. vomiting some dark liquid today, hb stable. Vitals Vitals Vital Signs Date Time Temp Pulse Resp B/P (MAP) Pulse Ox O2 Delivery O2 Flow Rate FiO2 04/15/18 10:57 99.4 72 16 142/60 (87) 94 Room Air 99.4 Physical Exam Physical Exam not moving left hand much, not talk much with me today General: Alert, No acute distress Heart: Regular rate, Normal S1, Normal S2, No murmurs Lungs: Clear Extremities: No clubbing, No cyanosis, No edema, Normal pulses Labs LABS Laboratory Tests Test 04/14/18 16:54 04/14/18 20:40 04/15/18 07:23 04/15/18 10:05 Glucose (Fingerstick) 123 mg/dL (70-99) 114 mg/dL (70-99) 126 mg/dL (70-99) White Blood Count 22.8 x10^3/uL (4.0-11.0) Red Blood Count 5.16 x10^6/uL (4.30-5.70) Hemoglobin 16.1 g/dL (13.0-17.5) Hematocrit 48.0 % (39.0-53.0) Mean Corpuscular Volume 93 fL (79-100) Mean Corpuscular Hemoglobin 31 pg (25-35) Mean Corpuscular Hemoglobin Concent 34 g/dL (31-37) Red Cell Distribution Width 14.6 % (11.5-14.5) Platelet Count 410 x10^3/uL (140-400) Neutrophils (%) (Auto) 86 % (31-73) Lymphocytes (%) (Auto) 6 % (24-48) Monocytes (%) (Auto) 8 % (0-9) Eosinophils (%) (Auto) 0 % (0-3) Basophils (%) (Auto) 0 % (0-3) Neutrophils # (Auto) 19.6 x10^3uL (1.8-7.7) Lymphocytes # (Auto) 1.3 x10^3/uL (1.0-4.8) Monocytes # (Auto) 1.9 x10^3/uL (0.0-1.1) Eosinophils # (Auto) 0.0 x10^3/uL (0.0-0.7) Basophils # (Auto) 0.1 x10^3/uL (0.0-0.2) Segmented Neutrophils % 86 % (35-66) Band Neutrophils % 3 % (0-9) Lymphocytes % 6 % (24-48) Monocytes % 5 % (0-10) Platelet Estimate Adequate (ADEQUATE) Sodium Level 138 mmol/L (136-145) Potassium Level 3.8 mmol/L (3.5-5.1) Chloride Level 95 mmol/L (98-107) Carbon Dioxide Level 31 mmol/L (21-32) Anion Gap 12 (6-14) Blood Urea Nitrogen 16 mg/dL (8-26) Creatinine 1.1 mg/dL (0.7-1.3) Estimated GFR (Cockcroft-Gault) 64.4 Glucose Level 125 mg/dL (70-99) Calcium Level 9.9 mg/dL (8.5-10.1) Test 04/15/18 11:00 04/15/18 11:19 Gastric Fluid Occult Blood Positive (NEG) Glucose (Fingerstick) 144 mg/dL (70-99) Assessment and Plan Assessmemt and Plan Problems Medical Problems: (1) Dyspnea Status: Acute Comment Review of Relevant I have reviewed the following items renzo (where applicable) has been applied. Labs Laboratory Tests Test 04/13/18 16:53 04/13/18 20:36 04/14/18 04:35 04/14/18 07:02 Glucose (Fingerstick) 97 mg/dL (70-99) 149 mg/dL (70-99) 140 mg/dL (70-99) White Blood Count 10.9 x10^3/uL (4.0-11.0) Red Blood Count 4.21 x10^6/uL (4.30-5.70) Hemoglobin 13.1 g/dL (13.0-17.5) Hematocrit 39.2 % (39.0-53.0) Mean Corpuscular Volume 93 fL (79-100) Mean Corpuscular Hemoglobin 31 pg (25-35) Mean Corpuscular Hemoglobin Concent 33 g/dL (31-37) Red Cell Distribution Width 14.3 % (11.5-14.5) Platelet Count 344 x10^3/uL (140-400) Neutrophils (%) (Auto) 66 % (31-73) Lymphocytes (%) (Auto) 20 % (24-48) Monocytes (%) (Auto) 10 % (0-9) Eosinophils (%) (Auto) 3 % (0-3) Basophils (%) (Auto) 1 % (0-3) Neutrophils # (Auto) 7.2 x10^3uL (1.8-7.7) Lymphocytes # (Auto) 2.2 x10^3/uL (1.0-4.8) Monocytes # (Auto) 1.1 x10^3/uL (0.0-1.1) Eosinophils # (Auto) 0.3 x10^3/uL (0.0-0.7) Basophils # (Auto) 0.1 x10^3/uL (0.0-0.2) Prothrombin Time 14.3 SEC (11.7-14.0) Prothromb Time International Ratio 1.2 (0.8-1.1) Sodium Level 139 mmol/L (136-145) Potassium Level 3.5 mmol/L (3.5-5.1) Chloride Level 100 mmol/L (98-107) Carbon Dioxide Level 32 mmol/L (21-32) Anion Gap 7 (6-14) Blood Urea Nitrogen 21 mg/dL (8-26) Creatinine 1.1 mg/dL (0.7-1.3) Estimated GFR (Cockcroft-Gault) 64.4 Glucose Level 122 mg/dL (70-99) Calcium Level 8.7 mg/dL (8.5-10.1) Magnesium Level 1.5 mg/dL (1.8-2.4) Triglycerides Level 122 mg/dL (0-150) Cholesterol Level 105 mg/dL (0-200) LDL Cholesterol, Calculated 40 mg/dL (0-100) VLDL Cholesterol, Calculated 24 mg/dL (0-40) Non-HDL Cholesterol Calculated 64 mg/dL (0-129) HDL Cholesterol 41 mg/dL (40-60) Cholesterol/HDL Ratio 2.6 Test 04/14/18 11:28 04/14/18 12:14 04/14/18 16:54 04/14/18 20:40 Glucose (Fingerstick) 141 mg/dL (70-99) 130 mg/dL (70-99) 123 mg/dL (70-99) 114 mg/dL (70-99) Test 04/15/18 07:23 04/15/18 10:05 04/15/18 11:00 04/15/18 11:19 Glucose (Fingerstick) 126 mg/dL (70-99) 144 mg/dL (70-99) White Blood Count 22.8 x10^3/uL (4.0-11.0) Red Blood Count 5.16 x10^6/uL (4.30-5.70) Hemoglobin 16.1 g/dL (13.0-17.5) Hematocrit 48.0 % (39.0-53.0) Mean Corpuscular Volume 93 fL (79-100) Mean Corpuscular Hemoglobin 31 pg (25-35) Mean Corpuscular Hemoglobin Concent 34 g/dL (31-37) Red Cell Distribution Width 14.6 % (11.5-14.5) Platelet Count 410 x10^3/uL (140-400) Neutrophils (%) (Auto) 86 % (31-73) Lymphocytes (%) (Auto) 6 % (24-48) Monocytes (%) (Auto) 8 % (0-9) Eosinophils (%) (Auto) 0 % (0-3) Basophils (%) (Auto) 0 % (0-3) Neutrophils # (Auto) 19.6 x10^3uL (1.8-7.7) Lymphocytes # (Auto) 1.3 x10^3/uL (1.0-4.8) Monocytes # (Auto) 1.9 x10^3/uL (0.0-1.1) Eosinophils # (Auto) 0.0 x10^3/uL (0.0-0.7) Basophils # (Auto) 0.1 x10^3/uL (0.0-0.2) Segmented Neutrophils % 86 % (35-66) Band Neutrophils % 3 % (0-9) Lymphocytes % 6 % (24-48) Monocytes % 5 % (0-10) Platelet Estimate Adequate (ADEQUATE) Sodium Level 138 mmol/L (136-145) Potassium Level 3.8 mmol/L (3.5-5.1) Chloride Level 95 mmol/L (98-107) Carbon Dioxide Level 31 mmol/L (21-32) Anion Gap 12 (6-14) Blood Urea Nitrogen 16 mg/dL (8-26) Creatinine 1.1 mg/dL (0.7-1.3) Estimated GFR (Cockcroft-Gault) 64.4 Glucose Level 125 mg/dL (70-99) Calcium Level 9.9 mg/dL (8.5-10.1) Gastric Fluid Occult Blood Positive (NEG) Laboratory Tests Test 04/14/18 16:54 04/14/18 20:40 04/15/18 07:23 04/15/18 10:05 Glucose (Fingerstick) 123 mg/dL (70-99) 114 mg/dL (70-99) 126 mg/dL (70-99) White Blood Count 22.8 x10^3/uL (4.0-11.0) Red Blood Count 5.16 x10^6/uL (4.30-5.70) Hemoglobin 16.1 g/dL (13.0-17.5) Hematocrit 48.0 % (39.0-53.0) Mean Corpuscular Volume 93 fL (79-100) Mean Corpuscular Hemoglobin 31 pg (25-35) Mean Corpuscular Hemoglobin Concent 34 g/dL (31-37) Red Cell Distribution Width 14.6 % (11.5-14.5) Platelet Count 410 x10^3/uL (140-400) Neutrophils (%) (Auto) 86 % (31-73) Lymphocytes (%) (Auto) 6 % (24-48) Monocytes (%) (Auto) 8 % (0-9) Eosinophils (%) (Auto) 0 % (0-3) Basophils (%) (Auto) 0 % (0-3) Neutrophils # (Auto) 19.6 x10^3uL (1.8-7.7) Lymphocytes # (Auto) 1.3 x10^3/uL (1.0-4.8) Monocytes # (Auto) 1.9 x10^3/uL (0.0-1.1) Eosinophils # (Auto) 0.0 x10^3/uL (0.0-0.7) Basophils # (Auto) 0.1 x10^3/uL (0.0-0.2) Segmented Neutrophils % 86 % (35-66) Band Neutrophils % 3 % (0-9) Lymphocytes % 6 % (24-48) Monocytes % 5 % (0-10) Platelet Estimate Adequate (ADEQUATE) Sodium Level 138 mmol/L (136-145) Potassium Level 3.8 mmol/L (3.5-5.1) Chloride Level 95 mmol/L (98-107) Carbon Dioxide Level 31 mmol/L (21-32) Anion Gap 12 (6-14) Blood Urea Nitrogen 16 mg/dL (8-26) Creatinine 1.1 mg/dL (0.7-1.3) Estimated GFR (Cockcroft-Gault) 64.4 Glucose Level 125 mg/dL (70-99) Calcium Level 9.9 mg/dL (8.5-10.1) Test 04/15/18 11:00 04/15/18 11:19 Gastric Fluid Occult Blood Positive (NEG) Glucose (Fingerstick) 144 mg/dL (70-99) Microbiology 04/11/18 Blood Culture - Preliminary, Resulted NO GROWTH AFTER 4 DAYS 04/11/18 Urine Culture - Final, Complete 04/11/18 Urine Culture Result 1 (KENJI) - Final, Complete Medications Current Medications Furosemide (Lasix) 40 mg 1X ONCE IVP Last administered on 04/11/18at 14:12; Start 04/11/18 at 13:45; Stop 04/11/18 at 13:46; Status DC Albuterol/ Ipratropium (Duoneb) 3 ml 1X ONCE NEB Last administered on at 14:09; Start 04/11/18 at 13:45; Stop 04/11/18 at 13:46; Status DC Magnesium Sulfate 50 ml @ 25 mls/hr 1X ONCE IV Last administered on 04/11/18at 16:03; Start 04/11/18 at 16:00; Stop 04/11/18 at 17:59; Status DC Potassium Chloride (Klor-Con) 20 meq BIDWMEALS PO Last administered on at 09:35; Start 04/11/18 at 17:00 Furosemide (Lasix) 60 mg [id number] IVP ; Start 04/11/18 at 17:00; Stop 04/11/18 at 17:11; Status DC Magnesium Sulfate 50 ml @ 25 mls/hr 1X ONCE IV Last administered on 04/12/18at 05:58; Start 04/12/18 at 06:00; Stop 04/12/18 at 07:59; Status DC Furosemide (Lasix) 60 mg Q12HR IVP Last administered on 04/12/18at 19:57; Start 04/11/18 at 21:00; Stop 04/13/18 at 09:00; Status DC Acetaminophen (Tylenol) 500 mg PRN Q6HRS PRN PO PAIN; Start 04/11/18 at 18:45; Stop 04/12/18 at 14:46; Status DC Allopurinol (Zyloprim) 300 mg DAILY PO Last administered on 04/14/18at 09:35; Start 04/12/18 at 09:00 Alprazolam (Xanax) 0.25 mg PRN Q6HRS PRN PO ANXIETY / AGITATION Last administered on 04/13/18at 22:05; Start 04/11/18 at 18:45 Clonidine HCl (Catapres) 0.2 mg BID PO Last administered on 04/14/18at 09:38; Start 04/11/18 at 21:00; Stop 04/15/18 at 09:43; Status DC Cyanocobalamin (Vitamin B-12) 1,000 mcg DAILY PO Last administered on 09:34; Start 04/12/18 at 09:00 Diltiazem HCl (Cardizem 24hr Cd) 120 mg DAILY PO Last administered on 09:36; Start 04/12/18 at 09:00 Metoprolol Tartrate (Lopressor) 50 mg BID PO Last administered on 04/14/18 09: 35; Start 04/11/18 at 21:00 Triamcinolone Acetonide (Kenalog) 1 benjy TID TP Last administered on 04/14/18 20:54; Start 04/11/18 at 21:00 Donepezil HCl (Aricept) 5 mg HS PO Last administered on 04/13/18 22:05; Start 04/11/18 at 21:00 Losartan Potassium (Cozaar) 100 mg DAILY PO Last administered on 04/14/18 09: 35; Start 04/12/18 at 09:00; Stop 04/15/18 at 09:43; Status DC Metformin HCl (Glucophage) 500 mg BIDWMEALS PO Last administered on 04/14/18 09:35; Start 04/12/18 at 08:00; Stop 04/15/18 at 09:43; Status DC Multi-Ingred Cream/Lotion/Oil/ Oint (Hydrocerin Cream) 1 benjy BID TP Last administered on 04/14/18 20:54; Start 04/11/18 at 19:15 Naproxen (Naprosyn) 250 mg PRN BID PRN PO MILD PAIN/INFLAMMATION; Start at 19:00; Stop 04/15/18 at 09:43; Status DC Atorvastatin Calcium (Lipitor) 10 mg QHS PO Last administered on 04/13/18 22: 07; Start 04/11/18 at 21:00 Hydrochlorothiazide (Microzide) 12.5 mg DAILY PO Last administered on 09:34; Start 04/12/18 at 09:00 Potassium Chloride (Klor-Con) 40 meq 1X ONCE PO Last administered on at 10:48; Start 04/12/18 at 10:45; Stop 04/12/18 at 10:46; Status DC Furosemide (Lasix) 40 mg DAILY PO Last administered on 04/14/18at 09:36; Start 04/13/18 at 09:00 Magnesium Sulfate 50 ml @ 25 mls/hr 1X ONCE IV Last administered on 04/12/18at 12:10; Start 04/12/18 at 12:00; Stop 04/12/18 at 13:59; Status DC Acetaminophen (Tylenol) 650 mg PRN Q6HRS PRN PO FEVER; Start 04/12/18 at 14:45 Ondansetron HCl (Zofran) 4 mg PRN Q6HRS PRN IV NAUSEA/VOMITING Last administered on 04/14/18at 11:54; Start 04/12/18 at 14:45 Morphine Sulfate (Morphine Sulfate) 2 mg PRN Q2HR PRN IV MODERATE TO SEVERE PAIN Last administered on 04/15/18at 03:30; Start 04/12/18 at 14:45 Tramadol HCl (Ultram) 50 mg PRN Q6HRS PRN PO MODERATE PAIN Last administered on 04/13/18at 22:06; Start 04/12/18 at 14:45 Docusate Sodium (Colace) 100 mg PRN DAILY PRN PO CONSTIPATION; Start 04/12/18 at 14:45 Potassium Chloride (Klor-Con) 40 meq 1X ONCE PO Last administered on at 09:48; Start 04/13/18 at 09:30; Stop 04/13/18 at 09:31; Status DC Potassium Chloride (Klor-Con) 40 meq 1X ONCE PO Last administered on at 13:10; Start 04/13/18 at 14:00; Stop 04/13/18 at 14:01; Status DC Magnesium Sulfate 50 ml @ 25 mls/hr 1X ONCE IV Last administered on 04/13/18at 09:48; Start 04/13/18 at 09:30; Stop 04/13/18 at 11:29; Status DC Magnesium Sulfate 50 ml @ 25 mls/hr 1X ONCE IV Last administered on 04/14/18at 10:44; Start 04/14/18 at 09:00; Stop 04/14/18 at 10:59; Status DC Magnesium Oxide (Magnesium Oxide) 400 mg DAILY PO ; Start 04/14/18 at 09:00 Clopidogrel Bisulfate (Plavix) 75 mg 1X ONCE PO ; Start 04/14/18 at 13:45; Stop 04/14/18 at 13:46; Status DC Clopidogrel Bisulfate (Plavix) 75 mg [id number] PO Last administered on at 15:36; Start 04/14/18 at 15:00 Clonidine HCl (Catapres Tts-2) 1 patch WEEKLY TD Last administered on at 11:30; Start 04/15/18 at 10:00 Active Scripts Active Mag-Oxide (Magnesium Oxide) 400 Mg Tablet 400 Mg PO DAILY 7 Days Klor-Con M20 (Potassium Chloride) 20 Meq Tab.er.prt 20 Meq PO BIDWMEALS 30 Days Furosemide 40 Mg Tablet 40 Mg PO DAILY 30 Days Reported Aquaphor Ointment (Mineral Oil/Hydrophil Petrolat) 396 Gm Oint...g. 396 Gm TP BID Triamcinolone Acetonide 0.1% Oint (Triamcinolone Acetonide) 15 Gm Oint...g. 1 Benjy TP TID MIX WITH EUCERIN DIRECTED BY PHYSICIAN Tubersol (Tuberculin,Purif.prot.deriv.) 5 Tub Unit/0.1 Ml Vial 5 Tub ID DAILY Alprazolam 0.25 Mg Tablet 0.25 Mg PO PRN Q6HRS PRN Aricept (Donepezil Hcl) 5 Mg Tablet 5 Mg PO HS Diltiazem 24HR Cd (Diltiazem Hcl) 120 Mg Cap.er.24h 1 Cap PO DAILY Metoprolol Tartrate 50 Mg Tablet 1 Tab PO BID Artificial Tears (Dextran 70/Hypromellose) 1 Each Droperette 1 Each OP PRN Tylenol Extra Strength (Acetaminophen) 500 Mg Tablet 500 Mg PO PRN Vitamin B-12 (Cyanocobalamin (Vitamin B-12)) 1,000 Mcg Tablet 1 Tab PO DAILY Simvastatin 20 Mg Tablet 20 Mg PO HS Metformin Hcl 500 Mg Tablet 500 Mg PO BIDWMEALS Losartan-Hctz 100-12.5 Mg Tab (Losartan/Hydrochlorothiazide) 1 Each Tablet 1 Each PO DAILY Clonidine Hcl 0.2 Mg Tablet 0.2 Mg PO BID Allopurinol 300 Mg Tablet 300 Mg PO DAILY Vitals/I & O Vital Sign - Last 24 Hours 04/14/18 04/14/18 04/14/18 04/14/18 15:00 19:25 20:00 20:54 Temp 98.7 98.1 98.7 98.1 Pulse 62 62 62 Resp 15 18 B/P (MAP) 141/71 (94) 135/69 (91) 135/69 Pulse Ox 90 96 O2 Delivery Room Air Room Air Room Air 04/14/18 04/14/18 04/15/18 04/15/18 20:54 23:48 03:00 03:30 Temp 97.8 98.0 97.8 98.0 Pulse 62 65 64 Resp 18 B/P (MAP) 135/69 141/75 (97) 172/72 (105) Pulse Ox 94 90 94 O2 Delivery Room Air Room Air Room Air 04/15/18 04/15/18 04/15/18 04/15/18 04:00 07:41 09:00 09:00 Temp 97.9 97.9 Pulse 61 61 61 Resp 18 B/P (MAP) 147/63 (91) 147/63 147/63 Pulse Ox 95 O2 Delivery Room Air Room Air 04/15/18 10:57 Temp 99.4 99.4 Pulse 72 Resp 16 B/P (MAP) 142/60 (87) Pulse Ox 94 O2 Delivery Room Air Intake and Output 04/14/18 04/14/18 04/15/18 15:00 23:00 07:00 Intake Total 0 ml 0 ml Output Total 1350 ml 900 ml Balance -1350 ml -900 ml HUBER CASE MD Apr 15, 2018 13:48
--- NOTE | 2018-04-15 14:26 | RAD ---
Single view of the chest. 04/15/2018 1:56 PM Indication: ASPIRATION, CHF Comparison: Chest radiograph April 11, 2018. April 13, 2018. Findings: Persistent blunting of the left costophrenic angle likely represents small residual effusion. Underlying atelectasis is likely. There is no pneumothorax. Heart size is normal. Bony thorax is unchanged. Prior ORIF left humerus noted. IMPRESSION: Small residual left pleural effusion likely with underlying atelectasis. Overall appearance of the chest is stable Electronically signed by: Jules Bonilla MD (04/15/2018 2:22 PM) [id number]
[2018-04-15 15:15] VITALS: BP 136/54
--- NOTE | 2018-04-15 16:25 | PDOC ---
PROGRESS NOTES Assessment Assessment Acute left inferior cerebellar infarct. Slurred speech on 04/14/18. Metabolic encephalopathy. Accelerated BP. HTN. DM HLD Smoking. 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 Fall x 2 times on ice on 05/24/16. RECOMMENDATIONS/PLAN: Plavix 75 mg daily. Patient was allergic to ASA. Lipitor HS. BP control. Swallow test. Speech therapy. Treat medical diseases. Rehab. Discussed with his son, daughter, and [id number] at bedside on 04/14/18. HISTORY OF THE PRESENT ILLNESS: 82-y-old male patient with medical diseases was admitted this time for medical treatment. He was noted mental status changes with slurred speech in am of 04/14/18, then his symptoms improved in some degree. MRI revealed acute infarct this time. He had a large IPH 3.9 cm x 3.3 cm in the past, so he was not a candidate for TPA. PAST MEDICAL HISTORY: Please see above. PAST SURGERY HISTORY: Right knee surgery. ALLERGY: Allergic to ASA per his son. MEDICATIONS: Refer to [facility] FAMILY HISTORY: Non contributory. SOCIAL HISTORY: Denies drinking and illicit drug use. He smoked 1-2 pack of cigarettes a day for many years. REVIEW OF SYSTEMS: Constitutional: No malnutrition, cachexia. Head: No traumatic brain or head injury. Skin: No edema, or rash. Ear: No infection, tinnitus. Eyes: No vision loss or color blindness. Nose: No bleeding or purulent discharges. Hearing: No hearing decrease. Neck: No traumatic injury. Cardiac: HTN, HLD. Pulmonary: No COPD. GI: No GI ulcer, GI bleeding. Urinary/genital: UTI. Endocrinologic: Diabetes Mellitus Skeletomuscular: No muscular atrophy, deformity Neurological: see HP. Psychiatric: Denies drug use/abuse. Otherwise, not [id number] review of systems. PHYSICAL EXAMINATION: General appearance is in acute distress. HEENT: Normocephalic and nontraumatic. Eyes, nose, ears, and throat are unremarkable. Neck is supple. No lymphadenopathy. No bruits are heard over the carotid artery. No crepitus. Cardiovascular: S1, S2, regular rate and rhythm. Pulmonary: Clear to auscultation bilaterally. Abdomen: Bowel sounds are positive. Abdomen is soft, nontender, and nondistended. Extremities: No rash, lesions, or edema. No restriction of range of motion NEUROLOGICAL EXAMINATION: Drowsiness. Not answer questions nor follow commands. Not oriented to time, place and person. PERRL. EOMI. CN: no focal findings. Muscle tone: within normal. Muscle strength: 4+ left UE, 5 right side. DTR: 1-2 Plantar reflex: Neutral response bilaterally Gait: not examined in bed. Sensory exam: no obvious abnormal findings. Not able to access cerebellar signs due to not follow commands. F-T-N test not performed due to mental status changes. Objective Objective Vital Signs Date Time Temp Pulse Resp B/P (MAP) Pulse Ox O2 Delivery O2 Flow Rate FiO2 04/15/18 15:15 99.0 70 18 136/54 (81) 96 Room Air 99.0 Intake and Output 04/15/18 07:00 Intake Total 0 ml Output Total 2250 ml Balance -2250 ml Intake Oral 0 ml Output Urine Total 2250 ml Vitals Signs Vitals VS - Last 72 Hours, by Label Date Time Temp Pulse Resp B/P (MAP) Pulse Ox O2 Delivery O2 Flow Rate FiO2 04/15/18 15:15 99.0 70 18 136/54 (81) 96 Room Air 99.0 04/15/18 10:57 99.4 72 16 142/60 (87) 94 Room Air 99.4 04/15/18 09:00 61 147/63 04/15/18 09:00 61 147/63 04/15/18 07:41 97.9 61 18 147/63 (91) 95 Room Air 97.9 04/15/18 04:00 Room Air 04/15/18 03:30 94 Room Air 04/15/18 03:00 98.0 64 172/72 (105) 90 Room Air 98.0 04/14/18 23:48 97.8 65 18 141/75 (97) 94 Room Air 97.8 04/14/18 20:54 62 135/69 04/14/18 20:54 62 135/69 04/14/18 20:00 Room Air 04/14/18 19:25 98.1 62 18 135/69 (91) 96 Room Air 98.1 04/14/18 15:00 98.7 62 15 141/71 (94) 90 Room Air 98.7 04/14/18 13:10 53 14 144/70 (94) 89 04/14/18 12:00 54 160/85 (110) 04/14/18 11:45 54 196/86 (122) Room Air 04/14/18 10:43 98.7 57 18 105/66 (79) 93 Room Air 98.7 04/14/18 09:38 60 04/14/18 09:36 65 04/14/18 09:35 61 04/14/18 09:35 61 04/14/18 08:05 Room Air 04/14/18 07:42 97.7 61 18 104/62 (76) 93 Room Air 97.7 Laboratory Laboratory Laboratory Tests Test 04/14/18 16:54 04/14/18 20:40 04/15/18 07:23 04/15/18 10:05 Glucose (Fingerstick) 123 mg/dL (70-99) 114 mg/dL (70-99) 126 mg/dL (70-99) White Blood Count 22.8 x10^3/uL (4.0-11.0) Red Blood Count 5.16 x10^6/uL (4.30-5.70) Hemoglobin 16.1 g/dL (13.0-17.5) Hematocrit 48.0 % (39.0-53.0) Mean Corpuscular Volume 93 fL (79-100) Mean Corpuscular Hemoglobin 31 pg (25-35) Mean Corpuscular Hemoglobin Concent 34 g/dL (31-37) Red Cell Distribution Width 14.6 % (11.5-14.5) Platelet Count 410 x10^3/uL (140-400) Neutrophils (%) (Auto) 86 % (31-73) Lymphocytes (%) (Auto) 6 % (24-48) Monocytes (%) (Auto) 8 % (0-9) Eosinophils (%) (Auto) 0 % (0-3) Basophils (%) (Auto) 0 % (0-3) Neutrophils # (Auto) 19.6 x10^3uL (1.8-7.7) Lymphocytes # (Auto) 1.3 x10^3/uL (1.0-4.8) Monocytes # (Auto) 1.9 x10^3/uL (0.0-1.1) Eosinophils # (Auto) 0.0 x10^3/uL (0.0-0.7) Basophils # (Auto) 0.1 x10^3/uL (0.0-0.2) Segmented Neutrophils % 86 % (35-66) Band Neutrophils % 3 % (0-9) Lymphocytes % 6 % (24-48) Monocytes % 5 % (0-10) Platelet Estimate Adequate (ADEQUATE) Sodium Level 138 mmol/L (136-145) Potassium Level 3.8 mmol/L (3.5-5.1) Chloride Level 95 mmol/L (98-107) Carbon Dioxide Level 31 mmol/L (21-32) Anion Gap 12 (6-14) Blood Urea Nitrogen 16 mg/dL (8-26) Creatinine 1.1 mg/dL (0.7-1.3) Estimated GFR (Cockcroft-Gault) 64.4 Glucose Level 125 mg/dL (70-99) Calcium Level 9.9 mg/dL (8.5-10.1) Test 04/15/18 11:00 04/15/18 11:19 Gastric Fluid Occult Blood Positive (NEG) Glucose (Fingerstick) 144 mg/dL (70-99) Microbiology 04/11/18 Blood Culture - Preliminary, Resulted NO GROWTH AFTER 4 DAYS 04/11/18 Urine Culture - Final, Complete 04/11/18 Urine Culture Result 1 (KENJI) - Final, Complete Medication Medications Current Medications Amino Acids/ Glycerin/ Electrolytes 1,000 ml @ 80 mls/hr [id number] IV ; Start at 13:45 Clonidine HCl (Catapres Tts-2) 1 patch WEEKLY TD Last administered on at 11:30; Start 04/15/18 at 10:00 Pantoprazole Sodium (PROTONIX VIAL for IV PUSH) 40 mg DAILYAC IVP ; Start at 14:00 Comment Review of Relevant I have reviewed the following items renzo (where applicable) has been applied. JOSHUA PENN MD Apr 15, 2018 16:25
[2018-04-15 19:03] VITALS: BP 143/66
[2018-04-15] MEDS: DONEPEZIL HCL 5 MG TABLET. PO SCH (19:54)
[2018-04-15] MEDS: ATORVASTATIN CALCIUM 10 MG TABLET. PO SCH (19:54)
[2018-04-15] MEDS: PANTOPRAZOLE IV PUSH 40 MG VIAL. IVP SCH (21:13)
[2018-04-15 23:19] VITALS: BP 175/75
[2018-04-16 03:10] VITALS: BP 162/71
[2018-04-16 05:03] LABS: BASO % 0 % (0-3); EOS % 0 % (0-3); HEMATOCRIT 44.9 % (39.0-53.0); HEMOGLOBIN 15.1 g/dL (13.0-17.5); LYMPH # 1.4 x10^3/uL (1.0-4.8); LYMPH % 8 % (24-48); MEAN CORPUSCULAR HEMOGLOBIN 31 pg (25-35); MEAN CORPUSCULAR HGB CONC 34 g/dL (31-37); MEAN CORPUSCULAR VOLUME 93 fL (79-100); MONO # 1.6 x10^3/uL (0.0-1.1); MONO % 9 % (0-9); NEUT # 14.3 x10^3uL (1.8-7.7); NEUT % 83 % (31-73); PLATELET COUNT 375 x10^3/uL (140-400); RED BLOOD COUNT 4.81 x10^6/uL (4.30-5.70); RED CELL DISTRIBUTION WIDTH 14.2 % (11.5-14.5); WHITE BLOOD COUNT 17.3 x10^3/uL (4.0-11.0)
[2018-04-16 05:34] LABS: CALCIUM 9.1 mg/dL (8.5-10.1); CREATININE 1.1 mg/dL (0.7-1.3); GFR 64.4; POTASSIUM 3.2 mmol/L (3.5-5.1)
[2018-04-16] MEDS: PANTOPRAZOLE IV PUSH 40 MG VIAL. IVP SCH (07:30)
[2018-04-16 07:36] VITALS: BP 159/78
--- NOTE | 2018-04-16 07:46 | RAD ---
Portable chest, 04/16/2018: HISTORY: Shortness of breath Comparison is made to a study from 04/15/2018. The heart size and pulmonary vascularity are normal. No pulmonary infiltrate is seen. Blunting of the left lateral costophrenic angle has resolved. There is no evidence of pleural fluid. IMPRESSION: No acute cardiopulmonary abnormality is detected. Electronically signed by: Brody Doran MD (04/16/2018 7:43 AM) [facility]
[2018-04-16] MEDS: POTASSIUM CHLORIDE 20 MEQ TABLET.ER. PO SCH ×2 (08:00→17:00)
[2018-04-16] MEDS: CLOPIDOGREL BISULFATE 75 MG TABLET PO SCH (08:00)
[2018-04-16] MEDS: FUROSEMIDE 40 MG TABLET. PO SCH (09:00)
[2018-04-16] MEDS: ALLOPURINOL 300 MG TABLET. PO SCH (09:00)
[2018-04-16] MEDS: METOPROLOL TART IMMED RELEASE 50 MG TABLET. PO SCH (09:00)
[2018-04-16] MEDS: TRIAMCINOLONE ACETONIDE 0.1% TOPICAL OINTMENT 15GM TUBE. TP SCH ×2 (09:00→14:00)
[2018-04-16] MEDS: CYANOCOBALAMIN (VITAMIN B-12) 1,000 MCG TABLET. PO SCH (09:00)
[2018-04-16] MEDS: MAGNESIUM OXIDE 400 MG TABLET PO SCH (09:00)
[2018-04-16] MEDS: MINERAL OIL/PETROLATUM TOPICAL CREAM 113GM JAR. TP SCH (09:00)
--- NOTE | 2018-04-16 09:58 | RAD ---
Examination: CT head without contrast HISTORY: History of cerebrovascular accident, recent stroke COMPARISON: MRI brain from 04/14/2018 TECHNIQUE: Axial CT images of the head was performed without contrast Exposure: One or more of the following individualized dose reduction techniques were utilized for this examination: 1. Automated exposure control 2. Adjustment of the mA and/or kV according to patient size 3. Use of iterative reconstruction technique FINDINGS: Moderate size hypodensity identified in the left cerebellum likely recent infarct. There is no evidence of midline shift. Moderate bilateral periventricular white matter hypodensities likely chronic small vessel ischemic disease. The basal cisterns are uneffaced. Mild mucosal thickening identified in the bilateral ethmoidal sinuses. Small mucous retention cyst or polyp identified in the left maxillary sinus. IMPRESSION: 1. Moderate size hypodensity identified in the left cerebellum likely recent ischemic infarct. Electronically signed by: Wally Krueger MD (04/16/2018 9:56 AM) [id number]
[2018-04-16] MEDS ORDERED: SCOPOLAMINE 1.5MG PATCH. TD SCH (10:00)
[2018-04-16 10:31] VITALS: BP 158/85
[2018-04-16] MEDS: ATROPINE 1% OPHTH SOLUTION 5ML BOTTLE. SL SCH ×3 (12:14→16:18)
--- NOTE | 2018-04-16 12:14 | PDOC ---
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 MRI done. US carotid not significant. lasix 60mg iv bid dced as per card, start 40mg po daily , consider iv daily given cannot swallow, defer to card ssi dvt ppx replete K was going to dc , then nurse called saying pt suddenly lost balance with PTOT, MRI brain showed acute stroke. add plavix but pt cannot take po . talked to family regarding feeding plan, add ppn for now, dc some home po meds add gi ppx given pt vomited some dark liquid, hb stable. check CXR concern aspiration. gastric liquid + occult, hb stable. repeat Head CT today given not moving left side. ct showed stable left cerebellum stroke. case management consult, i recommend hospice discussion. i asked pt if he want NGT or PEG , he shaked his head. History of Present Illness History of Present Illness ROS: no fever, chills, sob or chest pain new stroke 04/14 , left cerebellum failed swallow less interaction with staff and son since 04/14 stroke asked him to discuss with family to see what family wanna do regarding NGT feeding or PEG if pt not getting better son mannie beckwith, admited that pt not compliant with home meds for a long time. vomiting some dark liquid 04/15, hb stable. 04/16: more throat secretion today. not moving left side much, can hold my fingers gentle Vitals Vitals Vital Signs Date Time Temp Pulse Resp B/P (MAP) Pulse Ox O2 Delivery O2 Flow Rate FiO2 04/16/18 10:31 97.4 66 20 158/85 (109) 92 Room Air 97.4 Physical Exam Physical Exam not moving left hand much, not talk much with me today General: Alert, No acute distress Heart: Regular rate, Normal S1, Normal S2, No murmurs Lungs: Clear Extremities: No clubbing, No cyanosis, No edema, Normal pulses Labs LABS Laboratory Tests Test 04/15/18 16:50 04/16/18 04:00 04/16/18 04:45 Glucose (Fingerstick) 140 mg/dL (70-99) White Blood Count 17.3 x10^3/uL (4.0-11.0) Red Blood Count 4.81 x10^6/uL (4.30-5.70) Hemoglobin 15.1 g/dL (13.0-17.5) Hematocrit 44.9 % (39.0-53.0) Mean Corpuscular Volume 93 fL (79-100) Mean Corpuscular Hemoglobin 31 pg (25-35) Mean Corpuscular Hemoglobin Concent 34 g/dL (31-37) Red Cell Distribution Width 14.2 % (11.5-14.5) Platelet Count 375 x10^3/uL (140-400) Neutrophils (%) (Auto) 83 % (31-73) Lymphocytes (%) (Auto) 8 % (24-48) Monocytes (%) (Auto) 9 % (0-9) Eosinophils (%) (Auto) 0 % (0-3) Basophils (%) (Auto) 0 % (0-3) Neutrophils # (Auto) 14.3 x10^3uL (1.8-7.7) Lymphocytes # (Auto) 1.4 x10^3/uL (1.0-4.8) Monocytes # (Auto) 1.6 x10^3/uL (0.0-1.1) Eosinophils # (Auto) 0.0 x10^3/uL (0.0-0.7) Basophils # (Auto) 0.0 x10^3/uL (0.0-0.2) Sodium Level 139 mmol/L (136-145) Potassium Level 3.2 mmol/L (3.5-5.1) Chloride Level 98 mmol/L (98-107) Carbon Dioxide Level 33 mmol/L (21-32) Anion Gap 8 (6-14) Blood Urea Nitrogen 19 mg/dL (8-26) Creatinine 1.1 mg/dL (0.7-1.3) Estimated GFR (Cockcroft-Gault) 64.4 Glucose Level 141 mg/dL (70-99) Calcium Level 9.1 mg/dL (8.5-10.1) Assessment and Plan Assessmemt and Plan Problems Medical Problems: (1) Dyspnea Status: Acute Comment Review of Relevant I have reviewed the following items renzo (where applicable) has been applied. Labs Laboratory Tests Test 04/14/18 12:14 04/14/18 16:54 04/14/18 20:40 04/15/18 07:23 Glucose (Fingerstick) 130 mg/dL (70-99) 123 mg/dL (70-99) 114 mg/dL (70-99) 126 mg/dL (70-99) Test 04/15/18 10:05 04/15/18 11:00 04/15/18 11:19 04/15/18 16:50 White Blood Count 22.8 x10^3/uL (4.0-11.0) Red Blood Count 5.16 x10^6/uL (4.30-5.70) Hemoglobin 16.1 g/dL (13.0-17.5) Hematocrit 48.0 % (39.0-53.0) Mean Corpuscular Volume 93 fL (79-100) Mean Corpuscular Hemoglobin 31 pg (25-35) Mean Corpuscular Hemoglobin Concent 34 g/dL (31-37) Red Cell Distribution Width 14.6 % (11.5-14.5) Platelet Count 410 x10^3/uL (140-400) Neutrophils (%) (Auto) 86 % (31-73) Lymphocytes (%) (Auto) 6 % (24-48) Monocytes (%) (Auto) 8 % (0-9) Eosinophils (%) (Auto) 0 % (0-3) Basophils (%) (Auto) 0 % (0-3) Neutrophils # (Auto) 19.6 x10^3uL (1.8-7.7) Lymphocytes # (Auto) 1.3 x10^3/uL (1.0-4.8) Monocytes # (Auto) 1.9 x10^3/uL (0.0-1.1) Eosinophils # (Auto) 0.0 x10^3/uL (0.0-0.7) Basophils # (Auto) 0.1 x10^3/uL (0.0-0.2) Segmented Neutrophils % 86 % (35-66) Band Neutrophils % 3 % (0-9) Lymphocytes % 6 % (24-48) Monocytes % 5 % (0-10) Platelet Estimate Adequate (ADEQUATE) Sodium Level 138 mmol/L (136-145) Potassium Level 3.8 mmol/L (3.5-5.1) Chloride Level 95 mmol/L (98-107) Carbon Dioxide Level 31 mmol/L (21-32) Anion Gap 12 (6-14) Blood Urea Nitrogen 16 mg/dL (8-26) Creatinine 1.1 mg/dL (0.7-1.3) Estimated GFR (Cockcroft-Gault) 64.4 Glucose Level 125 mg/dL (70-99) Calcium Level 9.9 mg/dL (8.5-10.1) Gastric Fluid Occult Blood Positive (NEG) Glucose (Fingerstick) 144 mg/dL (70-99) 140 mg/dL (70-99) Test 04/16/18 04:00 04/16/18 04:45 White Blood Count 17.3 x10^3/uL (4.0-11.0) Red Blood Count 4.81 x10^6/uL (4.30-5.70) Hemoglobin 15.1 g/dL (13.0-17.5) Hematocrit 44.9 % (39.0-53.0) Mean Corpuscular Volume 93 fL (79-100) Mean Corpuscular Hemoglobin 31 pg (25-35) Mean Corpuscular Hemoglobin Concent 34 g/dL (31-37) Red Cell Distribution Width 14.2 % (11.5-14.5) Platelet Count 375 x10^3/uL (140-400) Neutrophils (%) (Auto) 83 % (31-73) Lymphocytes (%) (Auto) 8 % (24-48) Monocytes (%) (Auto) 9 % (0-9) Eosinophils (%) (Auto) 0 % (0-3) Basophils (%) (Auto) 0 % (0-3) Neutrophils # (Auto) 14.3 x10^3uL (1.8-7.7) Lymphocytes # (Auto) 1.4 x10^3/uL (1.0-4.8) Monocytes # (Auto) 1.6 x10^3/uL (0.0-1.1) Eosinophils # (Auto) 0.0 x10^3/uL (0.0-0.7) Basophils # (Auto) 0.0 x10^3/uL (0.0-0.2) Sodium Level 139 mmol/L (136-145) Potassium Level 3.2 mmol/L (3.5-5.1) Chloride Level 98 mmol/L (98-107) Carbon Dioxide Level 33 mmol/L (21-32) Anion Gap 8 (6-14) Blood Urea Nitrogen 19 mg/dL (8-26) Creatinine 1.1 mg/dL (0.7-1.3) Estimated GFR (Cockcroft-Gault) 64.4 Glucose Level 141 mg/dL (70-99) Calcium Level 9.1 mg/dL (8.5-10.1) Laboratory Tests Test 04/15/18 16:50 04/16/18 04:00 04/16/18 04:45 Glucose (Fingerstick) 140 mg/dL (70-99) White Blood Count 17.3 x10^3/uL (4.0-11.0) Red Blood Count 4.81 x10^6/uL (4.30-5.70) Hemoglobin 15.1 g/dL (13.0-17.5) Hematocrit 44.9 % (39.0-53.0) Mean Corpuscular Volume 93 fL (79-100) Mean Corpuscular Hemoglobin 31 pg (25-35) Mean Corpuscular Hemoglobin Concent 34 g/dL (31-37) Red Cell Distribution Width 14.2 % (11.5-14.5) Platelet Count 375 x10^3/uL (140-400) Neutrophils (%) (Auto) 83 % (31-73) Lymphocytes (%) (Auto) 8 % (24-48) Monocytes (%) (Auto) 9 % (0-9) Eosinophils (%) (Auto) 0 % (0-3) Basophils (%) (Auto) 0 % (0-3) Neutrophils # (Auto) 14.3 x10^3uL (1.8-7.7) Lymphocytes # (Auto) 1.4 x10^3/uL (1.0-4.8) Monocytes # (Auto) 1.6 x10^3/uL (0.0-1.1) Eosinophils # (Auto) 0.0 x10^3/uL (0.0-0.7) Basophils # (Auto) 0.0 x10^3/uL (0.0-0.2) Sodium Level 139 mmol/L (136-145) Potassium Level 3.2 mmol/L (3.5-5.1) Chloride Level 98 mmol/L (98-107) Carbon Dioxide Level 33 mmol/L (21-32) Anion Gap 8 (6-14) Blood Urea Nitrogen 19 mg/dL (8-26) Creatinine 1.1 mg/dL (0.7-1.3) Estimated GFR (Cockcroft-Gault) 64.4 Glucose Level 141 mg/dL (70-99) Calcium Level 9.1 mg/dL (8.5-10.1) Microbiology 04/11/18 Blood Culture - Preliminary, Resulted NO GROWTH AFTER 4 DAYS 04/11/18 Urine Culture - Final, Complete 04/11/18 Urine Culture Result 1 (KENJI) - Final, Complete Medications Current Medications Furosemide (Lasix) 40 mg 1X ONCE IVP Last administered on 04/11/18at 14:12; Start 04/11/18 at 13:45; Stop 04/11/18 at 13:46; Status DC Albuterol/ Ipratropium (Duoneb) 3 ml 1X ONCE NEB Last administered on at 14:09; Start 04/11/18 at 13:45; Stop 04/11/18 at 13:46; Status DC Magnesium Sulfate 50 ml @ 25 mls/hr 1X ONCE IV Last administered on 04/11/18at 16:03; Start 04/11/18 at 16:00; Stop 04/11/18 at 17:59; Status DC Potassium Chloride (Klor-Con) 20 meq BIDWMEALS PO Last administered on at 09:35; Start 04/11/18 at 17:00 Furosemide (Lasix) 60 mg [id number] IVP ; Start 04/11/18 at 17:00; Stop 04/11/18 at 17:11; Status DC Magnesium Sulfate 50 ml @ 25 mls/hr 1X ONCE IV Last administered on 04/12/18at 05:58; Start 04/12/18 at 06:00; Stop 04/12/18 at 07:59; Status DC Furosemide (Lasix) 60 mg Q12HR IVP Last administered on 04/12/18at 19:57; Start 04/11/18 at 21:00; Stop 04/13/18 at 09:00; Status DC Acetaminophen (Tylenol) 500 mg PRN Q6HRS PRN PO PAIN; Start 04/11/18 at 18:45; Stop 04/12/18 at 14:46; Status DC Allopurinol (Zyloprim) 300 mg DAILY PO Last administered on 04/14/18 09:35; Start 04/12/18 at 09:00 Alprazolam (Xanax) 0.25 mg PRN Q6HRS PRN PO ANXIETY / AGITATION Last administered on 04/13/18 22:05; Start 04/11/18 at 18:45 Clonidine HCl (Catapres) 0.2 mg BID PO Last administered on 04/14/18 09:38; Start 04/11/18 at 21:00; Stop 04/15/18 at 09:43; Status DC Cyanocobalamin (Vitamin B-12) 1,000 mcg DAILY PO Last administered on 09:34; Start 04/12/18 at 09:00 Diltiazem HCl (Cardizem 24hr Cd) 120 mg DAILY PO Last administered on 09:36; Start 04/12/18 at 09:00 Metoprolol Tartrate (Lopressor) 50 mg BID PO Last administered on 04/14/18 09: 35; Start 04/11/18 at 21:00 Triamcinolone Acetonide (Kenalog) 1 benjy TID TP Last administered on 04/14/18 20:54; Start 04/11/18 at 21:00 Donepezil HCl (Aricept) 5 mg HS PO Last administered on 04/13/18 22:05; Start 04/11/18 at 21:00 Losartan Potassium (Cozaar) 100 mg DAILY PO Last administered on 04/14/18 09: 35; Start 04/12/18 at 09:00; Stop 04/15/18 at 09:43; Status DC Metformin HCl (Glucophage) 500 mg BIDWMEALS PO Last administered on 04/14/18 09:35; Start 04/12/18 at 08:00; Stop 04/15/18 at 09:43; Status DC Multi-Ingred Cream/Lotion/Oil/ Oint (Hydrocerin Cream) 1 benjy BID TP Last administered on 04/14/18 20:54; Start 04/11/18 at 19:15 Naproxen (Naprosyn) 250 mg PRN BID PRN PO MILD PAIN/INFLAMMATION; Start at 19:00; Stop 04/15/18 at 09:43; Status DC Atorvastatin Calcium (Lipitor) 10 mg QHS PO Last administered on 04/13/18at 22: 07; Start 04/11/18 at 21:00 Hydrochlorothiazide (Microzide) 12.5 mg DAILY PO Last administered on at 09:34; Start 04/12/18 at 09:00; Stop 04/15/18 at 13:43; Status DC Potassium Chloride (Klor-Con) 40 meq 1X ONCE PO Last administered on at 10:48; Start 04/12/18 at 10:45; Stop 04/12/18 at 10:46; Status DC Furosemide (Lasix) 40 mg DAILY PO Last administered on 04/14/18at 09:36; Start 04/13/18 at 09:00 Magnesium Sulfate 50 ml @ 25 mls/hr 1X ONCE IV Last administered on 04/12/18at 12:10; Start 04/12/18 at 12:00; Stop 04/12/18 at 13:59; Status DC Acetaminophen (Tylenol) 650 mg PRN Q6HRS PRN PO FEVER; Start 04/12/18 at 14:45 Ondansetron HCl (Zofran) 4 mg PRN Q6HRS PRN IV NAUSEA/VOMITING Last administered on 04/14/18at 11:54; Start 04/12/18 at 14:45 Morphine Sulfate (Morphine Sulfate) 2 mg PRN Q2HR PRN IV MODERATE TO SEVERE PAIN Last administered on 04/15/18at 03:30; Start 04/12/18 at 14:45 Tramadol HCl (Ultram) 50 mg PRN Q6HRS PRN PO MODERATE PAIN Last administered on 04/13/18at 22:06; Start 04/12/18 at 14:45 Docusate Sodium (Colace) 100 mg PRN DAILY PRN PO CONSTIPATION; Start 04/12/18 at 14:45 Potassium Chloride (Klor-Con) 40 meq 1X ONCE PO Last administered on at 09:48; Start 04/13/18 at 09:30; Stop 04/13/18 at 09:31; Status DC Potassium Chloride (Klor-Con) 40 meq 1X ONCE PO Last administered on at 13:10; Start 04/13/18 at 14:00; Stop 04/13/18 at 14:01; Status DC Magnesium Sulfate 50 ml @ 25 mls/hr 1X ONCE IV Last administered on 04/13/18at 09:48; Start 04/13/18 at 09:30; Stop 04/13/18 at 11:29; Status DC Magnesium Sulfate 50 ml @ 25 mls/hr 1X ONCE IV Last administered on 04/14/18at 10:44; Start 04/14/18 at 09:00; Stop 04/14/18 at 10:59; Status DC Magnesium Oxide (Magnesium Oxide) 400 mg DAILY PO ; Start 04/14/18 at 09:00 Clopidogrel Bisulfate (Plavix) 75 mg 1X ONCE PO ; Start 04/14/18 at 13:45; Stop 04/14/18 at 13:46; Status DC Clopidogrel Bisulfate (Plavix) 75 mg [id number] PO Last administered on at 15:36; Start 04/14/18 at 15:00 Clonidine HCl (Catapres Tts-2) 1 patch WEEKLY TD Last administered on at 11:30; Start 04/15/18 at 10:00 Amino Acids/ Glycerin/ Electrolytes 1,000 ml @ 80 mls/hr [id number] IV Last administered on 04/15/18at 21:13; Start 04/15/18 at 13:45 Pantoprazole Sodium (PROTONIX VIAL for IV PUSH) 40 mg DAILYAC IVP Last administered on 04/15/18at 21:13; Start 04/15/18 at 14:00 Atropine Sulfate (Isopto Atropine) 1 drop [id number] SL ; Start 04/16/18 at 10:00 Scopolamine (Transderm-Scop) 1 patch Q3DAYS TD ; Start 04/16/18 at 10:00 Active Scripts Active Mag-Oxide (Magnesium Oxide) 400 Mg Tablet 400 Mg PO DAILY 7 Days Klor-Con M20 (Potassium Chloride) 20 Meq Tab.er.prt 20 Meq PO BIDWMEALS 30 Days Furosemide 40 Mg Tablet 40 Mg PO DAILY 30 Days Reported Aquaphor Ointment (Mineral Oil/Hydrophil Petrolat) 396 Gm Oint...g. 396 Gm TP BID Triamcinolone Acetonide 0.1% Oint (Triamcinolone Acetonide) 15 Gm Oint...g. 1 Benjy TP TID MIX WITH EUCERIN DIRECTED BY PHYSICIAN Tubersol (Tuberculin,Purif.prot.deriv.) 5 Tub Unit/0.1 Ml Vial 5 Tub ID DAILY Alprazolam 0.25 Mg Tablet 0.25 Mg PO PRN Q6HRS PRN Aricept (Donepezil Hcl) 5 Mg Tablet 5 Mg PO HS Diltiazem 24HR Cd (Diltiazem Hcl) 120 Mg Cap.er.24h 1 Cap PO DAILY Metoprolol Tartrate 50 Mg Tablet 1 Tab PO BID Artificial Tears (Dextran 70/Hypromellose) 1 Each Droperette 1 Each OP PRN Tylenol Extra Strength (Acetaminophen) 500 Mg Tablet 500 Mg PO PRN Vitamin B-12 (Cyanocobalamin (Vitamin B-12)) 1,000 Mcg Tablet 1 Tab PO DAILY Simvastatin 20 Mg Tablet 20 Mg PO HS Metformin Hcl 500 Mg Tablet 500 Mg PO BIDWMEALS Losartan-Hctz 100-12.5 Mg Tab (Losartan/Hydrochlorothiazide) 1 Each Tablet 1 Each PO DAILY Clonidine Hcl 0.2 Mg Tablet 0.2 Mg PO BID Allopurinol 300 Mg Tablet 300 Mg PO DAILY Vitals/I & O Vital Sign - Last 24 Hours 04/15/18 04/15/18 04/15/18 04/15/18 15:15 19:03 19:45 23:19 Temp 99.0 98.5 98.2 99.0 98.5 98.2 Pulse 70 64 65 Resp 18 16 16 B/P (MAP) 136/54 (81) 143/66 (91) 175/75 (108) Pulse Ox 96 91 92 O2 Delivery Room Air Room Air Room Air Room Air 04/16/18 04/16/18 04/16/18 04/16/18 03:10 07:35 07:36 10:31 Temp 98.3 97.5 97.4 98.3 97.5 97.4 Pulse 70 64 66 Resp 19 18 20 B/P (MAP) 162/71 (101) 159/78 (105) 158/85 (109) Pulse Ox 88 92 O2 Delivery Room Air Room Air Room Air Room Air Intake and Output 04/15/18 04/15/18 04/16/18 15:00 23:00 07:00 Intake Total 100 ml 0 ml Output Total 450 ml 350 ml Balance -350 ml -350 ml HUBER CASE MD Apr 16, 2018 12:14
--- NOTE | 2018-04-16 13:33 | PDOC ---
PROGRESS NOTES Assessment Assessment Acute left inferior cerebellar infarct. Slurred speech on 04/14/18. Dysphagia. Dysarthria. Metabolic encephalopathy. Accelerated HTN.. HTN. DM HLD Smoking. 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 Fall x 2 times on ice on 05/24/16. RECOMMENDATIONS/PLAN: Plavix 75 mg daily. Patient was allergic to ASA. Lipitor HS. BP control. Swallow test. Speech therapy. Treat medical diseases. Rehab. Discussed with his son and daughter at bedside on 04/15/18. Family and patient declined NG and PEG and decided palliative care. HISTORY OF THE PRESENT ILLNESS: 82-y-old male patient with medical diseases was admitted this time for medical treatment. He was noted mental status changes with slurred speech in am of 04/14/18, then his symptoms improved in some degree. MRI revealed acute infarct this time. He had a large IPH 3.9 cm x 3.3 cm in the past, so he was not a candidate for TPA. PAST MEDICAL HISTORY: Please see above. PAST SURGERY HISTORY: Right knee surgery. ALLERGY: Allergic to ASA per his son. MEDICATIONS: Refer to [facility] FAMILY HISTORY: Non contributory. SOCIAL HISTORY: Denies drinking and illicit drug use. He smoked 1-2 pack of cigarettes a day for many years. REVIEW OF SYSTEMS: Constitutional: No malnutrition, cachexia. Head: No traumatic brain or head injury. Skin: No edema, or rash. Ear: No infection, tinnitus. Eyes: No vision loss or color blindness. Nose: No bleeding or purulent discharges. Hearing: No hearing decrease. Neck: No traumatic injury. Cardiac: HTN, HLD. Pulmonary: No COPD. GI: No GI ulcer, GI bleeding. Urinary/genital: UTI. Endocrinologic: Diabetes Mellitus Skeletomuscular: No muscular atrophy, deformity Neurological: see HP. Psychiatric: Denies drug use/abuse. Otherwise, not [id number] review of systems. PHYSICAL EXAMINATION: General appearance is in acute distress. HEENT: Normocephalic and nontraumatic. Eyes, nose, ears, and throat are unremarkable. Neck is supple. No lymphadenopathy. No bruits are heard over the carotid artery. No crepitus. Cardiovascular: S1, S2, regular rate and rhythm. Pulmonary: Clear to auscultation bilaterally. Abdomen: Bowel sounds are positive. Abdomen is soft, nontender, and nondistended. Extremities: No rash, lesions, or edema. No restriction of range of motion NEUROLOGICAL EXAMINATION: Drowsiness. Not answer questions nor follow commands. Not oriented to time, place but may know his son. PERRL. EOMI. CN: no focal findings. Muscle tone: within normal. Muscle strength: 4+ left UE, 5 right side. DTR: 1-2 Plantar reflex: Neutral response bilaterally Gait: Unable to walk. Sensory exam: no obvious abnormal findings. Not able to access cerebellar signs due to not follow commands. F-T-N test not performed due to not follow commands. Objective Objective Vital Signs Date Time Temp Pulse Resp B/P (MAP) Pulse Ox O2 Delivery O2 Flow Rate FiO2 04/16/18 10:31 97.4 66 20 158/85 (109) 92 Room Air 97.4 Intake and Output 04/16/18 07:00 Intake Total 100 ml Output Total 800 ml Balance -700 ml Intake Oral 100 ml Output Urine Total 800 ml Vitals Signs Vitals VS - Last 72 Hours, by Label Date Time Temp Pulse Resp B/P (MAP) Pulse Ox O2 Delivery O2 Flow Rate FiO2 04/16/18 10:31 97.4 66 20 158/85 (109) 92 Room Air 97.4 04/16/18 07:36 97.5 64 18 159/78 (105) 88 Room Air 97.5 04/16/18 07:35 Room Air 04/16/18 03:10 98.3 70 19 162/71 (101) Room Air 98.3 04/15/18 23:19 98.2 65 16 175/75 (108) 92 Room Air 98.2 04/15/18 19:45 Room Air 04/15/18 19:03 98.5 64 16 143/66 (91) 91 Room Air 98.5 04/15/18 15:15 99.0 70 18 136/54 (81) 96 Room Air 99.0 04/15/18 10:57 99.4 72 16 142/60 (87) 94 Room Air 99.4 04/15/18 09:00 61 147/63 04/15/18 09:00 61 147/63 04/15/18 07:45 Room Air 04/15/18 07:41 97.9 61 18 147/63 (91) 95 Room Air 97.9 Laboratory Laboratory Laboratory Tests Test 04/15/18 16:50 04/16/18 04:00 04/16/18 04:45 Glucose (Fingerstick) 140 mg/dL (70-99) White Blood Count 17.3 x10^3/uL (4.0-11.0) Red Blood Count 4.81 x10^6/uL (4.30-5.70) Hemoglobin 15.1 g/dL (13.0-17.5) Hematocrit 44.9 % (39.0-53.0) Mean Corpuscular Volume 93 fL (79-100) Mean Corpuscular Hemoglobin 31 pg (25-35) Mean Corpuscular Hemoglobin Concent 34 g/dL (31-37) Red Cell Distribution Width 14.2 % (11.5-14.5) Platelet Count 375 x10^3/uL (140-400) Neutrophils (%) (Auto) 83 % (31-73) Lymphocytes (%) (Auto) 8 % (24-48) Monocytes (%) (Auto) 9 % (0-9) Eosinophils (%) (Auto) 0 % (0-3) Basophils (%) (Auto) 0 % (0-3) Neutrophils # (Auto) 14.3 x10^3uL (1.8-7.7) Lymphocytes # (Auto) 1.4 x10^3/uL (1.0-4.8) Monocytes # (Auto) 1.6 x10^3/uL (0.0-1.1) Eosinophils # (Auto) 0.0 x10^3/uL (0.0-0.7) Basophils # (Auto) 0.0 x10^3/uL (0.0-0.2) Sodium Level 139 mmol/L (136-145) Potassium Level 3.2 mmol/L (3.5-5.1) Chloride Level 98 mmol/L (98-107) Carbon Dioxide Level 33 mmol/L (21-32) Anion Gap 8 (6-14) Blood Urea Nitrogen 19 mg/dL (8-26) Creatinine 1.1 mg/dL (0.7-1.3) Estimated GFR (Cockcroft-Gault) 64.4 Glucose Level 141 mg/dL (70-99) Calcium Level 9.1 mg/dL (8.5-10.1) Microbiology 04/11/18 Blood Culture - Final, Complete NO GROWTH AFTER 5 DAYS 04/11/18 Urine Culture - Final, Complete 04/11/18 Urine Culture Result 1 (KENJI) - Final, Complete Medication Medications Current Medications Amino Acids/ Glycerin/ Electrolytes 1,000 ml @ 80 mls/hr [id number] IV Last administered on 04/15/18at 21:13; Start 04/15/18 at 13:45 Atropine Sulfate (Isopto Atropine) 1 drop [id number] SL Last administered on at 12:14; Start 04/16/18 at 10:00 Pantoprazole Sodium (PROTONIX VIAL for IV PUSH) 40 mg DAILYAC IVP Last administered on 04/15/18at 21:13; Start 04/15/18 at 14:00 Potassium Chloride 10 meq/ Sodium Chloride 105 ml @ 105 mls/hr Q1H IV ; Start 04/16/18 at 14:00; Stop 04/16/18 at 15:59 Scopolamine (Transderm-Scop) 1 patch Q3DAYS TD Last administered on 04/16/18at 12:14; Start 04/16/18 at 10:00 Comment Review of Relevant I have reviewed the following items renzo (where applicable) has been applied. JOSHUA PENN MD Apr 16, 2018 13:33
--- NOTE | 2018-04-16 13:58 | PDOC ---
PROGRESS NOTES Subjective Subjective patient denies any chest pain or shortness of breath he denies any new cardiac concerns at this time he has had increasing dysarthria and difficulty swallowing over past couple of days Objective Objective Vital Signs Date Time Temp Pulse Resp B/P (MAP) Pulse Ox O2 Delivery O2 Flow Rate FiO2 04/16/18 10:31 97.4 66 20 158/85 (109) 92 Room Air 97.4 Intake and Output 04/16/18 07:00 Intake Total 100 ml Output Total 800 ml Balance -700 ml Intake Oral 100 ml Output Urine Total 800 ml Physical Exam Heart: Regular rate, Normal S1, Normal S2, No murmurs Extremities: No clubbing, No cyanosis, No edema, Normal pulses Lungs: Clear to auscultation, Normal air movement Assessment Assessment Problems Medical Problems: (1) Dyspnea Status: Acute Plan Plan of Care continue management of hypertension discussed case with patient's family, and patient will be on comfort measures and hospice care will continue to monitor patient for any questions or concerns that may arise Comment Review of Relevant I have reviewed the following items renzo (where applicable) has been applied. Labs Laboratory Tests Test 04/14/18 16:54 04/14/18 20:40 04/15/18 07:23 04/15/18 10:05 Glucose (Fingerstick) 123 mg/dL (70-99) 114 mg/dL (70-99) 126 mg/dL (70-99) White Blood Count 22.8 x10^3/uL (4.0-11.0) Red Blood Count 5.16 x10^6/uL (4.30-5.70) Hemoglobin 16.1 g/dL (13.0-17.5) Hematocrit 48.0 % (39.0-53.0) Mean Corpuscular Volume 93 fL (79-100) Mean Corpuscular Hemoglobin 31 pg (25-35) Mean Corpuscular Hemoglobin Concent 34 g/dL (31-37) Red Cell Distribution Width 14.6 % (11.5-14.5) Platelet Count 410 x10^3/uL (140-400) Neutrophils (%) (Auto) 86 % (31-73) Lymphocytes (%) (Auto) 6 % (24-48) Monocytes (%) (Auto) 8 % (0-9) Eosinophils (%) (Auto) 0 % (0-3) Basophils (%) (Auto) 0 % (0-3) Neutrophils # (Auto) 19.6 x10^3uL (1.8-7.7) Lymphocytes # (Auto) 1.3 x10^3/uL (1.0-4.8) Monocytes # (Auto) 1.9 x10^3/uL (0.0-1.1) Eosinophils # (Auto) 0.0 x10^3/uL (0.0-0.7) Basophils # (Auto) 0.1 x10^3/uL (0.0-0.2) Segmented Neutrophils % 86 % (35-66) Band Neutrophils % 3 % (0-9) Lymphocytes % 6 % (24-48) Monocytes % 5 % (0-10) Platelet Estimate Adequate (ADEQUATE) Sodium Level 138 mmol/L (136-145) Potassium Level 3.8 mmol/L (3.5-5.1) Chloride Level 95 mmol/L (98-107) Carbon Dioxide Level 31 mmol/L (21-32) Anion Gap 12 (6-14) Blood Urea Nitrogen 16 mg/dL (8-26) Creatinine 1.1 mg/dL (0.7-1.3) Estimated GFR (Cockcroft-Gault) 64.4 Glucose Level 125 mg/dL (70-99) Calcium Level 9.9 mg/dL (8.5-10.1) Test 04/15/18 11:00 04/15/18 11:19 04/15/18 16:50 04/16/18 04:00 Gastric Fluid Occult Blood Positive (NEG) Glucose (Fingerstick) 144 mg/dL (70-99) 140 mg/dL (70-99) White Blood Count 17.3 x10^3/uL (4.0-11.0) Red Blood Count 4.81 x10^6/uL (4.30-5.70) Hemoglobin 15.1 g/dL (13.0-17.5) Hematocrit 44.9 % (39.0-53.0) Mean Corpuscular Volume 93 fL (79-100) Mean Corpuscular Hemoglobin 31 pg (25-35) Mean Corpuscular Hemoglobin Concent 34 g/dL (31-37) Red Cell Distribution Width 14.2 % (11.5-14.5) Platelet Count 375 x10^3/uL (140-400) Neutrophils (%) (Auto) 83 % (31-73) Lymphocytes (%) (Auto) 8 % (24-48) Monocytes (%) (Auto) 9 % (0-9) Eosinophils (%) (Auto) 0 % (0-3) Basophils (%) (Auto) 0 % (0-3) Neutrophils # (Auto) 14.3 x10^3uL (1.8-7.7) Lymphocytes # (Auto) 1.4 x10^3/uL (1.0-4.8) Monocytes # (Auto) 1.6 x10^3/uL (0.0-1.1) Eosinophils # (Auto) 0.0 x10^3/uL (0.0-0.7) Basophils # (Auto) 0.0 x10^3/uL (0.0-0.2) Test 04/16/18 04:45 Sodium Level 139 mmol/L (136-145) Potassium Level 3.2 mmol/L (3.5-5.1) Chloride Level 98 mmol/L (98-107) Carbon Dioxide Level 33 mmol/L (21-32) Anion Gap 8 (6-14) Blood Urea Nitrogen 19 mg/dL (8-26) Creatinine 1.1 mg/dL (0.7-1.3) Estimated GFR (Cockcroft-Gault) 64.4 Glucose Level 141 mg/dL (70-99) Calcium Level 9.1 mg/dL (8.5-10.1) Laboratory Tests Test 04/15/18 16:50 04/16/18 04:00 04/16/18 04:45 Glucose (Fingerstick) 140 mg/dL (70-99) White Blood Count 17.3 x10^3/uL (4.0-11.0) Red Blood Count 4.81 x10^6/uL (4.30-5.70) Hemoglobin 15.1 g/dL (13.0-17.5) Hematocrit 44.9 % (39.0-53.0) Mean Corpuscular Volume 93 fL (79-100) Mean Corpuscular Hemoglobin 31 pg (25-35) Mean Corpuscular Hemoglobin Concent 34 g/dL (31-37) Red Cell Distribution Width 14.2 % (11.5-14.5) Platelet Count 375 x10^3/uL (140-400) Neutrophils (%) (Auto) 83 % (31-73) Lymphocytes (%) (Auto) 8 % (24-48) Monocytes (%) (Auto) 9 % (0-9) Eosinophils (%) (Auto) 0 % (0-3) Basophils (%) (Auto) 0 % (0-3) Neutrophils # (Auto) 14.3 x10^3uL (1.8-7.7) Lymphocytes # (Auto) 1.4 x10^3/uL (1.0-4.8) Monocytes # (Auto) 1.6 x10^3/uL (0.0-1.1) Eosinophils # (Auto) 0.0 x10^3/uL (0.0-0.7) Basophils # (Auto) 0.0 x10^3/uL (0.0-0.2) Sodium Level 139 mmol/L (136-145) Potassium Level 3.2 mmol/L (3.5-5.1) Chloride Level 98 mmol/L (98-107) Carbon Dioxide Level 33 mmol/L (21-32) Anion Gap 8 (6-14) Blood Urea Nitrogen 19 mg/dL (8-26) Creatinine 1.1 mg/dL (0.7-1.3) Estimated GFR (Cockcroft-Gault) 64.4 Glucose Level 141 mg/dL (70-99) Calcium Level 9.1 mg/dL (8.5-10.1) Microbiology 04/11/18 Blood Culture - Final, Complete NO GROWTH AFTER 5 DAYS 04/11/18 Urine Culture - Final, Complete 04/11/18 Urine Culture Result 1 (KENJI) - Final, Complete Medications Current Medications Furosemide (Lasix) 40 mg 1X ONCE IVP Last administered on 04/11/18at 14:12; Start 04/11/18 at 13:45; Stop 04/11/18 at 13:46; Status DC Albuterol/ Ipratropium (Duoneb) 3 ml 1X ONCE NEB Last administered on at 14:09; Start 04/11/18 at 13:45; Stop 04/11/18 at 13:46; Status DC Magnesium Sulfate 50 ml @ 25 mls/hr 1X ONCE IV Last administered on 04/11/18 16:03; Start 04/11/18 at 16:00; Stop 04/11/18 at 17:59; Status DC Potassium Chloride (Klor-Con) 20 meq BIDWMEALS PO Last administered on at 09:35; Start 04/11/18 at 17:00 Furosemide (Lasix) 60 mg BID94 IVP ; Start 04/11/18 at 17:00; Stop 04/11/18 at 17:11; Status DC Magnesium Sulfate 50 ml @ 25 mls/hr 1X ONCE IV Last administered on 04/12/18 05:58; Start 04/12/18 at 06:00; Stop 04/12/18 at 07:59; Status DC Furosemide (Lasix) 60 mg Q12HR IVP Last administered on 04/12/18at 19:57; Start 04/11/18 at 21:00; Stop 04/13/18 at 09:00; Status DC Acetaminophen (Tylenol) 500 mg PRN Q6HRS PRN PO PAIN; Start 04/11/18 at 18:45; Stop 04/12/18 at 14:46; Status DC Allopurinol (Zyloprim) 300 mg DAILY PO Last administered on 04/14/18 09:35; Start 04/12/18 at 09:00 Alprazolam (Xanax) 0.25 mg PRN Q6HRS PRN PO ANXIETY / AGITATION Last administered on 04/13/18at 22:05; Start 04/11/18 at 18:45 Clonidine HCl (Catapres) 0.2 mg BID PO Last administered on 04/14/18at 09:38; Start 04/11/18 at 21:00; Stop 04/15/18 at 09:43; Status DC Cyanocobalamin (Vitamin B-12) 1,000 mcg DAILY PO Last administered on 09:34; Start 04/12/18 at 09:00 Diltiazem HCl (Cardizem 24hr Cd) 120 mg DAILY PO Last administered on 09:36; Start 04/12/18 at 09:00 Metoprolol Tartrate (Lopressor) 50 mg BID PO Last administered on 04/14/18 09: 35; Start 04/11/18 at 21:00 Triamcinolone Acetonide (Kenalog) 1 benjy TID TP Last administered on 04/14/18at 20:54; Start 04/11/18 at 21:00 Donepezil HCl (Aricept) 5 mg HS PO Last administered on 04/13/18at 22:05; Start 04/11/18 at 21:00 Losartan Potassium (Cozaar) 100 mg DAILY PO Last administered on 04/14/18 09: 35; Start 04/12/18 at 09:00; Stop 04/15/18 at 09:43; Status DC Metformin HCl (Glucophage) 500 mg BIDWMEALS PO Last administered on 04/14/18 09:35; Start 04/12/18 at 08:00; Stop 04/15/18 at 09:43; Status DC Multi-Ingred Cream/Lotion/Oil/ Oint (Hydrocerin Cream) 1 benjy BID TP Last administered on 04/14/18at 20:54; Start 04/11/18 at 19:15 Naproxen (Naprosyn) 250 mg PRN BID PRN PO MILD PAIN/INFLAMMATION; Start at 19:00; Stop 04/15/18 at 09:43; Status DC Atorvastatin Calcium (Lipitor) 10 mg QHS PO Last administered on 04/13/18at 22: 07; Start 04/11/18 at 21:00 Hydrochlorothiazide (Microzide) 12.5 mg DAILY PO Last administered on at 09:34; Start 04/12/18 at 09:00; Stop 04/15/18 at 13:43; Status DC Potassium Chloride (Klor-Con) 40 meq 1X ONCE PO Last administered on at 10:48; Start 04/12/18 at 10:45; Stop 04/12/18 at 10:46; Status DC Furosemide (Lasix) 40 mg DAILY PO Last administered on 04/14/18at 09:36; Start 04/13/18 at 09:00 Magnesium Sulfate 50 ml @ 25 mls/hr 1X ONCE IV Last administered on 04/12/18at 12:10; Start 04/12/18 at 12:00; Stop 04/12/18 at 13:59; Status DC Acetaminophen (Tylenol) 650 mg PRN Q6HRS PRN PO FEVER; Start 04/12/18 at 14:45 Ondansetron HCl (Zofran) 4 mg PRN Q6HRS PRN IV NAUSEA/VOMITING Last administered on 04/14/18at 11:54; Start 04/12/18 at 14:45 Morphine Sulfate (Morphine Sulfate) 2 mg PRN Q2HR PRN IV MODERATE TO SEVERE PAIN Last administered on 04/15/18at 03:30; Start 04/12/18 at 14:45 Tramadol HCl (Ultram) 50 mg PRN Q6HRS PRN PO MODERATE PAIN Last administered on 04/13/18at 22:06; Start 04/12/18 at 14:45 Docusate Sodium (Colace) 100 mg PRN DAILY PRN PO CONSTIPATION; Start 04/12/18 at 14:45 Potassium Chloride (Klor-Con) 40 meq 1X ONCE PO Last administered on at 09:48; Start 04/13/18 at 09:30; Stop 04/13/18 at 09:31; Status DC Potassium Chloride (Klor-Con) 40 meq 1X ONCE PO Last administered on at 13:10; Start 04/13/18 at 14:00; Stop 04/13/18 at 14:01; Status DC Magnesium Sulfate 50 ml @ 25 mls/hr 1X ONCE IV Last administered on 04/13/18at 09:48; Start 04/13/18 at 09:30; Stop 04/13/18 at 11:29; Status DC Magnesium Sulfate 50 ml @ 25 mls/hr 1X ONCE IV Last administered on 04/14/18at 10:44; Start 04/14/18 at 09:00; Stop 04/14/18 at 10:59; Status DC Magnesium Oxide (Magnesium Oxide) 400 mg DAILY PO ; Start 04/14/18 at 09:00 Clopidogrel Bisulfate (Plavix) 75 mg 1X ONCE PO ; Start 04/14/18 at 13:45; Stop 04/14/18 at 13:46; Status DC Clopidogrel Bisulfate (Plavix) 75 mg DAILYWBKFT PO Last administered on at 15:36; Start 04/14/18 at 15:00 Clonidine HCl (Catapres Tts-2) 1 patch WEEKLY TD Last administered on at 11:30; Start 11/8/18 at 10:00 Amino Acids/ Glycerin/ Electrolytes 1,000 ml @ 80 mls/hr [id number] IV Last administered on 04/15/18at 21:13; Start 04/15/18 at 13:45 Pantoprazole Sodium (PROTONIX VIAL for IV PUSH) 40 mg DAILYAC IVP Last administered on 04/15/18at 21:13; Start 04/15/18 at 14:00 Atropine Sulfate (Isopto Atropine) 1 drop [id number] SL Last administered on at 12:14; Start 04/16/18 at 10:00 Scopolamine (Transderm-Scop) 1 patch Q3DAYS TD Last administered on 04/16/18at 12:14; Start 04/16/18 at 10:00 Potassium Chloride 10 meq/ Sodium Chloride 105 ml @ 105 mls/hr Q1H IV ; Start 04/16/18 at 14:00; Stop 04/16/18 at 15:59 Active Scripts Active Mag-Oxide (Magnesium Oxide) 400 Mg Tablet 400 Mg PO DAILY 7 Days Klor-Con M20 (Potassium Chloride) 20 Meq Tab.er.prt 20 Meq PO BIDWMEALS 30 Days Furosemide 40 Mg Tablet 40 Mg PO DAILY 30 Days Reported Aquaphor Ointment (Mineral Oil/Hydrophil Petrolat) 396 Gm Oint...g. 396 Gm TP BID Triamcinolone Acetonide 0.1% Oint (Triamcinolone Acetonide) 15 Gm Oint...g. 1 Benjy TP TID MIX WITH EUCERIN DIRECTED BY PHYSICIAN Tubersol (Tuberculin,Purif.prot.deriv.) 5 Tub Unit/0.1 Ml Vial 5 Tub ID DAILY Alprazolam 0.25 Mg Tablet 0.25 Mg PO PRN Q6HRS PRN Aricept (Donepezil Hcl) 5 Mg Tablet 5 Mg PO HS Diltiazem 24HR Cd (Diltiazem Hcl) 120 Mg Cap.er.24h 1 Cap PO DAILY Metoprolol Tartrate 50 Mg Tablet 1 Tab PO BID Artificial Tears (Dextran 70/Hypromellose) 1 Each Droperette 1 Each OP PRN Tylenol Extra Strength (Acetaminophen) 500 Mg Tablet 500 Mg PO PRN Vitamin B-12 (Cyanocobalamin (Vitamin B-12)) 1,000 Mcg Tablet 1 Tab PO DAILY Simvastatin 20 Mg Tablet 20 Mg PO HS Metformin Hcl 500 Mg Tablet 500 Mg PO BIDWMEALS Losartan-Hctz 100-12.5 Mg Tab (Losartan/Hydrochlorothiazide) 1 Each Tablet 1 Each PO DAILY Clonidine Hcl 0.2 Mg Tablet 0.2 Mg PO BID Allopurinol 300 Mg Tablet 300 Mg PO DAILY Vitals/I & O Vital Sign - Last 24 Hours 04/15/18 04/15/18 04/15/18 04/15/18 15:15 19:03 19:45 23:19 Temp 99.0 98.5 98.2 99.0 98.5 98.2 Pulse 70 64 65 Resp 18 16 16 B/P (MAP) 136/54 (81) 143/66 (91) 175/75 (108) Pulse Ox 96 91 92 O2 Delivery Room Air Room Air Room Air Room Air 04/16/18 04/16/18 04/16/18 04/16/18 03:10 07:35 07:36 10:31 Temp 98.3 97.5 97.4 98.3 97.5 97.4 Pulse 70 64 66 Resp 19 18 20 B/P (MAP) 162/71 (101) 159/78 (105) 158/85 (109) Pulse Ox 88 92 O2 Delivery Room Air Room Air Room Air Room Air Intake and Output 04/15/18 04/15/18 04/16/18 15:00 23:00 07:00 Intake Total 100 ml 0 ml Output Total 450 ml 350 ml Balance -350 ml -350 ml CARMEN QUIROGA MD Apr 16, 2018 13:58
[2018-04-16] MEDS: POTASSIUM CHLORIDE 10 MEQ in IV NORMAL SALINE 100ML 100 ML IV SCH ×2 (14:00→15:00)
[2018-04-16 15:00] VITALS: BP 193/80
--- NOTE | 2018-04-16 15:25 | PDOC3 ---
Discharge Summary [facility] Date of Admission: Apr 11, 2018 Discharge Date: Apr 16, 2018 Admitting Diagnosis ACUTE DIASTOLIC CHF H/o HTN H/o Diabetes H/o hyperlipidemia HEMATURIA mild malnutrition hypokalemia hypomagnesemia acute left cerebellum stroke 04/14 dysphagia with stroke Final Diagnosis CONSULTS neuro card Brief Hospital Course Mr. Pérez is a 82 old M, was sent from [facility] for sob. recent echo showed EF 55%, pt looks calm to me when i saw pt on 2nd day, no sob , no leg edema. was on lasix 60mg iv bid, then switched to 40mg daily. pt got new stroke at left cerebellum, then not talking interactive much, lots of secretions, not moving left side much, dysphagia. recommend hospice, family agrees. dc time 35min. Physical Exam not moving left hand much, not talk much with me today General: Alert, No acute distress Heart: Regular rate, Normal S1, Normal S2, No murmurs Lungs: bl some rhonchis. Extremities: No clubbing, No cyanosis, No edema, Normal pulses,. not moving left side much. Patient History: FH: CABG (coronary artery bypass surgery) G8 DAUGHTER FH: diabetes mellitus G8 SON FH: heart attack G8 DAUGHTER Disposition inpt hospice CONDITION AT DISCHARGE: Improved Scheduled Allopurinol (Allopurinol), 300 MG PO DAILY, (Reported) Clonidine Hcl (Clonidine Hcl), 0.2 MG PO BID, (Reported) Cyanocobalamin (Vitamin B-12) (Vitamin B-12), 1 TAB PO DAILY, (Reported) Diltiazem Hcl (Diltiazem 24HR Cd), 1 CAP PO DAILY, (Reported) Donepezil Hcl (Aricept), 5 MG PO HS, (Reported) Furosemide (Furosemide), 40 MG PO DAILY Losartan/Hydrochlorothiazide (Losartan-Hctz 100-12.5 Mg Tab), 1 EACH PO DAILY, ( Reported) Magnesium Oxide (Mag-Oxide), 400 MG PO DAILY Metformin Hcl (Metformin Hcl), 500 MG PO BIDWMEALS, (Reported) Metoprolol Tartrate (Metoprolol Tartrate), 1 TAB PO BID, (Reported) Mineral Oil/Hydrophil Petrolat (Aquaphor Ointment), 396 GM TP BID, (Reported) Potassium Chloride (Klor-Con M20), 20 MEQ PO BIDWMEALS Simvastatin (Simvastatin), 20 MG PO HS, (Reported) Triamcinolone Acetonide (Triamcinolone Acetonide 0.1% Oint), 1 RIKKI TP TID, ( Reported) Tuberculin,Purif.prot.deriv. (Tubersol), 5 TUB ID DAILY, (Reported) Scheduled PRN Acetaminophen (Tylenol Extra Strength), 500 MG PO for PAIN, (Reported) Alprazolam (Alprazolam), 0.25 MG PO PRN Q6HRS PRN for ANXIETY / AGITATION, ( Reported) Dextran 70/Hypromellose (Artificial Tears), 1 EACH OP for DRY EYE, (Reported) Discontinued Medications Clonidine Hcl (Clonidine Hcl), 1 TAB PO BID, (Reported) Dextran 70/Hypromellose (Artificial Tears), 1 EACH OP PRN PRN for DRY EYE, ( Reported) Metformin Hcl (Metformin Hcl), 1 TAB PO BID, (Reported) Naproxen Sodium (Aleve), 220 MG PO BID PRN for PAIN, (Reported) Simvastatin (Simvastatin), 1 TAB PO QHS, (Reported) [allopurinol], DAILY, (Reported) [b12], (Reported) HUBER CASE MD Apr 16, 2018 15:24
[2018-04-16] MEDS ORDERED: LORazepam INTENSOL 2 MG/ML ORAL.CONC SL PRN (15:30)
[2018-04-16] MEDS ORDERED: MORPHINE SULFATE 20 MG/ML CONC SOLUTION. SL PRN (15:30)
[2018-04-16] MEDS ORDERED: LORA2ORA7 SL (15:33)
[2018-04-16] MEDS ORDERED: MORP100S3 SL (15:33)
[2018-04-16] MEDS ORDERED: SCOP1PAT11 TD (15:33)
--- NOTE | 2018-04-16 15:34 | DISCH ---
DISCHARGE DISCHARGE INFORMATION: DISCHARGE DATE: Apr 16, 2018 FINAL DIAGNOSIS Problems Medical Problems: (1) Dyspnea Status: Acute CONDITION ON DISCHARGE: Guarded CODE STATUS: Code Status: DNR/DNI LONG TERM: SNF STAY <30 DAYS: Yes HOSPICE: HOSPICE: Yes POST DISCHARGE ORDERS: ACTIVITY ORDERS: Resume previous activity, Other ROM activity DIET AFTER DISCHARGE: NPO WOUND/INCISION CARE: No wound care needed TREATMENT/EQUIPMENT ORDERS: ADAPTIVE EQUIPMENT NEEDED: None Physical Therapy For: Safety Occupational Therapy For: ADL's Speech Language Pathology For: Evaluation/Treatment DISCHARGE MEDICATIONS: Home Meds Active Scripts Scopolamine (TRANSDERM-SCOP) 1 Each Patch.td72, 1 PATCH TD Q3DAYS for secretion , #10 PATCH Prov:HUBER CASE MD 04/16/18 Lorazepam (LORAZEPAM INTENSOL) 2 Mg/1 Ml Oral.conc, 2 MG SL PRN Q6HRS PRN for ANXIETY / AGITATION, #10 MISC Prov:HUBER CASE MD 04/16/18 Morphine Sulfate (MORPHINE SULFATE) 100 Mg/5 Ml Solution, 20 MG SL PRN Q3HRS PRN for PAIN, #10 MISC Prov:HUBER CASE MD 04/16/18 Discontinued Reported Medications [b12] No Conflict Check 05/25/16 Clonidine Hcl (CLONIDINE HCL) 0.2 Mg Tablet, 1 TAB PO BID, #60 TAB 5 Refills 05/25/16 [allopurinol] No Conflict Check, DAILY 05/25/16 Naproxen Sodium (ALEVE) 220 Mg Capsule, 220 MG PO BID PRN for PAIN, CAP 08/03/14 Dextran 70/Hypromellose (ARTIFICIAL TEARS) 1 Each Droperette, 1 EACH OP PRN PRN for DRY EYE 05/25/16 Simvastatin (SIMVASTATIN) 20 Mg Tablet, 1 TAB PO QHS, #30 TAB 5 Refills 05/25/16 Metformin Hcl (METFORMIN HCL) 500 Mg Tablet, 1 TAB PO BID, #60 TAB 3 Refills 05/25/16 HUBER CASE MD Apr 16, 2018 15:34
== END 2018-04-16 19:28 | disposition hospice, inpatient (51) | DRG 64 ==
LOC: ER 12:05 → 2 NORTH 13:21
PROVIDERS: ADMIT Family Medicine; ATTEND Family Medicine
DX: I63.9 Cerebral infarction, unspecified (principal); I50.43 Acute on chronic combined systolic (congestive) and diastolic (congestive) heart failure; G93.41 Metabolic encephalopathy; E44.1 Mild protein-calorie malnutrition; E87.6 Hypokalemia; E11.9 Type 2 diabetes mellitus without complications; E78.00 Pure hypercholesterolemia, unspecified; E78.5 Hyperlipidemia, unspecified; E83.42 Hypomagnesemia; F03.90 Unspecified dementia, unspecified severity, without behavioral disturbance, psychotic disturbance, mood disturbance, and anxiety; H91.90 Unspecified hearing loss, unspecified ear; I11.0 Hypertensive heart disease with heart failure; M19.90 Unspecified osteoarthritis, unspecified site; R13.10 Dysphagia, unspecified; Z79.02 Long term (current) use of antithrombotics/antiplatelets; Z82.49 Family history of ischemic heart disease and other diseases of the circulatory system; Z88.6 Allergy status to analgesic agent; Z95.1 Presence of aortocoronary bypass graft; Z87.891 Personal history of nicotine dependence; Z68.23 Body mass index [BMI] 23.0-23.9, adult; Z88.8 Allergy status to other drugs, medicaments and biological substances
CPT/HCPCS: 31720; 36415; 70450; 70551; 71045; 80048; 80053; 80061; 81001; 82271; 82550; 82553; 82962; 83605; 83690; 83735; 83880; 84443; 84484; 85007; 85025; 85610; 87040; 87086; 93005; 93880; 94640; 96374; C9113; J1940; J2270; J2405; J3475; J7620; 97530; 97535; 99285-25